=== PATIENT | male | born 1945 | race African-American/Black ===

== ENCOUNTER → 2017-05-07 | Outpatient (CLI) | payer BC ==
--- NOTE | 2017-05-07 15:25 | KCIC ---
EXAM: Lumbar spine MRI without contrast. HISTORY: Lower back pain and right lower extremity radiculopathy. TECHNIQUE: Multiplanar, multisequence magnetic resonance imaging of the lumbar spine was performed without contrast. COMPARISON: None. FINDINGS: There is mild S-shaped lumbar scoliosis. There is minimal retrolisthesis of L1 on L2 and L5 and S1. There is grade 1 anterolisthesis of L4 on L5. There is degenerative endplate remodeling with disc space narrowing, disc desiccation and Schmorl's node formation at the majority of the lower thoracic and lumbar levels. There is mild diffusely decreased T1 marrow signal intensity, not within limits to suggest a marrow infiltrative process. There is edema within the anterior inferior aspect of L1 and within the right lateral endplates at L5-S1, degenerative in etiology. No suspicious osseous lesion is seen. There are large right renal cysts, the largest of which measures 5.6 cm on the [id number]. At T12-L1, there is a posterior central to left paracentral disc protrusion with minimal inferior extrusion superimposed on a disc bulge and endplate remodeling. There is mild bilateral foraminal stenosis. At L1-L2, there is a right foraminal to extraforaminal disc protrusion superimposed on a disc bulge and endplate remodeling. There is mild right greater than left foraminal stenosis. At L2-L3, there is a broad-based posterior central to left foraminal disc protrusion with 4 mm superior extrusion superimposed on a disc bulge and endplate remodeling. There is moderate facet arthropathy. There is hypertrophy of the ligamentum flavum. There is mild to moderate right and moderate left foraminal stenosis. There is moderate central canal stenosis. At L3-L4, is a broad-based posterior central disc protrusion with 3 mm inferior extrusion superimposed on a disc bulge and endplate remodeling. There is moderate to severe facet arthropathy. There is mild bilateral foraminal stenosis. There is mild to moderate central canal stenosis. At L4-L5, there is a broad-based posterior central to left paracentral disc protrusion superimposed on a disc bulge and endplate remodeling. There is severe right and mild to moderate left facet arthropathy. There is grade 1 anterolisthesis. There is moderate right and mild left foraminal stenosis. There is mild central canal stenosis and effacement of the right lateral recess. At L5-S1, there is a left paracentral disc protrusion with 5 mm superior extrusion superimposed on a disc bulge and right lateral predominant endplate osteophytosis. There is moderate right and severe left facet arthropathy. There is severe right and mild left foraminal stenosis. IMPRESSION: 1. Multilevel advanced degenerative changes throughout the lumbar spine, described in detail above. This results in significant stenosis before mentioned levels. 2. Grade 1 anterolisthesis of L4 on L5 and mild scoliosis. Electronically signed by: Melissa Gaspar MD (05/07/2017 3:22 PM) [facility]
== END | disposition home or self-care (01) ==
LOC: KCIC MRI 14:15
PROVIDERS: ATTEND Internal Medicine
DX: M47.896 Other spondylosis, lumbar region (principal); M54.16 Radiculopathy, lumbar region; M41.86 Other forms of scoliosis, lumbar region
CPT/HCPCS: 72148

== ENCOUNTER 2020-10-27 05:59 | Inpatient (IN) | payer BC, MEDICARE ==
[2020-10-27] VITALS (23 sets, daily range): BP systolic 73–223; BP diastolic 44–79
[~2020-10-27] VITALS: Ht 177.8 cm; Wt 77.3 kg
[2020-10-27] MEDS ORDERED: LIDOCAINE 1% Multi-Dose 20 ML VIAL. ONE (06:30)
[2020-10-27] MEDS ORDERED: IV NORMAL SALINE 1000ML BAG 1,000 ML IV ONE ×4 (06:30→11:00)
[2020-10-27] MEDS ORDERED: ACETAMINOPHEN 650 MG SUPP.RECT. PR ONE (06:30)
[2020-10-27 06:32] LABS: CALCIUM 9.1 mg/dL (8.5-10.1); CREATININE 2.8 mg/dL (0.7-1.3); POTASSIUM 3.6 mmol/L (3.5-5.1)
[2020-10-27 06:37] LABS: ALBUMIN 3.3 g/dL (3.4-5.0); ALBUMIN/GLOBULIN RATIO 1.1 (1.0-1.7); TOTAL PROTEIN 6.3 g/dL (6.4-8.2)
[2020-10-27 06:45] LABS: MAGNESIUM 2.3 mg/dL (1.8-2.4)
[2020-10-27 06:51] LABS: BASE EXCESS ABG -6 mmol/L (-3-3); CORRECTED PCO2 ABG 20 mmHg; CORRECTED PH ABG 7.49; CORRECTED PO2 ABG 459 mmHg; HCO3 ABG 15 mmol/L (21-28); SAT O2 ABG 100 % (92-99)
[2020-10-27 06:53] LABS: PCO2 ABG 19 mmHg (35-46); PO2 ABG 450 mmHg (65-108)
[2020-10-27 06:56] LABS: BASO % 1 % (0-3); EOS # 0.1 x10^3/uL (0.0-0.7); EOS % 2 % (0-3); HEMATOCRIT 39.9 % (39.0-53.0); HEMOGLOBIN 13.7 g/dL (13.0-17.5); LYMPH % 33 % (24-48); MEAN CORPUSCULAR HEMOGLOBIN 37 pg (25-35); MEAN CORPUSCULAR HGB CONC 35 g/dL (31-37); MEAN CORPUSCULAR VOLUME 108 fL (79-100); MONO % 1 % (0-9); NEUT # 1.8 x10^3/uL (1.8-7.7); NEUT % 63 % (31-73); PLATELET COUNT 234 x10^3/uL (140-400); RED CELL DISTRIBUTION WIDTH 12.5 % (11.5-14.5); WHITE BLOOD COUNT 2.9 x10^3/uL (4.0-11.0)
[2020-10-27] MEDS ORDERED: PIPERACILLIN/TAZOBACTAM 3.375 GM in IV NORMAL SALINE 50ML 50 ML IV ONE (07:00)
[2020-10-27 07:03] LABS: BILIRUBIN,URINE SMALL (NEG); CLARITY,URINE CLOUDY; COLOR,URINE AMBER; NITRITE,URINE NEGATIVE (NEG); PH,URINE 5.5 (<5.0-8.0); PROTEIN,URINE 100 mg/dL (NEG-TRACE); UROBILINOGEN,URINE 0.2 mg/dL (0.2 mg/dL)
--- NOTE | 2020-10-27 07:03 | RAD ---
EXAM: AP View of the chest DATE: 10/27/2020 6:09 AM INDICATION: Reason: soa / Spl. Instructions: / History: COMPARISON: No Prior FINDINGS: The heart is not enlarged. Mediastinal and hilar contours are normal. No focal parenchymal airspace opacity. Calcified granuloma peripheral left lower lung. No pleural effusion or pneumothorax. IMPRESSION: 1. No radiographic evidence for acute cardiopulmonary process. Electronically signed by: Levi Wilson MD (10/27/2020 7:01 AM) [facility]
--- NOTE | 2020-10-27 07:27 | RAD ---
XR CHEST 1V, XR KNEE 3 VIEWS_RT Clinical History: Central venous line placement and fall with injury to right knee One view chest: Technique: AP view of the chest was obtained at 10/27/2020 6:59 AM. Comparison: None. Findings: The cardiomediastinal silhouette is normal. The pulmonary vasculature is normal. The lungs and pleura l margins are clear. The right jugular line has its tip directed downward in the mid to lower SVC. Impression: Right jugular line well-positioned. No pneumothorax. 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 The tibial component has a long intramedullary stem. The femo ral and tibial components are aligned and well seated. There is no interruption of cortex to suggest a fracture. IMPRESSION: Prior right knee total arthroplasty. No acute findings. Electronically signed by: Adria West III, MD (10/27/2020 7:24 AM) [facility]
[2020-10-27 07:34] LABS: INFLUENZA A PATIENT NEGATIVE (NEGATIVE); INFLUENZA B PATIENT NEGATIVE (NEGATIVE)
[2020-10-27 07:36] LABS: BACTERIA,URINE MANY /HPF (0-FEW); WBC,URINE TNTC /HPF (0-4)
--- NOTE | 2020-10-27 07:42 | PHYS DOC ---
General Adult EDM: Chief Complaint: ALTERED MENTAL STATUS HPI: HPI: Patient is a 75 year old who was brought here by EMS from home due to altered mental status. Per EMS patient called because she could not get him up from the floor. He has been laying on the floor since last night at 7 PM. She told EMS that patient was seen at the [place] 2 days ago for some medical problem. EMS said patient's could not provide much information about him. Not much information about patient was obtained. EMS said his blood pressure was low in the 70s systolic and his heart rate was 140 on scene. He appeared to have a fever. EMS stated patient was responsive to painful stimuli. Upon arrival to ER room, patient was responsive to painful stimuli and verbal stimulus BUT APPEARED LETHARGIC, HYPOTENSIVE, HYPOXIC AND TACHYCARDIA, WARM TO TOUCH, ON A NONE-REBREATHER. Review of Systems: Review of Systems: Not able to provide due to condition Heart Score: Risk Factors: Risk Factors: DM, Current or recent (<one month) smoker, HTN, HLP, family history of CAD, obesity. Risk Scores: Score 0 - 3: 2.5% MACE over next 6 weeks - Discharge Home Score 4 - 6: 20.3% MACE over next 6 weeks - Admit for Clinical Observation Score 7 - 10: 72.7% MACE over next 6 weeks - Early Invasive Strategies Current Medications: Current Medications Medications (Trade) Dose Ordered Sig/Ambrosio Start Time Stop Time Status Last Admin Dose Admin Acetaminophen (Tylenol Supp) 975 mg 1X ONCE 10/27/20 06:30 10/27/20 06:31 DC Lidocaine HCl (Lidocaine 1% 20ml Vial) 20 ml STK-MED ONCE 10/27/20 06:30 10/27/20 06:30 DC Piperacillin Sod/ Tazobactam Sod 3.375 gm/Sodium Chloride 50 ml @ 100 mls/hr 1X ONCE 10/27/20 07:00 10/27/20 07:29 DC Sodium Chloride 1,000 ml @ 1,000 mls/hr 1X ONCE 10/27/20 07:15 10/27/20 08:14 Allergies: Allergies: Allergies Coded Allergies Type Severity Reaction Last Updated Verified Unable to Assess 10/27/20 No Physical Exam: PE: Constitutional: Well developed, CACHECTIC, MODERATE acute distress, toxic a ppearance. [] HENT: Normocephalic, atraumatic, bilateral external ears normal, oropharynx DRIED, no oral exudates, nose normal. [] Eyes: PERRLA, EOMI, conjunctiva normal, no discharge. [] Neck: Normal range of motion, no tenderness, supple, no stridor. [] Cardiovascular: SINUS TACHYCARDIA, regular rhythm, no murmur [] Lungs & Thorax: Bilateral breath sounds clear to auscultation [] Abdomen: Bowel sounds normal, soft, no tenderness, no masses, no pulsatile masses. [] Skin: HOT TO TOUCH, dry, no erythema, no rash. [] Back: No tenderness, no CVA tenderness. [] Extremities: right anterior knee with superficial skin contusion, no cyanosis, no clubbing, ROM intact, no edema. [] Neurologic: Patient was lethargic but able to follow command, very confused, normal motor function, normal sensory function, no focal deficits noted. [] Psychologic:unable to evaluate due to condition. Current Patient Data: Labs: Laboratory Tests Test 10/27/20 06:08 10/27/20 06:15 10/27/20 06:30 10/27/20 06:55 O2 Saturation 100 % (92-99) H Arterial Blood pH 7.51 (7.35-7.45) H Arterial Blood pH (Temp corrected) 7.49 Arterial Blood pCO2 at Patient Temp 19 mmHg (35-46) *L Arterial Blood pCO2 (Temp correct) 20 mmHg Arterial Blood pO2 at Patient Temp 450 mmHg (65-108) H Arterial Blood pO2 (Temp corrected) 459 mmHg Arterial Blood HCO3 15 mmol/L (21-28) L Arterial Blood Base Excess -6 mmol/L (-3-3) L Sodium Level 150 mmol/L (136-145) H Potassium Level 3.6 mmol/L (3.5-5.1) Chloride Level 113 mmol/L (98-107) H Carbon Dioxide Level 19 mmol/L (21-32) L Anion Gap 18 (6-14) H Blood Urea Nitrogen 76 mg/dL (8-26) H Creatinine 2.8 mg/dL (0.7-1.3) H Estimated GFR (Cockcroft-Gault) 27.0 BUN/Creatinine Ratio 27 (6-20) H Glucose Level 92 mg/dL (70-99) Calcium Level 9.1 mg/dL (8.5-10.1) Magnesium Level 2.3 mg/dL (1.8-2.4) Total Bilirubin 2.0 mg/dL (0.2-1.0) H Aspartate Amino Transferase (AST) 201 U/L (15-37) H Alanine Aminotransferase (ALT) 92 U/L (16-63) H Alkaline Phosphatase 101 U/L (46-116) Creatine Kinase 6272 U/L (39-308) H Troponin I Quantitative 0.330 ng/mL (0.000-0.055) Total Protein 6.3 g/dL (6.4-8.2) L Albumin 3.3 g/dL (3.4-5.0) L Albumin/Globulin Ratio 1.1 (1.0-1.7) Lipase 38 U/L (73-393) L White Blood Count 2.9 x10^3/uL (4.0-11.0) L Red Blood Count 3.70 x10^6/uL (4.30-5.70) L Hemoglobin 13.7 g/dL (13.0-17.5) Hematocrit 39.9 % (39.0-53.0) Mean Corpuscular Volume 108 fL (79-100) H Mean Corpuscular Hemoglobin 37 pg (25-35) H Mean Corpuscular Hemoglobin Concent 35 g/dL (31-37) Red Cell Distribution Width 12.5 % (11.5-14.5) Platelet Count 234 x10^3/uL (140-400) Neutrophils (%) (Auto) 63 % (31-73) Lymphocytes (%) (Auto) 33 % (24-48) Monocytes (%) (Auto) 1 % (0-9) Eosinophils (%) (Auto) 2 % (0-3) Basophils (%) (Auto) 1 % (0-3) Neutrophils # (Auto) 1.8 x10^3/uL (1.8-7.7) Lymphocytes # (Auto) 1.0 x10^3/uL (1.0-4.8) Monocytes # (Auto) 0.0 x10^3/uL (0.0-1.1) Eosinophils # (Auto) 0.1 x10^3/uL (0.0-0.7) Basophils # (Auto) 0.0 x10^3/uL (0.0-0.2) Platelet Estimate Pending Lactic Acid Level 5.9 mmol/L (0.4-2.0) *H Ammonia 18 mcmol/L (11-34) Urine Collection Type Unknown Urine Color Kristin Urine Clarity Cloudy Urine pH 5.5 (<5.0-8.0) Urine Specific [place] 1.015 (1.000-1.030) Urine Protein 100 mg/dL (NEG-TRACE) Urine Glucose (UA) Negative mg/dL (NEG) Urine Ketones (Stick) Trace mg/dL (NEG) Urine Blood Large (NEG) Urine Nitrite Negative (NEG) Urine Bilirubin Small (NEG) Urine Urobilinogen Dipstick 0.2 mg/dL (0.2 mg/dL) Urine Leukocyte Esterase Large (NEG) Urine RBC 6-10 /HPF (0-2) Urine WBC Tntc /HPF (0-4) Urine Bacteria Many /HPF (0-FEW) Test 10/27/20 07:05 Influenza Type A Antigen Negative (NEGATIVE) Influenza Type B Antigen Negative (NEGATIVE) Laboratory Tests 10/27/20 06:30 Laboratory Tests 10/27/20 06:15 EKG: EKG: First EKG WAS DONE AT 603, heart rate of 149 beats per minute, sinus tachycardia, diffuse ST depression in V4 ,V5, V6, II, III, 3 and aVF Second EKG was done at 730, heart rate of 73 bpm, sinus rhythm, PVC complex, no ST segment elevation. Radiology/Procedures: Radiology/Procedures: [][facility] [address] [place] [address] IMAGING REPORT Signed PATIENT: AURORA COREA ACCOUNT: [id number] : 1945 LOCATION: ER AGE: 75 SEX: M EXAM STATUS: REG ER ORD. PHYSICIAN: THONG ROUSSEAU DO REASON: soa PROCEDURE: PORTABLE CHEST 1V EXAM: AP View of the chest DATE: 10/27/2020 6:09 AM INDICATION: Reason: soa / Spl. Instructions: / History: COMPARISON: No Prior FINDINGS: The heart is not enlarged. Mediastinal and hilar contours are normal. No focal parenchymal airspace opacity. Calcified granuloma peripheral left lower lung. No pleural effusion or pneumothorax. IMPRESSION: 1. No radiographic evidence for acute cardiopulmonary process. Electronically signed by: Levi Hodges MD (10/27/2020 7:01 AM) [facility] DICTATED and SIGNED BY: LEVI HODGES MD DATE: 10/27/20 [id number] [facility] [address] [place] [address] IMAGING REPORT Signed PATIENT: AURORA COREA ACCOUNT: [id number] : 1945 LOCATION: ER AGE: 75 SEX: M EXAM STATUS: REG ER ORD. PHYSICIAN: THONG ROUSSEAU DO REASON: RIGHT CVL PLACEMENT PROCEDURE: CHEST AP ONLY XR CHEST 1V, XR KNEE 3 VIEWS_RT Clinical History: Central venous line placement and fall with injury to right knee One view chest: Technique: AP view of the chest was obtained at 10/27/2020 6:59 AM. Comparison: None. Findings: The cardiomediastinal silhouette is normal. The pulmonary vasculature is normal. The lungs and pleural margins are clear. The right jugular line has its tip directed downward in the mid to lower SVC. Impression: Right jugular line well-positioned. No pneumothorax. 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 The tibial component has a long intramedullary stem. The femoral and tibial components are aligned and well seated. There is no interruption of cortex to suggest a fracture. IMPRESSION: Prior right knee total arthroplasty. No acute findings. Electronically signed by: Mac Nieto III, MD (10/27/2020 7:24 AM) [facility] DICTATED and SIGNED BY: MAC NIETO III, MD DATE: 10/27/20 [id number] [facility] [address] [place], [place] [id number] IMAGING REPORT Signed PATIENT: AURORA COREA ACCOUNT: [id number] : 1945 LOCATION: [address] [place] [address] AGE: 75 SEX: M EXAM STATUS: ADM IN ORD. PHYSICIAN: THONG ROUSSEAU DO REASON: FOUND ON THE FLOOR, AMS PROCEDURE: CT HEAD AND CERVICAL SPINE WO CT HEAD AND C-SPINE WO Date: 10/27/2020 7:01 AM Clinical Indication: Reason: FOUND ON THE FLOOR, AMS / Spl. Instructions: / History: Comparison: None. Technique: 5 mm axial tomographic images were obtained of the head without contrast. These were viewed on brain and bone windows. Noncontrast CT of the cervical spine was performed. Sagittal and coronal reformats were performed and evaluated. One or more of the following dose reduction techniques were utilized: Automated exposure control (AEC), Adjustment of mA and/or kV according to christopher ent size, Use of iterative reconstruction technique such as ASiR, CT scan done according to ALARA and image gently/image wisely HEAD FINDINGS: Mild generalized cerebral and cerebellar volume loss. Mild nonspecific periventricular hypoattenuation, most commonly seen with chronic small vessel ischemic disease. No intra- or extra-axial mass or fluid collection. No acute hemorrhage. The ventricles are normal in size, shape, and morphology. The mir-white matter junction is normal. The basilar cisterns are patent. The visualized paranasal sinuses are normal. The visualized portions of the or bits and globes are normal. The mastoid air cells are clear. No aggressive osseous lesion or fracture. CERVICAL SPINE FINDINGS: The cervical spine is normally aligned. No acute fracture. No aggressive lytic or blastic osseous lesions. Moderate multilevel degenerative disc space height loss. Multilevel mild and moderate spinal canal stenosis secondary to disc protrusions and marginal osteophytes. Multilevel moderate neuroforaminal narrowing secondary to uncovertebral arthrosis. Multilevel mild and moderate facet arthrosis. The thyroid gland is normal. No cervical lymphadenopathy. Bilateral carotid atherosclerosis. The visualized aerodigestive tract is normal. The visualized portions of the lungs are clear. IMPRESSION: 1. No acute intracranial process. 2. No acute cervical spine fracture. Electronically signed by: Marbin Simon MD (10/27/2020 10:01 AM) [id number] DICTATED and SIGNED BY: MARBIN SIMON MD DATE: 10/27/20 [id number] CENTRAL VENOUS LINE PLACEMENT: Indication: Vascular access Consent: EMERGENT CONSENT Procedure: The patient was positioned appropriately and the skin over the RIGHT SIDE NECK, RIGHT IJ VEIN was prepped and draped in a sterile fashion. Local anesthesia was used. Ultrasound guidance utilized. A large bore needle was used to identify the vein. A guide wire was then inserted into the vein through the needle. A triple lumen catheter was then inserted into the vessel over the guide wire using the Seldinger technique. All ports showed good, free flowing blood return and were flushed with saline solution. The catheter was then securely fastened to the skin with sutures and covered with a sterile dressing. A post procedure X-ray was ordered. The patient tolerated the procedure well. Complications: none. Critical care time was [60] minutes which includes time at bedside, spent in d iscussion of patient's care with specialist and/or family members, with interpretation of laboratory and/or radiological studies and is exclusive of procedures. Course & Med Decision Making: Course & Med Decision Making Pertinent Labs and Imaging studies reviewed. (See chart for details) Patient is a 75-year-old male who was found to be in septic shock, acute renal failure, dehydration, highly suspect COVID-19 infection, rhabdomyolysis. Patient was given 3 L normal saline bolus in ER, his condition improved. A Freeman catheter was placed, large amount of urine collected with highly concentrated. He was found to have a UTI. Patient said he is not allergic to anything, patient was given IV Zosyn. Discussed case with Dr. Castro who agreed to admit the patient. Madelaine Disclaimer: Madelaine Disclaimer: This electronic medical record was generated, in whole or in part, using a voice recognition dictation system. Departure Departure Impression: Primary Impression: Septic shock Additional Impressions: Acute renal failure Dehydration Person under investigation for COVID-19 Rhabdomyolysis UTI (urinary tract infection) Disposition: 09 ADMITTED INPT THIS HOSP Admitting Physician: NACHO (DR. CASTRO) Condition: IMPROVED Referrals: NO PCP (PCP) THONG ROUSSEAU DO Oct 27, 2020 07:42
[2020-10-27] MEDS ORDERED: ONDANSETRON PF 4 MG/2 ML VIAL. IV PRN (08:15)
[2020-10-27] MEDS ORDERED: NOREPINEPHRINE VIAL 8 MG in IV DEXTROSE 5% 250 ML IV ONE (08:15)
[2020-10-27] MEDS ORDERED: CONTRAST GIVEN. MC PRN (08:45)
[2020-10-27] MEDS ORDERED: IOHEXOL 350 MG/ML 100 ML VIAL. IV ONE (08:45)
--- NOTE | 2020-10-27 08:56 | PDOC1 ---
History and Physical Date of Admission Date of Admission DATE: 10/27/20 TIME: 08:56 Identification/Chief Complaint Chief Complaint AMS, SEPSIS History of Present Illness History of Present Illness 75 year old who was brought here by EMS from home due to altered mental status. // called because she could not get him up from the floor. has been laying on the floor since last night at 7 PM. She told EMS that patient was seen at the [facility] 2 days ago EMS said patient's could not provide much information about him. EMS said his blood pressure was low in the 70s systolic and his heart rate was 140 on scene. He appeared to have a fever. EMS stated patient was responsive to painful stimuli. Upon arrival to ER room, patient was responsive to painful stimuli and verbal stimulus BUT APPEARED LETHARGIC, HYPOTENSIVE, HYPOXIC AND TACHYCARDIA, WARM TO TOUCH, ON A NONE-REBREATHER. PRESSORS STARTED , FEBRILE Family History Family History: Hypertension Current Problem List Problem List Problems Medical Problems: (1) Acute renal failure Status: Acute (2) Dehydration Status: Acute (3) Person under investigation for COVID-19 Status: Acute (4) Rhabdomyolysis Status: Acute (5) Septic shock Status: Acute (6) UTI (urinary tract infection) Status: Acute Current Medications Current Medications Current Medications Sodium Chloride 1,000 ml @ 1,000 mls/hr 1X ONCE IV Last administered on 10/27/20at 06:45; Start 10/27/20 at 06:30; Stop 10/27/20 at 07:29; Status DC Acetaminophen (Tylenol Supp) 975 mg 1X ONCE NE Last administered on 10/27/20at 07:30; Start 10/27/20 at 06:30; Stop 10/27/20 at 06:31; Status DC Lidocaine HCl (Lidocaine 1% 20ml Vial) 20 ml STK-MED ONCE .ROUTE ; Start 10/27/20 at 06:30; Stop 10/27/20 at 06:30; Status DC Sodium Chloride 1,000 ml @ 1,000 mls/hr 1X ONCE IV Last administered on 10/27/20at 06:45; Start 10/27/20 at 07:00; Stop 10/27/20 at 07:59; Status DC Piperacillin Sod/ Tazobactam Sod 3.375 gm/Sodium Chloride 50 ml @ 100 mls/hr 1X ONCE IV Last administered on 10/27/20at 07:58; Start 10/27/20 at 07:00; Stop 10/27/20 at 07:29; Status DC Sodium Chloride 1,000 ml @ 1,000 mls/hr 1X ONCE IV Last administered on 10/27/20at 07:57; Start 10/27/20 at 07:15; Stop 10/27/20 at 08:14; Status DC Norepinephrine Bitartrate 8 mg/ Dextrose 258 ml @ 12.848 mls/ hr 1X ONCE IV Last administered on 10/27/20at 08:42; Start 10/27/20 at 08:15; Stop 10/28/20 at 04:19 Ondansetron HCl (Zofran) 4 mg PRN Q8HRS PRN IV NAUSEA/VOMITING; Start 10/27/20 at 08:15; Stop 10/28/20 at 08:14 Sodium Chloride 1,000 ml @ 125 mls/hr Q8H IV ; Start 10/27/20 at 08:15; Stop 10/28/20 at 08:14 Iohexol (Omnipaque 350 Mg/ml) 100 ml 1X ONCE IV ; Start 10/27/20 at 08:45; Stop 10/27/20 at 08:46; Status DC Info (CONTRAST GIVEN -- Rx MONITORING) 1 each PRN DAILY PRN MC SEE COMMENTS; Start 10/27/20 at 08:45; Stop 10/29/20 at 08:44 Allergies Allergies: Coded Allergies: Unable to Assess (Unverified , 10/27/20) ROS Review of System UNABLE TO PARTICIPATE DUE TO AMS Physical Exam Physical Exam Constitutional: Well developed, CACHECTIC, MODERATE acute distress, toxic appearance. [] HENT: Normocephalic, atraumatic, bilateral external ears normal, oropharynx DRIED, no oral exudates, nose normal. [] Eyes: PERRLA, EOMI, conjunctiva normal, no discharge. [] Neck: Normal range of motion, no tenderness, supple, no stridor. [] Cardiovascular: SINUS TACHYCARDIA, regular rhythm, no murmur [] Lungs & Thorax: Bilateral breath sounds clear to auscultation [] Abdomen: Bowel sounds normal, soft, no tenderness, no masses, no pulsatile masses. [] Skin: HOT TO TOUCH, dry, no erythema, no rash. [] Back: No tenderness, no CVA tenderness. [] Extremities: right anterior knee with superficial skin contusion, no cyanosis, no clubbing, ROM intact, no edema. [] Neurologic: Patient was lethargic but able to follow command, very confused, normal motor function, normal sensory function, no focal deficits noted. [] Psychologic:unable to evaluate due to condition. HEENT: Atraumatic Abdomen: Soft Rectal Exam: not examined PELVIC: Examination not indicated Extremities: No cyanosis Vitals Vitals Vital Signs Date Time Temp Pulse Resp B/P (MAP) Pulse Ox O2 Delivery O2 Flow Rate FiO2 10/27/20 08:36 98.6 76 30 100 98.6 10/27/20 06:00 94/44 (61) NonRebreather Mask 15.0 Labs Labs Laboratory Tests Test 10/27/20 06:08 10/27/20 06:15 10/27/20 06:30 10/27/20 06:55 O2 Saturation 100 % (92-99) Arterial Blood pH 7.51 (7.35-7.45) Arterial Blood pH (Temp corrected) 7.49 Arterial Blood pCO2 at Patient Temp 19 mmHg (35-46) Arterial Blood pCO2 (Temp correct) 20 mmHg Arterial Blood pO2 at Patient Temp 450 mmHg (65-108) Arterial Blood pO2 (Temp corrected) 459 mmHg Arterial Blood HCO3 15 mmol/L (21-28) Arterial Blood Base Excess -6 mmol/L (-3-3) Sodium Level 150 mmol/L (136-145) Potassium Level 3.6 mmol/L (3.5-5.1) Chloride Level 113 mmol/L (98-107) Carbon Dioxide Level 19 mmol/L (21-32) Anion Gap 18 (6-14) Blood Urea Nitrogen 76 mg/dL (8-26) Creatinine 2.8 mg/dL (0.7-1.3) Estimated GFR (Cockcroft-Gault) 27.0 BUN/Creatinine Ratio 27 (6-20) Glucose Level 92 mg/dL (70-99) Calcium Level 9.1 mg/dL (8.5-10.1) Magnesium Level 2.3 mg/dL (1.8-2.4) Total Bilirubin 2.0 mg/dL (0.2-1.0) Aspartate Amino Transf (AST/SGOT) 201 U/L (15-37) Alanine Aminotransferase (ALT/SGPT) 92 U/L (16-63) Alkaline Phosphatase 101 U/L (46-116) Creatine Kinase 6272 U/L (39-308) Troponin I Quantitative 0.330 ng/mL (0.000-0.055) Total Protein 6.3 g/dL (6.4-8.2) Albumin 3.3 g/dL (3.4-5.0) Albumin/Globulin Ratio 1.1 (1.0-1.7) Lipase 38 U/L (73-393) White Blood Count 2.9 x10^3/uL (4.0-11.0) Red Blood Count 3.70 x10^6/uL (4.30-5.70) Hemoglobin 13.7 g/dL (13.0-17.5) Hematocrit 39.9 % (39.0-53.0) Mean Corpuscular Volume 108 fL (79-100) Mean Corpuscular Hemoglobin 37 pg (25-35) Mean Corpuscular Hemoglobin Concent 35 g/dL (31-37) Red Cell Distribution Width 12.5 % (11.5-14.5) Platelet Count 234 x10^3/uL (140-400) Neutrophils (%) (Auto) 63 % (31-73) Lymphocytes (%) (Auto) 33 % (24-48) Monocytes (%) (Auto) 1 % (0-9) Eosinophils (%) (Auto) 2 % (0-3) Basophils (%) (Auto) 1 % (0-3) Neutrophils # (Auto) 1.8 x10^3/uL (1.8-7.7) Lymphocytes # (Auto) 1.0 x10^3/uL (1.0-4.8) Monocytes # (Auto) 0.0 x10^3/uL (0.0-1.1) Eosinophils # (Auto) 0.1 x10^3/uL (0.0-0.7) Basophils # (Auto) 0.0 x10^3/uL (0.0-0.2) Lactic Acid Level 5.9 mmol/L (0.4-2.0) Ammonia 18 mcmol/L (11-34) Urine Collection Type Unknown Urine Color Kristin Urine Clarity Cloudy Urine pH 5.5 (<5.0-8.0) Urine Specific [place] 1.015 (1.000-1.030) Urine Protein 100 mg/dL (NEG-TRACE) Urine Glucose (UA) Negative mg/dL (NEG) Urine Ketones (Stick) Trace mg/dL (NEG) Urine Blood Large (NEG) Urine Nitrite Negative (NEG) Urine Bilirubin Small (NEG) Urine Urobilinogen Dipstick 0.2 mg/dL (0.2 mg/dL) Urine Leukocyte Esterase Large (NEG) Urine RBC 6-10 /HPF (0-2) Urine WBC Tntc /HPF (0-4) Urine Bacteria Many /HPF (0-FEW) Test 10/27/20 07:05 Influenza Type A Antigen Negative (NEGATIVE) Influenza Type B Antigen Negative (NEGATIVE) Laboratory Tests Test 10/27/20 06:08 10/27/20 06:15 10/27/20 06:30 10/27/20 06:55 O2 Saturation 100 % (92-99) Arterial Blood pH 7.51 (7.35-7.45) Arterial Blood pH (Temp corrected) 7.49 Arterial Blood pCO2 at Patient Temp 19 mmHg (35-46) Arterial Blood pCO2 (Temp correct) 20 mmHg Arterial Blood pO2 at Patient Temp 450 mmHg (65-108) Arterial Blood pO2 (Temp corrected) 459 mmHg Arterial Blood HCO3 15 mmol/L (21-28) Arterial Blood Base Excess -6 mmol/L (-3-3) Sodium Level 150 mmol/L (136-145) Potassium Level 3.6 mmol/L (3.5-5.1) Chloride Level 113 mmol/L (98-107) Carbon Dioxide Level 19 mmol/L (21-32) Anion Gap 18 (6-14) Blood Urea Nitrogen 76 mg/dL (8-26) Creatinine 2.8 mg/dL (0.7-1.3) Estimated GFR (Cockcroft-Gault) 27.0 BUN/Creatinine Ratio 27 (6-20) Glucose Level 92 mg/dL (70-99) Calcium Level 9.1 mg/dL (8.5-10.1) Magnesium Level 2.3 mg/dL (1.8-2.4) Total Bilirubin 2.0 mg/dL (0.2-1.0) Aspartate Amino Transf (AST/SGOT) 201 U/L (15-37) Alanine Aminotransferase (ALT/SGPT) 92 U/L (16-63) Alkaline Phosphatase 101 U/L (46-116) Creatine Kinase 6272 U/L (39-308) Troponin I Quantitative 0.330 ng/mL (0.000-0.055) Total Protein 6.3 g/dL (6.4-8.2) Albumin 3.3 g/dL (3.4-5.0) Albumin/Globulin Ratio 1.1 (1.0-1.7) Lipase 38 U/L (73-393) White Blood Count 2.9 x10^3/uL (4.0-11.0) Red Blood Count 3.70 x10^6/uL (4.30-5.70) Hemoglobin 13.7 g/dL (13.0-17.5) Hematocrit 39.9 % (39.0-53.0) Mean Corpuscular Volume 108 fL (79-100) Mean Corpuscular Hemoglobin 37 pg (25-35) Mean Corpuscular Hemoglobin Concent 35 g/dL (31-37) Red Cell Distribution Width 12.5 % (11.5-14.5) Platelet Count 234 x10^3/uL (140-400) Neutrophils (%) (Auto) 63 % (31-73) Lymphocytes (%) (Auto) 33 % (24-48) Monocytes (%) (Auto) 1 % (0-9) Eosinophils (%) (Auto) 2 % (0-3) Basophils (%) (Auto) 1 % (0-3) Neutrophils # (Auto) 1.8 x10^3/uL (1.8-7.7) Lymphocytes # (Auto) 1.0 x10^3/uL (1.0-4.8) Monocytes # (Auto) 0.0 x10^3/uL (0.0-1.1) Eosinophils # (Auto) 0.1 x10^3/uL (0.0-0.7) Basophils # (Auto) 0.0 x10^3/uL (0.0-0.2) Lactic Acid Level 5.9 mmol/L (0.4-2.0) Ammonia 18 mcmol/L (11-34) Urine Collection Type Unknown Urine Color Kristin Urine Clarity Cloudy Urine pH 5.5 (<5.0-8.0) Urine Specific [place] 1.015 (1.000-1.030) Urine Protein 100 mg/dL (NEG-TRACE) Urine Glucose (UA) Negative mg/dL (NEG) Urine Ketones (Stick) Trace mg/dL (NEG) Urine Blood Large (NEG) Urine Nitrite Negative (NEG) Urine Bilirubin Small (NEG) Urine Urobilinogen Dipstick 0.2 mg/dL (0.2 mg/dL) Urine Leukocyte Esterase Large (NEG) Urine RBC 6-10 /HPF (0-2) Urine WBC Tntc /HPF (0-4) Urine Bacteria Many /HPF (0-FEW) Test 10/27/20 07:05 Influenza Type A Antigen Negative (NEGATIVE) Influenza Type B Antigen Negative (NEGATIVE) Images Images XR CHEST 1V, XR KNEE 3 VIEWS_RT Clinical History: Central venous line placement and fall with injury to right knee One view chest: Technique: AP view of the chest was obtained at 10/27/2020 6:59 AM. Comparison: None. Findings: The cardiomediastinal silhouette is normal. The pulmonary vasculature is normal. The lungs and pleural margins are clear. The right jugular line has its tip directed downward in the mid to lower SVC. Impression: Right jugular line well-positioned. No pneumothorax. 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 The tibial component has a long intramedullary stem. The femoral and tibial components are aligned and well seated. There is no interruption of cortex to suggest a fracture. IMPRESSION: Prior right knee total arthroplasty. No acute findings. Electronically signed by: Mac Nieto III, MD (10/27/2020 7:24 AM) [facility] DICTATED and SIGNED BY: MAC NIETO III, MD PATIENT: AURORA COREA ACCOUNT: [id number] : 1945 LOCATION: ER AGE: 75 SEX: M EXAM STATUS: REG ER ORD. PHYSICIAN: THONG ROUSSEAU DO REASON: soa PROCEDURE: PORTABLE CHEST 1V EXAM: AP View of the chest DATE: 10/27/2020 6:09 AM INDICATION: Reason: soa / Spl. Instructions: / History: COMPARISON: No Prior FINDINGS: The heart is not enlarged. Mediastinal and hilar contours are normal. No focal parenchymal airspace opacity. Calcified granuloma peripheral left lower lung. No pleural effusion or pneumothorax. IMPRESSION: 1. No radiographic evidence for acute cardiopulmonary process. Electronically signed by: Levi Hodges MD (10/27/2020 7:01 AM) [facility] DI[facility]ATED and SIGNED BY: LEVI HODGES MD DATE: 10/27/[id number] HEAD AND C-SPINE WO Date: 10/27/2020 7:01 AM Clinical Indication: Reason: FOUND ON THE FLOOR, AMS / Spl. Instructions: / History: Comparison: None. Technique: 5 mm axial tomographic images were obtained of the head without contrast. These were viewed on brain and bone windows. Noncontrast CT of the cervical spine was performed. Sagittal and coronal reformats were performed and evaluated. One or more of the following dose reduction techniques were utilized: Automated exposure control (AEC), Adjustment of mA and/or kV according to patient size, Use of iterative reconstruction technique such as ASiR, CT scan done according to ALARA and image gently/image wisely HEAD FINDINGS: Mild generalized cerebral and cerebellar volume loss. Mild nonspecific periventricular hypoattenuation, most commonly seen with chronic small vessel ischemic disease. No intra- or extra-axial mass or fluid collection. No acute hemorrhage. The ventricles are normal in size, shape, and morphology. The mir-white matter junction is normal. The basilar cisterns are patent. The visualized paranasal sinuses are normal. The visualized portions of the orbits and globes are normal. The mastoid air cells are clear. No aggressive osseous lesion or fracture. CERVICAL SPINE FINDINGS: The cervical spine is normally aligned. No acute fracture. No aggressive lytic or blastic osseous lesions. Moderate multilevel degenerative disc space height loss. Multilevel mild and moderate spinal canal stenosis secondary to disc protrusions and marginal osteophytes. Multilevel moderate neuroforaminal narrowing secondary to uncovertebral arthrosis. Multilevel mild and moderate facet arthrosis. The thyroid gland is normal. No cervical lymphadenopathy. Bilateral carotid atherosclerosis. The visualized aerodigestive tract is normal. The visualized portions of the lungs are clear. IMPRESSION: 1. No acute intracranial process. 2. No acute cervical spine fracture. Electronically signed by: Marbin Simon MD (10/27/2020 10:01 AM) [id number] DICTATED and SIGNED BY: MARBIN SIMON MD DATE: 10/27/20 [id number] XR CHEST 1V, XR KNEE 3 VIEWS_RT Clinical History: Central venous line placement and fall with injury to right knee One view chest: Technique: AP view of the chest was obtained at 10/27/2020 6:59 AM. Comparison: None. Findings: The cardiomediastinal silhouette is normal. The pulmonary vasculature is normal. The lungs and pleural margins are clear. The right jugular line has its tip directed downward in the mid to lower SVC. Impression: Right jugular line well-positioned. No pneumothorax. 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 The tibial component has a long intramedullary stem. The femoral and tibial components are aligned and well seated. There is no interruption of cortex to suggest a fracture. IMPRESSION: Prior right knee total arthroplasty. No acute findings. Electronically signed by: Mac Nieto III, MD (10/27/2020 7:24 AM) [facility] DICTATED and SIGNED BY: MAC NIETO III, MD VTE Prophylaxis Ordered VTE Prophylaxis Devices: Yes VTE Pharmacological Prophylaxi: Yes Assessment/Plan Assessment/Plan Impression: Septic shock LACTIC ACIDOSIS Acute renal INJURY Dehydration Person under investigation for COVID-19 Rhabdomyolysis UTI (urinary tract infection) NSTEMI: 0.3 suspect demand mediated acute Metabolic encephalopathy PUI UTI FEVER rhabdomyolysis ADMITTED ICU BED ID CONSULT Nephrology consult emperic iv asntibiotics consult 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
[2020-10-27 09:34] LABS: % BANDS 5 % (0-9); % LYMPHS 42 % (24-48); % MONOS 7 % (0-10); % SEGS 46 % (35-66)
[2020-10-27 09:35] LABS: PLT ESTIMATE ADEQUATE (ADEQUATE)
--- NOTE | 2020-10-27 09:44 | PDOC2 ---
ROSEANN NI CHIEF OPERATOR 10/27/20 0944: CARDIAC CONSULT DATE OF CONSULT Date of Consult DATE: 10/27/20 TIME: 09:33 REASON FOR CONSULT Reason for Consult: Elevated troponin REFERRING PHYSICIAN Referring Physician: Juan Luis SOURCE Source: Chart review HISTORY OF PRESENT ILLNESS HISTORY OF PRESENT ILLNESS This is a 75 yo male admitted for altered mental status. Currently he is very drowsy and weak and unable to speak but arousable. I tried to contact her 2x but no response and staff has not been able to contact her as well. Per chart review. He was found on the floor by his and unable to get him up. EMS was called and noted him to be very hypotensive but responsive to verbal and painful stimuli. He was not hypoxic presently and on O2 2LPM flat without any respiratory distress but has been febrile. It does not appear he is in plain but also unclear if actually fell to the floor and how long he was on the floor. No traumatic injury so far. [facility] records reviewed with nurse and it does not appear per records that pt has any past hx of CAD, CVA, arrhythmias nor VTE. [facility]. No meds noted as far as ASA HTN and HLP meds. No inhalers as well. PAST MEDICAL HISTORY Musculoskeletal: Osteoarthritis ENT: Other (glaucoma) PAST SURGICAL HISTORY Past Surgical History: Other (unknown) FAMILY HISTORY Family History: Family History Unknown SOCIAL HISTORY Social History unknown CURRENT MEDICATIONS CURRENT MEDICATIONS Current Medications Medications (Trade) Dose Ordered Sig/Ambrosio Route PRN Reason Start Time Stop Time Status Last Admin Dose Admin Sodium Chloride 1,000 ml @ 1,000 mls/hr 1X ONCE IV 10/27/20 06:30 10/27/20 07:29 DC 10/27/20 06:45 Acetaminophen (Tylenol Supp) 975 mg 1X ONCE CO 10/27/20 06:30 10/27/20 06:31 DC 10/27/20 07:30 Sodium Chloride 1,000 ml @ 1,000 mls/hr 1X ONCE IV 10/27/20 07:00 10/27/20 07:59 DC 10/27/20 06:45 Piperacillin Sod/ Tazobactam Sod 3.375 gm/Sodium Chloride 50 ml @ 100 mls/hr 1X ONCE IV 10/27/20 07:00 10/27/20 07:29 DC 10/27/20 07:58 Sodium Chloride 1,000 ml @ 1,000 mls/hr 1X ONCE IV 10/27/20 07:15 10/27/20 08:14 DC 10/27/20 07:57 Norepinephrine Bitartrate 8 mg/ Dextrose 258 ml @ 12.848 mls/ hr 1X ONCE IV 10/27/20 08:15 10/28/20 04:19 10/27/20 08:42 ALLERGIES ALLERGIES: Coded Allergies: Unable to Assess (Unverified , 10/27/20) ROS Review of System unreliable, nonverbal PHYSICAL EXAM General: Other (lethargic) HEENT: Atraumatic, Mucous membr. moist/pink Lungs: Other (diminished bases) Heart: Regular rate (SR/ST with LBBB), Normal S1, Normal S2, No murmurs Abdomen: Soft Extremities: No cyanosis, No edema Skin: No significant lesion Neuro: Other (lethargic, opens eyes with verbal stimuli) MUSCULOSKELETAL: Osteoarthritic changes both hands VITALS/I&O VITALS/I&O: Vital Signs Date Time Temp Pulse Resp B/P (MAP) Pulse Ox O2 Delivery O2 Flow Rate FiO2 10/27/20 08:36 98.6 76 30 100 98.6 10/27/20 06:00 94/44 (61) NonRebreather Mask 15.0 LABS Lab: Laboratory Tests Test 10/27/20 06:08 10/27/20 06:15 10/27/20 06:30 10/27/20 06:55 O2 Saturation 100 % (92-99) H Arterial Blood pH 7.51 (7.35-7.45) H Arterial Blood pH (Temp corrected) 7.49 Arterial Blood pCO2 at Patient Temp 19 mmHg (35-46) *L Arterial Blood pCO2 (Temp correct) 20 mmHg Arterial Blood pO2 at Patient Temp 450 mmHg (65-108) H Arterial Blood pO2 (Temp corrected) 459 mmHg Arterial Blood HCO3 15 mmol/L (21-28) L Arterial Blood Base Excess -6 mmol/L (-3-3) L Sodium Level 150 mmol/L (136-145) H Potassium Level 3.6 mmol/L (3.5-5.1) Chloride Level 113 mmol/L (98-107) H Carbon Dioxide Level 19 mmol/L (21-32) L Anion Gap 18 (6-14) H Blood Urea Nitrogen 76 mg/dL (8-26) H Creatinine 2.8 mg/dL (0.7-1.3) H Estimated GFR (Cockcroft-Gault) 27.0 BUN/Creatinine Ratio 27 (6-20) H Glucose Level 92 mg/dL (70-99) Calcium Level 9.1 mg/dL (8.5-10.1) Magnesium Level 2.3 mg/dL (1.8-2.4) Total Bilirubin 2.0 mg/dL (0.2-1.0) H Aspartate Amino Transferase (AST) 201 U/L (15-37) H Alanine Aminotransferase (ALT) 92 U/L (16-63) H Alkaline Phosphatase 101 U/L (46-116) Creatine Kinase 6272 U/L (39-308) H Troponin I Quantitative 0.330 ng/mL (0.000-0.055) Total Protein 6.3 g/dL (6.4-8.2) L Albumin 3.3 g/dL (3.4-5.0) L Albumin/Globulin Ratio 1.1 (1.0-1.7) Lipase 38 U/L (73-393) L White Blood Count 2.9 x10^3/uL (4.0-11.0) L Red Blood Count 3.70 x10^6/uL (4.30-5.70) L Hemoglobin 13.7 g/dL (13.0-17.5) Hematocrit 39.9 % (39.0-53.0) Mean Corpuscular Volume 108 fL (79-100) H Mean Corpuscular Hemoglobin 37 pg (25-35) H Mean Corpuscular Hemoglobin Concent 35 g/dL (31-37) Red Cell Distribution Width 12.5 % (11.5-14.5) Platelet Count 234 x10^3/uL (140-400) Neutrophils (%) (Auto) 63 % (31-73) Lymphocytes (%) (Auto) 33 % (24-48) Monocytes (%) (Auto) 1 % (0-9) Eosinophils (%) (Auto) 2 % (0-3) Basophils (%) (Auto) 1 % (0-3) Neutrophils # (Auto) 1.8 x10^3/uL (1.8-7.7) Lymphocytes # (Auto) 1.0 x10^3/uL (1.0-4.8) Monocytes # (Auto) 0.0 x10^3/uL (0.0-1.1) Eosinophils # (Auto) 0.1 x10^3/uL (0.0-0.7) Basophils # (Auto) 0.0 x10^3/uL (0.0-0.2) Platelet Estimate Pending Lactic Acid Level 5.9 mmol/L (0.4-2.0) *H Ammonia 18 mcmol/L (11-34) Urine Collection Type Unknown Urine Color Kristin Urine Clarity Cloudy Urine pH 5.5 (<5.0-8.0) Urine Specific [place] 1.015 (1.000-1.030) Urine Protein 100 mg/dL (NEG-TRACE) Urine Glucose (UA) Negative mg/dL (NEG) Urine Ketones (Stick) Trace mg/dL (NEG) Urine Blood Large (NEG) Urine Nitrite Negative (NEG) Urine Bilirubin Small (NEG) Urine Urobilinogen Dipstick 0.2 mg/dL (0.2 mg/dL) Urine Leukocyte Esterase Large (NEG) Urine RBC 6-10 /HPF (0-2) Urine WBC Tntc /HPF (0-4) Urine Bacteria Many /HPF (0-FEW) Test 10/27/20 07:05 Influenza Type A Antigen Negative (NEGATIVE) Influenza Type B Antigen Negative (NEGATIVE) Laboratory Tests 10/27/20 06:30 Laboratory Tests 10/27/20 06:15 ASSESSMENT/PLAN ASSESSMENT/PLAN 1. Sepsis/fever/UTI 2. Septic shock 3. Severe PERRY with mild hypernatremia 4. Rhabdomyolysis 5. PSVT with aberrancy 6. LBBB: no prior EKG for comparison 7. Possible fall: No obvious trauma. unknown duration on floor 8. NSTEMI: 0.3 suspect demand mediated. No CP/SOA 9. Metabolic encephalopathy 10. PUI 11. Macrocytosis 12. Mild transaminitis Recommendations 1. No [facility] and no known cardiopulmonary hx so far. I was unable to contact his for further information. At this time will continue levophed and monitor for any arrhythmia 2. Repeat trop and EKG 3. Covd PCR pending, if neg then will obtain full echo 4. IVF, consult nephrology and ID 5. Supportive care. VTE prophylaxis HERNAN FORTUNE MD 10/28/20 0726: CARDIAC CONSULT ASSESSMENT/PLAN ASSESSMENT/PLAN Late entry for 10/27/2020 Pt. seen and examined. Agree with above OVERLOCKER note. Supportive care. ROSEANN NI APRN Oct 27, 2020 09:44 HERNAN FORTUNE MD Oct 28, 2020 07:26
--- NOTE | 2020-10-27 10:04 | RAD ---
CT HEAD AND C-SPINE WO Date: 10/27/2020 7:01 AM Clinical Indication: Reason: FOUND ON THE FLOOR, AMS / Spl. Instructions: / History: Comparison: None. Technique: 5 mm axial tomographic images were obtained of the head without contrast. These were view ed on brain and bone windows. Noncontrast CT of the cervical spine was performed. Sagittal and reyes l reformats were performed and evaluated. One or more of the following dose reduction techniques were utilized: Automated exposure control (AEC), Adjustment of mA and/or kV according to patient size, Us e of iterative reconstruction technique such as ASiR, CT scan done according to ALARA and image gentl y/image wisely HEAD FINDINGS: Mild generalized cerebral and cerebellar volume loss. Mild nonspecific periventricular hypoattenuatio n, most commonly seen with chronic small vessel ischemic disease. No intra- or extra-axial mass or fluid collection. No acute hemorrhage. The ventricles are normal in size, shape, and morphology. The mir-white matter junction is normal. The basilar cisterns are paten t. The visualized paranasal sinuses are normal. The visualized portions of the orbits and globes are no rmal. The mastoid air cells are clear. No aggressive osseous lesion or fracture. CERVICAL SPINE FINDINGS: The cervical spine is normally aligned. No acute fracture. No aggressive lytic or blastic osseous les ions. Moderate multilevel degenerative disc space height loss. Multilevel mild and moderate spinal canal st enosis secondary to disc protrusions and marginal osteophytes. Multilevel moderate neuroforaminal wyatt rowing secondary to uncovertebral arthrosis. Multilevel mild and moderate facet arthrosis. The thyroid gland is normal. No cervical lymphadenopathy. Bilateral carotid atherosclerosis. The visu alized aerodigestive tract is normal. The visualized portions of the lungs are clear. IMPRESSION: 1. No acute intracranial process. 2. No acute cervical spine fracture. Electronically signed by: Donte Simon MD (10/27/2020 10:01 AM) [id number]
[2020-10-27] MEDS ORDERED: BISACODYL 10 MG SUPP.RECT. PR PRN (10:30)
[2020-10-27] MEDS ORDERED: ONDANSETRON PF 4 MG/2 ML VIAL. IVP PRN (10:30)
[2020-10-27] MEDS ORDERED: 0.9 % SODIUM CHLORIDE 10 ML DISP.SYRIN. IV PRN (10:30)
[2020-10-27] MEDS ORDERED: PIP/TAZO PER PHARMACY MC PRN (10:30)
[2020-10-27] MEDS: IV NORMAL SALINE 1000ML BAG 1,000 ML IV SCH ×6 (10:30→23:48)
[2020-10-27] MEDS ORDERED: HYDROmorphone 2 MG/ML VIAL IV PRN (10:30)
[2020-10-27] MEDS ORDERED: SODIUM BICARB ADULT 8.4% 50 MEQ/50 ML DISP.SYRIN. IV ONE (11:00)
[2020-10-27] MEDS ORDERED: IV NORMAL SALINE 500ML BAG 500 ML IV PRN (11:00)
--- NOTE | 2020-10-27 11:14 | CONS ---
DATE OF CONSULTATION: 10/27/2020 PULMONARY CONSULTATION ATTENDING PHYSICIAN: Dr. Ramsay. REASON FOR CONSULTATION: Shock, encephalopathy. HISTORY OF PRESENT ILLNESS: The patient is a 75-year-old male who was brought into the hospital after he could not get up from the floor. He had altered mental status. He has been lying on the floor since last night. Family member told that [facility] for some medical problems, details unknown. The patient's systolic blood pressure in the 70s when EMS arrived and heart rate was 140s. He appeared to have a fever. He was responsive to painful stimuli. At present, he is arousable to painful stimuli. His arterial blood gases reveal a pH of 7.49, pCO2 of 90 and a pO2 of 450 and a bicarbonate of 15. He is currently on a nasal cannula at 4 liters. The patient's imaging studies revealed no intracranial process on CT head. His chest x-ray was clear. He was noted to be in PERRY with a BUN of 76 and a creatinine of 2.8. His CPK was 6272. Lactic of 5.9. I have been asked to see him for further evaluation. He had a fever of 101. PAST MEDICAL HISTORY: Unknown. PAST SURGICAL HISTORY: Unknown. FAMILY HISTORY: Hypertension. ALLERGIES: Not available. REVIEW OF SYSTEMS: Unable to obtain from the patient due to his encephalopathy. MEDICATIONS: Reviewed as listed in the MRAD. PHYSICAL EXAMINATION: GENERAL: He is responsive to painful stimuli and some verbal stimuli. VITAL SIGNS: His T-max of 101. Pulse ox is 99% on 4 liters. Visual exam done due to COVID suspicion. No obvious paradoxical breathing. SKIN: No skin rash. EXTREMITIES: No leg edema. LABORATORY DATA: Reviewed. Sodium 150, potassium 3.6, BUN 76, creatinine 2.8. Lactic acid of 5.9. AST, ALT elevation. Albumin 3.3. ABGs with a pH of 7.49, pCO2 of 90 and a pO2 of 450. IMPRESSION: 1. Acute respiratory failure secondary to combination of suspected toxic encephalopathy and septic shock along with metabolic acidosis. 2. Highly suspected rhabdomyolysis. The patient was found down since 7 p.m. last night. His CPK was markedly elevated. 3. Urinary tract infection suspected contributing to septic shock. 4. Acute kidney injury. 5. Lactic acidosis secondary to septic shock. 6. Acute kidney injury, likely component of volume contraction. He is hypernatremic as well. 7. Influenza screen negative, but pending COVID. 8. Fever, likely source urine. He had too numerous white cell to count on urinalysis. RECOMMENDATIONS: 1. Continue present nasal cannula. 2. Status post multiple amps of bicarbonate and will follow renal function closely. 3. Renal consult and recommendation. 4. IV hydration. 5. Broad-spectrum antibiotics. 6. DVT prophylaxis with subcutaneous heparin. 7. Monitor mental status closely. 8. Follow the fever and all cultures. 9. Rule out COVID. 10. Obtain urine drug screen. 11. Discussed with RN and RT. Chart reviewed, imaging studies reviewed. No source of infection in the lungs. Critical care time 40 minutes. LYNDA STAPLETON MD DR: NARAYAN/jose francisco JOB#: [id number] / [id number] GRECIA
--- NOTE | 2020-10-27 11:25 | NUR ---
0950 Patient received from the ED. Unable to answer questions but is oriented to person, place and time. Is extremely drowsy and soft spoken. States that he was too weak at home and could not get up. Requests RN to call to get information for admission. 1000 call to , message left to return call. 1040 Arterial line inserted by Dr. Villalobos to right radial artery. 1050 Patient verbally approves [facility] to obtain records from [facility]. 1112 Blood cultures, UDS, Lactic, Troponin and additional blood tubes sent to lab. 1125 Levophed at 0.4 mcg/kg/min and blood pressure 115/[address] Louie/Leticia DNP; Tamra WEB UI DESIGNER, and Dr. Winston all have seen patient at this time. Dr. Villela notified of consult.
[2020-10-27 12:13] LABS: D-DIMER 6.07 ug/mlFEU (0.00-0.50)
--- NOTE | 2020-10-27 12:16 | EKG ---
[facility] [address] [place] [address] Test Date: 2020-10-27 Test Time: 12:11:17 Pat Name: AURORA COREA Department: Room: Gender: M Manager User Interface: : 1945 Requested By: THONG ROUSSEAU Order Number: [id number] Reading MD: Measurements Intervals [place] Rate: 102 P: 64 CT: 152 QRS: 43 QRSD: 122 T: 206 QT: 372 QTc: 489 Interpretive Statements SINUS TACHYCARDIA INCOMPLETE LEFT BUNDLE BRANCH BLOCK LVH WITH REPOLARIZATION ABNORMALITY ABNORMAL ECG RI6.02 No previous ECG available for comparison
[2020-10-27 12:29] LABS: CHOLESTEROL/HDL RATIO 2.4
[2020-10-27] MEDS ORDERED: HEPARIN 25,000UTS/250ML PREMIX 250 ML IV PRN (13:15)
[2020-10-27] MEDS ORDERED: ASPIRIN RECTAL 300 MG SUPP. PR ONE (13:15)
[2020-10-27] MEDS: PIPERACILLIN/TAZOBACTAM 2.25 GM in IV NORMAL SALINE 50ML 50 ML IV SCH ×3 (13:53→23:47)
[2020-10-27] MEDS: ASPIRIN ENTERIC COATED 81 MG TABLET.DR. PO SCH (13:53)
[2020-10-27] MEDS: HEPARIN for IV BOLUS 10,000 UNIT/10 ML VIAL. IV PRN ×2 (13:54→20:46)
[2020-10-27] MEDS ORDERED: HEPARIN for SUB-Q USE 5,000 UNIT/ML VIAL. SQ SCH (14:00)
[2020-10-27] MEDS: NOREPINEPHRINE VIAL 8 MG in IV DEXTROSE 5% 250 ML IV PRN (14:49)
--- NOTE | 2020-10-27 16:32 | PDOC2 ---
CONSULT Date of Consult Date of Consult DATE: 10/27/20 TIME: 16:21 Reason for Consult Reason for Consult: PERRY Referring Physician Referring Physician: MATTHEW Identification/Chief Complaint Chief Complaint CONFUSION, WEAKNESS Source Source: Chart review History of Present Illness Reason for Visit: THIS IS A 75 YR OLD WITH CONFUSION. FOUND ON THE FLOOR. HYPOTENSIVE AND TACHYCARDIC ON ADMIT. BARELY AROUSABLE. NOTED TO HAVE ACUTE HYPERCARBIC RESP FAILURE AND PERRY. ALSO HAS INCREASED LFT'S, ACIDOSIS AND AN UTI. APPEARS TO BE IN SHOCK. UNABLE TO GET ANY INFO FROM THIS PT. CPK AND LACTIC ACID LEVEL UP. Past Medical History Musculoskeletal: Osteoarthritis ENT: Other (glaucoma) Past Surgical History Past Surgical History: Other (unknown) Family History Family History: Family History Unknown Social History No ALCOHOL: none Drugs: None Lives: with Family Current Problem List Problem List Problems Medical Problems: (1) Acute renal failure Status: Acute (2) Dehydration Status: Acute (3) Person under investigation for COVID-19 Status: Acute (4) Rhabdomyolysis Status: Acute (5) Septic shock Status: Acute (6) UTI (urinary tract infection) Status: Acute Current Medications Current Medications Current Medications Sodium Chloride 1,000 ml @ 1,000 mls/hr 1X ONCE IV Last administered on 10/27/20at 06:45; Start 10/27/20 at 06:30; Stop 10/27/20 at 07:29; Status DC Acetaminophen (Tylenol Supp) 975 mg 1X ONCE SC Last administered on 10/27/20at 07:30; Start 10/27/20 at 06:30; Stop 10/27/20 at 06:31; Status DC Lidocaine HCl (Lidocaine 1% 20ml Vial) 20 ml STK-MED ONCE .ROUTE ; Start 10/27/20 at 06:30; Stop 10/27/20 at 06:30; Status DC Sodium Chloride 1,000 ml @ 1,000 mls/hr 1X ONCE IV Last administered on 10/27/20at 06:45; Start 10/27/20 at 07:00; Stop 10/27/20 at 07:59; Status DC Piperacillin Sod/ Tazobactam Sod 3.375 gm/Sodium Chloride 50 ml @ 100 mls/hr 1X ONCE IV Last administered on 10/27/20at 07:58; Start 10/27/20 at 07:00; Stop 10/27/20 at 07:29; Status DC Sodium Chloride 1,000 ml @ 1,000 mls/hr 1X ONCE IV Last administered on 10/27/20at 07:57; Start 10/27/20 at 07:15; Stop 10/27/20 at 08:14; Status DC Norepinephrine Bitartrate 8 mg/ Dextrose 258 ml @ 12.848 mls/ hr 1X ONCE IV Last administered on 10/27/20at 08:42; Start 10/27/20 at 08:15; Stop 10/28/20 at 04:19 Ondansetron HCl (Zofran) 4 mg PRN Q8HRS PRN IV NAUSEA/VOMITING; Start 10/27/20 at 08:15; Stop 10/28/20 at 08:14 Sodium Chloride 1,000 ml @ 125 mls/hr Q8H IV Last administered on 10/27/20at 12:24; Start 10/27/20 at 08:15; Stop 10/28/20 at 08:14 Iohexol (Omnipaque 350 Mg/ml) 100 ml 1X ONCE IV ; Start 10/27/20 at 08:45; Stop 10/27/20 at 08:46; Status DC Info (CONTRAST GIVEN -- Rx MONITORING) 1 each PRN DAILY PRN MC SEE COMMENTS; Start 10/27/20 at 08:45; Stop 10/29/20 at 08:44 Piperacillin Sod/ Tazobactam Sod (Zosyn Per Pharmacy) 1 each PRN DAILY PRN MC SEE COMMENTS; Start 10/27/20 at 10:30 Piperacillin Sod/ Tazobactam Sod 2.25 gm/Sodium Chloride 50 ml @ 100 mls/hr Q6HRS IV Last administered on 10/27/20at 13:53; Start 10/27/20 at 12:00 Ondansetron HCl (Zofran) 4 mg PRN Q6HRS PRN IVP NAUSEA/VOMITING; Start 10/27/20 at 10:30 Famotidine (Pepcid Vial) 20 mg QHS IVP ; Start 10/27/20 at 21:00 Info (Icu Electrolyte Protocol) 1 ea DAILY MC ; Start 10/28/20 at 09:00 Heparin Sodium (Porcine) (Heparin Sodium) 5,000 unit Q8HRS SQ ; Start 10/27/20 at 14:00; Stop 10/27/20 at 14:51; Status DC Sodium Chloride (Normal Saline Flush) 3 ml QSHIFT PRN IV AFTER MEDS AND BLOOD DRAWS; Start 10/27/20 at 10:30 Sodium Chloride 1,000 ml @ 100 mls/hr Q10H IV ; Start 10/27/20 at 10:30 Hydromorphone HCl (Dilaudid) 0.2 mg PRN Q1HR PRN IV PAIN; Start 10/27/20 at 10:30 Bisacodyl (Dulcolax Supp) 10 mg PRN DAILY PRN SC CONSTIPATION; Start 10/27/20 at 10:30 Sodium Bicarbonate (Sodium Bicarb Adult 8.4% Syr) 100 meq 1X ONCE IV Last administered on 10/27/20at 10:54; Start 10/27/20 at 11:00; Stop 10/27/20 at 11:01; Status DC Sodium Chloride 1,000 ml @ 500 mls/hr 1X ONCE IV Last administered on 10/27/20at 10:53; Start 10/27/20 at 11:00; Stop 10/27/20 at 12:59; Status DC Sodium Chloride 1,000 ml @ 1,000 mls/hr Q1H IV ; Start 10/27/20 at 11:00; Stop 10/27/20 at 12:57; Status DC Sodium Chloride 500 ml @ 1,000 mls/hr PRN Q30MIN PRN IV SEE COMMENTS; Start 10/27/20 at 11:00 Norepinephrine Bitartrate 8 mg/ Dextrose 258 ml @ 0 mls/hr CONT PRN IV SEE I/O RECORD Last administered on 10/27/20at 14:49; Start 10/27/20 at 11:00 Aspirin (Ecotrin) 81 mg [id number] PO Last administered on 10/27/20at 13:53; Start 10/27/20 at 12:30 Aspirin (Aspirin Rectal Supp) 300 mg 1X ONCE SC ; Start 10/27/20 at 13:15; Stop 10/27/20 at 13:16; Status DC Heparin Sodium/ Dextrose 250 ml @ 7.656 mls/ hr CONT PRN IV PER PROTOCOL Last administered on 10/27/20at 13:54; Start 10/27/20 at 13:15 Heparin Sodium (Porcine) (Heparin Sodium) 1,600 unit PRN Q6HRS PRN IV FOR UFH LEVEL LESS THAN 0.2 Last administered on 10/27/20at 13:54; Start 10/27/20 at 13:15 Allergies Allergies: Coded Allergies: Unable to Assess (Unverified , 10/27/20) ROS Review of System UNABLE TO OBTAIN Physical Exam General: mild distress HEENT: Atraumatic, EOMI, Other (DRY MUCOSA) Lungs: Clear to auscultation Heart: Regular rate Abdomen: Normal bowel sounds, Soft Extremities: No cyanosis Skin: No breakdown Neuro: Other (NOT AROUSABLE) Psych/Mental Status: Other (NOT ABLE TO OBTAIN) MUSCULOSKELETAL: No joint tenderness, No deformity, No swelling, Other (DIFFUSE ATROPHY) Vitals VITALS Vital Signs Date Time Temp Pulse Resp B/P (MAP) Pulse Ox O2 Delivery O2 Flow Rate FiO2 10/27/20 16:06 108 32 99 Nasal Cannula 2.0 155/58 (90) 10/27/20 10:00 98.5 98.5 Labs Labs Laboratory Tests Test 10/27/20 06:08 10/27/20 06:15 10/27/20 06:30 10/27/20 06:55 O2 Saturation 100 % (92-99) Arterial Blood pH 7.51 (7.35-7.45) Arterial Blood pH (Temp corrected) 7.49 Arterial Blood pCO2 at Patient Temp 19 mmHg (35-46) Arterial Blood pCO2 (Temp correct) 20 mmHg Arterial Blood pO2 at Patient Temp 450 mmHg (65-108) Arterial Blood pO2 (Temp corrected) 459 mmHg Arterial Blood HCO3 15 mmol/L (21-28) Arterial Blood Base Excess -6 mmol/L (-3-3) Sodium Level 150 mmol/L (136-145) Potassium Level 3.6 mmol/L (3.5-5.1) Chloride Level 113 mmol/L (98-107) Carbon Dioxide Level 19 mmol/L (21-32) Anion Gap 18 (6-14) Blood Urea Nitrogen 76 mg/dL (8-26) Creatinine 2.8 mg/dL (0.7-1.3) Estimated GFR (Cockcroft-Gault) 27.0 BUN/Creatinine Ratio 27 (6-20) Glucose Level 92 mg/dL (70-99) Calcium Level 9.1 mg/dL (8.5-10.1) Magnesium Level 2.3 mg/dL (1.8-2.4) Total Bilirubin 2.0 mg/dL (0.2-1.0) Aspartate Amino Transf (AST/SGOT) 201 U/L (15-37) Alanine Aminotransferase (ALT/SGPT) 92 U/L (16-63) Alkaline Phosphatase 101 U/L (46-116) Creatine Kinase 6272 U/L (39-308) Troponin I Quantitative 0.330 ng/mL (0.000-0.055) Total Protein 6.3 g/dL (6.4-8.2) Albumin 3.3 g/dL (3.4-5.0) Albumin/Globulin Ratio 1.1 (1.0-1.7) Triglycerides Level 59 mg/dL (0-150) Cholesterol Level 80 mg/dL (0-200) LDL Cholesterol, Calculated 35 mg/dL (0-100) VLDL Cholesterol, Calculated 12 mg/dL (0-40) Non-HDL Cholesterol Calculated 47 mg/dL (0-129) HDL Cholesterol 33 mg/dL (40-60) Cholesterol/HDL Ratio 2.4 Lipase 38 U/L (73-393) White Blood Count 2.9 x10^3/uL (4.0-11.0) Red Blood Count 3.70 x10^6/uL (4.30-5.70) Hemoglobin 13.7 g/dL (13.0-17.5) Hematocrit 39.9 % (39.0-53.0) Mean Corpuscular Volume 108 fL (79-100) Mean Corpuscular Hemoglobin 37 pg (25-35) Mean Corpuscular Hemoglobin Concent 35 g/dL (31-37) Red Cell Distribution Width 12.5 % (11.5-14.5) Platelet Count 234 x10^3/uL (140-400) Neutrophils (%) (Auto) 63 % (31-73) Lymphocytes (%) (Auto) 33 % (24-48) Monocytes (%) (Auto) 1 % (0-9) Eosinophils (%) (Auto) 2 % (0-3) Basophils (%) (Auto) 1 % (0-3) Neutrophils # (Auto) 1.8 x10^3/uL (1.8-7.7) Lymphocytes # (Auto) 1.0 x10^3/uL (1.0-4.8) Monocytes # (Auto) 0.0 x10^3/uL (0.0-1.1) Eosinophils # (Auto) 0.1 x10^3/uL (0.0-0.7) Basophils # (Auto) 0.0 x10^3/uL (0.0-0.2) Segmented Neutrophils % 46 % (35-66) Band Neutrophils % 5 % (0-9) Lymphocytes % 42 % (24-48) Monocytes % 7 % (0-10) Platelet Estimate Adequate (ADEQUATE) Lactic Acid Level 5.9 mmol/L (0.4-2.0) Ammonia 18 mcmol/L (11-34) Thyroid Stimulating Hormone (TSH) 2.650 uIU/mL (0.358-3.74) Urine Collection Type Unknown Urine Color Kristin Urine Clarity Cloudy Urine pH 5.5 (<5.0-8.0) Urine Specific [place] 1.015 (1.000-1.030) Urine Protein 100 mg/dL (NEG-TRACE) Urine Glucose (UA) Negative mg/dL (NEG) Urine Ketones (Stick) Trace mg/dL (NEG) Urine Blood Large (NEG) Urine Nitrite Negative (NEG) Urine Bilirubin Small (NEG) Urine Urobilinogen Dipstick 0.2 mg/dL (0.2 mg/dL) Urine Leukocyte Esterase Large (NEG) Urine RBC 6-10 /HPF (0-2) Urine WBC Tntc /HPF (0-4) Urine Bacteria Many /HPF (0-FEW) Test 10/27/20 07:05 10/27/20 11:12 Influenza Type A Antigen Negative (NEGATIVE) Influenza Type B Antigen Negative (NEGATIVE) Fibrinogen 400 mg/dL (200-440) D-Dimer (Iza) 6.07 ug/mlFEU (0.00-0.50) Lactic Acid Level 2.2 mmol/L (0.4-2.0) Troponin I Quantitative 3.729 ng/mL (0.000-0.055) Procalcitonin > 125.00 ng/mL (0.00-0.10) Laboratory Tests Test 10/27/20 06:08 10/27/20 06:15 10/27/20 06:30 10/27/20 06:55 O2 Saturation 100 % (92-99) Arterial Blood pH 7.51 (7.35-7.45) Arterial Blood pH (Temp corrected) 7.49 Arterial Blood pCO2 at Patient Temp 19 mmHg (35-46) Arterial Blood pCO2 (Temp correct) 20 mmHg Arterial Blood pO2 at Patient Temp 450 mmHg (65-108) Arterial Blood pO2 (Temp corrected) 459 mmHg Arterial Blood HCO3 15 mmol/L (21-28) Arterial Blood Base Excess -6 mmol/L (-3-3) Sodium Level 150 mmol/L (136-145) Potassium Level 3.6 mmol/L (3.5-5.1) Chloride Level 113 mmol/L (98-107) Carbon Dioxide Level 19 mmol/L (21-32) Anion Gap 18 (6-14) Blood Urea Nitrogen 76 mg/dL (8-26) Creatinine 2.8 mg/dL (0.7-1.3) Estimated GFR (Cockcroft-Gault) 27.0 BUN/Creatinine Ratio 27 (6-20) Glucose Level 92 mg/dL (70-99) Calcium Level 9.1 mg/dL (8.5-10.1) Magnesium Level 2.3 mg/dL (1.8-2.4) Total Bilirubin 2.0 mg/dL (0.2-1.0) Aspartate Amino Transf (AST/SGOT) 201 U/L (15-37) Alanine Aminotransferase (ALT/SGPT) 92 U/L (16-63) Alkaline Phosphatase 101 U/L (46-116) Creatine Kinase 6272 U/L (39-308) Troponin I Quantitative 0.330 ng/mL (0.000-0.055) Total Protein 6.3 g/dL (6.4-8.2) Albumin 3.3 g/dL (3.4-5.0) Albumin/Globulin Ratio 1.1 (1.0-1.7) Triglycerides Level 59 mg/dL (0-150) Cholesterol Level 80 mg/dL (0-200) LDL Cholesterol, Calculated 35 mg/dL (0-100) VLDL Cholesterol, Calculated 12 mg/dL (0-40) Non-HDL Cholesterol Calculated 47 mg/dL (0-129) HDL Cholesterol 33 mg/dL (40-60) Cholesterol/HDL Ratio 2.4 Lipase 38 U/L (73-393) White Blood Count 2.9 x10^3/uL (4.0-11.0) Red Blood Count 3.70 x10^6/uL (4.30-5.70) Hemoglobin 13.7 g/dL (13.0-17.5) Hematocrit 39.9 % (39.0-53.0) Mean Corpuscular Volume 108 fL (79-100) Mean Corpuscular Hemoglobin 37 pg (25-35) Mean Corpuscular Hemoglobin Concent 35 g/dL (31-37) Red Cell Distribution Width 12.5 % (11.5-14.5) Platelet Count 234 x10^3/uL (140-400) Neutrophils (%) (Auto) 63 % (31-73) Lymphocytes (%) (Auto) 33 % (24-48) Monocytes (%) (Auto) 1 % (0-9) Eosinophils (%) (Auto) 2 % (0-3) Basophils (%) (Auto) 1 % (0-3) Neutrophils # (Auto) 1.8 x10^3/uL (1.8-7.7) Lymphocytes # (Auto) 1.0 x10^3/uL (1.0-4.8) Monocytes # (Auto) 0.0 x10^3/uL (0.0-1.1) Eosinophils # (Auto) 0.1 x10^3/uL (0.0-0.7) Basophils # (Auto) 0.0 x10^3/uL (0.0-0.2) Segmented Neutrophils % 46 % (35-66) Band Neutrophils % 5 % (0-9) Lymphocytes % 42 % (24-48) Monocytes % 7 % (0-10) Platelet Estimate Adequate (ADEQUATE) Lactic Acid Level 5.9 mmol/L (0.4-2.0) Ammonia 18 mcmol/L (11-34) Thyroid Stimulating Hormone (TSH) 2.650 uIU/mL (0.358-3.74) Urine Collection Type Unknown Urine Color Kristin Urine Clarity Cloudy Urine pH 5.5 (<5.0-8.0) Urine Specific [place] 1.015 (1.000-1.030) Urine Protein 100 mg/dL (NEG-TRACE) Urine Glucose (UA) Negative mg/dL (NEG) Urine Ketones (Stick) Trace mg/dL (NEG) Urine Blood Large (NEG) Urine Nitrite Negative (NEG) Urine Bilirubin Small (NEG) Urine Urobilinogen Dipstick 0.2 mg/dL (0.2 mg/dL) Urine Leukocyte Esterase Large (NEG) Urine RBC 6-10 /HPF (0-2) Urine WBC Tntc /HPF (0-4) Urine Bacteria Many /HPF (0-FEW) Test 10/27/20 07:05 10/27/20 11:12 Influenza Type A Antigen Negative (NEGATIVE) Influenza Type B Antigen Negative (NEGATIVE) Fibrinogen 400 mg/dL (200-440) D-Dimer (Iza) 6.07 ug/mlFEU (0.00-0.50) Lactic Acid Level 2.2 mmol/L (0.4-2.0) Troponin I Quantitative 3.729 ng/mL (0.000-0.055) Procalcitonin > 125.00 ng/mL (0.00-0.10) Images Images Clinical Indication: Reason: FOUND ON THE FLOOR, AMS / Spl. Instructions: / History: Comparison: None. Technique: 5 mm axial tomographic images were obtained of the head without contrast. These were viewed on brain and bone windows. Noncontrast CT of the cervical spine was performed. Sagittal and coronal reformats were performed and evaluated. One or more of the following dose reduction techniques were utilized: Automated exposure control (AEC), Adjustment of mA and/or kV according to patient size, Use of iterative reconstruction technique such as ASiR, CT scan done according to ALARA and image gently/image wisely HEAD FINDINGS: Mild generalized cerebral and cerebellar volume loss. Mild nonspecific periventricular hypoattenuation, most commonly seen with chronic small vessel ischemic disease. No intra- or extra-axial mass or fluid collection. No acute hemorrhage. The v entricles are normal in size, shape, and morphology. The mir-white matter junction is normal. The basilar cisterns are patent. The visualized paranasal sinuses are normal. The visualized portions of the orbits and globes are normal. The mastoid air cells are clear. No aggressive osseous lesion or fracture. CERVICAL SPINE FINDINGS: The cervical spine is normally aligned. No acute fracture. No aggressive lytic or blastic osseous lesions. Moderate multilevel degenerative disc space height loss. Multilevel mild and moderate spinal canal stenosis secondary to disc protrusions and marginal osteophytes. Multilevel moderate neuroforaminal narrowing secondary to uncovertebral arthrosis. Multilevel mild and moderate facet arthrosis. The thyroid gland is normal. No cervical lymphadenopathy. Bilateral carotid atherosclerosis. The visualized aerodigestive tract is normal. The visualized portions of the lungs are clear. IMPRESSION: 1. No acute intracranial process. 2. No acute cervical spine fracture. XR CHEST 1V, XR KNEE 3 VIEWS_RT Clinical History: Central venous line placement and fall with injury to right knee One view chest: Technique: AP view of the chest was obtained at 10/27/2020 6:59 AM. Comparison: None. Findings: The cardiomediastinal silhouette is normal. The pulmonary vasculature is normal. The lungs and pleural margins are clear. The right jugular line has its tip directed downward in the mid to lower SVC. Impression: Right jugular line well-positioned. No pneumothorax. 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 The tibial component has a long intramedullary stem. The femoral and tibial components are aligned and well seated. There is no interruption of cortex to suggest a fracture. IMPRESSION: Prior right knee total arthroplasty. No acute findings. Assessment/Plan Assessment/Plan IMP PERRY WITH CR OF 2.8-UNKNOWN BASELINE DEHYDRATION PROB RHABDOMYOLYSIS HYPERNATREMIA AG MET ACIDOSIS INCREASED LFT'S ACUTE RESP FAILURE PROB SEPSIS URINARY TRACT INFECTION SHOCK PLAN HYDRATION NUTRITION ANTIBIOTICS F/U CPK CRITICALLY ILL POOR PROGNOSIS SUPPLEMENTAL O2 PRESSORS NEEDED WILL FOLLOW DIEUDONNE DOMINGUEZ MD Oct 27, 2020 16:31
[2020-10-27 16:59] LABS: BARBITURATES NEG (NEG); BENZODIAZEPINES NEG (NEG); CANNABINOIDS NEG (NEG); COCAINE NEG (NEG); METHADONE NEG (NEG); OPIATES NEG (NEG); PHENCYCLIDINE NEG (NEG)
[2020-10-27 17:00] LABS: AMPHETAMINE/METHAMPHETAMINE NEG (NEG)
--- NOTE | 2020-10-27 17:34 | NUR ---
Piperacillin dose for 1800 non-administered by this nurse since 1200 dose found to be still full hanging on the IV pump and line locked. Infusing at this time.
[2020-10-27] MEDS: FAMOTIDINE 20 MG/2 ML VIAL IVP SCH (20:46)
[2020-10-27] MEDS ORDERED: DORZ10DR7 EACHEYE (22:08)
[2020-10-27] MEDS ORDERED: LATA7.5D OP (22:08)
[2020-10-27] MEDS ORDERED: BRIM5DRO4 EACHEYE (22:08)
[2020-10-27] MEDS ORDERED: MECL-75 PO (22:08)
[2020-10-28] VITALS (18 sets, daily range): BP systolic 82–154; BP diastolic 40–59
[2020-10-28] MEDS: IV NORMAL SALINE 1000ML BAG 1,000 ML IV SCH ×3 (00:15→16:30)
[2020-10-28] MEDS: PIPERACILLIN/TAZOBACTAM 2.25 GM in IV NORMAL SALINE 50ML 50 ML IV SCH ×3 (06:05→20:54)
[2020-10-28 06:53] LABS: BASO % 0 % (0-3); EOS # 0.2 x10^3/uL (0.0-0.7); EOS % 1 % (0-3); HEMATOCRIT 33.1 % (39.0-53.0); HEMOGLOBIN 11.2 g/dL (13.0-17.5); LYMPH # 1.8 x10^3/uL (1.0-4.8); LYMPH % 7 % (24-48); MEAN CORPUSCULAR HEMOGLOBIN 37 pg (25-35); MEAN CORPUSCULAR HGB CONC 34 g/dL (31-37); MEAN CORPUSCULAR VOLUME 108 fL (79-100); MONO # 1.3 x10^3/uL (0.0-1.1); MONO % 5 % (0-9); NEUT # 23.1 x10^3/uL (1.8-7.7); NEUT % 87 % (31-73); PLATELET COUNT 169 x10^3/uL (140-400); RED BLOOD COUNT 3.06 x10^6/uL (4.30-5.70); RED CELL DISTRIBUTION WIDTH 12.7 % (11.5-14.5); WHITE BLOOD COUNT 26.5 x10^3/uL (4.0-11.0)
[2020-10-28 07:06] LABS: ALBUMIN 2.2 g/dL (3.4-5.0); ALBUMIN/GLOBULIN RATIO 0.7 (1.0-1.7); CREATININE 3.4 mg/dL (0.7-1.3); GFR 21.6; PHOSPHORUS 5.2 mg/dL (2.6-4.7); POTASSIUM 3.5 mmol/L (3.5-5.1); TOTAL BILIRUBIN 3.7 mg/dL (0.2-1.0); TOTAL PROTEIN 5.4 g/dL (6.4-8.2)
[2020-10-28 07:42] LABS: PROTHROMBIN TIME PATIENT 24.1 SEC (11.7-14.0)
[2020-10-28 07:50] LABS: PARTIAL THROMBOPLASTIN TIME > 150 SEC (24-38)
[2020-10-28] MEDS: ASPIRIN ENTERIC COATED 81 MG TABLET.DR. PO SCH (08:00)
--- NOTE | 2020-10-28 08:22 | PDOC ---
PULMONARY PROGRESS NOTES DATE: 10/28/20 TIME: 08:21 Subjective Pt. remains on room air off pressors now increase in trop, now on heparin gtt Vitals Vital Signs Date Time Temp Pulse Resp B/P (MAP) Pulse Ox O2 Delivery O2 Flow Rate FiO2 10/28/20 08:14 80 18 100 Room Air 141/46 (77) 10/28/20 04:00 98.5 98.5 10/28/20 02:00 2.0 ROS: No Chest Pain Lungs: Clear Cardiovascular: S1, S2 Skin: Warm, Dry Labs Laboratory Tests Test 10/27/20 06:08 10/27/20 06:15 10/27/20 06:30 10/27/20 06:55 O2 Saturation 100 % (92-99) Arterial Blood pH 7.51 (7.35-7.45) Arterial Blood pH (Temp corrected) 7.49 Arterial Blood pCO2 at Patient Temp 19 mmHg (35-46) Arterial Blood pCO2 (Temp correct) 20 mmHg Arterial Blood pO2 at Patient Temp 450 mmHg (65-108) Arterial Blood pO2 (Temp corrected) 459 mmHg Arterial Blood HCO3 15 mmol/L (21-28) Arterial Blood Base Excess -6 mmol/L (-3-3) Sodium Level 150 mmol/L (136-145) Potassium Level 3.6 mmol/L (3.5-5.1) Chloride Level 113 mmol/L (98-107) Carbon Dioxide Level 19 mmol/L (21-32) Anion Gap 18 (6-14) Blood Urea Nitrogen 76 mg/dL (8-26) Creatinine 2.8 mg/dL (0.7-1.3) Estimated GFR (Cockcroft-Gault) 27.0 BUN/Creatinine Ratio 27 (6-20) Glucose Level 92 mg/dL (70-99) Calcium Level 9.1 mg/dL (8.5-10.1) Magnesium Level 2.3 mg/dL (1.8-2.4) Total Bilirubin 2.0 mg/dL (0.2-1.0) Aspartate Amino Transf (AST/SGOT) 201 U/L (15-37) Alanine Aminotransferase (ALT/SGPT) 92 U/L (16-63) Alkaline Phosphatase 101 U/L (46-116) Creatine Kinase 6272 U/L (39-308) Troponin I Quantitative 0.330 ng/mL (0.000-0.055) Total Protein 6.3 g/dL (6.4-8.2) Albumin 3.3 g/dL (3.4-5.0) Albumin/Globulin Ratio 1.1 (1.0-1.7) Triglycerides Level 59 mg/dL (0-150) Cholesterol Level 80 mg/dL (0-200) LDL Cholesterol, Calculated 35 mg/dL (0-100) VLDL Cholesterol, Calculated 12 mg/dL (0-40) Non-HDL Cholesterol Calculated 47 mg/dL (0-129) HDL Cholesterol 33 mg/dL (40-60) Cholesterol/HDL Ratio 2.4 Lipase 38 U/L (73-393) White Blood Count 2.9 x10^3/uL (4.0-11.0) Red Blood Count 3.70 x10^6/uL (4.30-5.70) Hemoglobin 13.7 g/dL (13.0-17.5) Hematocrit 39.9 % (39.0-53.0) Mean Corpuscular Volume 108 fL (79-100) Mean Corpuscular Hemoglobin 37 pg (25-35) Mean Corpuscular Hemoglobin Concent 35 g/dL (31-37) Red Cell Distribution Width 12.5 % (11.5-14.5) Platelet Count 234 x10^3/uL (140-400) Neutrophils (%) (Auto) 63 % (31-73) Lymphocytes (%) (Auto) 33 % (24-48) Monocytes (%) (Auto) 1 % (0-9) Eosinophils (%) (Auto) 2 % (0-3) Basophils (%) (Auto) 1 % (0-3) Neutrophils # (Auto) 1.8 x10^3/uL (1.8-7.7) Lymphocytes # (Auto) 1.0 x10^3/uL (1.0-4.8) Monocytes # (Auto) 0.0 x10^3/uL (0.0-1.1) Eosinophils # (Auto) 0.1 x10^3/uL (0.0-0.7) Basophils # (Auto) 0.0 x10^3/uL (0.0-0.2) Segmented Neutrophils % 46 % (35-66) Band Neutrophils % 5 % (0-9) Lymphocytes % 42 % (24-48) Monocytes % 7 % (0-10) Platelet Estimate Adequate (ADEQUATE) Lactic Acid Level 5.9 mmol/L (0.4-2.0) Ammonia 18 mcmol/L (11-34) Thyroid Stimulating Hormone (TSH) 2.650 uIU/mL (0.358-3.74) Urine Collection Type Unknown Urine Color Kristin Urine Clarity Cloudy Urine pH 5.5 (<5.0-8.0) Urine Specific Rocky 1.015 (1.000-1.030) Urine Protein 100 mg/dL (NEG-TRACE) Urine Glucose (UA) Negative mg/dL (NEG) Urine Ketones (Stick) Trace mg/dL (NEG) Urine Blood Large (NEG) Urine Nitrite Negative (NEG) Urine Bilirubin Small (NEG) Urine Urobilinogen Dipstick 0.2 mg/dL (0.2 mg/dL) Urine Leukocyte Esterase Large (NEG) Urine RBC 6-10 /HPF (0-2) Urine WBC Tntc /HPF (0-4) Urine Bacteria Many /HPF (0-FEW) Urine Opiates Screen Neg (NEG) Urine Methadone Screen Neg (NEG) Urine Barbiturates Neg (NEG) Urine Phencyclidine Screen Neg (NEG) Urine Amphetamine/Methamphetamine Neg (NEG) Urine Benzodiazepines Screen Neg (NEG) Urine Cocaine Screen Neg (NEG) Urine Cannabinoids Screen Neg (NEG) Urine Ethyl Alcohol Neg (NEG) Test 10/27/20 07:05 10/27/20 11:12 10/27/20 15:45 10/27/20 20:00 Influenza Type A Antigen Negative (NEGATIVE) Influenza Type B Antigen Negative (NEGATIVE) Fibrinogen 400 mg/dL (200-440) D-Dimer (Iza) 6.07 ug/mlFEU (0.00-0.50) Lactic Acid Level 2.2 mmol/L (0.4-2.0) Troponin I Quantitative 3.729 ng/mL (0.000-0.055) 4.339 ng/mL (0.000-0.055) Procalcitonin > 125.00 ng/mL (0.00-0.10) Heparin Anti-Xa Act, Unfractionated 0.18 IU/mL (0.30-0.70) Test 10/28/20 02:30 10/28/20 06:30 Heparin Anti-Xa Act, Unfractionated 0.59 IU/mL (0.30-0.70) White Blood Count 26.5 x10^3/uL (4.0-11.0) Red Blood Count 3.06 x10^6/uL (4.30-5.70) Hemoglobin 11.2 g/dL (13.0-17.5) Hematocrit 33.1 % (39.0-53.0) Mean Corpuscular Volume 108 fL (79-100) Mean Corpuscular Hemoglobin 37 pg (25-35) Mean Corpuscular Hemoglobin Concent 34 g/dL (31-37) Red Cell Distribution Width 12.7 % (11.5-14.5) Platelet Count 169 x10^3/uL (140-400) Neutrophils (%) (Auto) 87 % (31-73) Lymphocytes (%) (Auto) 7 % (24-48) Monocytes (%) (Auto) 5 % (0-9) Eosinophils (%) (Auto) 1 % (0-3) Basophils (%) (Auto) 0 % (0-3) Neutrophils # (Auto) 23.1 x10^3/uL (1.8-7.7) Lymphocytes # (Auto) 1.8 x10^3/uL (1.0-4.8) Monocytes # (Auto) 1.3 x10^3/uL (0.0-1.1) Eosinophils # (Auto) 0.2 x10^3/uL (0.0-0.7) Basophils # (Auto) 0.0 x10^3/uL (0.0-0.2) Prothrombin Time 24.1 SEC (11.7-14.0) Prothromb Time International Ratio 2.2 (0.8-1.1) Activated Partial Thromboplast Time > 150 SEC (24-38) Sodium Level 156 mmol/L (136-145) Potassium Level 3.5 mmol/L (3.5-5.1) Chloride Level 121 mmol/L (98-107) Carbon Dioxide Level 19 mmol/L (21-32) Anion Gap 16 (6-14) Blood Urea Nitrogen 83 mg/dL (8-26) Creatinine 3.4 mg/dL (0.7-1.3) Estimated GFR (Cockcroft-Gault) 21.6 BUN/Creatinine Ratio 24 (6-20) Glucose Level 83 mg/dL (70-99) Calcium Level 7.0 mg/dL (8.5-10.1) Phosphorus Level 5.2 mg/dL (2.6-4.7) Total Bilirubin 3.7 mg/dL (0.2-1.0) Aspartate Amino Transf (AST/SGOT) 312 U/L (15-37) Alanine Aminotransferase (ALT/SGPT) 115 U/L (16-63) Alkaline Phosphatase 133 U/L (46-116) Total Protein 5.4 g/dL (6.4-8.2) Albumin 2.2 g/dL (3.4-5.0) Albumin/Globulin Ratio 0.7 (1.0-1.7) Laboratory Tests Test 10/27/20 11:12 10/27/20 15:45 10/27/20 20:00 10/28/20 02:30 Fibrinogen 400 mg/dL (200-440) D-Dimer (Iza) 6.07 ug/mlFEU (0.00-0.50) Lactic Acid Level 2.2 mmol/L (0.4-2.0) Troponin I Quantitative 3.729 ng/mL (0.000-0.055) 4.339 ng/mL (0.000-0.055) Procalcitonin > 125.00 ng/mL (0.00-0.10) Heparin Anti-Xa Act, Unfractionated 0.18 IU/mL (0.30-0.70) 0.59 IU/mL (0.30-0.70) Test 10/28/20 06:30 White Blood Count 26.5 x10^3/uL (4.0-11.0) Red Blood Count 3.06 x10^6/uL (4.30-5.70) Hemoglobin 11.2 g/dL (13.0-17.5) Hematocrit 33.1 % (39.0-53.0) Mean Corpuscular Volume 108 fL (79-100) Mean Corpuscular Hemoglobin 37 pg (25-35) Mean Corpuscular Hemoglobin Concent 34 g/dL (31-37) Red Cell Distribution Width 12.7 % (11.5-14.5) Platelet Count 169 x10^3/uL (140-400) Neutrophils (%) (Auto) 87 % (31-73) Lymphocytes (%) (Auto) 7 % (24-48) Monocytes (%) (Auto) 5 % (0-9) Eosinophils (%) (Auto) 1 % (0-3) Basophils (%) (Auto) 0 % (0-3) Neutrophils # (Auto) 23.1 x10^3/uL (1.8-7.7) Lymphocytes # (Auto) 1.8 x10^3/uL (1.0-4.8) Monocytes # (Auto) 1.3 x10^3/uL (0.0-1.1) Eosinophils # (Auto) 0.2 x10^3/uL (0.0-0.7) Basophils # (Auto) 0.0 x10^3/uL (0.0-0.2) Prothrombin Time 24.1 SEC (11.7-14.0) Prothromb Time International Ratio 2.2 (0.8-1.1) Activated Partial Thromboplast Time > 150 SEC (24-38) Sodium Level 156 mmol/L (136-145) Potassium Level 3.5 mmol/L (3.5-5.1) Chloride Level 121 mmol/L (98-107) Carbon Dioxide Level 19 mmol/L (21-32) Anion Gap 16 (6-14) Blood Urea Nitrogen 83 mg/dL (8-26) Creatinine 3.4 mg/dL (0.7-1.3) Estimated GFR (Cockcroft-Gault) 21.6 BUN/Creatinine Ratio 24 (6-20) Glucose Level 83 mg/dL (70-99) Calcium Level 7.0 mg/dL (8.5-10.1) Phosphorus Level 5.2 mg/dL (2.6-4.7) Total Bilirubin 3.7 mg/dL (0.2-1.0) Aspartate Amino Transf (AST/SGOT) 312 U/L (15-37) Alanine Aminotransferase (ALT/SGPT) 115 U/L (16-63) Alkaline Phosphatase 133 U/L (46-116) Total Protein 5.4 g/dL (6.4-8.2) Albumin 2.2 g/dL (3.4-5.0) Albumin/Globulin Ratio 0.7 (1.0-1.7) Medications Active Scripts Medications Dose Route/Sig Max Daily Dose Days Date Category Meclizine Hcl 25 Mg Tablet 1 Tab PO PRN TID 10/27/20 Reported Latanoprost 0.005% Eye Drop (Latanoprost/Pf) 7.5 Ml Drops 7.5 Ml OP HS 10/27/20 Reported Dorzolamide-Timolol Eye Drops (Dorzolamide Hcl/Timolol Maleat) 10 Ml Drops 1 Drop EACHEYE BID 10/27/20 Reported Brimonidine Tartrate 5 Ml Drops 1 Drop EACHEYE BID 10/27/20 Reported Impression . IMPRESSION: 1. Acute respiratory failure secondary to combination of suspected toxic encephalopathy and septic shock along with metabolic acidosis-- resolved now on room air 2. Highly suspected rhabdomyolysis. The patient was found down since 7 p.m. last night. His CPK was markedly elevated. 3. Urinary tract infection suspected contributing to septic shock. 4. Acute kidney injury. 5. Lactic acidosis secondary to septic shock. 6. Acute kidney injury, likely component of volume contraction. He is hypernatremic as well. 7. Influenza screen negative, but pending COVID. 8. Fever, likely source urine. He had too numerous white cell to count on urinalysis. Plan . RECOMMENDATIONS: Pt. is stable from pulmonary stand point, remains on room air Follow ID recs for ABX, on zosyn, blood cultures positive for GNR, plan for CT ABD/PLVS today Follow nephrology recs --- planned for hemodialysis catheter and hemodialysis today Follow cardiology recs, increased trop, now on heparin gtt Rule out COVID-- awaiting results, continue isolation precautions DVT/GI PPX Discussed with RN raciel to transfer out of ICU from our standpoint MICHEL SOLARES MD Oct 28, 2020 08:22
[2020-10-28] MEDS: ELECTROLYTE (ICU) PROTOCOL. MC SCH (09:00)
--- NOTE | 2020-10-28 09:00 | PDOC ---
Infectious Disease Note Vital Signs: Vital Signs Vital Signs Date Time Temp Pulse Resp B/P (MAP) Pulse Ox O2 Delivery O2 Flow Rate FiO2 10/28/20 08:14 80 18 100 Room Air 141/46 (77) 10/28/20 04:00 98.5 98.5 10/28/20 02:00 2.0 Medications: Inpatient Meds: Current Medications Medications (Trade) Dose Ordered Sig/Ambrosio Start Time Stop Time Status Last Admin Dose Admin Acetaminophen (Tylenol Supp) 975 mg 1X ONCE 10/27/20 06:30 10/27/20 06:31 DC 10/27/20 07:30 975 MG Aspirin (Aspirin Rectal Supp) 300 mg 1X ONCE 10/27/20 13:15 10/27/20 13:16 DC Aspirin (Ecotrin) 81 mg [id number] 10/27/20 12:30 10/27/20 13:53 81 MG Bisacodyl (Dulcolax Supp) 10 mg PRN DAILY PRN 10/27/20 10:30 Famotidine (Pepcid Vial) 20 mg QHS 10/27/20 21:00 10/27/20 20:46 20 MG Heparin Sodium (Porcine) (Heparin Sodium) 1,600 unit PRN Q6HRS PRN 10/27/20 13:15 10/27/20 20:46 1,600 UNIT Heparin Sodium/ Dextrose 250 ml @ 7.656 mls/ hr CONT PRN 10/27/20 13:15 10/27/20 13:54 7.656 MLS/HR Hydromorphone HCl (Dilaudid) 0.2 mg PRN Q1HR PRN 10/27/20 10:30 Info (CONTRAST GIVEN -- Rx MONITORING) 1 each PRN DAILY PRN 10/27/20 08:45 10/29/20 08:44 Info ([facility] Electrolyte Protocol) 1 ea DAILY 10/28/20 09:00 Iohexol (Omnipaque 350 Mg/ml) 100 ml 1X ONCE 10/27/20 08:45 10/27/20 08:46 DC Lidocaine HCl (Lidocaine 1% 20ml Vial) 20 ml STK-MED ONCE 10/27/20 06:30 10/27/20 06:30 DC Norepinephrine Bitartrate 8 mg/ Dextrose 258 ml @ 0 mls/hr CONT PRN 10/27/20 11:00 1/13/21 14:49 49.85 MLS/HR Ondansetron HCl (Zofran) 4 mg PRN Q6HRS PRN 10/27/20 10:30 Piperacillin Sod/ Tazobactam Sod (Zosyn Per Pharmacy) 1 each PRN DAILY PRN 10/27/20 10:30 Piperacillin Sod/ Tazobactam Sod 2.25 gm/Sodium Chloride 50 ml @ 100 mls/hr Q6HRS 10/27/20 12:00 10/28/20 06:05 100 MLS/HR Piperacillin Sod/ Tazobactam Sod 3.375 gm/Sodium Chloride 50 ml @ 100 mls/hr 1X ONCE 10/27/20 07:00 10/27/20 07:29 DC 10/27/20 07:58 100 MLS/HR Sodium Bicarbonate (Sodium Bicarb Adult 8.4% Syr) 100 meq 1X ONCE 10/27/20 11:00 10/27/20 11:01 DC 10/27/20 10:54 100 MEQ Sodium Chloride 500 ml @ 1,000 mls/hr PRN Q30MIN PRN 10/27/20 11:00 Sodium Chloride (Normal Saline Flush) 3 ml QSHIFT PRN 10/27/20 10:30 Labs: Lab Laboratory Tests Test 10/27/20 11:12 10/27/20 15:45 10/27/20 20:00 10/28/20 02:30 Fibrinogen 400 mg/dL (200-440) D-Dimer (Iza) 6.07 ug/mlFEU (0.00-0.50) Lactic Acid Level 2.2 mmol/L (0.4-2.0) Troponin I Quantitative 3.729 ng/mL (0.000-0.055) 4.339 ng/mL (0.000-0.055) Procalcitonin > 125.00 ng/mL (0.00-0.10) Heparin Anti-Xa Act, Unfractionated 0.18 IU/mL (0.30-0.70) 0.59 IU/mL (0.30-0.70) Test 10/28/20 06:30 White Blood Count 26.5 x10^3/uL (4.0-11.0) Red Blood Count 3.06 x10^6/uL (4.30-5.70) Hemoglobin 11.2 g/dL (13.0-17.5) Hematocrit 33.1 % (39.0-53.0) Mean Corpuscular Volume 108 fL (79-100) Mean Corpuscular Hemoglobin 37 pg (25-35) Mean Corpuscular Hemoglobin Concent 34 g/dL (31-37) Red Cell Distribution Width 12.7 % (11.5-14.5) Platelet Count 169 x10^3/uL (140-400) Neutrophils (%) (Auto) 87 % (31-73) Lymphocytes (%) (Auto) 7 % (24-48) Monocytes (%) (Auto) 5 % (0-9) Eosinophils (%) (Auto) 1 % (0-3) Basophils (%) (Auto) 0 % (0-3) Neutrophils # (Auto) 23.1 x10^3/uL (1.8-7.7) Lymphocytes # (Auto) 1.8 x10^3/uL (1.0-4.8) Monocytes # (Auto) 1.3 x10^3/uL (0.0-1.1) Eosinophils # (Auto) 0.2 x10^3/uL (0.0-0.7) Basophils # (Auto) 0.0 x10^3/uL (0.0-0.2) Prothrombin Time 24.1 SEC (11.7-14.0) Prothromb Time International Ratio 2.2 (0.8-1.1) Activated Partial Thromboplast Time > 150 SEC (24-38) Sodium Level 156 mmol/L (136-145) Potassium Level 3.5 mmol/L (3.5-5.1) Chloride Level 121 mmol/L (98-107) Carbon Dioxide Level 19 mmol/L (21-32) Anion Gap 16 (6-14) Blood Urea Nitrogen 83 mg/dL (8-26) Creatinine 3.4 mg/dL (0.7-1.3) Estimated GFR (Cockcroft-Gault) 21.6 BUN/Creatinine Ratio 24 (6-20) Glucose Level 83 mg/dL (70-99) Calcium Level 7.0 mg/dL (8.5-10.1) Phosphorus Level 5.2 mg/dL (2.6-4.7) Total Bilirubin 3.7 mg/dL (0.2-1.0) Aspartate Amino Transf (AST/SGOT) 312 U/L (15-37) Alanine Aminotransferase (ALT/SGPT) 115 U/L (16-63) Alkaline Phosphatase 133 U/L (46-116) Total Protein 5.4 g/dL (6.4-8.2) Albumin 2.2 g/dL (3.4-5.0) Albumin/Globulin Ratio 0.7 (1.0-1.7) Objective: Assessment: Patient seen and examined ID consult dictated Impression Gram-negative sepsis UTI PERRY with underlying CKD, metabolic acidosis, hypernatremia Rhabdomyolysis Abnormal LFTs Encephalopathy Acute hypoxic respiratory failure now resolved Plan: Plan of Care Continue Zosyn CT abdomen and pelvis Patient is off pressors Follow blood cultures and monitor labs Continue supportive care [id number] Thank you STEVEN CANALES MD Oct 28, 2020 09:00
[2020-10-28] MEDS ORDERED: ASPIRIN RECTAL 300 MG SUPP. PR ONE (11:00)
[2020-10-28] MEDS: TIMOLOL 0.5% OPHTH SOLUTION 5ML BOTTLE. OU SCH ×2 (11:00→20:53)
[2020-10-28] MEDS: DORZOLAMIDE 2% OPHTH SOLUTION 10ML BOTTLE. OU SCH ×2 (11:00→20:54)
--- NOTE | 2020-10-28 11:01 | PDOC ---
ROSEANN NI MACHINE OILER 10/28/20 1101: CARDIO Progress Notes Date and Time Date of Service 10/28/2020 Time of Evaluation 0920 Subjective Subjective: Other (mumbles, nonverbal otherwise, no noted discomfort) Vitals Vitals Vital Signs Date Time Temp Pulse Resp B/P (MAP) Pulse Ox O2 Delivery O2 Flow Rate FiO2 10/28/20 09:24 87 18 100 Room Air 146/54 (84) 10/28/20 04:00 98.5 98.5 10/28/20 02:00 2.0 Weight Weight [ ] Input and Output Intake and Output Intake and Output 10/28/20 07:00 Intake Total 6957.9 ml Output Total 1830 ml Balance 5127.9 ml Intake Oral 0 ml IV Total 6957.9 ml Output Urine Total 1830 ml Laboratory Labs Laboratory Tests Test 10/27/20 11:12 10/27/20 15:45 10/27/20 20:00 10/28/20 02:30 Fibrinogen 400 mg/dL (200-440) D-Dimer (Iza) 6.07 ug/mlFEU (0.00-0.50) Lactic Acid Level 2.2 mmol/L (0.4-2.0) Troponin I Quantitative 3.729 ng/mL (0.000-0.055) 4.339 ng/mL (0.000-0.055) Procalcitonin > 125.00 ng/mL (0.00-0.10) Heparin Anti-Xa Act, Unfractionated 0.18 IU/mL (0.30-0.70) 0.59 IU/mL (0.30-0.70) Test 10/28/20 06:30 10/28/20 09:15 White Blood Count 26.5 x10^3/uL (4.0-11.0) Red Blood Count 3.06 x10^6/uL (4.30-5.70) Hemoglobin 11.2 g/dL (13.0-17.5) Hematocrit 33.1 % (39.0-53.0) Mean Corpuscular Volume 108 fL (79-100) Mean Corpuscular Hemoglobin 37 pg (25-35) Mean Corpuscular Hemoglobin Concent 34 g/dL (31-37) Red Cell Distribution Width 12.7 % (11.5-14.5) Platelet Count 169 x10^3/uL (140-400) Neutrophils (%) (Auto) 87 % (31-73) Lymphocytes (%) (Auto) 7 % (24-48) Monocytes (%) (Auto) 5 % (0-9) Eosinophils (%) (Auto) 1 % (0-3) Basophils (%) (Auto) 0 % (0-3) Neutrophils # (Auto) 23.1 x10^3/uL (1.8-7.7) Lymphocytes # (Auto) 1.8 x10^3/uL (1.0-4.8) Monocytes # (Auto) 1.3 x10^3/uL (0.0-1.1) Eosinophils # (Auto) 0.2 x10^3/uL (0.0-0.7) Basophils # (Auto) 0.0 x10^3/uL (0.0-0.2) Prothrombin Time 24.1 SEC (11.7-14.0) Prothromb Time International Ratio 2.2 (0.8-1.1) Activated Partial Thromboplast Time > 150 SEC (24-38) Sodium Level 156 mmol/L (136-145) Potassium Level 3.5 mmol/L (3.5-5.1) Chloride Level 121 mmol/L (98-107) Carbon Dioxide Level 19 mmol/L (21-32) Anion Gap 16 (6-14) Blood Urea Nitrogen 83 mg/dL (8-26) Creatinine 3.4 mg/dL (0.7-1.3) Estimated GFR (Cockcroft-Gault) 21.6 BUN/Creatinine Ratio 24 (6-20) Glucose Level 83 mg/dL (70-99) Calcium Level 7.0 mg/dL (8.5-10.1) Phosphorus Level 5.2 mg/dL (2.6-4.7) Total Bilirubin 3.7 mg/dL (0.2-1.0) Aspartate Amino Transf (AST/SGOT) 312 U/L (15-37) Alanine Aminotransferase (ALT/SGPT) 115 U/L (16-63) Alkaline Phosphatase 133 U/L (46-116) Total Protein 5.4 g/dL (6.4-8.2) Albumin 2.2 g/dL (3.4-5.0) Albumin/Globulin Ratio 0.7 (1.0-1.7) Heparin Anti-Xa Act, Unfractionated 0.26 IU/mL (0.30-0.70) Microbiology Micro Microbiology 10/27/20 Blood Culture - Final, Complete Physical Exam HEENT: Neck Supple W Full Motion Chest: Symmetric LUNGS: Clear to Auscultation Heart: RRR (SR no ectopies) Abdomen: Soft N/T Extremities: No Calf Tenderness Neurology: other (drowsy) Assessment Assessment 1. Sepsis/fever/UTI/leukocytosis: ID following 2. Septic shock: BP better. off levo. 3. Severe PERRY with mild hypernatremia: Renal labs worse per nephrology. 4. Rhabdomyolysis 5. PSVT with aberrancy: none further 6. LBBB: no prior EKG for comparison 7. Possible fall: No obvious trauma. unknown duration on floor 8. NSTEMI: Trend to 4.3. multifactorial including ischemia No CP/SOA. 9. Metabolic encephalopathy 10. PUI: pending 11. Macrocytosis 12. Transaminitis: increasing 13. Coagulopathy: INR at 2.2 Recommendations 1. No [facility] and no known cardiopulmonary hx so far. No arrhythmias so far. Will DC heparin with INR being elevated. Rectal ASA. Start on small dose IV lopressor. 2. Covd PCR pending for today, if neg then will obtain full echo 3. Antibiotics ongoing 4. Will consider for ischemic workup once extracardiac issues are much improved. Supportive care for now. 5. Possible HD Justicifation of Admission Dx: Justifications for Admission: Justification of Admission Dx: Yes HERNAN FORTUNE MD 10/28/20 1553: CARDIO Progress Notes Plan Plan Patient seen and examined. Agree with above nurse practitioner note. Troponin elevation likely secondary to other underlying comorbidities. Lower suspicion for primary cardiac pathology Await echocardiogram. Medical therapy for now. ROSEANN NI APRN Oct 28, 2020 11:01 HERNAN FORTUNE MD Oct 28, 2020 15:53
--- NOTE | 2020-10-28 11:04 | PDOC ---
Renal-Progress Notes Subjective Notes Notes MORE AWAKE History of Present Illness Hx of present illness STABLE Vitals Vitals Vital Signs Date Time Temp Pulse Resp B/P (MAP) Pulse Ox O2 Delivery O2 Flow Rate FiO2 10/28/20 09:24 87 18 100 Room Air 146/54 (84) 10/28/20 04:00 98.5 98.5 10/28/20 02:00 2.0 Weight Weight [ ] I.O. Intake and Output Intake and Output 10/28/20 06:59 Intake Total 6957.9 ml Output Total 1830 ml Balance 5127.9 ml Intake Oral 0 ml IV Total 6957.9 ml Output Urine Total 1830 ml Labs Labs Laboratory Tests Test 10/27/20 11:12 10/27/20 15:45 10/27/20 20:00 10/28/20 02:30 Fibrinogen 400 mg/dL (200-440) D-Dimer (Iza) 6.07 ug/mlFEU (0.00-0.50) Lactic Acid Level 2.2 mmol/L (0.4-2.0) Troponin I Quantitative 3.729 ng/mL (0.000-0.055) 4.339 ng/mL (0.000-0.055) Procalcitonin > 125.00 ng/mL (0.00-0.10) Heparin Anti-Xa Act, Unfractionated 0.18 IU/mL (0.30-0.70) 0.59 IU/mL (0.30-0.70) Test 10/28/20 06:30 10/28/20 09:15 White Blood Count 26.5 x10^3/uL (4.0-11.0) Red Blood Count 3.06 x10^6/uL (4.30-5.70) Hemoglobin 11.2 g/dL (13.0-17.5) Hematocrit 33.1 % (39.0-53.0) Mean Corpuscular Volume 108 fL (79-100) Mean Corpuscular Hemoglobin 37 pg (25-35) Mean Corpuscular Hemoglobin Concent 34 g/dL (31-37) Red Cell Distribution Width 12.7 % (11.5-14.5) Platelet Count 169 x10^3/uL (140-400) Neutrophils (%) (Auto) 87 % (31-73) Lymphocytes (%) (Auto) 7 % (24-48) Monocytes (%) (Auto) 5 % (0-9) Eosinophils (%) (Auto) 1 % (0-3) Basophils (%) (Auto) 0 % (0-3) Neutrophils # (Auto) 23.1 x10^3/uL (1.8-7.7) Lymphocytes # (Auto) 1.8 x10^3/uL (1.0-4.8) Monocytes # (Auto) 1.3 x10^3/uL (0.0-1.1) Eosinophils # (Auto) 0.2 x10^3/uL (0.0-0.7) Basophils # (Auto) 0.0 x10^3/uL (0.0-0.2) Prothrombin Time 24.1 SEC (11.7-14.0) Prothromb Time International Ratio 2.2 (0.8-1.1) Activated Partial Thromboplast Time > 150 SEC (24-38) Sodium Level 156 mmol/L (136-145) Potassium Level 3.5 mmol/L (3.5-5.1) Chloride Level 121 mmol/L (98-107) Carbon Dioxide Level 19 mmol/L (21-32) Anion Gap 16 (6-14) Blood Urea Nitrogen 83 mg/dL (8-26) Creatinine 3.4 mg/dL (0.7-1.3) Estimated GFR (Cockcroft-Gault) 21.6 BUN/Creatinine Ratio 24 (6-20) Glucose Level 83 mg/dL (70-99) Calcium Level 7.0 mg/dL (8.5-10.1) Phosphorus Level 5.2 mg/dL (2.6-4.7) Total Bilirubin 3.7 mg/dL (0.2-1.0) Aspartate Amino Transf (AST/SGOT) 312 U/L (15-37) Alanine Aminotransferase (ALT/SGPT) 115 U/L (16-63) Alkaline Phosphatase 133 U/L (46-116) Total Protein 5.4 g/dL (6.4-8.2) Albumin 2.2 g/dL (3.4-5.0) Albumin/Globulin Ratio 0.7 (1.0-1.7) Heparin Anti-Xa Act, Unfractionated 0.26 IU/mL (0.30-0.70) Micro Micro Microbiology 10/27/20 Blood Culture - Final, Complete Review of Systems Constitutional: yes: weakness, alert, oriented Ears/Nose/Throat: Yes: no symptom reported Eyes: Yes: no symptom reported Pulmonary: Yes no symptom reported Cardiovascular: Yes no symptom reported Gastrointestional: Yes: no symptom reported Genitourinary: Yes: no symptom reported Musculoskeletal: Yes: no symptom reported Skin: Yes no symptom reported Endocrine: Yes: no symptom reported Physical Exam General Appearance: no apparent distress Skin: warm Respiratory: decreased breath sounds Heart: S1S2 Abdomen: bowel sounds present Genitourinary: bladder flat Extremities: pulses present Neurology: alert, confused, other (drowsy) Musculoskeletal: Osteoarthritis Assessment Assessment IMP PERRY WITH CR UP TO 3.4-UNKNOWN BASELINE DEHYDRATION PROB RHABDOMYOLYSIS HYPERNATREMIA AG MET ACIDOSIS INCREASED LFT'S ACUTE RESP FAILURE PROB SEPSIS LEUCOCYTOSIS URINARY TRACT INFECTION HX URINARY RETENTION-SELF CATH SHOCK PLAN HYDRATION NUTRITION ANTIBIOTICS F/U CPK CRITICALLY ILL SUPPLEMENTAL O2 PRESSORS NEEDED TEMP HD LINE TODAY HD TODAY MIN UF D/W DR SOLARES WILL FOLLOW DIEUDONNE DOMINGUEZ MD Oct 28, 2020 11:04
--- NOTE | 2020-10-28 11:17 | EKG ---
[facility] [address] [place] [address] Test Date: 2020-10-27 Test Time: 12:11:17 Pat Name: AURORA COREA Department: Room: 108 1 Gender: M Department Of Sociology Chair: : [id number] Requested By: THONG ROUSSEAU Order Number: [id number] Reading MD: Measurements Intervals Robertson Rate: 102 P: 64 PA: 152 QRS: 43 QRSD: 122 T: 206 QT: 372 QTc: 489 Interpretive Statements SINUS TACHYCARDIA INCOMPLETE LEFT BUNDLE BRANCH BLOCK LVH WITH REPOLARIZATION ABNORMALITY ABNORMAL ECG RI6.02 No previous ECG available for comparison
--- NOTE | 2020-10-28 11:21 | CONS ---
DATE OF CONSULTATION: 10/28/2020 REFERRING PHYSICIAN: Dr. Ramsay. REASON FOR CONSULTATION: Sepsis, antibiotic management. HISTORY OF PRESENT ILLNESS: A 75-year-old male who was brought in by the ER from home due to altered mental status. The patient's was unable to get him from the floor. The patient is a poor historian and unable to give any history. History obtained from chart and medical staff. The patient was found to be hypotensive, tachycardic and febrile. White count was 2.9 on presentation, today is 26.5; hemoglobin of 13.7, today is 11.2, normal platelets. Lactate of 5.9. Sodium 150, chloride ____, BUN 76, creatinine 2.8, total bilirubin 2.0, AST 201, ALT 92. Troponin 0.330. UDS was negative. UA showed large blood, large leukocyte esterase. Influenza screen was negative. COVID-19 is pending. Blood culture on admission 3/3 bottles are positive for gram-negative chelsey. UA shows Pyuria. Urine culture pending at this time. The patient underwent chest x-ray, which showed no acute infiltrate. Head and cervical CT showed no acute intracranial process or intracervical process. Right knee x-ray did not show any acute findings. The patient required nonrebreather on presentation, currently is on room air. The patient is arousable, weak. Does not answer most of the questions. PAST MEDICAL HISTORY: Unknown. PAST SURGICAL HISTORY: Unknown. FAMILY HISTORY: Unknown. ALLERGIES: Not available. REVIEW OF SYSTEMS: Unable to obtain. CURRENT MEDICATIONS: Zosyn. Other medications reviewed in medication list. PHYSICAL EXAMINATION: VITAL SIGNS: Temperature 98.5, T-max was 101, pulse 80, respiratory rate 18, blood pressure 141/46, oxygen saturation 100% on room air. GENERAL: Sleepy, but arousable male. Does not answer any questions, comfortable in bed. HEENT: Normocephalic, atraumatic, anicteric. NECK: Supple, no JVD. LUNGS: Clear bilaterally. No wheezing. HEART: S1, S2, no murmurs. ABDOMEN: Soft, nontender, nondistended, no rebound, no guarding. EXTREMITIES: No edema, no cyanosis. DERMATOLOGIC: Warm and dry. No generalized rash. NEUROLOGIC: Sleepy, but arousable. Unable to assess. PSYCHIATRIC: Unable to assess. MUSCULOSKELETAL: No joint deformity. LABORATORY DATA: WBC 26.5, was 2.9; hemoglobin 11.2, hematocrit 33.1, platelets 169. Sodium 150, potassium 3.6, chloride 113, bicarbonate 19, BUN 76, creatinine 2.8, glucose 92. Lactate 5.9. CK 6272. Total bilirubin 2.0, AST 201, ALT 92. Troponin 0.330. Influenza screen negative. UA shows large leukocyte esterase. IMAGING: Chest x-ray as above. Knee x-ray as above. Head and cervical CT as above. MICRO: On 10/27/2020, blood cultures 3/3 bottles gram-negative chelsey, ID and MARCO pending. Urine culture pending. COVID-19 pending. IMPRESSION: 1. Fever, source genitourinary. 2. Sepsis from gram-negative bacteremia. 3. Gram-negative bacteremia. 4. Urinary tract infection. 5. Lactic acidosis. 6. Leukopenia, now leukocytosis. 7. Rhabdomyolysis. 8. Acute kidney injury on chronic kidney disease. 9. Hypernatremia and metabolic acidosis. 10. Abnormal liver function tests. 11. Acute hypoxic respiratory failure, now on room air. 12. COVID-19 pending. Influenza screen negative. RECOMMENDATIONS: 1. Continue Zosyn. 2. Follow up ID and MARCO of gram-negative chelsey in blood culture. 3. Follow up urine culture. 4. Obtain CT abdomen and pelvis without. 5. Nephrology is following. 6. Pulmonary team is following. 7. Continue supportive care. 8. Maintain aspiration precaution. 9. Discussed with RN. Thank you for allowing me to participate in this patient's care. If you have any questions, do not hesitate to contact me. CCT time 40 minutes. STEVEN CANALES MD DR: PAUL/jose francisco JOB#: [id number] / [id number] GRECIA
[2020-10-28] MEDS ORDERED: ALBUMIN HUMAN 25% 200 ML IV PRN (11:30)
[2020-10-28] MEDS ORDERED: DIALYSIS PATIENT. MC PRN ×2 (11:30)
[2020-10-28] MEDS ORDERED: IV NORMAL SALINE 1000ML BAG 1,000 ML IV PRN ×2 (11:30)
[2020-10-28] MEDS ORDERED: LIDOCAINE WITH 8.4% SOD BICARB 3 ML DISP.SYRIN. ONE (11:45)
[2020-10-28] MEDS ORDERED: LIDOCAINE WITH 8.4% SOD BICARB 3 ML DISP.SYRIN. INJ ONE (12:00)
[2020-10-28] MEDS: METOPROLOL IV PUSH 5 MG/5 ML VIAL. IVP SCH ×3 (12:00→23:38)
[2020-10-28] MEDS ORDERED: HEPARIN for IV BOLUS 10,000 UNIT/10 ML VIAL. ONE (12:10)
--- NOTE | 2020-10-28 13:01 | RAD ---
Procedure: Temporary hemodialysis catheter placement at the bedside. Clinical Indication: Adult male requiring hemodialysis Sedation: Local anesthesia only Antibiotics: None Fluoro Time: Not applicable Contrast: None Sterility: All elements of maximal sterile barrier technique including the use of a cap, mask, sterile gown, sterile gloves, large sterile sheet, appropriate hand hygiene, and 2% chlorhexidine for cutaneous antisepsis (or acceptable alternative antiseptic per current guidelines) were followed for this procedure. Consent: The procedure was explained in its entirety to the patient or the patients designated unit support representative by a member of the treatment team, including a discussion of the risks, benefits and commonly accepted alternatives to the procedure, as well as the expected consequences of no therapy whatsoever. Discussion of the risks included, but was not limited to, those that are most frequent and those that are rare but possibly severe or life-threatening, as well as the possibility of unforeseen complications. Technique and Findings: Following informed consent, the patient was prepped and draped in the usual sterile fashion. Ultrasound interrogation of the right neck revealed patency and compressibility of the right internal jugular vein. A 21-gauge micropuncture needle was used to gain access to this vein after 1% Lidocaine was used to achieve local anesthesia. A hardcopy ultrasound image was recorded. The needle was exchanged over a wire for serial dilators followed by a 20 cm Schon temporary hemodialysis catheter which was deployed in the expected location of the mid right atrium. The catheter flow rates were assessed manually and found to be excellent. The catheter was then flushed, packed with Heparin, capped, and sutured to the skin. Chest x-ray was then obtained to assess line position. Complications: No immediate Impression: 1. Ultrasound guided placement of a temporary hemodialysis catheter which exhibits excellent manual flow rates as described.
--- NOTE | 2020-10-28 13:13 | PDOC ---
[facility] PROGRESS NOTE Date of Service DOS: DATE: 10/28/20 TIME: 13:11 Chief Complaint Chief Complaint Septic shock Lactic acidosis PERRY Dehydration Possible COVID-19 Rhabdo UTI Demand ischemia Metabolic cephalopathy UTI Fever History of Present Illness History of Present Illness 10/28/2020 Patient seen and examined in the ICU Appears very weak He is off Levophed and off heparin Going for temporary dialysis catheter today Discussed with RN Chart reviewed Vitals/I&O Vitals/I&O: Vital Signs Date Time Temp Pulse Resp B/P (MAP) Pulse Ox O2 Delivery O2 Flow Rate FiO2 10/28/20 11:58 10/28/20 11:36 98.0 85 18 100 Room Air 98.0 10/28/20 02:00 2.0 I & O 10/27/20 10/27/20 10/28/20 15:00 23:00 07:00 Intake Total 3050 ml 2352.9 ml 1555 ml Output Total 1180 ml 215 ml 435 ml Balance 1870 ml 2137.9 ml 1120 ml Physical Exam General: mild distress, Other (Very weak complains of feeling cold) Heart: Regular rate Lungs: Clear Abdomen: Normal bowel sounds, Soft Extremities: No cyanosis Skin: No breakdown Labs Labs: Laboratory Tests Test 10/27/20 15:45 10/27/20 20:00 10/28/20 02:30 10/28/20 06:30 Troponin I Quantitative 4.339 ng/mL (0.000-0.055) 2.966 ng/mL (0.000-0.055) Heparin Anti-Xa Act, Unfractionated 0.18 IU/mL (0.30-0.70) 0.59 IU/mL (0.30-0.70) White Blood Count 26.5 x10^3/uL (4.0-11.0) Red Blood Count 3.06 x10^6/uL (4.30-5.70) Hemoglobin 11.2 g/dL (13.0-17.5) Hematocrit 33.1 % (39.0-53.0) Mean Corpuscular Volume 108 fL (79-100) Mean Corpuscular Hemoglobin 37 pg (25-35) Mean Corpuscular Hemoglobin Concent 34 g/dL (31-37) Red Cell Distribution Width 12.7 % (11.5-14.5) Platelet Count 169 x10^3/uL (140-400) Neutrophils (%) (Auto) 87 % (31-73) Lymphocytes (%) (Auto) 7 % (24-48) Monocytes (%) (Auto) 5 % (0-9) Eosinophils (%) (Auto) 1 % (0-3) Basophils (%) (Auto) 0 % (0-3) Neutrophils # (Auto) 23.1 x10^3/uL (1.8-7.7) Lymphocytes # (Auto) 1.8 x10^3/uL (1.0-4.8) Monocytes # (Auto) 1.3 x10^3/uL (0.0-1.1) Eosinophils # (Auto) 0.2 x10^3/uL (0.0-0.7) Basophils # (Auto) 0.0 x10^3/uL (0.0-0.2) Prothrombin Time 24.1 SEC (11.7-14.0) Prothromb Time International Ratio 2.2 (0.8-1.1) Activated Partial Thromboplast Time > 150 SEC (24-38) Sodium Level 156 mmol/L (136-145) Potassium Level 3.5 mmol/L (3.5-5.1) Chloride Level 121 mmol/L (98-107) Carbon Dioxide Level 19 mmol/L (21-32) Anion Gap 16 (6-14) Blood Urea Nitrogen 83 mg/dL (8-26) Creatinine 3.4 mg/dL (0.7-1.3) Estimated GFR (Cockcroft-Gault) 21.6 BUN/Creatinine Ratio 24 (6-20) Glucose Level 83 mg/dL (70-99) Calcium Level 7.0 mg/dL (8.5-10.1) Phosphorus Level 5.2 mg/dL (2.6-4.7) Total Bilirubin 3.7 mg/dL (0.2-1.0) Aspartate Amino Transf (AST/SGOT) 312 U/L (15-37) Alanine Aminotransferase (ALT/SGPT) 115 U/L (16-63) Alkaline Phosphatase 133 U/L (46-116) Creatine Kinase 72237 U/L (39-308) Total Protein 5.4 g/dL (6.4-8.2) Albumin 2.2 g/dL (3.4-5.0) Albumin/Globulin Ratio 0.7 (1.0-1.7) Hepatitis B Surface Antigen Nonreactive (Nonreactive) Test 10/28/20 09:15 Heparin Anti-Xa Act, Unfractionated 0.26 IU/mL (0.30-0.70) Assessment and Plan Assessmemt and Plan Problems Medical Problems: (1) Acute renal failure Status: Acute (2) Dehydration Status: Acute (3) Person under investigation for COVID-19 Status: Acute (4) Rhabdomyolysis Status: Acute (5) Septic shock Status: Acute (6) UTI (urinary tract infection) Status: Acute Septic shock Lactic acidosis PERRY Dehydration Possible COVID-19 Rhabdo UTI Demand ischemia Metabolic cephalopathy UTI Fever Plan ICU monitoring Going for dialysis catheter today Trend labs Appreciate subspecialist input ID and nephrology and pulmonary and cardiology are following emperic iv asntibiotics covid pcr BLOOD CULTURES URINE CULTURE ECHO DVT prophylaxis Comment Review of Relevant I have reviewed the following items mendez (where applicable) has been applied. Medications: Current Medications Medications (Trade) Dose Ordered Sig/Ambrosio Route PRN Reason Start Time Stop Time Status Last Admin Dose Admin Famotidine (Pepcid Vial) 20 mg QHS IVP 10/27/20 21:00 10/27/20 20:46 Info (Icu Electrolyte Protocol) 1 ea DAILY MC 10/28/20 09:00 10/28/20 09:00 Heparin Sodium/ Dextrose 250 ml @ 7.656 mls/ hr CONT PRN IV PER PROTOCOL 10/27/20 13:15 10/28/20 10:48 DC 10/27/20 13:54 Heparin Sodium (Porcine) (Heparin Sodium) 1,600 unit PRN Q6HRS PRN IV FOR UFH LEVEL LESS THAN 0.2 10/27/20 13:15 10/28/20 10:48 DC 10/27/20 20:46 Dorzolamide HCl (Trusopt) 1 drop BID OU 10/28/20 11:00 10/28/20 11:00 Timolol Maleate (Timoptic 0.5% Oph) 1 drop BID OU 10/28/20 11:00 10/28/20 11:00 Lidocaine HCl (Buffered Lidocaine 1%) 6 ml 1X ONCE INJ 10/28/20 12:00 10/28/20 12:07 DC 10/28/20 12:16 Heparin Sodium (Porcine) (Heparin Sodium) 2,500 unit 1X ONCE INT CAT 10/28/20 12:30 10/28/20 12:31 DC 10/28/20 12:19 Justifications for Admission General Conditions Poss tachycardia?: Yes Justification for admission: Patient has tachycardia (> 100 beats per minute) which is not readily corrected by appropriate treatment within 12 to 24 hours. SEPTIC SHOCK Other Justification ROGER GRACE III DO Oct 28, 2020 13:13
--- NOTE | 2020-10-28 14:57 | RAD ---
XR CHEST 1V INDICATION: Reason: TEMP HD CATH PLACEMENT / Spl. Instructions: / History: . COMPARISON STUDY: 10/27/2020. FINDINGS: Life Support Devices: New right IJ dual-lumen catheter with tip overlying the upper right atrium. Sta ble right IJ central venous catheter. Lungs: Normal lung volume. No focal airspace disease. Normal pulmonary vasculature. Pleura: No pleural effusion or pneumothorax. Heart and Mediastinum: Stable cardiomediastinal silhouette and great vessels. Bones and Soft Tissues: Stable regional skeleton and soft tissues. IMPRESSION: 1. New right IJ dual-lumen catheter. No pneumothorax. Stable right IJ central venous catheter. 2. No consolidation. Electronically signed by: Donte Simon MD (10/28/2020 2:54 PM) [id number]
--- NOTE | 2020-10-28 16:07 | NUR ---
SS following for discharge planning. SS reviewed pt chart and discussed with pt RN. Pt is from home with spouse and is currently on room air. Pt on IV Zosyn. COVID19 test pending. ST evaluated. Pt on cardiac diet. PT/OT ordered. SS will continue to follow for discharge planning.
[2020-10-28] MEDS: NOREPINEPHRINE VIAL 8 MG in IV DEXTROSE 5% 250 ML IV PRN (19:56)
[2020-10-28] MEDS: FAMOTIDINE 20 MG/2 ML VIAL IVP SCH (20:51)
[2020-10-28] MEDS: BRIMONIDINE 0.2% OPHTH SOLUTION 5ML BOTTLE. OU SCH (20:53)
[2020-10-28] MEDS: LATANOPROST 0.005% OPHTH SOLUTION 2.5ML BOTTLE. OU SCH (20:53)
[2020-10-29] VITALS (15 sets, daily range): BP systolic 92–123; BP diastolic 48–76
[2020-10-29] MEDS: IV NORMAL SALINE 1000ML BAG 1,000 ML IV SCH ×2 (02:30→22:46)
[2020-10-29] MEDS: PIPERACILLIN/TAZOBACTAM 2.25 GM in IV NORMAL SALINE 50ML 50 ML IV SCH ×3 (05:08→22:46)
[2020-10-29 06:45] LABS: CREATININE 2.2 mg/dL (0.7-1.3); GFR 35.7
[2020-10-29 06:54] LABS: HEMATOCRIT 31.3 % (39.0-53.0); HEMOGLOBIN 10.6 g/dL (13.0-17.5); RED BLOOD COUNT 2.95 x10^6/uL (4.30-5.70); RED CELL DISTRIBUTION WIDTH 12.8 % (11.5-14.5); WHITE BLOOD COUNT 24.8 x10^3/uL (4.0-11.0)
[2020-10-29] MEDS ORDERED: DIALYSIS PATIENT. MC PRN (07:30)
[2020-10-29] MEDS ORDERED: IV NORMAL SALINE 1000ML BAG 1,000 ML IV PRN ×2 (07:30)
[2020-10-29] MEDS ORDERED: diphenhydrAMINE 50 MG/ML VIAL IV PRN ×2 (07:30)
[2020-10-29] MEDS: ASPIRIN ENTERIC COATED 81 MG TABLET.DR. PO SCH (07:54)
--- NOTE | 2020-10-29 08:32 | PDOC ---
Infectious Disease Note Subjective: Subjective pt is under going dialysis more alert today denies any complaints Vital Signs: Vital Signs Vital Signs Date Time Temp Pulse Resp B/P (MAP) Pulse Ox O2 Delivery O2 Flow Rate FiO2 10/29/20 08:00 74 104/49 (67) 10/29/20 08:00 Room Air 10/29/20 08:00 98.0 16 100 98.0 Physical Exam: PHYSICAL EXAM GENERAL: axox3 male in nad, comfortable in bed. HEENT: Normocephalic, atraumatic, anicteric. NECK: Supple, no JVD. LUNGS: Clear bilaterally. No wheezing. HEART: S1, S2, no murmurs. ABDOMEN: Soft, nontender, nondistended, no rebound, no guarding. EXTREMITIES: No edema, no cyanosis. DERMATOLOGIC: Warm and dry. No generalized rash. NEUROLOGIC: Sleepy, but arousable. Unable to assess. PSYCHIATRIC: Unable to assess. MUSCULOSKELETAL: No joint deformity. Medications: Inpatient Meds: Current Medications Medications (Trade) Dose Ordered Sig/Ambrosio Start Time Stop Time Status Last Admin Dose Admin Acetaminophen (Tylenol Supp) 975 mg 1X ONCE 10/27/20 06:30 10/27/20 06:31 DC 10/27/20 07:30 975 MG Albumin Human 200 ml @ 200 mls/hr 1X PRN PRN 10/28/20 11:30 10/28/20 17:29 DC Aspirin (Aspirin Rectal Supp) 150 mg 1X ONCE 10/28/20 11:00 10/28/20 11:01 DC Aspirin (Ecotrin) 81 mg [id number] 10/27/20 12:30 10/29/20 07:54 81 MG Bisacodyl (Dulcolax Supp) 10 mg PRN DAILY PRN 10/27/20 10:30 Brimonidine Tartrate (Alphagan) 1 drop BID 10/28/20 21:00 10/28/20 20:53 1 DROP Diphenhydramine HCl (Benadryl) 25 mg 1X PRN PRN 10/29/20 07:30 10/30/20 07:29 Dorzolamide HCl (Trusopt) 1 drop BID 10/28/20 11:00 10/28/20 20:54 1 DROP Famotidine (Pepcid Vial) 20 mg QHS 10/27/20 21:00 1/14/21 20:51 20 MG Heparin Sodium (Porcine) (Heparin Sodium) 2,500 unit 1X ONCE 10/28/20 12:30 10/28/20 12:31 DC 10/28/20 12:19 2,500 UNIT Heparin Sodium/ Dextrose 250 ml @ 7.656 mls/ hr CONT PRN 10/27/20 13:15 10/28/20 10:48 DC 10/27/20 13:54 7.656 MLS/HR Hydromorphone HCl (Dilaudid) 0.2 mg PRN Q1HR PRN 10/27/20 10:30 Info (CONTRAST GIVEN -- Rx MONITORING) 1 each PRN DAILY PRN 10/27/20 08:45 10/29/20 08:44 Info (Icu Electrolyte Protocol) 1 ea DAILY 10/28/20 09:00 10/28/20 09:00 1 EA Info (PHARMACY MONITORING -- do not chart) 1 each PRN DAILY PRN 10/29/20 07:30 UNV Iohexol (Omnipaque 350 Mg/ml) 100 ml 1X ONCE 10/27/20 08:45 10/27/20 08:46 DC Latanoprost (Xalatan) 1 drop QHS 10/28/20 21:00 10/28/20 20:53 1 DROP Lidocaine HCl (Buffered Lidocaine 1%) 6 ml 1X ONCE 10/28/20 12:00 10/28/20 12:07 DC 10/28/20 12:16 4 ML Lidocaine HCl (Lidocaine 1% 20ml Vial) 20 ml STK-MED ONCE 10/27/20 06:30 10/27/20 06:30 DC Metoprolol Tartrate (Lopressor Vial) 2.5 mg Q6HRS 10/28/20 12:00 Norepinephrine Bitartrate 8 mg/ Dextrose 258 ml @ 0 mls/hr CONT PRN 10/27/20 11:00 10/28/20 19:56 3.6 MLS/HR Ondansetron HCl (Zofran) 4 mg PRN Q6HRS PRN 10/27/20 10:30 Piperacillin Sod/ Tazobactam Sod (Zosyn Per Pharmacy) 1 each PRN DAILY PRN 10/27/20 10:30 Piperacillin Sod/ Tazobactam Sod 2.25 gm/Sodium Chloride 50 ml @ 100 mls/hr Q8HRS 10/28/20 21:00 10/29/20 05:08 100 MLS/HR Piperacillin Sod/ Tazobactam Sod 3.375 gm/Sodium Chloride 50 ml @ 100 mls/hr 1X ONCE 10/27/20 07:00 10/27/20 07:29 DC 10/27/20 07:58 100 MLS/HR Sodium Bicarbonate (Sodium Bicarb Adult 8.4% Syr) 100 meq 1X ONCE 10/27/20 11:00 10/27/20 11:01 DC 10/27/20 10:54 100 MEQ Sodium Chloride 1,000 ml @ 400 mls/hr Q2H30M PRN 10/29/20 07:30 10/29/20 19:29 Sodium Chloride (Normal Saline Flush) 3 ml QSHIFT PRN 10/27/20 10:30 Timolol Maleate (Timoptic 0.5% Oph) 1 drop BID 10/28/20 11:00 10/28/20 20:53 1 DROP Labs: Lab Laboratory Tests Test 10/28/20 09:15 10/29/20 05:55 Heparin Anti-Xa Act, Unfractionated 0.26 IU/mL (0.30-0.70) White Blood Count 24.8 x10^3/uL (4.0-11.0) Red Blood Count 2.95 x10^6/uL (4.30-5.70) Hemoglobin 10.6 g/dL (13.0-17.5) Hematocrit 31.3 % (39.0-53.0) Mean Corpuscular Volume 106 fL (79-100) Mean Corpuscular Hemoglobin 36 pg (25-35) Mean Corpuscular Hemoglobin Concent 34 g/dL (31-37) Red Cell Distribution Width 12.8 % (11.5-14.5) Platelet Count 144 x10^3/uL (140-400) Sodium Level 144 mmol/L (136-145) Potassium Level 3.0 mmol/L (3.5-5.1) Chloride Level 106 mmol/L (98-107) Carbon Dioxide Level 30 mmol/L (21-32) Anion Gap 8 (6-14) Blood Urea Nitrogen 45 mg/dL (8-26) Creatinine 2.2 mg/dL (0.7-1.3) Estimated GFR (Cockcroft-Gault) 35.7 Glucose Level 119 mg/dL (70-99) Calcium Level 7.0 mg/dL (8.5-10.1) Creatine Kinase 4578 U/L (39-308) Objective: Assessment: Gram-negative sepsis source UTI Klebsiella PERRY with underlying CKD, metabolic acidosis, hypernatremia Rhabdomyolysis Abnormal LFTs Encephalopathy Acute hypoxic respiratory failure now resolved Plan: Plan of Care Continue Zosyn CT abdomen and pelvis without Patient is off pressors Follow blood cultures and monitor labs Continue supportive care D/W STEVEN BARBA MD Oct 29, 2020 08:32
--- NOTE | 2020-10-29 08:41 | PDOC ---
PULMONARY PROGRESS NOTES DATE: 10/29/20 TIME: 08:41 Subjective Pt. remains on room air Seen while on hemodialysis No overnight concerns from nursing Vitals Vital Signs Date Time Temp Pulse Resp B/P (MAP) Pulse Ox O2 Delivery O2 Flow Rate FiO2 10/29/20 08:00 74 104/49 (67) 10/29/20 08:00 Room Air 10/29/20 08:00 98.0 16 100 98.0 ROS: No Nausea, No Chest Pain, No Abdominal Pain, No Increase Cough General: Alert Lungs: Clear Cardiovascular: S1, S2 Abdomen: Soft Neuro Exam: Alert Skin: Warm, Dry Labs Laboratory Tests Test 10/27/20 11:12 10/27/20 15:45 10/27/20 20:00 10/28/20 02:30 Fibrinogen 400 mg/dL (200-440) D-Dimer (Iza) 6.07 ug/mlFEU (0.00-0.50) Lactic Acid Level 2.2 mmol/L (0.4-2.0) Troponin I Quantitative 3.729 ng/mL (0.000-0.055) 4.339 ng/mL (0.000-0.055) Procalcitonin > 125.00 ng/mL (0.00-0.10) Heparin Anti-Xa Act, Unfractionated 0.18 IU/mL (0.30-0.70) 0.59 IU/mL (0.30-0.70) Test 10/28/20 06:30 10/28/20 09:15 10/29/20 05:55 White Blood Count 26.5 x10^3/uL (4.0-11.0) 24.8 x10^3/uL (4.0-11.0) Red Blood Count 3.06 x10^6/uL (4.30-5.70) 2.95 x10^6/uL (4.30-5.70) Hemoglobin 11.2 g/dL (13.0-17.5) 10.6 g/dL (13.0-17.5) Hematocrit 33.1 % (39.0-53.0) 31.3 % (39.0-53.0) Mean Corpuscular Volume 108 fL (79-100) 106 fL (79-100) Mean Corpuscular Hemoglobin 37 pg (25-35) 36 pg (25-35) Mean Corpuscular Hemoglobin Concent 34 g/dL (31-37) 34 g/dL (31-37) Red Cell Distribution Width 12.7 % (11.5-14.5) 12.8 % (11.5-14.5) Platelet Count 169 x10^3/uL (140-400) 144 x10^3/uL (140-400) Neutrophils (%) (Auto) 87 % (31-73) Lymphocytes (%) (Auto) 7 % (24-48) Monocytes (%) (Auto) 5 % (0-9) Eosinophils (%) (Auto) 1 % (0-3) Basophils (%) (Auto) 0 % (0-3) Neutrophils # (Auto) 23.1 x10^3/uL (1.8-7.7) Lymphocytes # (Auto) 1.8 x10^3/uL (1.0-4.8) Monocytes # (Auto) 1.3 x10^3/uL (0.0-1.1) Eosinophils # (Auto) 0.2 x10^3/uL (0.0-0.7) Basophils # (Auto) 0.0 x10^3/uL (0.0-0.2) Prothrombin Time 24.1 SEC (11.7-14.0) Prothromb Time International Ratio 2.2 (0.8-1.1) Activated Partial Thromboplast Time > 150 SEC (24-38) Sodium Level 156 mmol/L (136-145) 144 mmol/L (136-145) Potassium Level 3.5 mmol/L (3.5-5.1) 3.0 mmol/L (3.5-5.1) Chloride Level 121 mmol/L (98-107) 106 mmol/L (98-107) Carbon Dioxide Level 19 mmol/L (21-32) 30 mmol/L (21-32) Anion Gap 16 (6-14) 8 (6-14) Blood Urea Nitrogen 83 mg/dL (8-26) 45 mg/dL (8-26) Creatinine 3.4 mg/dL (0.7-1.3) 2.2 mg/dL (0.7-1.3) Estimated GFR (Cockcroft-Gault) 21.6 35.7 BUN/Creatinine Ratio 24 (6-20) Glucose Level 83 mg/dL (70-99) 119 mg/dL (70-99) Calcium Level 7.0 mg/dL (8.5-10.1) 7.0 mg/dL (8.5-10.1) Phosphorus Level 5.2 mg/dL (2.6-4.7) Total Bilirubin 3.7 mg/dL (0.2-1.0) Aspartate Amino Transf (AST/SGOT) 312 U/L (15-37) Alanine Aminotransferase (ALT/SGPT) 115 U/L (16-63) Alkaline Phosphatase 133 U/L (46-116) Creatine Kinase 23260 U/L (39-308) 4578 U/L (39-308) Troponin I Quantitative 2.966 ng/mL (0.000-0.055) Total Protein 5.4 g/dL (6.4-8.2) Albumin 2.2 g/dL (3.4-5.0) Albumin/Globulin Ratio 0.7 (1.0-1.7) Hepatitis B Surface Antigen Nonreactive (Nonreactive) Hepatitis B Surface Antibody, Quant <3.1 mIU/mL (Immunity>9.9) Heparin Anti-Xa Act, Unfractionated 0.26 IU/mL (0.30-0.70) Laboratory Tests Test 10/28/20 09:15 10/29/20 05:55 Heparin Anti-Xa Act, Unfractionated 0.26 IU/mL (0.30-0.70) White Blood Count 24.8 x10^3/uL (4.0-11.0) Red Blood Count 2.95 x10^6/uL (4.30-5.70) Hemoglobin 10.6 g/dL (13.0-17.5) Hematocrit 31.3 % (39.0-53.0) Mean Corpuscular Volume 106 fL (79-100) Mean Corpuscular Hemoglobin 36 pg (25-35) Mean Corpuscular Hemoglobin Concent 34 g/dL (31-37) Red Cell Distribution Width 12.8 % (11.5-14.5) Platelet Count 144 x10^3/uL (140-400) Sodium Level 144 mmol/L (136-145) Potassium Level 3.0 mmol/L (3.5-5.1) Chloride Level 106 mmol/L (98-107) Carbon Dioxide Level 30 mmol/L (21-32) Anion Gap 8 (6-14) Blood Urea Nitrogen 45 mg/dL (8-26) Creatinine 2.2 mg/dL (0.7-1.3) Estimated GFR (Cockcroft-Gault) 35.7 Glucose Level 119 mg/dL (70-99) Calcium Level 7.0 mg/dL (8.5-10.1) Creatine Kinase 4578 U/L (39-308) Medications Active Scripts Medications Dose Route/Sig Max Daily Dose Days Date Category Meclizine Hcl 25 Mg Tablet 1 Tab PO PRN TID 10/27/20 Reported Latanoprost 0.005% Eye Drop (Latanoprost/Pf) 7.5 Ml Drops 7.5 Ml OP HS 10/27/20 Reported Dorzolamide-Timolol Eye Drops (Dorzolamide Hcl/Timolol Maleat) 10 Ml Drops 1 Drop EACHEYE BID 10/27/20 Reported Brimonidine Tartrate 5 Ml Drops 1 Drop EACHEYE BID 10/27/20 Reported Impression . IMPRESSION: 1. Acute respiratory failure secondary to combination of suspected toxic encephalopathy and septic shock along with metabolic acidosis-- resolved now on room air 2. Highly suspected rhabdomyolysis. The patient was found down since 7 p.m. last night. His CPK was markedly elevated. 3. Urinary tract infection suspected contributing to septic shock. 4. Acute kidney injury. 5. Lactic acidosis secondary to septic shock. 6. Acute kidney injury, likely component of volume contraction. He is hypernatremic as well. 7. Influenza screen negative, but pending COVID. 8. Fever, likely source urine. He had too numerous white cell to count on urinalysis. Plan . RECOMMENDATIONS: Pt. is stable from pulmonary stand point, remains on room air Follow ID recs for ABX, on zosyn, blood cultures positive for GNR, KLEBSIELLA PNEUMONIAE Follow nephrology recs--on hemodialysis Follow cardiology recs, awaiting echocardiogram results COVID negative DVT/GI PPX Discussed with RN We will see on a as needed basis as the patient is stable from a respiratory standpoint please call with any questions or concerns thank you MICHEL SOLARES MD Oct 29, 2020 08:41
[2020-10-29] MEDS: DORZOLAMIDE 2% OPHTH SOLUTION 10ML BOTTLE. OU SCH ×2 (09:00→21:38)
[2020-10-29] MEDS: BRIMONIDINE 0.2% OPHTH SOLUTION 5ML BOTTLE. OU SCH ×2 (09:00→21:39)
[2020-10-29] MEDS: ELECTROLYTE (ICU) PROTOCOL. MC SCH (09:00)
[2020-10-29] MEDS: TIMOLOL 0.5% OPHTH SOLUTION 5ML BOTTLE. OU SCH ×2 (09:00→21:38)
--- NOTE | 2020-10-29 09:59 | PDOC ---
ROSEANN NI MICA PLATE LAYER HAND 10/29/20 0959: CARDIO Progress Notes Date and Time Date of Service 10/29/2020 Time of Evaluation 0910 Subjective Subjective: No Chest Pain, No shortness of breath, No Palpitations Vitals Vitals Vital Signs Date Time Temp Pulse Resp B/P (MAP) Pulse Ox O2 Delivery O2 Flow Rate FiO2 10/29/20 09:00 75 17 117/76 (90) 100 Room Air 123/57 (79) 10/29/20 08:00 98.0 98.0 Weight Weight [ ] Input and Output Intake and Output Intake and Output 10/29/20 07:00 Intake Total 3557.8 ml Output Total 805 ml Balance 2752.8 ml Intake Oral 490 ml IV Total 3067.8 ml Output Urine Total 805 ml Laboratory Labs Laboratory Tests Test 10/29/20 05:55 White Blood Count 24.8 x10^3/uL (4.0-11.0) Red Blood Count 2.95 x10^6/uL (4.30-5.70) Hemoglobin 10.6 g/dL (13.0-17.5) Hematocrit 31.3 % (39.0-53.0) Mean Corpuscular Volume 106 fL (79-100) Mean Corpuscular Hemoglobin 36 pg (25-35) Mean Corpuscular Hemoglobin Concent 34 g/dL (31-37) Red Cell Distribution Width 12.8 % (11.5-14.5) Platelet Count 144 x10^3/uL (140-400) Sodium Level 144 mmol/L (136-145) Potassium Level 3.0 mmol/L (3.5-5.1) Chloride Level 106 mmol/L (98-107) Carbon Dioxide Level 30 mmol/L (21-32) Anion Gap 8 (6-14) Blood Urea Nitrogen 45 mg/dL (8-26) Creatinine 2.2 mg/dL (0.7-1.3) Estimated GFR (Cockcroft-Gault) 35.7 Glucose Level 119 mg/dL (70-99) Calcium Level 7.0 mg/dL (8.5-10.1) Creatine Kinase 4578 U/L (39-308) Microbiology Micro Microbiology 10/27/20 Blood Culture - Final, Complete 10/27/20 Urine Culture - Final, Complete 10/27/20 Antimicrobic Susceptibility - Final, Complete Review of Systems Constitutional: yes: weakness, alert, oriented Ears/Nose/Throat: Yes: no symptom reported Eyes: Yes: no symptom reported Pulmonary: Yes no symptom reported Cardiovascular: Yes no symptom reported Gastrointestional: Yes: no symptom reported Genitourinary: Yes: no symptom reported Musculoskeletal: Yes: no symptom reported Skin: Yes no symptom reported Endocrine: Yes: no symptom reported Physical Exam HEENT: Neck Supple W Full Motion Chest: Symmetric LUNGS: Clear to Auscultation Heart: RRR (SR no ectopies) Abdomen: Soft N/T Extremities: No Edema, No Calf Tenderness Neurology: alert, oriented, follow commands, other (drowsy) Assessment Assessment 1. Sepsis/fever/UTI/leukocytosis: ID following. Covid neg 2. Septic shock: BP better. off levo. 3. Severe PERRY with mild hypernatremia: Started on HD 4. Rhabdomyolysis: peaked [id number] 5. PSVT with aberrancy: none further, maintaiining SR 6. LBBB: no prior EKG for comparison 7. Possible fall: No obvious trauma. unknown duration on floor 8. NSTEMI: peaked at 4.3. CP/SOA. Possibly demand mediated 9. Metabolic encephalopathy 10. Macrocytosis 11. Transaminitis 12. Coagulopathy: INR at 2.2 Recommendations 1. ASA. metoprolol. Now able to take PO. . Replace K 2. TTE. Ischemic workup possibly as an outpt. Await Echo 3. Antibiotics ongoing 4. Fluid off loading per HD 5. Recheck INR. Supportive care Justicifation of Admission Dx: Justifications for Admission: Justification of Admission Dx: Yes HERNAN FORTUNE MD 10/29/20 2331: CARDIO Progress Notes Plan Plan Pt. seen and examined. Agree with above NETWORK STRATEGIST note. Supportive care. Echo with grossly normal wall motion. ROSEANN NI MICA PLATE LAYER HAND Oct 29, 2020 09:59 HERNAN FORTUNE MD Oct 29, 2020 23:31
[2020-10-29 10:25] LABS: PROTHROMBIN TIME PATIENT 15.5 SEC (11.7-14.0)
--- NOTE | 2020-10-29 11:00 | PDOC ---
[facility] PROGRESS NOTE Date of Service DOS: DATE: 10/29/20 TIME: 10:59 Chief Complaint Chief Complaint Septic shock Lactic acidosis PERRY Dehydration Possible COVID-19 Rhabdo UTI Demand ischemia Metabolic cephalopathy UTI Fever History of Present Illness History of Present Illness 10/29/2020 Patient seen and examined in the ICU Currently on dialysis this is a second 1 He is getting an echo today Coags are pending (his PTT was quite high but we think it was an error) Discussed with RN Chart reviewed Discussed with cardiology nurse practitioner 10/28/2020 Patient seen and examined in the ICU Appears very weak He is off Levophed and off heparin Going for temporary dialysis catheter today Discussed with RN Chart reviewed Vitals/I&O Vitals/I&O: Vital Signs Date Time Temp Pulse Resp B/P (MAP) Pulse Ox O2 Delivery O2 Flow Rate FiO2 10/29/20 10:00 72 17 99/60 (73) 100 Room Air 109/51 (70) 10/29/20 08:00 98.0 98.0 I & O 10/28/20 10/28/20 10/29/20 15:00 23:00 07:00 Intake Total 440 ml 3117.8 ml Output Total 95 ml 195 ml 515 ml Balance -95 ml 245 ml 2602.8 ml Physical Exam Physical Exam: GENERAL: axox3 male in nad, comfortable in bed. HEENT: Normocephalic, atraumatic, anicteric. NECK: Supple, no JVD. LUNGS: Clear bilaterally. No wheezing. HEART: S1, S2, no murmurs. ABDOMEN: Soft, nontender, nondistended, no rebound, no guarding. EXTREMITIES: No edema, no cyanosis. DERMATOLOGIC: Warm and dry. No generalized rash. NEUROLOGIC: Sleepy, but arousable. Unable to assess. PSYCHIATRIC: Unable to assess. MUSCULOSKELETAL: No joint deformity. General: mild distress, Other (Very weak complains of feeling cold) Heart: Regular rate Lungs: Clear Abdomen: Normal bowel sounds, Soft Extremities: No cyanosis Skin: No breakdown Labs Labs: Laboratory Tests Test 10/29/20 05:55 10/29/20 09:50 White Blood Count 24.8 x10^3/uL (4.0-11.0) Red Blood Count 2.95 x10^6/uL (4.30-5.70) Hemoglobin 10.6 g/dL (13.0-17.5) Hematocrit 31.3 % (39.0-53.0) Mean Corpuscular Volume 106 fL (79-100) Mean Corpuscular Hemoglobin 36 pg (25-35) Mean Corpuscular Hemoglobin Concent 34 g/dL (31-37) Red Cell Distribution Width 12.8 % (11.5-14.5) Platelet Count 144 x10^3/uL (140-400) Sodium Level 144 mmol/L (136-145) Potassium Level 3.0 mmol/L (3.5-5.1) Chloride Level 106 mmol/L (98-107) Carbon Dioxide Level 30 mmol/L (21-32) Anion Gap 8 (6-14) Blood Urea Nitrogen 45 mg/dL (8-26) Creatinine 2.2 mg/dL (0.7-1.3) Estimated GFR (Cockcroft-Gault) 35.7 Glucose Level 119 mg/dL (70-99) Calcium Level 7.0 mg/dL (8.5-10.1) Creatine Kinase 4578 U/L (39-308) Prothrombin Time 15.5 SEC (11.7-14.0) Prothromb Time International Ratio 1.3 (0.8-1.1) Activated Partial Thromboplast Time 40 SEC (24-38) Assessment and Plan Assessmemt and Plan Problems Medical Problems: (1) Acute renal failure Status: Acute (2) Dehydration Status: Acute (3) Person under investigation for COVID-19 Status: Acute (4) Rhabdomyolysis Status: Acute (5) Septic shock Status: Acute (6) UTI (urinary tract infection) Status: Acute Septic shock Lactic acidosis PERRY Dehydration Possible COVID-19 Rhabdo UTI Demand ischemia Metabolic cephalopathy UTI Fever Plan ICU monitoring Continue dialysis per nephrology recommendations Trend labs Appreciate subspecialist input ID and nephrology and pulmonary and cardiology are following Emperic iv asntibiotics BLOOD CULTURES URINE CULTURE ECHO DVT prophylaxis Comment Review of Relevant I have reviewed the following items mendez (where applicable) has been applied. Medications: Current Medications Medications (Trade) Dose Ordered Sig/Ambrosio Route PRN Reason Start Time Stop Time Status Last Admin Dose Admin Brimonidine Tartrate (Alphagan) 1 drop BID OU 10/28/20 21:00 10/29/20 09:00 Dorzolamide HCl (Trusopt) 1 drop BID OU 10/28/20 11:00 10/29/20 09:00 Latanoprost (Xalatan) 1 drop QHS OU 10/28/20 21:00 10/28/20 20:53 Timolol Maleate (Timoptic 0.5% Ophth) 1 drop BID OU 10/28/20 11:00 10/29/20 09:00 Lidocaine HCl (Buffered Lidocaine 1%) 6 ml 1X ONCE INJ 10/28/20 12:00 10/28/20 12:07 DC 10/28/20 12:16 Heparin Sodium (Porcine) (Heparin Sodium) 2,500 unit 1X ONCE INT CAT 10/28/20 12:30 10/28/20 12:31 DC 10/28/20 12:19 Piperacillin Sod/ Tazobactam Sod 2.25 gm/Sodium Chloride 50 ml @ 100 mls/hr Q8HRS IV 10/28/20 21:00 10/29/20 05:08 Justifications for Admission General Conditions Poss tachycardia?: Yes Justification for admission: Patient has tachycardia (> 100 beats per minute) which is not readily corrected by appropriate treatment within 12 to 24 hours. SEPTIC SHOCK Other Justification ROGER GRACE III DO Oct 29, 2020 11:00
[2020-10-29] MEDS ORDERED: IV NORMAL SALINE 1000ML BAG 1,000 ML IV SCH (11:45)
--- NOTE | 2020-10-29 12:08 | PDOC ---
Renal-Progress Notes Subjective Notes Notes FEELING BETTER History of Present Illness Hx of present illness IMPROVING Vitals Vitals Vital Signs Date Time Temp Pulse Resp B/P (MAP) Pulse Ox O2 Delivery O2 Flow Rate FiO2 10/29/20 11:00 65 16 94/65 (75) 100 Room Air 110/51 (70) 10/29/20 08:00 98.0 98.0 Weight Weight [ ] I.O. Intake and Output Intake and Output 10/29/20 07:00 Intake Total 3557.8 ml Output Total 805 ml Balance 2752.8 ml Intake Oral 490 ml IV Total 3067.8 ml Output Urine Total 805 ml Labs Labs Laboratory Tests Test 10/29/20 05:55 10/29/20 09:50 White Blood Count 24.8 x10^3/uL (4.0-11.0) Red Blood Count 2.95 x10^6/uL (4.30-5.70) Hemoglobin 10.6 g/dL (13.0-17.5) Hematocrit 31.3 % (39.0-53.0) Mean Corpuscular Volume 106 fL (79-100) Mean Corpuscular Hemoglobin 36 pg (25-35) Mean Corpuscular Hemoglobin Concent 34 g/dL (31-37) Red Cell Distribution Width 12.8 % (11.5-14.5) Platelet Count 144 x10^3/uL (140-400) Sodium Level 144 mmol/L (136-145) Potassium Level 3.0 mmol/L (3.5-5.1) Chloride Level 106 mmol/L (98-107) Carbon Dioxide Level 30 mmol/L (21-32) Anion Gap 8 (6-14) Blood Urea Nitrogen 45 mg/dL (8-26) Creatinine 2.2 mg/dL (0.7-1.3) Estimated GFR (Cockcroft-Gault) 35.7 Glucose Level 119 mg/dL (70-99) Calcium Level 7.0 mg/dL (8.5-10.1) Creatine Kinase 4578 U/L (39-308) Prothrombin Time 15.5 SEC (11.7-14.0) Prothromb Time International Ratio 1.3 (0.8-1.1) Activated Partial Thromboplast Time 40 SEC (24-38) Micro Micro Microbiology 10/27/20 Blood Culture - Preliminary, Resulted 10/27/20 Urine Culture - Final, Complete 10/27/20 Antimicrobic Susceptibility - Final, Complete Review of Systems Constitutional: yes: weakness, alert, oriented Ears/Nose/Throat: Yes: no symptom reported Eyes: Yes: no symptom reported Pulmonary: Yes no symptom reported Cardiovascular: Yes no symptom reported Gastrointestional: Yes: no symptom reported Genitourinary: Yes: no symptom reported Musculoskeletal: Yes: no symptom reported Skin: Yes no symptom reported Endocrine: Yes: no symptom reported Physical Exam General Appearance: no apparent distress Skin: warm Respiratory: decreased breath sounds Heart: S1S2 Abdomen: bowel sounds present Genitourinary: bladder flat Extremities: pulses present Neurology: alert, oriented, follow commands, other (drowsy) Musculoskeletal: Osteoarthritis Assessment Assessment IMP PERRY - IMPROVING UO DEHYDRATION RHABDOMYOLYSIS-CK DECREASING HYPERNATREMIA-BETTER AG MET ACIDOSIS-BETTER INCREASED LFT'S ACUTE RESP FAILURE PROB SEPSIS LEUCOCYTOSIS URINARY TRACT INFECTION HX URINARY RETENTION-SELF CATH SHOCK PLAN HD AGAIN TODAY NO UF MONITOR TO RENAL RECOVERY SALINE HYDRATION TO CONTINUE ANTIBIOTICS F/U CPK SUPPLEMENTAL O2 PRESSORS NEEDED D/W DR SOLARES WILL FOLLOW DIEUDONNE DOMINGUEZ MD Oct 29, 2020 12:08
[2020-10-29] MEDS ORDERED: HEPARIN for SUB-Q USE 5,000 UNIT/ML VIAL. SQ SCH (14:00)
--- NOTE | 2020-10-29 15:59 | NUR ---
SS following up with discharge planning. SS reviewed pt chart and discussed with pt RN. Pt is from home with spouse and is currently on room air. Pt on IV Zosyn. COVID19 negative. PO diet. SS will continue to follow for discharge planning.
--- NOTE | 2020-10-29 19:08 | RAD ---
CT ABDOMEN+PELVIS WO History: Reason: bacteremia uti,renal failure Technique: Noncontrast examination of the abdomen and pelvis. Coronal and sagittal reconstructions we re performed. Exposure: One or more of the following individualized dose reduction techniques were utilized for thi s examination: 1. Automated exposure control 2. Adjustment of the mA and/or kV according to patient size 3. Use of iterative reconstruction technique. Comparison: None Findings: Lower chest: Bilateral lower lobe posterior dependent atelectasis with tiny pleural effusions. Abdomen and pelvis: The liver, spleen, and pancreas have unremarkable noncontrast appearance. The cho lelithiasis or gallbladder sludge. Adenomatous thickening of the adrenal glands. Right renal cysts measure 5.9 x 5.9 cm and 3.2 x 3.1 cm. Right perinephric stranding. No renal calcul i. No hydronephrosis. Urinary bladder wall thickening. Freeman catheter within the urinary bladder. Postop changes prostatectomy. Small fluid within the pelvis. Appendix not well seen. No evidence of b owel obstruction. Numerous mildly enlarged retroperitoneal and inguinal lymph nodes poorly characterize without IV cont rast. 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 Multilevel lumbar spondylosis. Impression: 1. Right perinephric stranding and urinary bladder wall thickening, may relate to urinary tract infe ction. 2. Small pelvic free fluid. 3. Numerous enlarged retroperitoneal and inguinal lymph nodes probably characterized without intrave nous contrast. Recommend further clinical evaluation and follow-up. Comparison with prior imaging charity dies would also be of benefit. 4. Increased density within the gallbladder, may relate to cholelithiasis or sludge. Electronically signed by: Espinoza Diaz DO (10/29/2020 7:05 PM) [facility]
[2020-10-29] MEDS: METOPROLOL TART IMMED RELEASE 25 MG TABLET. PO SCH (21:00)
[2020-10-29] MEDS: LATANOPROST 0.005% OPHTH SOLUTION 2.5ML BOTTLE. OU SCH (21:38)
[2020-10-29] MEDS: FAMOTIDINE 20 MG/2 ML VIAL IVP SCH (21:38)
--- NOTE | 2020-10-29 22:39 | RAD ---
CT HEAD/BRAIN WO History: Reason: Right sided weakness Comparison: None. Technique: Noncontrast CT imaging was performed of the head. Exposure: One or more of the following individualized dose reduction techniques were utilized for thi s examination: 1. Automated exposure control 2. Adjustment of the mA and/or kV according to patient size 3. Use of iterative reconstruction technique. Findings: No intracranial hemorrhage. No mass effect. No hydrocephalus. Moderate foci of decreased attenuation within the hemispheric white matter, most often due to chronic microvascular ischemia, unchanged. Chronic left caudate head lacunar infarct, unchanged. Imaged orbits are unremarkable. Imaged paranasal sinuses and mastoid air cells are clear. No acute ca lvarial fracture. Impression: 1. No acute intracranial abnormality. If persistent clinical concern for acute ischemia, MRI can bet ter evaluate. 2. Moderate sequelae of chronic microvascular ischemia. 3. Chronic left caudate head lacunar infarct, unchanged. Electronically signed by: Espinoza Diaz DO (10/29/2020 10:37 PM) [facility]
[2020-10-30] VITALS: BP 102/53
[2020-10-30 04:00] VITALS: BP 108/61
[2020-10-30] MEDS: PIPERACILLIN/TAZOBACTAM 2.25 GM in IV NORMAL SALINE 50ML 50 ML IV SCH ×2 (06:04→13:10)
[2020-10-30 06:32] LABS: CALCIUM 7.7 mg/dL (8.5-10.1); CREATININE 1.6 mg/dL (0.7-1.3); GFR 51.5; POTASSIUM 3.4 mmol/L (3.5-5.1)
[2020-10-30 08:00] VITALS: BP 143/71
--- NOTE | 2020-10-30 08:12 | PDOC ---
Infectious Disease Note Subjective: Subjective pt is under going dialysis more alert today denies any complaints Vital Signs: Vital Signs Vital Signs Date Time Temp Pulse Resp B/P (MAP) Pulse Ox O2 Delivery O2 Flow Rate FiO2 10/30/20 04:00 98.5 74 13 108/61 (77) 100 Room Air 98.5 Physical Exam: PHYSICAL EXAM GENERAL: axox3 male in nad, comfortable in bed. HEENT: Normocephalic, atraumatic, anicteric. NECK: Supple, no JVD. LUNGS: Clear bilaterally. No wheezing. HEART: S1, S2, no murmurs. ABDOMEN: Soft, nontender, nondistended, no rebound, no guarding. EXTREMITIES: No edema, no cyanosis. DERMATOLOGIC: Warm and dry. No generalized rash. NEUROLOGIC: Sleepy, but arousable. Unable to assess. PSYCHIATRIC: Unable to assess. MUSCULOSKELETAL: No joint deformity. Medications: Inpatient Meds: Current Medications Medications (Trade) Dose Ordered Sig/Ambrosio Start Time Stop Time Status Last Admin Dose Admin Acetaminophen (Tylenol Supp) 975 mg 1X ONCE 10/27/20 06:30 10/27/20 06:31 DC 10/27/20 07:30 975 MG Albumin Human 200 ml @ 200 mls/hr 1X PRN PRN 10/28/20 11:30 10/28/20 17:29 DC Aspirin (Aspirin Rectal Supp) 150 mg 1X ONCE 10/28/20 11:00 10/28/20 11:01 DC Aspirin (Ecotrin) 81 mg [id number] 10/27/20 12:30 10/29/20 07:54 81 MG Bisacodyl (Dulcolax Supp) 10 mg PRN DAILY PRN 10/27/20 10:30 Brimonidine Tartrate (Alphagan) 1 drop BID 10/28/20 21:00 10/29/20 21:39 1 DROP Diphenhydramine HCl (Benadryl) 25 mg 1X PRN PRN 10/29/20 07:30 10/30/20 07:29 DC Dorzolamide HCl (Trusopt) 1 drop BID 10/28/20 11:00 10/29/20 21:38 1 DROP Famotidine (Pepcid Vial) 20 mg QHS 10/27/20 21:00 10/29/20 21:38 20 MG Heparin Sodium (Porcine) (Heparin Sodium) 5,000 unit Q8HRS 10/29/20 14:00 Cancel Heparin Sodium/ Dextrose 250 ml @ 7.656 mls/ hr CONT PRN 10/27/20 13:15 10/28/20 10:48 DC 10/27/20 13:54 7.656 MLS/HR Hydromorphone HCl (Dilaudid) 0.2 mg PRN Q1HR PRN 10/27/20 10:30 Info (CONTRAST GIVEN -- Rx MONITORING) 1 each PRN DAILY PRN 10/27/20 08:45 10/29/20 08:44 DC Info (Icu Electrolyte Protocol) 1 ea DAILY 10/28/20 09:00 10/28/20 09:00 1 EA Info (PHARMACY MONITORING -- do not chart) 1 each PRN DAILY PRN 10/29/20 07:30 UNV Iohexol (Omnipaque 350 Mg/ml) 100 ml 1X ONCE 10/27/20 08:45 10/27/20 08:46 DC Lactobacillus Rhamnosus (Culturelle) 1 cap BID 10/30/20 09:00 Latanoprost (Xalatan) 1 drop QHS 10/28/20 21:00 10/29/20 21:38 1 DROP Lidocaine HCl (Buffered Lidocaine 1%) 6 ml 1X ONCE 10/28/20 12:00 10/28/20 12:07 DC 10/28/20 12:16 4 ML Lidocaine HCl (Lidocaine 1% 20ml Vial) 20 ml STK-MED ONCE 10/27/20 06:30 10/27/20 06:30 DC Metoprolol Tartrate (Lopressor Vial) 2.5 mg Q6HRS 10/28/20 12:00 10/29/20 09:53 DC Metoprolol Tartrate (Lopressor) 12.5 mg BID 10/29/20 21:00 Norepinephrine Bitartrate 8 mg/ Dextrose 258 ml @ 0 mls/hr CONT PRN 10/27/20 11:00 10/28/20 19:56 3.6 MLS/HR Ondansetron HCl (Zofran) 4 mg PRN Q6HRS PRN 10/27/20 10:30 Piperacillin Sod/ Tazobactam Sod (Zosyn Per Pharmacy) 1 each PRN DAILY PRN 10/27/20 10:30 Piperacillin Sod/ Tazobactam Sod 2.25 gm/Sodium Chloride 50 ml @ 100 mls/hr Q8HRS 10/28/20 21:00 10/30/20 06:04 100 MLS/HR Piperacillin Sod/ Tazobactam Sod 3.375 gm/Sodium Chloride 50 ml @ 100 mls/hr 1X ONCE 10/27/20 07:00 10/27/20 07:29 DC 10/27/20 07:58 100 MLS/HR Sodium Bicarbonate (Sodium Bicarb Adult 8.4% Syr) 100 meq 1X ONCE 10/27/20 11:00 10/27/20 11:01 DC 10/27/20 10:54 100 MEQ Sodium Chloride 1,000 ml @ 100 mls/hr Q10H 10/29/20 11:45 10/29/20 11:57 DC 10/29/20 11:52 100 MLS/HR Sodium Chloride (Normal Saline Flush) 3 ml QSHIFT PRN 10/27/20 10:30 Timolol Maleate (Timoptic 0.5% Ophth) 1 drop BID 10/28/20 11:00 10/29/20 21:38 1 DROP Labs: Lab Laboratory Tests Test 10/29/20 09:50 10/30/20 06:10 Prothrombin Time 15.5 SEC (11.7-14.0) Prothromb Time International Ratio 1.3 (0.8-1.1) Activated Partial Thromboplast Time 40 SEC (24-38) Sodium Level 144 mmol/L (136-145) Potassium Level 3.4 mmol/L (3.5-5.1) Chloride Level 109 mmol/L (98-107) Carbon Dioxide Level 30 mmol/L (21-32) Anion Gap 5 (6-14) Blood Urea Nitrogen 41 mg/dL (8-26) Creatinine 1.6 mg/dL (0.7-1.3) Estimated GFR (Cockcroft-Gault) 51.5 Glucose Level 111 mg/dL (70-99) Calcium Level 7.7 mg/dL (8.5-10.1) Micro CT abdomen and pelvis findings: Lower chest: Bilateral lower lobe posterior dependent atelectasis with tiny pleural effusions. Abdomen and pelvis: The liver, spleen, and pancreas have unremarkable noncontrast appearance. The cholelithiasis or gallbladder sludge. Adenomatous thickening of the adrenal glands. Right renal cysts measure 5.9 x 5.9 cm and 3.2 x 3.1 cm. Right perinephric stranding. No renal calculi. No hydronephrosis. Urinary bladder wall thickening. Freeman catheter within the urinary bladder. Postop changes prostatectomy. Small fluid within the pelvis. Appendix not well seen. No evidence of bowel obstruction. Numerous mildly enlarged retroperitoneal and inguinal lymph nodes poorly characterize without IV contrast. 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 Multilevel lumbar spondylosis. Impression: 1. Right perinephric stranding and urinary bladder wall thickening, may relate to urinary tract infection. 2. Small pelvic free fluid. 3. Numerous enlarged retroperitoneal and inguinal lymph nodes probably characterized without intravenous contrast. Recommend further clinical evaluation and follow-up. Comparison with prior imaging studies would also be of benefit. 4. Increased density within the gallbladder, may relate to cholelithiasis or sludge. Objective: Assessment: Gram-negative sepsis source Klebsiella pneumonia bacteremia source Pyelonephritis with urine culture positive Klebsiella PERRY with underlying CKD, metabolic acidosis, hypernatremia Rhabdomyolysis. Improving Abnormal LFTs.. Increased density within the gallbladder, may relate to cholelithiasis or sludge on CT Encephalopathy Acute hypoxic respiratory failure now resolved Abnormal CT pelvis postop changes prostatectomy. Small fluid within the pelvis. Questionable etiology COVID-19 negative Influenza screen negative Plan: Plan of Care Continue Zosyn Monitor labs and cultures Continue supportive care D/W STEVEN BARBA MD Oct 30, 2020 08:12
[2020-10-30] MEDS: IV NORMAL SALINE 1000ML BAG 1,000 ML IV SCH ×3 (08:30→18:30)
[2020-10-30] MEDS ORDERED: ALBUMIN HUMAN 25% 200 ML IV PRN (08:30)
[2020-10-30] MEDS ORDERED: IV NORMAL SALINE 1000ML BAG 1,000 ML IV PRN ×2 (08:30)
[2020-10-30] MEDS ORDERED: diphenhydrAMINE 50 MG/ML VIAL IV PRN ×2 (08:30)
[2020-10-30] MEDS ORDERED: DIALYSIS PATIENT. MC PRN (08:30)
[2020-10-30] MEDS: ELECTROLYTE (ICU) PROTOCOL. MC SCH (09:00)
--- NOTE | 2020-10-30 09:27 | CARD ---
MR#: [id number] Date of Study: 10/29/2020 Ordering Physician: ROSEANN NI, Referring Physician: ROSEANN NI Tech: PHOENIX Felton APPROVED REPORT EXAM: Two-dimensional and M-mode echocardiogram with Doppler and color Doppler. Other Information Quality : AverageHR: 76bpm Rhythm : NSR INDICATION Dyspnea RISK FACTORS Hypertension 2D DIMENSIONS RVDd2.9 (2.9-3.5cm)Left Atrium(2D)3.3 (1.6-4.0cm) IVSd1.8 (0.7-1.1cm)Aortic Root(2D)3.2 (2.0-3.7cm) LVDd3.9 (3.9-5.9cm)LVOT Diameter2.3 (1.8-2.4cm) PWd1.2 (0.7-1.1cm)LVDs3.2 (2.5-4.0cm) FS (%) 18.3 %SV26.1 ml LVEF(%)38.5 (>50%) Aortic Valve AoV Peak Regulo.105.2cm/sAoV VTI19.4cm AO Peak GR.4.4mmHgLVOT Peak Regulo.78.0cm/s AO Mean GR.2mmHgAVA (VMAX)3.11cm2 Mitral Valve MV E Skfpsdlf52.1cm/sMV DECEL [id number] MV A Cqnljttg42.3cm/sE/A Ratio0.4 Pulmonary Valve PV Peak Zsfczthf18.3cm/s Tricuspid Valve TR P. Qpbxanru288kd/sTR Peak Gr.19mmHg LEFT VENTRICLE The left ventricle is normal size. Asymetric septal hypertrophy. The left ventricular systolic functi on is low normal. The ejection fraction is 50%. Septal motion consistent with conduction abnormality. Transmitral Doppler flow pattern is Grade I-abnormal relaxation pattern. RIGHT VENTRICLE The right ventricle is normal size. There is normal right ventricular wall thickness. The right ventr icular systolic function is normal. ATRIA The left atrium size is normal. The right atrium size is normal. Central catheter noted right atrium . Cannot rule out vegetation. Recommend ADITYA if clinicaly suspicion is high. The interatrial septum is intact with no evidence for an atrial septal defect or patent foramen ovale as noted on 2-D or Doppl er imaging. AORTIC VALVE The aortic valve is normal in structure and function. Doppler and Color Flow revealed no significant aortic regurgitation. There is no significant aortic valvular stenosis. MITRAL VALVE The mitral valve is normal in structure and function. There is no evidence of mitral valve prolapse. There is no mitral valve stenosis. Doppler and Color Flow revealed no mitral valve regurgitation note d. TRICUSPID VALVE The tricuspid valve is normal in structure and function. Doppler and Color Flow revealed mild tricusp id regurgitation. Estimated PAP 21-25 mmHg. There is no tricuspid valve stenosis. PULMONIC VALVE The pulmonary valve is normal in structure and function. Doppler and Color Flow revealed no pulmonic valvular regurgitation. GREAT VESSELS The aortic root is normal in size. The ascending aorta is normal in size. The pulmonary artery is nor mal. The IVC is borderline normal in size and collapses <50% with inspiration. PERICARDIAL EFFUSION There is no evidence of significant pericardial effusion. Critical Notification Critical Value: No <Conclusion> The left ventricular systolic function is low normal. The ejection fraction is 50%. Septal motion consistent with conduction abnormality. Transmitral Doppler flow pattern is Grade I-abnormal relaxation pattern. Central catheter noted right atrium. Cannot rule out vegetation. Recommend ADITYA if clinicaly suspici on is high. Mild tricuspid regurgitation. Estimated PAP 21-25 mmHg. There is no evidence of significant pericardial effusion. Signed by : Killian Vergara, Electronically Approved : 10/30/2020 09:27:09
[2020-10-30 13:00] VITALS: BP 141/82
[2020-10-30] MEDS: ASPIRIN ENTERIC COATED 81 MG TABLET.DR. PO SCH (13:09)
[2020-10-30] MEDS: LACTOBACILLUS RHAMNOSUS GG 1 CAPSULE. PO SCH ×2 (13:09→21:23)
[2020-10-30] MEDS: METOPROLOL TART IMMED RELEASE 25 MG TABLET. PO SCH ×2 (13:10→21:00)
[2020-10-30] MEDS: TIMOLOL 0.5% OPHTH SOLUTION 5ML BOTTLE. OU SCH ×2 (13:11→21:22)
[2020-10-30] MEDS: DORZOLAMIDE 2% OPHTH SOLUTION 10ML BOTTLE. OU SCH ×2 (13:11→21:22)
[2020-10-30] MEDS: BRIMONIDINE 0.2% OPHTH SOLUTION 5ML BOTTLE. OU SCH ×2 (13:11→21:23)
--- NOTE | 2020-10-30 13:27 | PDOC ---
GENERAL General: Patient examined chart reviewed today is hospital day 4 for this patient with acute encephalopathy and sepsis secondary to Klebsiella urinary tract infection and bacteremia. He has responded well to treatment and is improving his mental status and hemodynamic parameters. Patient has also been found to have acute on chronic stage III renal failure and required several doses of dialysis seems to be picking up his renal function. Subspecialty support is appreciated. Patient is without new concerns today. We will continue current management otherwise. Problems: (1) UTI due to Klebsiella species (2) Bacteremia due to Klebsiella pneumoniae (3) Acute renal failure VITAL SIGNS Vital Signs/I&O: Vital Signs Date Time Temp Pulse Resp B/P (MAP) Pulse Ox O2 Delivery O2 Flow Rate FiO2 10/30/20 13:10 100 141/82 10/30/20 08:00 Room Air 10/30/20 08:00 98.1 21 97 98.1 I & O 10/29/20 10/29/20 10/30/20 15:00 23:00 07:00 Intake Total 75 ml 2120 ml Output Total 425 ml 635 ml 125 ml Balance -350 ml -635 ml 1995 ml In general the patient is pleasant interactive appears to be closer to his baseline orientation in no acute distress HEENT exam is unremarkable Chest bilateral equal air entry though diminished throughout Heart S1-S2 normal regular rate and rhythm no murmurs or gallops are noted Abdomen soft nontender nondistended no masses organomegaly noted Extremity exam is unremarkable for acute abnormality ALLERGIES Allergies: Allergies Coded Allergies Type Severity Reaction Last Updated Verified No Known Drug Allergies 10/30/20 No MEDS Medications: Current Medications Medications (Trade) Dose Ordered Sig/Ambrosio Route PRN Reason Start Time Stop Time Status Last Admin Dose Admin Metoprolol Tartrate (Lopressor) 12.5 mg BID PO 10/29/20 21:00 10/30/20 13:10 Lactobacillus Rhamnosus (Culturelle) 1 cap BID PO 10/30/20 09:00 10/30/20 13:09 LAB Lab: Laboratory Tests Test 10/30/20 06:10 Sodium Level 144 mmol/L (136-145) Potassium Level 3.4 mmol/L (3.5-5.1) L Chloride Level 109 mmol/L (98-107) H Carbon Dioxide Level 30 mmol/L (21-32) Anion Gap 5 (6-14) L Blood Urea Nitrogen 41 mg/dL (8-26) H Creatinine 1.6 mg/dL (0.7-1.3) H Estimated GFR (Cockcroft-Gault) 51.5 Glucose Level 111 mg/dL (70-99) H Calcium Level 7.7 mg/dL (8.5-10.1) L Laboratory Tests 10/30/20 06:10 ASSESSMENT & PLAN A&P Plan as noted above This note was created using Casmul and may have omissions and/or errors due to the nature of real-time voice wheelabrator operator. Justifications for Admission General Conditions Poss tachycardia?: Yes Justification for admission: Patient has tachycardia (> 100 beats per minute) which is not readily corrected by appropriate treatment within 12 to 24 hours. SEPTIC SHOCK Other Justification Nutrition Consultation Dietary Evaluation: Recommendations by RD: Dietary education by RD, Increase Calorie Intake, Protein supplementation Comments: REC advance diet as able per CHANGE MANAGEMENT COORDINATOR recommendations, goal diet renal w/nepro supplements prn Expected Outcomes/Goals: diet advancement Malnutrition Findings: Body Fat Depletion (Non Severe: Mild Depletion Weight Status: Overweight FIDENCIO HOPE MD Oct 30, 2020 13:27
--- NOTE | 2020-10-30 14:13 | PDOC ---
PROGRESS NOTES Date of Service DATE: 10/30/20 TIME: 14:12 Subjective Subjective SEEN IN FOLLOW UP OF ARF Objective Objective Vital Signs Date Time Temp Pulse Resp B/P (MAP) Pulse Ox O2 Delivery O2 Flow Rate FiO2 10/30/20 13:10 100 141/82 10/30/20 13:00 98.1 18 97 Room Air 98.1 10/28/20 02:00 2.0 Intake and Output 10/30/20 07:00 Intake Total 2195 ml Output Total 1185 ml Balance 1010 ml Intake Oral 75 ml IV Total 2120 ml Output Urine Total 1185 ml Physical Exam General: Alert, Oriented X3, Cooperative, No acute distress Lungs: Clear to auscultation, Normal air movement Psych/Mental Status: Mental status NL, Mood NL Diagnosis RENAL FAILURE: Acute (Acute tubular necrosis) Assessment Assessment Problems Medical Problems: (1) Acute renal failure Status: Acute (2) Dehydration Status: Acute (3) Person under investigation for COVID-19 Status: Acute (4) Rhabdomyolysis Status: Acute (5) Septic shock Status: Acute (6) UTI (urinary tract infection) Status: Acute Plan Plan of Care DIALYSIS TODAY AND TOLERATED WELL. FOR DIALYSIS SUNDAY Comment Review of Relevant I have reviewed the following items mendez (where applicable) has been applied. Labs Laboratory Tests Test 10/29/20 05:55 10/29/20 09:50 10/30/20 06:10 White Blood Count 24.8 x10^3/uL (4.0-11.0) Red Blood Count 2.95 x10^6/uL (4.30-5.70) Hemoglobin 10.6 g/dL (13.0-17.5) Hematocrit 31.3 % (39.0-53.0) Mean Corpuscular Volume 106 fL (79-100) Mean Corpuscular Hemoglobin 36 pg (25-35) Mean Corpuscular Hemoglobin Concent 34 g/dL (31-37) Red Cell Distribution Width 12.8 % (11.5-14.5) Platelet Count 144 x10^3/uL (140-400) Sodium Level 144 mmol/L (136-145) 144 mmol/L (136-145) Potassium Level 3.0 mmol/L (3.5-5.1) 3.4 mmol/L (3.5-5.1) Chloride Level 106 mmol/L (98-107) 109 mmol/L (98-107) Carbon Dioxide Level 30 mmol/L (21-32) 30 mmol/L (21-32) Anion Gap 8 (6-14) 5 (6-14) Blood Urea Nitrogen 45 mg/dL (8-26) 41 mg/dL (8-26) Creatinine 2.2 mg/dL (0.7-1.3) 1.6 mg/dL (0.7-1.3) Estimated GFR (Cockcroft-Gault) 35.7 51.5 Glucose Level 119 mg/dL (70-99) 111 mg/dL (70-99) Calcium Level 7.0 mg/dL (8.5-10.1) 7.7 mg/dL (8.5-10.1) Creatine Kinase 4578 U/L (39-308) Prothrombin Time 15.5 SEC (11.7-14.0) Prothromb Time International Ratio 1.3 (0.8-1.1) Activated Partial Thromboplast Time 40 SEC (24-38) Laboratory Tests Test 10/30/20 06:10 Sodium Level 144 mmol/L (136-145) Potassium Level 3.4 mmol/L (3.5-5.1) Chloride Level 109 mmol/L (98-107) Carbon Dioxide Level 30 mmol/L (21-32) Anion Gap 5 (6-14) Blood Urea Nitrogen 41 mg/dL (8-26) Creatinine 1.6 mg/dL (0.7-1.3) Estimated GFR (Cockcroft-Gault) 51.5 Glucose Level 111 mg/dL (70-99) Calcium Level 7.7 mg/dL (8.5-10.1) Microbiology 10/27/20 Blood Culture - Final, Complete 10/27/20 Antimicrobic Susceptibility - Final, Complete 10/27/20 Urine Culture - Final, Complete 10/27/20 Antimicrobic Susceptibility - Final, Complete Medications Current Medications Sodium Chloride 1,000 ml @ 1,000 mls/hr 1X ONCE IV Last administered on 10/27/20at 06:45; Start 10/27/20 at 06:30; Stop 10/27/20 at 07:29; Status DC Acetaminophen (Tylenol Supp) 975 mg 1X ONCE ND Last administered on 10/27/20at 07:30; Start 10/27/20 at 06:30; Stop 10/27/20 at 06:31; Status DC Lidocaine HCl (Lidocaine 1% 20ml Vial) 20 ml STK-MED ONCE .ROUTE ; Start 10/27/20 at 06:30; Stop 10/27/20 at 06:30; Status DC Sodium Chloride 1,000 ml @ 1,000 mls/hr 1X ONCE IV Last administered on 10/27/20at 06:45; Start 10/27/20 at 07:00; Stop 10/27/20 at 07:59; Status DC Piperacillin Sod/ Tazobactam Sod 3.375 gm/Sodium Chloride 50 ml @ 100 mls/hr 1X ONCE IV Last administered on 10/27/20at 07:58; Start 10/27/20 at 07:00; Stop 10/27/20 at 07:29; Status DC Sodium Chloride 1,000 ml @ 1,000 mls/hr 1X ONCE IV Last administered on 10/27/20at 07:57; Start 10/27/20 at 07:15; Stop 10/27/20 at 08:14; Status DC Norepinephrine Bitartrate 8 mg/ Dextrose 258 ml @ 12.848 mls/ hr 1X ONCE IV Last administered on 10/27/20at 08:42; Start 10/27/20 at 08:15; Stop 10/28/20 at 04:19; Status DC Ondansetron HCl (Zofran) 4 mg PRN Q8HRS PRN IV NAUSEA/VOMITING; Start 10/27/20 at 08:15; Stop 10/28/20 at 08:14; Status DC Sodium Chloride 1,000 ml @ 125 mls/hr Q8H IV Last administered on 10/27/20at 23:48; Start 10/27/20 at 08:15; Stop 10/28/20 at 08:14; Status DC Iohexol (Omnipaque 350 Mg/ml) 100 ml 1X ONCE IV ; Start 10/27/20 at 08:45; Stop 10/27/20 at 08:46; Status DC Info (CONTRAST GIVEN -- Rx MONITORING) 1 each PRN DAILY PRN MC SEE COMMENTS; Start 10/27/20 at 08:45; Stop 10/29/20 at 08:44; Status DC Piperacillin Sod/ Tazobactam Sod (Zosyn Per Pharmacy) 1 each PRN DAILY PRN MC SEE COMMENTS; Start 10/27/20 at 10:30 Piperacillin Sod/ Tazobactam Sod 2.25 gm/Sodium Chloride 50 ml @ 100 mls/hr Q6HRS IV Last administered on 10/28/20at 11:50; Start 10/27/20 at 12:00; Stop 10/28/20 at 14:37; Status DC Ondansetron HCl (Zofran) 4 mg PRN Q6HRS PRN IVP NAUSEA/VOMITING; Start 10/27/20 at 10:30 Famotidine (Pepcid Vial) 20 mg QHS IVP Last administered on 10/29/20at 21:38; Start 10/27/20 at 21:00 Info (Icu Electrolyte Protocol) 1 ea DAILY MC Last administered on 10/28/20at 09:00; Start 10/28/20 at 09:00 Heparin Sodium (Porcine) (Heparin Sodium) 5,000 unit Q8HRS SQ ; Start 10/27/20 at 14:00; Stop 10/27/20 at 14:51; Status DC Sodium Chloride (Normal Saline Flush) 3 ml QSHIFT PRN IV AFTER MEDS AND BLOOD DRAWS; Start 10/27/20 at 10:30 Sodium Chloride 1,000 ml @ 100 mls/hr Q10H IV Last administered on 10/30/20at 13:12; Start 10/27/20 at 10:30 Hydromorphone HCl (Dilaudid) 0.2 mg PRN Q1HR PRN IV PAIN; Start 10/27/20 at 10:30 Bisacodyl (Dulcolax Supp) 10 mg PRN DAILY PRN ND CONSTIPATION; Start 10/27/20 at 10:30 Sodium Bicarbonate (Sodium Bicarb Adult 8.4% Syr) 100 meq 1X ONCE IV Last administered on 10/27/20at 10:54; Start 10/27/20 at 11:00; Stop 10/27/20 at 11:01; Status DC Sodium Chloride 1,000 ml @ 500 mls/hr 1X ONCE IV Last administered on 10/27/20at 10:53; Start 10/27/20 at 11:00; Stop 10/27/20 at 12:59; Status DC Sodium Chloride 1,000 ml @ 1,000 mls/hr Q1H IV ; Start 10/27/20 at 11:00; Stop 10/27/20 at 12:57; Status DC Sodium Chloride 500 ml @ 1,000 mls/hr PRN Q30MIN PRN IV SEE COMMENTS; Start 10/27/20 at 11:00 Norepinephrine Bitartrate 8 mg/ Dextrose 258 ml @ 0 mls/hr CONT PRN IV SEE I/O RECORD Last administered on 10/28/20at 19:56; Start 10/27/20 at 11:00 Aspirin (Ecotrin) 81 mg [id number] PO Last administered on 10/30/20at 13:09; Start 10/27/20 at 12:30 Aspirin (Aspirin Rectal Supp) 300 mg 1X ONCE ND ; Start 10/27/20 at 13:15; Stop 10/27/20 at 13:16; Status DC Heparin Sodium/ Dextrose 250 ml @ 7.656 mls/ hr CONT PRN IV PER PROTOCOL Last administered on 10/27/20at 13:54; Start 10/27/20 at 13:15; Stop 10/28/20 at 10:48; Status DC Heparin Sodium (Porcine) (Heparin Sodium) 1,600 unit PRN Q6HRS PRN IV FOR UFH LEVEL LESS THAN 0.2 Last administered on 10/27/20at 20:46; Start 10/27/20 at 13:15; Stop 10/28/20 at 10:48; Status DC Brimonidine Tartrate (Alphagan) 1 drop BID OU Last administered on 10/30/20at 13:11; Start 10/28/20 at 21:00 Dorzolamide HCl (Trusopt) 1 drop BID OU Last administered on 10/30/20at 13:11; Start 10/28/20 at 11:00 Latanoprost (Xalatan) 1 drop QHS OU Last administered on 10/29/20at 21:38; Start 10/28/20 at 21:00 Aspirin (Aspirin Rectal Supp) 150 mg 1X ONCE ND ; Start 10/28/20 at 11:00; Stop 10/28/20 at 11:01; Status DC Metoprolol Tartrate (Lopressor Vial) 2.5 mg Q6HRS IVP ; Start 10/28/20 at 12:00; Stop 10/29/20 at 09:53; Status DC Timolol Maleate (Timoptic 0.5% Oph) 1 drop BID OU Last administered on 10/30/20at 13:11; Start 10/28/20 at 11:00 Lidocaine HCl (Buffered Lidocaine 1%) 3 ml STK-MED ONCE .ROUTE ; Start 10/28/20 at 11:45; Stop 10/28/20 at 11:45; Status DC Sodium Chloride 1,000 ml @ 1,000 mls/hr Q1H PRN IV hypotension; Start 10/28/20 at 11:30; Stop 10/28/20 at 17:29; Status DC Albumin Human 200 ml @ 200 mls/hr 1X PRN PRN IV Hypotension; Start 10/28/20 at 11:30; Stop 10/28/20 at 17:29; Status DC Sodium Chloride 1,000 ml @ 400 mls/hr Q2H30M PRN IV PATENCY; Start 10/28/20 at 11:30; Stop 10/28/20 at 23:29; Status DC Info (PHARMACY MONITORING -- do not chart) 1 each PRN DAILY PRN MC SEE COMMENTS; Start 10/28/20 at 11:30; Stop 10/29/20 at 11:42; Status DC Info (PHARMACY MONITORING -- do not chart) 1 each PRN DAILY PRN MC SEE COMMENTS; Start 10/28/20 at 11:30; Stop 10/30/20 at 09:59; Status DC Lidocaine HCl (Buffered Lidocaine 1%) 6 ml 1X ONCE INJ Last administered on 10/28/20at 12:16; Start 10/28/20 at 12:00; Stop 10/28/20 at 12:07; Status DC Heparin Sodium (Porcine) (Heparin Sodium) 10,000 unit STK-MED ONCE .ROUTE ; Start 10/28/20 at 12:10; Stop 10/28/20 at 12:10; Status DC Heparin Sodium (Porcine) (Heparin Sodium) 2,500 unit 1X ONCE INT CAT Last administered on 10/28/20at 12:19; Start 10/28/20 at 12:30; Stop 10/28/20 at 12:31; Status DC Piperacillin Sod/ Tazobactam Sod 2.25 gm/Sodium Chloride 50 ml @ 100 mls/hr Q8HRS IV Last administered on 10/30/20at 13:10; Start 10/28/20 at 21:00 Sodium Chloride 1,000 ml @ 1,000 mls/hr Q1H PRN IV hypotension; Start 10/29/20 at 07:30; Stop 10/29/20 at 13:29; Status DC Diphenhydramine HCl (Benadryl) 25 mg 1X PRN PRN IV ITCHING; Start 10/29/20 at 07:30; Stop 10/30/20 at 07:29; Status DC Diphenhydramine HCl (Benadryl) 25 mg 1X PRN PRN IV ITCHING; Start 10/29/20 at 07:30; Stop 10/30/20 at 07:29; Status DC Sodium Chloride 1,000 ml @ 400 mls/hr Q2H30M PRN IV PATENCY; Start 10/29/20 at 07:30; Stop 10/29/20 at 19:29; Status DC Info (PHARMACY MONITORING -- do not chart) 1 each PRN DAILY PRN MC SEE COMMENTS; Start 10/29/20 at 07:30; Status UNV Heparin Sodium (Porcine) (Heparin Sodium) 5,000 unit Q8HRS SQ ; Start 10/29/20 at 14:00; Status Cancel Metoprolol Tartrate (Lopressor) 12.5 mg BID PO Last administered on 10/30/20at 13:10; Start 10/29/20 at 21:00 Sodium Chloride 1,000 ml @ 100 mls/hr Q10H IV Last administered on 10/29/20at 11:52; Start 10/29/20 at 11:45; Stop 10/29/20 at 11:57; Status DC Lactobacillus Rhamnosus (Culturelle) 1 cap BID PO Last administered on 10/30/20at 13:09; Start 10/30/20 at 09:00 Sodium Chloride 1,000 ml @ 1,000 mls/hr Q1H PRN IV hypotension; Start 10/30/20 at 08:30; Stop 10/30/20 at 14:29 Albumin Human 200 ml @ 200 mls/hr 1X PRN PRN IV Hypotension; Start 10/30/20 at 08:30; Stop 10/30/20 at 14:29 Diphenhydramine HCl (Benadryl) 25 mg 1X PRN PRN IV ITCHING; Start 10/30/20 at 08:30; Stop 10/31/20 at 08:29 Diphenhydramine HCl (Benadryl) 25 mg 1X PRN PRN IV ITCHING; Start 10/30/20 at 08:30; Stop 10/31/20 at 08:29 Sodium Chloride 1,000 ml @ 400 mls/hr Q2H30M PRN IV PATENCY; Start 10/30/20 at 08:30; Stop 10/30/20 at 20:29 Info (PHARMACY MONITORING -- do not chart) 1 each PRN DAILY PRN MC SEE COMMENTS; Start 10/30/20 at 08:30 Active Scripts Active Reported Meclizine Hcl 25 Mg Tablet 1 Tab PO PRN TID Latanoprost 0.005% Eye Drop (Latanoprost/Pf) 7.5 Ml Drops 7.5 Ml OP HS Dorzolamide-Timolol Eye Drops (Dorzolamide Hcl/Timolol Maleat) 10 Ml Drops 1 Drop EACHEYE BID Brimonidine Tartrate 5 Ml Drops 1 Drop EACHEYE BID Vitals/I & O Vital Sign - Last 24 Hours 10/29/20 10/29/20 10/29/20 10/30/20 20:00 20:00 21:00 00:00 Temp 98.3 98.1 98.3 98.1 Pulse 74 76 71 Resp 18 12 B/P (MAP) 93/52 (66) 100/59 102/53 (69) Pulse Ox 100 100 O2 Delivery Room Air Room Air Room Air 10/30/20 10/30/20 10/30/20 10/30/20 04:00 08:00 08:00 13:00 Temp 98.5 98.1 98.1 98.5 98.1 98.1 Pulse 74 80 100 Resp 13 21 18 B/P (MAP) 108/61 (77) 143/71 (95) 141/82 (101) Pulse Ox 100 97 97 O2 Delivery Room Air Room Air Room Air Room Air 10/30/20 13:10 Pulse 100 B/P (MAP) 141/82 Intake and Output 10/29/20 10/29/20 10/30/20 15:00 23:00 07:00 Intake Total 75 ml 2120 ml Output Total 425 ml 635 ml 125 ml Balance -350 ml -635 ml 1995 ml Justifications for Admission General Conditions Poss tachycardia?: Yes Justification for admission: Patient has tachycardia (> 100 beats per minute) which is not readily corrected by appropriate treatment within 12 to 24 hours. SEPTIC SHOCK Other Justification Nutrition Consultation Dietary Evaluation: Recommendations by RD: Dietary education by RD, Increase Calorie Intake, Protein supplementation Comments: REC advance diet as able per FINAL CIGAR AND BOX EXAMINER recommendations, goal diet renal w/nepro supplements prn Expected Outcomes/Goals: diet advancement Malnutrition Findings: Body Fat Depletion (Non Severe: Mild Depletion Weight Status: Overweight ROE STEELE MD Oct 30, 2020 14:13
[2020-10-30 16:00] VITALS: BP 114/61
--- NOTE | 2020-10-30 16:14 | PDOC ---
PROGRESS NOTES Date of Service: DATE: 10/30/20 TIME: 16:14 Subjective Subjective Patient seen in hemodialysis unit. He was somnolent but comfortable. Objective Objective Vital Signs Date Time Temp Pulse Resp B/P (MAP) Pulse Ox O2 Delivery O2 Flow Rate FiO2 10/30/20 13:10 100 141/82 10/30/20 13:00 98.1 18 97 Room Air 98.1 Intake and Output 10/30/20 07:00 Intake Total 2195 ml Output Total 1185 ml Balance 1010 ml Intake Oral 75 ml IV Total 2120 ml Output Urine Total 1185 ml Physical Exam Abdomen: Normal bowel sounds, Soft Heart: Regular rate Extremities: No edema General: No acute distress HEENT: Atraumatic, EOMI, Other (DRY MUCOSA) Lungs: Clear to auscultation, Normal air movement MUSCULOSKELETAL: No joint tenderness, Other (DIFFUSE ATROPHY) Neck: Supple Neuro: Other (NOT AROUSABLE) Skin: No breakdown Diagnosis RENAL FAILURE: Acute (Acute tubular necrosis) Assessment Assessment 1. Sepsis/fever/UTI/leukocytosis: ID following. Covid neg. Patient had questionable vegetation on his central line and right atrium on 2D echo. Will consider DAITYA if ID thinks clinical suspicion is high. 2. Septic shock: BP better. off levo. 3. Severe PERRY with mild hypernatremia: Started on HD, 4. Rhabdomyolysis: peaked [id number] 5. PSVT with aberrancy: none further, maintaiining SR 6. LBBB: no prior EKG for comparison 7. Possible fall: No obvious trauma. unknown duration on floor 8. NSTEMI: peaked at 4.3. CP/SOA. Possibly demand mediated. 2D echo showed LVEF 50%.We will consider ischemic evaluation as an outpatient. 9. Metabolic encephalopathy 10. Macrocytosis 11. Transaminitis 12. Coagulopathy Plan Plan of Care Problems Medical Problems: (1) Acute renal failure Status: Acute (2) Dehydration Status: Acute (3) Person under investigation for COVID-19 Status: Acute (4) Rhabdomyolysis Status: Acute (5) Septic shock Status: Acute (6) UTI (urinary tract infection) Status: Acute Comment Review of Relevant I have reviewed the following items mendez (where applicable) has been applied. Labs Laboratory Tests Test 10/30/20 06:10 Sodium Level 144 mmol/L (136-145) Potassium Level 3.4 mmol/L (3.5-5.1) Chloride Level 109 mmol/L (98-107) Carbon Dioxide Level 30 mmol/L (21-32) Anion Gap 5 (6-14) Blood Urea Nitrogen 41 mg/dL (8-26) Creatinine 1.6 mg/dL (0.7-1.3) Estimated GFR (Cockcroft-Gault) 51.5 Glucose Level 111 mg/dL (70-99) Calcium Level 7.7 mg/dL (8.5-10.1) Microbiology 10/27/20 Blood Culture - Final, Complete 10/27/20 Antimicrobic Susceptibility - Final, Complete 10/27/20 Urine Culture - Final, Complete 10/27/20 Antimicrobic Susceptibility - Final, Complete Medications Current Medications Albumin Human 200 ml @ 200 mls/hr 1X PRN PRN IV Hypotension; Start 10/30/20 at 08:30; Stop 10/30/20 at 14:35; Status DC Diphenhydramine HCl (Benadryl) 25 mg 1X PRN PRN IV ITCHING; Start 10/30/20 at 08:30; Stop 10/31/20 at 08:29 Diphenhydramine HCl (Benadryl) 25 mg 1X PRN PRN IV ITCHING; Start 10/30/20 at 08:30; Stop 10/31/20 at 08:29 Info (PHARMACY MONITORING -- do not chart) 1 each PRN DAILY PRN MC SEE COMMENTS; Start 10/30/20 at 08:30 Lactobacillus Rhamnosus (Culturelle) 1 cap BID PO Last administered on at 13:09; Start 10/30/20 at 09:00 Metoprolol Tartrate (Lopressor) 12.5 mg BID PO Last administered on 10/30/20at 13:10; Start 10/29/20 at 21:00 Sodium Chloride 1,000 ml @ 400 mls/hr Q2H30M PRN IV PATENCY; Start 10/30/20 at 08:30; Stop 10/30/20 at 20:29 Sodium Chloride 1,000 ml @ 1,000 mls/hr Q1H PRN IV hypotension; Start 10/30/20 at 08:30; Stop 10/30/20 at 14:34; Status DC Vitals/I & O Vital Sign - Last 24 Hours 10/29/20 10/29/20 10/29/20 10/30/20 20:00 20:00 21:00 00:00 Temp 98.3 98.1 98.3 98.1 Pulse 74 76 71 Resp 18 12 B/P (MAP) 93/52 (66) 100/59 102/53 (69) Pulse Ox 100 100 O2 Delivery Room Air Room Air Room Air 10/30/20 10/30/20 10/30/20 10/30/20 04:00 08:00 08:00 13:00 Temp 98.5 98.1 98.1 98.5 98.1 98.1 Pulse 74 80 100 Resp 13 21 18 B/P (MAP) 108/61 (77) 143/71 (95) 141/82 (101) Pulse Ox 100 97 97 O2 Delivery Room Air Room Air Room Air Room Air 10/30/20 13:10 Pulse 100 B/P (MAP) 141/82 Intake and Output 10/29/20 10/29/20 10/30/20 15:00 23:00 07:00 Intake Total 75 ml 2120 ml Output Total 425 ml 635 ml 125 ml Balance -350 ml -635 ml 1995 ml CARLITA GREGG MD Oct 30, 2020 16:14
[2020-10-30] MEDS: LATANOPROST 0.005% OPHTH SOLUTION 2.5ML BOTTLE. OU SCH (21:22)
[2020-10-30] MEDS: FAMOTIDINE 20 MG/2 ML VIAL IVP SCH (21:23)
--- NOTE | 2020-10-30 22:19 | CONS ---
DATE OF CONSULTATION: 10/30/2020 REFERRING PHYSICIAN: Steve Pablo DO REASON FOR CONSULTATION: Right-sided weakness. HISTORY OF PRESENT ILLNESS: The patient is a pleasant 75-year-old man who presented to [facility] on 10/27/2020. At home, he had altered mental status and had fallen down to the ground and was unable to get up. Prior to this, he had been in good health. He was found to be hypotensive, tachycardic and febrile. His white count was diminished at 2.9. Influenza screening and COVID testing was negative. His urine showed pyuria and he had a sepsis syndrome. He has been receiving antibiotics and has been improving cognitively. He in the last day or so has not been able to move his right side as well as his left. Generally, he is weak from this experience, but he seems to be more focally weak on the right. Neurology was consulted to evaluate for stroke. PAST MEDICAL HISTORY: 1. Glaucoma. 2. Osteoarthritis. 3. Bilateral total knee replacements. ALLERGIES: No known allergies to drugs. MEDICATIONS PRIOR TO ADMISSION: Brimonidine tartrate ophthalmic, dorzolamide ophthalmic, latanoprost ophthalmic and meclizine 25 mg 3 times a day as needed. FAMILY HISTORY: Hypertension. SOCIAL HISTORY: He is and has grown children. 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 REVIEW OF SYSTEMS: He does not complain of any headache. He has not noted any change of vision or hearing. He has had some confusion, but is improving. He has had no trouble with chewing or swallowing. He does have glaucoma and some diminished vision of his left eye. He has not had any chest pain. He did have a cough, which is improving. He does not feel short of breath. He does not have abdominal pain. He does have arthritic pain. The cold weather makes the arthritic pain worse. He has had fever. He has not had a rash. He denies any gastrointestinal symptoms. He currently has a Freeman catheter in place. He does not complain of focal numbness. He feels generally weak. He was not able to stand and support his own weight without assistance. He does not have any psychiatric concerns. He does not complain of excessive bruising or bleeding. PHYSICAL EXAMINATION: VITAL SIGNS: The blood pressure was 141/82, pulse 100, respirations 18, temperature 98.1 degrees Fahrenheit. His weight was 69.6 kilograms, height 70 inches and calculated body mass index of 22. NEUROLOGIC: He was alert, awake and cooperative. Speech was normal flow and content and was well enunciated. His speech was soft, but he did have the ability to make it louder and louder. Attention and concentration was intact. He was oriented. Examination of the cranial nerves revealed visual alvarado were full to confrontation. Extraocular movements were intact. The eyes were conjugate. Pursuit movements were smooth and saccadic eye movements were without dysmetria. Pupils were 3 mm and reacted. Funduscopic exam did not reveal papilledema, exudate or hemorrhage. Facial sensation was intact. The muscles of mastication and facial expression were powerful symmetrically. Hearing was intact to finger rub. The palate arched symmetrically and the tongue was midline with full motion. Sternocleidomastoid and trapezius were powerful. Muscle bulk was symmetric. There appeared to be some right arm and leg drift. Power was generally weak throughout, but more so on the right arm and right leg. He could get his left leg off the reclining chair, but he had a very difficult time getting his left leg off the chair. He was weaker with cover maker and finger abduction in the right hand. He was weaker with arm abduction, elbow flexion, elbow extension, hip flexion and knee flexion on the right. Reflexes were 1/4 in the upper extremities, absent at knees and ankles. Toes were not upgoing. Coordination testing with [id number] had some intention tremor on the right, but not the left. Occasionally, there was a hint of asterixis. He was too weak to do [id number]. Fine motor tapping was not as well performed with the right hand as the left. Sensory exam was intact to pain, light touch, proprioception, graphesthesia, cold thermal and vibration. There was no extinction to double simultaneous stimulation. Gait was not testable. NECK: Auscultation of the carotid arteries did not reveal a bruit. HEART: Rhythm was regular without a murmur. EXTREMITIES: Peripheral pulses were symmetric in the hands and feet. There was no edema or cyanosis. LABORATORY RESULTS: CBC was performed on 10/29/2020. This revealed an elevated white blood cell count at 24.8. Hemoglobin was diminished at 10.6 and hematocrit at 31.3. Platelet count was normal at 144. Chemistries were performed on 10/30/2020. Sodium was normal, but potassium was low at 3.3, chloride elevated at 109 and CO2 was normal. BUN was elevated at 41 and creatinine to 1.6 with a GFR that calculated at 51.5. Glucose was 111. Calcium was low at 7.7. CPK has been rising, the highest CPK had risen to 10,230 on 10/28/2020 and it has come down to 4576. The liver enzymes were elevated on 10/28/2020 with SGOT at 115, SGPT at 312, and alkaline phosphatase at 133. TSH was normal on 10/27/2020 at 2.650. Urine drug screen was negative on 10/27/2020. Coronavirus by PCR was not detected on 10/27/2020. Influenza was negative by antigen testing on that same date. Hepatitis B antigen was nonreactive on 10/28/2020 and hepatitis B antibody quantitative was less than 3.1 on 10/28/2020. Urinalysis was performed on 10/27/2020 revealed 100 mg/dL of protein, trace ketones, large amount of blood, small amount of bilirubin, large amount of leukocyte esterase, 6-10 red blood cells and too numerous to count white blood cells with many bacteria. Blood culture grew Klebsiella pneumoniae. Urine culture also grew the same organism. DIAGNOSTIC RESULTS: CT scan of the head and cervical spine was initially performed on 10/27/2020 at 9:52 a.m. This did not reveal an acute intracranial process and there was no acute cervical spine fracture. CT scan of the head was repeated on 10/29/2020 at 2232. This did not reveal an acute intracranial abnormality. There was moderate small vessel disease. 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 Unfortunately, it does not look as if this was compared to the study of almost 3 days previous. Chest x-ray was performed on 10/28/2020 revealing new right IJ dual lumen catheter. No pneumothorax. Stable right IJ central venous catheter. No consolidation. Abdominal and pelvic CT scan was performed on 10/28/2020. This revealed a right perinephric stranding with urinary bladder wall thickening, may relate to urinary tract infection. Small pelvic free fluid. Numerous enlarged retroperitoneal and inguinal lymph nodes, probably characterized without intravenous contrast. Recommend further clinical evaluation and followup. Comparison would be beneficial. Increased density within the gallbladder, may relate to cholelithiasis or sludge. IMPRESSION: The patient is a pleasant 75-year-old man who developed Klebsiella pneumoniae, urinary tract infection and sepsis syndrome. He came into the hospital, critically ill. He has been gradually improving with respect to the infection. He is generally weak. He does appear to also have focal weakness, more so on the right arm and leg. I am concerned that he may have suffered a stroke of the left hemisphere. CT scan after an interval of 2-1/2 days, but it did not reveal an acute stroke. It does not appear that the radiologist compared this to the previous study, which would certainly have more power. I can contact radiology on 10/31/2020 to make sure they do a comparison and add an addendum to the report. I plan on arranging for an MRI of his head on 11/01/2020. If this in fact reveal stroke, then we can arrange for further investigation. ANY SKAGGS MD DR: SONJA/jose francisco JOB#: [id number] / [id number] mikhail Meng,
[2020-10-30 23:14] VITALS: BP 126/74
[2020-10-31] MEDS: PIPERACILLIN/TAZOBACTAM 2.25 GM in IV NORMAL SALINE 50ML 50 ML IV SCH ×2 (00:23→06:57)
[2020-10-31] MEDS: IV NORMAL SALINE 1000ML BAG 1,000 ML IV SCH ×2 (03:03→17:16)
[2020-10-31 03:10] VITALS: BP 118/76
[2020-10-31 07:19] VITALS: BP 147/77
[2020-10-31 07:40] LABS: BASO % 0 % (0-3); EOS # 1.5 x10^3/uL (0.0-0.7); EOS % 15 % (0-3); HEMATOCRIT 30.3 % (39.0-53.0); HEMOGLOBIN 10.4 g/dL (13.0-17.5); LYMPH # 1.6 x10^3/uL (1.0-4.8); LYMPH % 16 % (24-48); MEAN CORPUSCULAR HEMOGLOBIN 37 pg (25-35); MEAN CORPUSCULAR HGB CONC 34 g/dL (31-37); MEAN CORPUSCULAR VOLUME 107 fL (79-100); MONO # 0.8 x10^3/uL (0.0-1.1); MONO % 8 % (0-9); NEUT % 60 % (31-73); PLATELET COUNT 108 x10^3/uL (140-400); RED BLOOD COUNT 2.83 x10^6/uL (4.30-5.70); RED CELL DISTRIBUTION WIDTH 12.8 % (11.5-14.5); WHITE BLOOD COUNT 9.9 x10^3/uL (4.0-11.0)
[2020-10-31 07:44] LABS: ALBUMIN 1.8 g/dL (3.4-5.0); ALBUMIN/GLOBULIN RATIO 0.6 (1.0-1.7); CALCIUM 7.9 mg/dL (8.5-10.1); CREATININE 1.3 mg/dL (0.7-1.3); GFR 65.5; POTASSIUM 3.5 mmol/L (3.5-5.1)
--- NOTE | 2020-10-31 07:49 | NUR ---
At approximately 2130 on 10/30 patient was transferred to Earl Luther RN in room upon patient's arrival. All patient's belongings including patient's cell phone, glasses, and clothes left with patient. All vital signs stable. NIHSS done at bedside by this RN and MURPHY Belle. Report given to MURPHY Belle
[2020-10-31] MEDS: ASPIRIN ENTERIC COATED 81 MG TABLET.DR. PO SCH (08:37)
[2020-10-31] MEDS: METOPROLOL TART IMMED RELEASE 25 MG TABLET. PO SCH ×2 (08:38→20:55)
[2020-10-31] MEDS: ELECTROLYTE (ICU) PROTOCOL. MC SCH (08:38)
[2020-10-31] MEDS: LACTOBACILLUS RHAMNOSUS GG 1 CAPSULE. PO SCH ×2 (08:38→20:54)
[2020-10-31] MEDS: BRIMONIDINE 0.2% OPHTH SOLUTION 5ML BOTTLE. OU SCH ×2 (08:43→20:54)
[2020-10-31] MEDS: TIMOLOL 0.5% OPHTH SOLUTION 5ML BOTTLE. OU SCH ×2 (08:43→20:53)
[2020-10-31] MEDS: DORZOLAMIDE 2% OPHTH SOLUTION 10ML BOTTLE. OU SCH ×2 (08:43→20:54)
--- NOTE | 2020-10-31 09:49 | PDOC ---
Infectious Disease Note Subjective: Subjective Patient feels better Vital Signs: Vital Signs Vital Signs Date Time Temp Pulse Resp B/P (MAP) Pulse Ox O2 Delivery O2 Flow Rate FiO2 10/31/20 08:38 76 147/77 10/31/20 07:19 98.3 18 96 Room Air 98.3 Physical Exam: PHYSICAL EXAM GENERAL: axox3 male in nad, comfortable in bed. HEENT: Normocephalic, atraumatic, anicteric. NECK: Supple, no JVD. Right IJ and dialysis catheter in place LUNGS: Clear bilaterally. No wheezing. HEART: S1, S2, no murmurs. ABDOMEN: Soft, nontender, nondistended, no rebound, no guarding. EXTREMITIES: No edema, no cyanosis. DERMATOLOGIC: Warm and dry. No generalized rash. NEUROLOGIC: Sleepy, but arousable. Unable to assess. PSYCHIATRIC: Unable to assess. MUSCULOSKELETAL: No joint deformity. Medications: Inpatient Meds: Current Medications Medications (Trade) Dose Ordered Sig/Ambrosio Start Time Stop Time Status Last Admin Dose Admin Acetaminophen (Tylenol Supp) 975 mg 1X ONCE 10/27/20 06:30 10/27/20 06:31 DC 10/27/20 07:30 975 MG Albumin Human 200 ml @ 200 mls/hr 1X PRN PRN 10/30/20 08:30 10/30/20 14:35 DC Aspirin (Aspirin Rectal Supp) 150 mg 1X ONCE 10/28/20 11:00 10/28/20 11:01 DC Aspirin (Ecotrin) 81 mg [id number] 10/27/20 12:30 10/31/20 08:37 81 MG Bisacodyl (Dulcolax Supp) 10 mg PRN DAILY PRN 10/27/20 10:30 Brimonidine Tartrate (Alphagan) 1 drop BID 10/28/20 21:00 10/31/20 08:43 1 DROP Diphenhydramine HCl (Benadryl) 25 mg 1X PRN PRN 10/30/20 08:30 10/31/20 08:29 DC Dorzolamide HCl (Trusopt) 1 drop BID 10/28/20 11:00 10/31/20 08:43 1 DROP Famotidine (Pepcid Vial) 20 mg QHS 10/27/20 21:00 10/30/20 21:23 20 MG Heparin Sodium (Porcine) (Heparin Sodium) 5,000 unit Q8HRS 10/29/20 14:00 Cancel Heparin Sodium/ Dextrose 250 ml @ 7.656 mls/ hr CONT PRN 10/27/20 13:15 10/28/20 10:48 DC 10/27/20 13:54 7.656 MLS/HR Hydromorphone HCl (Dilaudid) 0.2 mg PRN Q1HR PRN 10/27/20 10:30 Info (CONTRAST GIVEN -- Rx MONITORING) 1 each PRN DAILY PRN 10/27/20 08:45 10/29/20 08:44 DC Info (Icu Electrolyte Protocol) 1 ea DAILY 10/28/20 09:00 10/28/20 09:00 1 EA Info (PHARMACY MONITORING -- do not chart) 1 each PRN DAILY PRN 10/30/20 08:30 Iohexol (Omnipaque 350 Mg/ml) 100 ml 1X ONCE 10/27/20 08:45 10/27/20 08:46 DC Lactobacillus Rhamnosus (Culturelle) 1 cap BID 10/30/20 09:00 10/31/20 08:38 1 CAP Latanoprost (Xalatan) 1 drop QHS 10/28/20 21:00 10/30/20 21:22 1 DROP Lidocaine HCl (Buffered Lidocaine 1%) 6 ml 1X ONCE 10/28/20 12:00 10/28/20 12:07 DC 10/28/20 12:16 4 ML Lidocaine HCl (Lidocaine 1% 20ml Vial) 20 ml STK-MED ONCE 10/27/20 06:30 10/27/20 06:30 DC Metoprolol Tartrate (Lopressor Vial) 2.5 mg Q6HRS 10/28/20 12:00 10/29/20 09:53 DC Metoprolol Tartrate (Lopressor) 12.5 mg BID 10/29/20 21:00 10/31/20 08:38 12.5 MG Norepinephrine Bitartrate 8 mg/ Dextrose 258 ml @ 0 mls/hr CONT PRN 10/27/20 11:00 10/28/20 19:56 3.6 MLS/HR Ondansetron HCl (Zofran) 4 mg PRN Q6HRS PRN 10/27/20 10:30 Piperacillin Sod/ Tazobactam Sod (Zosyn Per Pharmacy) 1 each PRN DAILY PRN 10/27/20 10:30 Piperacillin Sod/ Tazobactam Sod 2.25 gm/Sodium Chloride 50 ml @ 100 mls/hr Q8HRS 10/28/20 21:00 10/31/20 06:57 100 MLS/HR Piperacillin Sod/ Tazobactam Sod 3.375 gm/Sodium Chloride 50 ml @ 100 mls/hr 1X ONCE 10/27/20 07:00 10/27/20 07:29 DC 10/27/20 07:58 100 MLS/HR Sodium Bicarbonate (Sodium Bicarb Adult 8.4% Syr) 100 meq 1X ONCE 10/27/20 11:00 10/27/20 11:01 DC 10/27/20 10:54 100 MEQ Sodium Chloride 1,000 ml @ 400 mls/hr Q2H30M PRN 10/30/20 08:30 10/30/20 20:29 DC Sodium Chloride (Normal Saline Flush) 3 ml QSHIFT PRN 10/27/20 10:30 Timolol Maleate (Timoptic 0.5% [facility]) 1 drop BID 10/28/20 11:00 10/31/20 08:43 1 DROP Labs: Lab Laboratory Tests Test 10/31/20 07:00 White Blood Count 9.9 x10^3/uL (4.0-11.0) Red Blood Count 2.83 x10^6/uL (4.30-5.70) Hemoglobin 10.4 g/dL (13.0-17.5) Hematocrit 30.3 % (39.0-53.0) Mean Corpuscular Volume 107 fL (79-100) Mean Corpuscular Hemoglobin 37 pg (25-35) Mean Corpuscular Hemoglobin Concent 34 g/dL (31-37) Red Cell Distribution Width 12.8 % (11.5-14.5) Platelet Count 108 x10^3/uL (140-400) Neutrophils (%) (Auto) 60 % (31-73) Lymphocytes (%) (Auto) 16 % (24-48) Monocytes (%) (Auto) 8 % (0-9) Eosinophils (%) (Auto) 15 % (0-3) Basophils (%) (Auto) 0 % (0-3) Neutrophils # (Auto) 6.0 x10^3/uL (1.8-7.7) Lymphocytes # (Auto) 1.6 x10^3/uL (1.0-4.8) Monocytes # (Auto) 0.8 x10^3/uL (0.0-1.1) Eosinophils # (Auto) 1.5 x10^3/uL (0.0-0.7) Basophils # (Auto) 0.0 x10^3/uL (0.0-0.2) Sodium Level 145 mmol/L (136-145) Potassium Level 3.5 mmol/L (3.5-5.1) Chloride Level 109 mmol/L (98-107) Carbon Dioxide Level 30 mmol/L (21-32) Anion Gap 6 (6-14) Blood Urea Nitrogen 30 mg/dL (8-26) Creatinine 1.3 mg/dL (0.7-1.3) Estimated GFR (Cockcroft-Gault) 65.5 BUN/Creatinine Ratio 23 (6-20) Glucose Level 97 mg/dL (70-99) Calcium Level 7.9 mg/dL (8.5-10.1) Total Bilirubin 1.0 mg/dL (0.2-1.0) Aspartate Amino Transf (AST/SGOT) 114 U/L (15-37) Alanine Aminotransferase (ALT/SGPT) 129 U/L (16-63) Alkaline Phosphatase 86 U/L (46-116) Total Protein 5.0 g/dL (6.4-8.2) Albumin 1.8 g/dL (3.4-5.0) Albumin/Globulin Ratio 0.6 (1.0-1.7) Micro CT abdomen and pelvis findings: Lower chest: Bilateral lower lobe posterior dependent atelectasis with tiny pleural effusions. Abdomen and pelvis: The liver, spleen, and pancreas have unremarkable noncontrast appearance. The cholelithiasis or gallbladder sludge. Adenomatous thickening of the adrenal glands. Right renal cysts measure 5.9 x 5.9 cm and 3.2 x 3.1 cm. Right perinephric stranding. No renal calculi. No hydronephrosis. Urinary bladder wall thickening. Freeman catheter within the urinary bladder. Postop changes prostatectomy. Small fluid within the pelvis. Appendix not well seen. No evidence of bowel obstruction. Numerous mildly enlarged retroperitoneal and inguinal lymph nodes poorly characterize without IV contrast. 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 Multilevel lumbar spondylosis. Impression: 1. Right perinephric stranding and urinary bladder wall thickening, may relate to urinary tract infection. 2. Small pelvic free fluid. 3. Numerous enlarged retroperitoneal and inguinal lymph nodes probably characterized without intravenous contrast. Recommend further clinical evaluation and follow-up. Comparison with prior imaging studies would also be of benefit. 4. Increased density within the gallbladder, may relate to cholelithiasis or sludge. Objective: Assessment: Septic shock resolved Gram-negative sepsis source Klebsiella pneumonia bacteremia source Pyelonephritis with urine culture positive Klebsiella PERRY with underlying CKD, metabolic acidosis, hypernatremia, on dialysis Rhabdomyolysis. Improving Abnormal LFTs. Improving Encephalopathy improved Acute hypoxic respiratory failure now resolved Abnormal CT pelvis postop changes prostatectomy. Small fluid within the pelvis. Questionable etiology History of urinary retention, status post self-catheterization at home prior to admission for a long time COVID-19 negative Influenza screen negative Plan: Plan of Care DC Zosyn Ceftriaxone Monitor labs and cultures Continue supportive care D/W STEVEN BARBA MD Oct 31, 2020 09:49
[2020-10-31 10:31] LABS: % ATYL 2 % (0-0); % BANDS 6 % (0-9); % EOS 9 % (0-5); % LYMPHS 11 % (24-48); % MONOS 6 % (0-10); % SEGS 66 % (35-66)
[2020-10-31 10:32] LABS: PLT ESTIMATE DECREASED (ADEQUATE)
[2020-10-31 10:45] VITALS: BP 126/64
[2020-10-31] MEDS: cefTRIAXone IV Push 2 GM VIAL. IVP SCH (11:47)
[2020-10-31] MEDS ORDERED: ELECTROLYTE (NON-ICU) PROTOCOL. MC PRN (14:15)
[2020-10-31 14:25] VITALS: BP 139/84
--- NOTE | 2020-10-31 14:47 | PDOC ---
PROGRESS NOTES Date of Service: DATE: 10/31/20 TIME: 14:46 Subjective Subjective Slightly confused and denied any new complaints Objective Objective Vital Signs Date Time Temp Pulse Resp B/P (MAP) Pulse Ox O2 Delivery O2 Flow Rate FiO2 10/31/20 14:25 98.4 80 18 139/84 (102) 97 Room Air 98.4 Intake and Output 10/31/20 07:00 Intake Total 1470 ml Output Total 1575 ml Balance -105 ml Intake Oral 820 ml IV Total 650 ml Output Urine Total 1575 ml Physical Exam Abdomen: Normal bowel sounds, Soft Heart: Regular rate Extremities: No edema General: No acute distress HEENT: Atraumatic, EOMI, Other (DRY MUCOSA) Lungs: Clear to auscultation, Normal air movement MUSCULOSKELETAL: No joint tenderness, Other (DIFFUSE ATROPHY) Neck: Supple Neuro: Other (NOT AROUSABLE) Skin: No breakdown Diagnosis RENAL FAILURE: Acute (Acute tubular necrosis) Assessment Assessment 1. Sepsis/fever/UTI/leukocytosis: ID following. Covid neg. Patient had questionable vegetation on his central line and right atrium on 2D echo. Will consider ADITYA if ID thinks clinical suspicion is high. 2. Septic shock: BP better. off levo. 3. Severe PERRY with mild hypernatremia: Started on HD, 4. Rhabdomyolysis: peaked [id number] 5. PSVT with aberrancy: none further, maintaining SR 6. LBBB: no prior EKG for comparison 7. Possible fall: No obvious trauma. unknown duration on floor 8. NSTEMI: peaked at 4.3. CP/SOA. Possibly demand mediated. 2D echo showed LVEF 50%.We will consider ischemic evaluation as an outpatient. 9. Metabolic encephalopathy 10. Macrocytosis 11. Transaminitis 12. Coagulopathy Plan Plan of Care Problems Medical Problems: (1) Acute renal failure Status: Acute (2) Dehydration Status: Acute (3) Person under investigation for COVID-19 Status: Acute (4) Rhabdomyolysis Status: Acute (5) Septic shock Status: Acute (6) UTI (urinary tract infection) Status: Acute Comment Review of Relevant I have reviewed the following items mendez (where applicable) has been applied. Labs Laboratory Tests Test 10/31/20 07:00 White Blood Count 9.9 x10^3/uL (4.0-11.0) Red Blood Count 2.83 x10^6/uL (4.30-5.70) Hemoglobin 10.4 g/dL (13.0-17.5) Hematocrit 30.3 % (39.0-53.0) Mean Corpuscular Volume 107 fL (79-100) Mean Corpuscular Hemoglobin 37 pg (25-35) Mean Corpuscular Hemoglobin Concent 34 g/dL (31-37) Red Cell Distribution Width 12.8 % (11.5-14.5) Platelet Count 108 x10^3/uL (140-400) Neutrophils (%) (Auto) 60 % (31-73) Lymphocytes (%) (Auto) 16 % (24-48) Monocytes (%) (Auto) 8 % (0-9) Eosinophils (%) (Auto) 15 % (0-3) Basophils (%) (Auto) 0 % (0-3) Neutrophils # (Auto) 6.0 x10^3/uL (1.8-7.7) Lymphocytes # (Auto) 1.6 x10^3/uL (1.0-4.8) Monocytes # (Auto) 0.8 x10^3/uL (0.0-1.1) Eosinophils # (Auto) 1.5 x10^3/uL (0.0-0.7) Basophils # (Auto) 0.0 x10^3/uL (0.0-0.2) Segmented Neutrophils % 66 % (35-66) Band Neutrophils % 6 % (0-9) Lymphocytes % 11 % (24-48) Atypical Lymphocytes % (Manual) 2 % (0-0) Monocytes % 6 % (0-10) Eosinophils % 9 % (0-5) Platelet Estimate Decreased (ADEQUATE) Macrocytosis Present Sodium Level 145 mmol/L (136-145) Potassium Level 3.5 mmol/L (3.5-5.1) Chloride Level 109 mmol/L (98-107) Carbon Dioxide Level 30 mmol/L (21-32) Anion Gap 6 (6-14) Blood Urea Nitrogen 30 mg/dL (8-26) Creatinine 1.3 mg/dL (0.7-1.3) Estimated GFR (Cockcroft-Gault) 65.5 BUN/Creatinine Ratio 23 (6-20) Glucose Level 97 mg/dL (70-99) Calcium Level 7.9 mg/dL (8.5-10.1) Total Bilirubin 1.0 mg/dL (0.2-1.0) Aspartate Amino Transf (AST/SGOT) 114 U/L (15-37) Alanine Aminotransferase (ALT/SGPT) 129 U/L (16-63) Alkaline Phosphatase 86 U/L (46-116) Total Protein 5.0 g/dL (6.4-8.2) Albumin 1.8 g/dL (3.4-5.0) Albumin/Globulin Ratio 0.6 (1.0-1.7) Microbiology 10/27/20 Blood Culture - Final, Complete 10/27/20 Antimicrobic Susceptibility - Final, Complete 10/27/20 Urine Culture - Final, Complete 10/27/20 Antimicrobic Susceptibility - Final, Complete Medications Current Medications Ceftriaxone Sodium (Rocephin) 2 gm Q24H IVP Last administered on 10/31/20at 11:47; Start 10/31/20 at 11:00 Famotidine (Pepcid) 20 mg QHS PO ; Start 10/31/20 at 21:00 Info (Non-Icu Electrolyte Protocol) 1 ea CONT PRN PRN MC SEE COMMENTS; Start 10/31/20 at 14:15 Vitals/I & O Vital Sign - Last 24 Hours 10/30/20 10/30/20 10/30/20 10/31/20 16:00 20:00 23:14 03:10 Temp 98.1 97.6 98.8 98.1 97.6 98.8 Pulse 82 71 74 Resp 19 16 18 B/P (MAP) 114/61 (78) 126/74 (91) 118/76 (90) Pulse Ox 97 97 97 O2 Delivery Room Air Room Air Room Air Room Air 10/31/20 10/31/20 10/31/20 10/31/20 07:19 07:40 08:38 10:45 Temp 98.3 98.0 98.3 98.0 Pulse 76 76 74 Resp 18 18 B/P (MAP) 147/77 (100) 147/77 126/64 (84) Pulse Ox 96 94 O2 Delivery Room Air Room Air Room Air 10/31/20 10/31/20 12:00 14:25 Temp 98.4 98.4 Pulse 75 80 Resp 18 B/P (MAP) 139/84 (102) Pulse Ox 97 O2 Delivery Room Air Room Air Intake and Output 10/30/20 10/30/20 10/31/20 15:00 23:00 07:00 Intake Total 480 ml 890 ml 100 ml Output Total 875 ml 700 ml Balance 480 ml 15 ml -600 ml CARLITA GREGG MD Oct 31, 2020 14:47
--- NOTE | 2020-10-31 16:12 | PDOC ---
GENERAL General: Patient examined chart reviewed seen with daughter and son-in-law in from [place] for an indefinite period of time to ensure that he is okay. They are strongly encouraging him to consider post hospitalization rehab care to ensure that he is back on his feet before he discharges home. He does not have a lot of help available for stand at home though there are family and friends who live close. Patient feels that he is turning the corner. MR brain is planned for the morning. We appreciate subspecialty support. It sounds like another dose of dialysis is planned for the morning as well. We will continue current management otherwise. Problems: (1) UTI due to Klebsiella species (2) Bacteremia due to Klebsiella pneumoniae (3) Septic shock (4) Acute renal failure VITAL SIGNS Vital Signs/I&O: Vital Signs Date Time Temp Pulse Resp B/P (MAP) Pulse Ox O2 Delivery O2 Flow Rate FiO2 10/31/20 14:25 98.4 80 18 139/84 (102) 97 Room Air 98.4 I & O 10/30/20 10/30/20 10/31/20 15:00 23:00 07:00 Intake Total 480 ml 890 ml 100 ml Output Total 875 ml 700 ml Balance 480 ml 15 ml -600 ml In general the patient is frail pleasant sitting up in his chair this afternoon in no acute distress HEENT exam is unremarkable for acute abnormality Chest is clear to auscultation Heart S1-S2 normal regular rate and rhythm no murmurs or gallops are noted Abdomen soft nontender nondistended no masses organomegaly noted Extremity exam is unremarkable for acute abnormality. He is having paresthesias in his right fourth and fifth digit but is sitting with his arm on a hard armrest for much of the day I wonder if he is having a compressive ulnar neuropathy. I have asked him to put a pillow under his arm when he is sitting resting ALLERGIES Allergies: Allergies Coded Allergies Type Severity Reaction Last Updated Verified No Known Drug Allergies 10/30/20 No MEDS Medications: Current Medications Medications (Trade) Dose Ordered Sig/Ambrosio Start Time Stop Time Status Last Admin Dose Admin Acetaminophen (Tylenol Supp) 975 mg 1X ONCE 10/27/20 06:30 10/27/20 06:31 DC 10/27/20 07:30 Albumin Human 200 ml @ 200 mls/hr 1X PRN PRN 10/30/20 08:30 10/30/20 14:35 DC Aspirin (Aspirin Rectal Supp) 150 mg 1X ONCE 10/28/20 11:00 10/28/20 11:01 DC Aspirin (Ecotrin) 81 mg DAILYWBKFT 10/27/20 12:30 10/31/20 08:37 Bisacodyl (Dulcolax Supp) 10 mg PRN DAILY PRN 10/27/20 10:30 Brimonidine Tartrate (Alphagan) 1 drop BID 10/28/20 21:00 10/31/20 08:43 Ceftriaxone Sodium (Rocephin) 2 gm Q24H 10/31/20 11:00 10/31/20 11:47 Diphenhydramine HCl (Benadryl) 25 mg 1X PRN PRN 10/30/20 08:30 10/31/20 08:29 DC Dorzolamide HCl (Trusopt) 1 drop BID 10/28/20 11:00 10/31/20 08:43 Famotidine (Pepcid Vial) 20 mg QHS 10/27/20 21:00 10/31/20 14:07 DC 10/30/20 21:23 Famotidine (Pepcid) 20 mg QHS 10/31/20 21:00 Heparin Sodium (Porcine) (Heparin Sodium) 5,000 unit Q8HRS 10/29/20 14:00 Cancel Heparin Sodium/ Dextrose 250 ml @ 7.656 mls/ hr CONT PRN 10/27/20 13:15 10/28/20 10:48 DC 10/27/20 13:54 Hydromorphone HCl (Dilaudid) 0.2 mg PRN Q1HR PRN 10/27/20 10:30 Info (CONTRAST GIVEN -- Rx MONITORING) 1 each PRN DAILY PRN 10/27/20 08:45 10/29/20 08:44 DC Info (Icu Electrolyte Protocol) 1 ea DAILY 10/28/20 09:00 10/31/20 14:06 DC 10/28/20 09:00 Info (Non-Icu Electrolyte Protocol) 1 ea CONT PRN PRN 10/31/20 14:15 Info (PHARMACY MONITORING -- do not chart) 1 each PRN DAILY PRN 10/30/20 08:30 Iohexol (Omnipaque 350 Mg/ml) 100 ml 1X ONCE 10/27/20 08:45 10/27/20 08:46 DC Lactobacillus Rhamnosus (Culturelle) 1 cap BID 10/30/20 09:00 10/31/20 08:38 Latanoprost (Xalatan) 1 drop QHS 10/28/20 21:00 10/30/20 21:22 Lidocaine HCl (Buffered Lidocaine 1%) 6 ml 1X ONCE 10/28/20 12:00 10/28/20 12:07 DC 10/28/20 12:16 Lidocaine HCl (Lidocaine 1% 20ml Vial) 20 ml STK-MED ONCE 10/27/20 06:30 10/27/20 06:30 DC Metoprolol Tartrate (Lopressor Vial) 2.5 mg Q6HRS 10/28/20 12:00 10/29/20 09:53 DC Metoprolol Tartrate (Lopressor) 12.5 mg BID 10/29/20 21:00 10/31/20 08:38 Norepinephrine Bitartrate 8 mg/ Dextrose 258 ml @ 0 mls/hr CONT PRN 10/27/20 11:00 10/31/20 14:05 DC 10/28/20 19:56 Ondansetron HCl (Zofran) 4 mg PRN Q6HRS PRN 10/27/20 10:30 Piperacillin Sod/ Tazobactam Sod (Zosyn Per Pharmacy) 1 each PRN DAILY PRN 10/27/20 10:30 10/31/20 10:22 DC Piperacillin Sod/ Tazobactam Sod 2.25 gm/Sodium Chloride 50 ml @ 100 mls/hr Q8HRS 10/28/20 21:00 10/31/20 10:22 DC 10/31/20 06:57 Piperacillin Sod/ Tazobactam Sod 3.375 gm/Sodium Chloride 50 ml @ 100 mls/hr 1X ONCE 10/27/20 07:00 10/27/20 07:29 DC 10/27/20 07:58 Sodium Bicarbonate (Sodium Bicarb Adult 8.4% Syr) 100 meq 1X ONCE 10/27/20 11:00 10/27/20 11:01 DC 10/27/20 10:54 Sodium Chloride 1,000 ml @ 400 mls/hr Q2H30M PRN 10/30/20 08:30 10/30/20 20:29 DC Sodium Chloride (Normal Saline Flush) 3 ml QSHIFT PRN 10/27/20 10:30 Timolol Maleate (Timoptic 0.5% Oph) 1 drop BID 10/28/20 11:00 10/31/20 08:43 Current Medications Medications (Trade) Dose Ordered Sig/Ambrosio Route PRN Reason Start Time Stop Time Status Last Admin Dose Admin Ceftriaxone Sodium (Rocephin) 2 gm Q24H IVP 10/31/20 11:00 10/31/20 11:47 LAB Lab: Laboratory Tests Test 10/31/20 07:00 White Blood Count 9.9 x10^3/uL (4.0-11.0) Red Blood Count 2.83 x10^6/uL (4.30-5.70) L Hemoglobin 10.4 g/dL (13.0-17.5) L Hematocrit 30.3 % (39.0-53.0) L Mean Corpuscular Volume 107 fL (79-100) H Mean Corpuscular Hemoglobin 37 pg (25-35) H Mean Corpuscular Hemoglobin Concent 34 g/dL (31-37) Red Cell Distribution Width 12.8 % (11.5-14.5) Platelet Count 108 x10^3/uL (140-400) L Neutrophils (%) (Auto) 60 % (31-73) Lymphocytes (%) (Auto) 16 % (24-48) L Monocytes (%) (Auto) 8 % (0-9) Eosinophils (%) (Auto) 15 % (0-3) H Basophils (%) (Auto) 0 % (0-3) Neutrophils # (Auto) 6.0 x10^3/uL (1.8-7.7) Lymphocytes # (Auto) 1.6 x10^3/uL (1.0-4.8) Monocytes # (Auto) 0.8 x10^3/uL (0.0-1.1) Eosinophils # (Auto) 1.5 x10^3/uL (0.0-0.7) H Basophils # (Auto) 0.0 x10^3/uL (0.0-0.2) Segmented Neutrophils % 66 % (35-66) Band Neutrophils % 6 % (0-9) Lymphocytes % 11 % (24-48) L Atypical Lymphocytes % (Manual) 2 % (0-0) H Monocytes % 6 % (0-10) Eosinophils % 9 % (0-5) H Platelet Estimate Decreased (ADEQUATE) Macrocytosis Present Sodium Level 145 mmol/L (136-145) Potassium Level 3.5 mmol/L (3.5-5.1) Chloride Level 109 mmol/L (98-107) H Carbon Dioxide Level 30 mmol/L (21-32) Anion Gap 6 (6-14) Blood Urea Nitrogen 30 mg/dL (8-26) H Creatinine 1.3 mg/dL (0.7-1.3) Estimated GFR (Cockcroft-Gault) 65.5 BUN/Creatinine Ratio 23 (6-20) H Glucose Level 97 mg/dL (70-99) Calcium Level 7.9 mg/dL (8.5-10.1) L Total Bilirubin 1.0 mg/dL (0.2-1.0) Aspartate Amino Transferase (AST) 114 U/L (15-37) H Alanine Aminotransferase (ALT) 129 U/L (16-63) H Alkaline Phosphatase 86 U/L (46-116) Total Protein 5.0 g/dL (6.4-8.2) L Albumin 1.8 g/dL (3.4-5.0) L Albumin/Globulin Ratio 0.6 (1.0-1.7) L Laboratory Tests 10/31/20 07:00 Laboratory Tests 10/31/20 07:00 ASSESSMENT & PLAN A&P Plan as noted above This note was created using [employer] and may have omissions and/or errors due to the nature of real-time voice stem assembler. Justifications for Admission General Conditions Poss tachycardia?: Yes Justification for admission: Patient has tachycardia (> 100 beats per minute) which is not readily corrected by appropriate treatment within 12 to 24 hours. 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
[2020-10-31 19:00] VITALS: BP 117/64
[2020-10-31] MEDS: LATANOPROST 0.005% OPHTH SOLUTION 2.5ML BOTTLE. OU SCH (20:54)
[2020-10-31] MEDS: FAMOTIDINE 20 MG TABLET. PO SCH (20:55)
[2020-10-31 22:51] VITALS: BP 141/70
[2020-11-01] MEDS: IV NORMAL SALINE 1000ML BAG 1,000 ML IV SCH ×2 (00:30→15:28)
[2020-11-01 02:57] VITALS: BP 157/82
[2020-11-01 06:08] LABS: BASO % 0 % (0-3); EOS % 12 % (0-3); HEMATOCRIT 30.1 % (39.0-53.0); HEMOGLOBIN 10.2 g/dL (13.0-17.5); LYMPH # 1.8 x10^3/uL (1.0-4.8); LYMPH % 20 % (24-48); MEAN CORPUSCULAR HEMOGLOBIN 37 pg (25-35); MEAN CORPUSCULAR HGB CONC 34 g/dL (31-37); MEAN CORPUSCULAR VOLUME 108 fL (79-100); MONO % 12 % (0-9); NEUT # 4.9 x10^3/uL (1.8-7.7); NEUT % 56 % (31-73); PLATELET COUNT 132 x10^3/uL (140-400); RED BLOOD COUNT 2.79 x10^6/uL (4.30-5.70); RED CELL DISTRIBUTION WIDTH 12.7 % (11.5-14.5); WHITE BLOOD COUNT 8.8 x10^3/uL (4.0-11.0)
[2020-11-01 06:22] LABS: ALBUMIN 1.8 g/dL (3.4-5.0); ALBUMIN/GLOBULIN RATIO 0.6 (1.0-1.7); CALCIUM 7.8 mg/dL (8.5-10.1); CREATININE 1.3 mg/dL (0.7-1.3); GFR 65.5; POTASSIUM 3.5 mmol/L (3.5-5.1); TOTAL BILIRUBIN 0.6 mg/dL (0.2-1.0); TOTAL PROTEIN 4.9 g/dL (6.4-8.2)
[2020-11-01 07:00] VITALS: BP 156/86
--- NOTE | 2020-11-01 08:06 | PDOC ---
Infectious Disease Note Subjective: Subjective Patient says does not feel better today Has constipation Denies fever, nausea, vomiting, diarrhea, abdominal pain Vital Signs: Vital Signs Vital Signs Date Time Temp Pulse Resp B/P (MAP) Pulse Ox O2 Delivery O2 Flow Rate FiO2 11/01/20 04:00 72 11/01/20 02:57 97.8 16 157/82 (107) 97 Room Air 97.8 Physical Exam: PHYSICAL EXAM GENERAL: axox3 male in nad, comfortable in bed. HEENT: Normocephalic, atraumatic, anicteric. NECK: Supple, no JVD. Right IJ and dialysis catheter in place LUNGS: Clear bilaterally. No wheezing. HEART: S1, S2, no murmurs. ABDOMEN: Soft, nontender, nondistended, no rebound, no guarding. EXTREMITIES: No edema, no cyanosis. DERMATOLOGIC: Warm and dry. No generalized rash. NEUROLOGIC: Sleepy, but arousable. Unable to assess. PSYCHIATRIC: Unable to assess. MUSCULOSKELETAL: No joint deformity. Medications: Inpatient Meds: Current Medications Medications (Trade) Dose Ordered Sig/Ambrosio Start Time Stop Time Status Last Admin Dose Admin Acetaminophen (Tylenol Supp) 975 mg 1X ONCE 10/27/20 06:30 10/27/20 06:31 DC 10/27/20 07:30 975 MG Albumin Human 200 ml @ 200 mls/hr 1X PRN PRN 10/30/20 08:30 10/30/20 14:35 DC Aspirin (Aspirin Rectal Supp) 150 mg 1X ONCE 10/28/20 11:00 10/28/20 11:01 DC Aspirin (Ecotrin) 81 mg DAILYWBKFT 10/27/20 12:30 10/31/20 08:37 81 MG Bisacodyl (Dulcolax Supp) 10 mg PRN DAILY PRN 10/27/20 10:30 Brimonidine Tartrate (Alphagan) 1 drop BID 10/28/20 21:00 10/31/20 20:54 1 DROP Ceftriaxone Sodium (Rocephin) 2 gm Q24H 10/31/20 11:00 10/31/20 11:47 2 GM Diphenhydramine HCl (Benadryl) 25 mg 1X PRN PRN 10/30/20 08:30 10/31/20 08:29 DC Dorzolamide HCl (Trusopt) 1 drop BID 10/28/20 11:00 10/31/20 20:54 1 DROP Famotidine (Pepcid Vial) 20 mg QHS 10/27/20 21:00 10/31/20 14:07 DC 10/30/20 21:23 20 MG Famotidine (Pepcid) 20 mg QHS 10/31/20 21:00 10/31/20 20:55 20 MG Heparin Sodium (Porcine) (Heparin Sodium) 5,000 unit Q8HRS 10/29/20 14:00 Cancel Heparin Sodium/ Dextrose 250 ml @ 7.656 mls/ hr CONT PRN 10/27/20 13:15 10/28/20 10:48 DC 10/27/20 13:54 7.656 MLS/HR Hydromorphone HCl (Dilaudid) 0.2 mg PRN Q1HR PRN 10/27/20 10:30 Info (CONTRAST GIVEN -- Rx MONITORING) 1 each PRN DAILY PRN 10/27/20 08:45 10/29/20 08:44 DC Info (Icu Electrolyte Protocol) 1 ea DAILY 10/28/20 09:00 10/31/20 14:06 DC 10/28/20 09:00 1 EA Info (Non-Icu Electrolyte Protocol) 1 ea CONT PRN PRN 10/31/20 14:15 Info (PHARMACY MONITORING -- do not chart) 1 each PRN DAILY PRN 10/30/20 08:30 Iohexol (Omnipaque 350 Mg/ml) 100 ml 1X ONCE 10/27/20 08:45 10/27/20 08:46 DC Lactobacillus Rhamnosus (Culturelle) 1 cap BID 10/30/20 09:00 10/31/20 20:54 1 CAP Latanoprost (Xalatan) 1 drop QHS 10/28/20 21:00 10/31/20 20:54 1 DROP Lidocaine HCl (Buffered Lidocaine 1%) 6 ml 1X ONCE 10/28/20 12:00 10/28/20 12:07 DC 10/28/20 12:16 4 ML Lidocaine HCl (Lidocaine 1% 20ml Vial) 20 ml STK-MED ONCE 10/27/20 06:30 10/27/20 06:30 DC Metoprolol Tartrate (Lopressor Vial) 2.5 mg Q6HRS 10/28/20 12:00 10/29/20 09:53 DC Metoprolol Tartrate (Lopressor) 12.5 mg BID 10/29/20 21:00 10/31/20 20:55 12.5 MG Norepinephrine Bitartrate 8 mg/ Dextrose 258 ml @ 0 mls/hr CONT PRN 10/27/20 11:00 10/31/20 14:05 DC 10/28/20 19:56 3.6 MLS/HR Ondansetron HCl (Zofran) 4 mg PRN Q6HRS PRN 10/27/20 10:30 Piperacillin Sod/ Tazobactam Sod (Zosyn Per Pharmacy) 1 each PRN DAILY PRN 10/27/20 10:30 10/31/20 10:22 DC Piperacillin Sod/ Tazobactam Sod 2.25 gm/Sodium Chloride 50 ml @ 100 mls/hr Q8HRS 10/28/20 21:00 10/31/20 10:22 DC 10/31/20 06:57 100 MLS/HR Piperacillin Sod/ Tazobactam Sod 3.375 gm/Sodium Chloride 50 ml @ 100 mls/hr 1X ONCE 10/27/20 07:00 10/27/20 07:29 DC 10/27/20 07:58 100 MLS/HR Sodium Bicarbonate (Sodium Bicarb Adult 8.4% Syr) 100 meq 1X ONCE 10/27/20 11:00 10/27/20 11:01 DC 10/27/20 10:54 100 MEQ Sodium Chloride 1,000 ml @ 400 mls/hr Q2H30M PRN 10/30/20 08:30 10/30/20 20:29 DC Sodium Chloride (Normal Saline Flush) 3 ml QSHIFT PRN 10/27/20 10:30 Timolol Maleate (Timoptic 0.5% Oph) 1 drop BID 10/28/20 11:00 10/31/20 20:53 1 DROP Labs: Lab Laboratory Tests Test 11/01/20 05:50 White Blood Count 8.8 x10^3/uL (4.0-11.0) Red Blood Count 2.79 x10^6/uL (4.30-5.70) Hemoglobin 10.2 g/dL (13.0-17.5) Hematocrit 30.1 % (39.0-53.0) Mean Corpuscular Volume 108 fL (79-100) Mean Corpuscular Hemoglobin 37 pg (25-35) Mean Corpuscular Hemoglobin Concent 34 g/dL (31-37) Red Cell Distribution Width 12.7 % (11.5-14.5) Platelet Count 132 x10^3/uL (140-400) Neutrophils (%) (Auto) 56 % (31-73) Lymphocytes (%) (Auto) 20 % (24-48) Monocytes (%) (Auto) 12 % (0-9) Eosinophils (%) (Auto) 12 % (0-3) Basophils (%) (Auto) 0 % (0-3) Neutrophils # (Auto) 4.9 x10^3/uL (1.8-7.7) Lymphocytes # (Auto) 1.8 x10^3/uL (1.0-4.8) Monocytes # (Auto) 1.0 x10^3/uL (0.0-1.1) Eosinophils # (Auto) 1.0 x10^3/uL (0.0-0.7) Basophils # (Auto) 0.0 x10^3/uL (0.0-0.2) Sodium Level 145 mmol/L (136-145) Potassium Level 3.5 mmol/L (3.5-5.1) Chloride Level 110 mmol/L (98-107) Carbon Dioxide Level 29 mmol/L (21-32) Anion Gap 6 (6-14) Blood Urea Nitrogen 32 mg/dL (8-26) Creatinine 1.3 mg/dL (0.7-1.3) Estimated GFR (Cockcroft-Gault) 65.5 BUN/Creatinine Ratio 25 (6-20) Glucose Level 106 mg/dL (70-99) Calcium Level 7.8 mg/dL (8.5-10.1) Total Bilirubin 0.6 mg/dL (0.2-1.0) Aspartate Amino Transf (AST/SGOT) 88 U/L (15-37) Alanine Aminotransferase (ALT/SGPT) 127 U/L (16-63) Alkaline Phosphatase 79 U/L (46-116) Total Protein 4.9 g/dL (6.4-8.2) Albumin 1.8 g/dL (3.4-5.0) Albumin/Globulin Ratio 0.6 (1.0-1.7) Micro CT abdomen and pelvis findings: Lower chest: Bilateral lower lobe posterior dependent atelectasis with tiny pleural effusions. Abdomen and pelvis: The liver, spleen, and pancreas have unremarkable noncontrast appearance. The cholelithiasis or gallbladder sludge. Adenomatous thickening of the adrenal glands. Right renal cysts measure 5.9 x 5.9 cm and 3.2 x 3.1 cm. Right perinephric stranding. No renal calculi. No hydronephrosis. Urinary bladder wall thickening. Freeman catheter within the urinary bladder. Postop changes prostatectomy. Small fluid within the pelvis. Appendix not well seen. No evidence of bowel obstruction. Numerous mildly enlarged retroperitoneal and inguinal lymph nodes poorly characterize without IV contrast. 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 Multilevel lumbar spondylosis. Impression: 1. Right perinephric stranding and urinary bladder wall thickening, may relate to urinary tract infection. 2. Small pelvic free fluid. 3. Numerous enlarged retroperitoneal and inguinal lymph nodes probably characterized without intravenous contrast. Recommend further clinical evaluation and follow-up. Comparison with prior imaging studies would also be of benefit. 4. Increased density within the gallbladder, may relate to cholelithiasis or sludge. Objective: Assessment: Septic shock resolved Gram-negative sepsis source Klebsiella pneumonia bacteremia source Pyelonephritis with urine culture positive Klebsiella PERRY with underlying CKD, metabolic acidosis, hypernatremia, on dialysis Rhabdomyolysis. Improving Abnormal LFTs. Improving Encephalopathy improved Acute hypoxic respiratory failure now resolved Abnormal CT pelvis postop changes prostatectomy. Small fluid within the pelvis. Questionable etiology History of urinary retention, status post self-catheterization at home prior to admission for a long time COVID-19 negative Influenza screen negative Plan: Plan of Care Cont Ceftriaxone for now Ready for discharge transition to p.o. cefdinir for 10 more days Probiotics/yogurt Monitor labs and cultures Continue supportive care D/W STEVEN BARBA MD Nov 01, 2020 08:06
[2020-11-01] MEDS ORDERED: DOCUSATE SODIUM 100 MG CAPSULE. PO PRN (08:15)
[2020-11-01] MEDS: METOPROLOL TART IMMED RELEASE 25 MG TABLET. PO SCH ×2 (08:50→20:37)
[2020-11-01] MEDS: ASPIRIN ENTERIC COATED 81 MG TABLET.DR. PO SCH (08:50)
[2020-11-01] MEDS: LACTOBACILLUS RHAMNOSUS GG 1 CAPSULE. PO SCH ×2 (08:50→20:32)
[2020-11-01] MEDS: TIMOLOL 0.5% OPHTH SOLUTION 5ML BOTTLE. OU SCH ×2 (08:51→20:48)
[2020-11-01] MEDS: DORZOLAMIDE 2% OPHTH SOLUTION 10ML BOTTLE. OU SCH ×2 (08:52→20:48)
[2020-11-01] MEDS: BRIMONIDINE 0.2% OPHTH SOLUTION 5ML BOTTLE. OU SCH ×2 (08:52→20:32)
--- NOTE | 2020-11-01 10:13 | PDOC ---
DATE OF SERVICE DATE: 11/01/20 TIME: 09:58 SUBJECTIVE ROS Stable, no new complaints, scheduled for MRI later todday OBJECTIVE Vital Signs Vital Signs Date Time Temp Pulse Resp B/P (MAP) Pulse Ox O2 Delivery O2 Flow Rate FiO2 11/01/20 08:50 77 156/86 11/01/20 08:00 Room Air 11/01/20 07:00 97.5 18 96 97.5 I & 0 Intake and Output 11/01/20 07:00 Intake Total 1340 ml Output Total 1650 ml Balance -310 ml Intake Oral 1340 ml Output Urine Total 1650 ml PHYSICAL EXAM Physical Exam GENERAL: NAD , propped up in bed, family at bedside HEENT: anicteric, OM moist NECK: Supple LUNGS: Clear bilaterally. non labored HEART: S1, S2, no murmurs. ABDOMEN: Soft, nontender EXTREMITIES: No edema, no cyanosis. DERMATOLOGIC: No rash. Freeman + DIAGNOSIS/ASSESSMENT Assessment & Plan PERRY - 2/2 Pyelonephritis with urine culture positive Klebsiella, needing dialysis , last on 10/30 , renal function stable this am, good UOP,E-Lytes stable , no emergent indication for dialysis currently CT scan - POA - Right perinephric stranding. No renal calculi. No hydronephrosis. Supportive care, I/O, avoid nephrotoxins , monitor for renal recovery Rhabdomyolysis- improving (CK on 10/29) History of urinary retention, status post self-catheterization at home prior to admission for a long time Right renal cysts- on CT scan- 5.9 x 5.9 cm and 3.2 x 3.1 cm Numerous enlarged retroperitoneal and inguinal lymph nodes probably characterized without intravenous contrast Septic shock resolved Gram-negative sepsis/ Klebsiella pneumonia bacteremia source Abnormal LFTs. Improving Encephalopathy improved Acute hypoxic respiratory failure now resolved Discussed with pt and family at bedside COMMENT/RELEVANT DATA Meds Current Medications Medications (Trade) Dose Ordered Sig/Ambrosio Start Time Stop Time Status Last Admin Dose Admin Acetaminophen (Tylenol Supp) 975 mg 1X ONCE 10/27/20 06:30 10/27/20 06:31 DC 10/27/20 07:30 975 MG Albumin Human 200 ml @ 200 mls/hr 1X PRN PRN 10/30/20 08:30 10/30/20 14:35 DC Aspirin (Aspirin Rectal Supp) 150 mg 1X ONCE 10/28/20 11:00 1/14/21 11:01 DC Aspirin (Ecotrin) 81 mg DAILYWBKFT 10/27/20 12:30 11/01/20 08:50 81 MG Bisacodyl (Dulcolax Supp) 10 mg PRN DAILY PRN 10/27/20 10:30 Brimonidine Tartrate (Alphagan) 1 drop BID 10/28/20 21:00 11/01/20 08:52 1 DROP Ceftriaxone Sodium (Rocephin) 2 gm Q24H 10/31/20 11:00 10/31/20 11:47 2 GM Diphenhydramine HCl (Benadryl) 25 mg 1X PRN PRN 10/30/20 08:30 10/31/20 08:29 DC Docusate Sodium (Colace) 100 mg PRN DAILY PRN 11/01/20 08:15 11/01/20 08:50 100 MG Dorzolamide HCl (Trusopt) 1 drop BID 10/28/20 11:00 11/01/20 08:52 1 DROP Famotidine (Pepcid Vial) 20 mg QHS 10/27/20 21:00 10/31/20 14:07 DC 10/30/20 21:23 20 MG Famotidine (Pepcid) 20 mg QHS 10/31/20 21:00 10/31/20 20:55 20 MG Heparin Sodium (Porcine) (Heparin Sodium) 5,000 unit Q8HRS 10/29/20 14:00 Cancel Heparin Sodium/ Dextrose 250 ml @ 7.656 mls/ hr CONT PRN 10/27/20 13:15 10/28/20 10:48 DC 10/27/20 13:54 7.656 MLS/HR Hydromorphone HCl (Dilaudid) 0.2 mg PRN Q1HR PRN 10/27/20 10:30 Info (CONTRAST GIVEN -- Rx MONITORING) 1 each PRN DAILY PRN 10/27/20 08:45 10/29/20 08:44 DC Info (Icu Electrolyte Protocol) 1 ea DAILY 10/28/20 09:00 10/31/20 14:06 DC 10/28/20 09:00 1 EA Info (Non-Icu Electrolyte Protocol) 1 ea CONT PRN PRN 10/31/20 14:15 Info (PHARMACY MONITORING -- do not chart) 1 each PRN DAILY PRN 10/30/20 08:30 Iohexol (Omnipaque 350 Mg/ml) 100 ml 1X ONCE 10/27/20 08:45 10/27/20 08:46 DC Lactobacillus Rhamnosus (Culturelle) 1 cap BID 10/30/20 09:00 11/01/20 08:50 1 CAP Latanoprost (Xalatan) 1 drop QHS 10/28/20 21:00 10/31/20 20:54 1 DROP Lidocaine HCl (Buffered Lidocaine 1%) 6 ml 1X ONCE 10/28/20 12:00 10/28/20 12:07 DC 10/28/20 12:16 4 ML Lidocaine HCl (Lidocaine 1% 20ml Vial) 20 ml STK-MED ONCE 10/27/20 06:30 10/27/20 06:30 DC Metoprolol Tartrate (Lopressor Vial) 2.5 mg Q6HRS 10/28/20 12:00 10/29/20 09:53 DC Metoprolol Tartrate (Lopressor) 12.5 mg BID 10/29/20 21:00 11/01/20 08:50 12.5 MG Norepinephrine Bitartrate 8 mg/ Dextrose 258 ml @ 0 mls/hr CONT PRN 10/27/20 11:00 10/31/20 14:05 DC 10/28/20 19:56 3.6 MLS/HR Ondansetron HCl (Zofran) 4 mg PRN Q6HRS PRN 10/27/20 10:30 Piperacillin Sod/ Tazobactam Sod (Zosyn Per Pharmacy) 1 each PRN DAILY PRN 10/27/20 10:30 10/31/20 10:22 DC Piperacillin Sod/ Tazobactam Sod 2.25 gm/Sodium Chloride 50 ml @ 100 mls/hr Q8HRS 10/28/20 21:00 10/31/20 10:22 DC 10/31/20 06:57 100 MLS/HR Piperacillin Sod/ Tazobactam Sod 3.375 gm/Sodium Chloride 50 ml @ 100 mls/hr 1X ONCE 10/27/20 07:00 10/27/20 07:29 DC 10/27/20 07:58 100 MLS/HR Sodium Bicarbonate (Sodium Bicarb Adult 8.4% Syr) 100 meq 1X ONCE 10/27/20 11:00 10/27/20 11:01 DC 10/27/20 10:54 100 MEQ Sodium Chloride 1,000 ml @ 400 mls/hr Q2H30M PRN 10/30/20 08:30 10/30/20 20:29 DC Sodium Chloride (Normal Saline Flush) 3 ml QSHIFT PRN 10/27/20 10:30 Timolol Maleate (Timoptic 0.5% [facility]) 1 drop BID 10/28/20 11:00 11/01/20 08:51 1 DROP Lab Laboratory Tests Test 11/01/20 05:50 White Blood Count 8.8 x10^3/uL (4.0-11.0) Red Blood Count 2.79 x10^6/uL (4.30-5.70) Hemoglobin 10.2 g/dL (13.0-17.5) Hematocrit 30.1 % (39.0-53.0) Mean Corpuscular Volume 108 fL (79-100) Mean Corpuscular Hemoglobin 37 pg (25-35) Mean Corpuscular Hemoglobin Concent 34 g/dL (31-37) Red Cell Distribution Width 12.7 % (11.5-14.5) Platelet Count 132 x10^3/uL (140-400) Neutrophils (%) (Auto) 56 % (31-73) Lymphocytes (%) (Auto) 20 % (24-48) Monocytes (%) (Auto) 12 % (0-9) Eosinophils (%) (Auto) 12 % (0-3) Basophils (%) (Auto) 0 % (0-3) Neutrophils # (Auto) 4.9 x10^3/uL (1.8-7.7) Lymphocytes # (Auto) 1.8 x10^3/uL (1.0-4.8) Monocytes # (Auto) 1.0 x10^3/uL (0.0-1.1) Eosinophils # (Auto) 1.0 x10^3/uL (0.0-0.7) Basophils # (Auto) 0.0 x10^3/uL (0.0-0.2) Sodium Level 145 mmol/L (136-145) Potassium Level 3.5 mmol/L (3.5-5.1) Chloride Level 110 mmol/L (98-107) Carbon Dioxide Level 29 mmol/L (21-32) Anion Gap 6 (6-14) Blood Urea Nitrogen 32 mg/dL (8-26) Creatinine 1.3 mg/dL (0.7-1.3) Estimated GFR (Cockcroft-Gault) 65.5 BUN/Creatinine Ratio 25 (6-20) Glucose Level 106 mg/dL (70-99) Calcium Level 7.8 mg/dL (8.5-10.1) Total Bilirubin 0.6 mg/dL (0.2-1.0) Aspartate Amino Transf (AST/SGOT) 88 U/L (15-37) Alanine Aminotransferase (ALT/SGPT) 127 U/L (16-63) Alkaline Phosphatase 79 U/L (46-116) Total Protein 4.9 g/dL (6.4-8.2) Albumin 1.8 g/dL (3.4-5.0) Albumin/Globulin Ratio 0.6 (1.0-1.7) Results All relevant outside records, renal labs, imaging studies, telemetry/EKG's were reviewed. Justicifation of Admission Dx: Justifications for Admission: Justification of Admission Dx: Yes BRIAN HERNANDEZ MD Nov 01, 2020 10:13
--- NOTE | 2020-11-01 10:36 | PDOC ---
PROGRESS NOTES Date of Service DATE: 11/01/20 TIME: 10:28 Assessment Problems Medical Problems: (1) Acute renal failure Status: Acute (2) Dehydration Status: Acute (3) Person under investigation for COVID-19 Status: Acute (4) Rhabdomyolysis Status: Acute (5) Septic shock Status: Acute (6) UTI (urinary tract infection) Status: Acute Metabolic encephalopathy Rule out left hemispheric stroke, right-sided weakness noted on 10/29, unknown on set Klebsiella pneumoniae, pyelonephritis, septic shock (resolved), acute on chronic kidney disease on dialysis, metabolic acidosis, hyponatremia, rhabdomyolysis, elevated liver function tests, respiratory failure, status-post prostatectomy, urinary retention requiring self-catheterization, COVID-19 negative Plan Await brain MRI Further recommendations thereafter Subjective Complains of constipation Objective Vital Signs Date Time Temp Pulse Resp B/P (MAP) Pulse Ox O2 Delivery O2 Flow Rate FiO2 11/01/20 08:50 77 156/86 11/01/20 08:00 Room Air 11/01/20 07:00 97.5 18 96 97.5 Intake and Output 11/01/20 07:00 Intake Total 1340 ml Output Total 1650 ml Balance -310 ml Intake Oral 1340 ml Output Urine Total 1650 ml PHYSICAL EXAM Alert. Oriented to place and person, does not know date. PERRL. EOMI. CN: no focal findings. Muscle tone: normal. Muscle strength: 4/5, weaker on right DTR: 1+ arms, 0+ legs Plantar reflex: flexor Gait: not examined in bed. Sensory exam: no abnormal findings. Cerebellar: intention tremor on the right, but not the left. No asterixis. Review of Relevant I have reviewed the following items mendez (where applicable) has been applied. Labs Laboratory Tests Test 10/31/20 07:00 11/01/20 05:50 White Blood Count 9.9 x10^3/uL (4.0-11.0) 8.8 x10^3/uL (4.0-11.0) Red Blood Count 2.83 x10^6/uL (4.30-5.70) 2.79 x10^6/uL (4.30-5.70) Hemoglobin 10.4 g/dL (13.0-17.5) 10.2 g/dL (13.0-17.5) Hematocrit 30.3 % (39.0-53.0) 30.1 % (39.0-53.0) Mean Corpuscular Volume 107 fL (79-100) 108 fL (79-100) Mean Corpuscular Hemoglobin 37 pg (25-35) 37 pg (25-35) Mean Corpuscular Hemoglobin Concent 34 g/dL (31-37) 34 g/dL (31-37) Red Cell Distribution Width 12.8 % (11.5-14.5) 12.7 % (11.5-14.5) Platelet Count 108 x10^3/uL (140-400) 132 x10^3/uL (140-400) Neutrophils (%) (Auto) 60 % (31-73) 56 % (31-73) Lymphocytes (%) (Auto) 16 % (24-48) 20 % (24-48) Monocytes (%) (Auto) 8 % (0-9) 12 % (0-9) Eosinophils (%) (Auto) 15 % (0-3) 12 % (0-3) Basophils (%) (Auto) 0 % (0-3) 0 % (0-3) Neutrophils # (Auto) 6.0 x10^3/uL (1.8-7.7) 4.9 x10^3/uL (1.8-7.7) Lymphocytes # (Auto) 1.6 x10^3/uL (1.0-4.8) 1.8 x10^3/uL (1.0-4.8) Monocytes # (Auto) 0.8 x10^3/uL (0.0-1.1) 1.0 x10^3/uL (0.0-1.1) Eosinophils # (Auto) 1.5 x10^3/uL (0.0-0.7) 1.0 x10^3/uL (0.0-0.7) Basophils # (Auto) 0.0 x10^3/uL (0.0-0.2) 0.0 x10^3/uL (0.0-0.2) Segmented Neutrophils % 66 % (35-66) Band Neutrophils % 6 % (0-9) Lymphocytes % 11 % (24-48) Atypical Lymphocytes % (Manual) 2 % (0-0) Monocytes % 6 % (0-10) Eosinophils % 9 % (0-5) Platelet Estimate Decreased (ADEQUATE) Macrocytosis Present Sodium Level 145 mmol/L (136-145) 145 mmol/L (136-145) Potassium Level 3.5 mmol/L (3.5-5.1) 3.5 mmol/L (3.5-5.1) Chloride Level 109 mmol/L (98-107) 110 mmol/L (98-107) Carbon Dioxide Level 30 mmol/L (21-32) 29 mmol/L (21-32) Anion Gap 6 (6-14) 6 (6-14) Blood Urea Nitrogen 30 mg/dL (8-26) 32 mg/dL (8-26) Creatinine 1.3 mg/dL (0.7-1.3) 1.3 mg/dL (0.7-1.3) Estimated GFR (Cockcroft-Gault) 65.5 65.5 BUN/Creatinine Ratio 23 (6-20) 25 (6-20) Glucose Level 97 mg/dL (70-99) 106 mg/dL (70-99) Calcium Level 7.9 mg/dL (8.5-10.1) 7.8 mg/dL (8.5-10.1) Total Bilirubin 1.0 mg/dL (0.2-1.0) 0.6 mg/dL (0.2-1.0) Aspartate Amino Transf (AST/SGOT) 114 U/L (15-37) 88 U/L (15-37) Alanine Aminotransferase (ALT/SGPT) 129 U/L (16-63) 127 U/L (16-63) Alkaline Phosphatase 86 U/L (46-116) 79 U/L (46-116) Total Protein 5.0 g/dL (6.4-8.2) 4.9 g/dL (6.4-8.2) Albumin 1.8 g/dL (3.4-5.0) 1.8 g/dL (3.4-5.0) Albumin/Globulin Ratio 0.6 (1.0-1.7) 0.6 (1.0-1.7) Laboratory Tests Test 11/01/20 05:50 White Blood Count 8.8 x10^3/uL (4.0-11.0) Red Blood Count 2.79 x10^6/uL (4.30-5.70) Hemoglobin 10.2 g/dL (13.0-17.5) Hematocrit 30.1 % (39.0-53.0) Mean Corpuscular Volume 108 fL (79-100) Mean Corpuscular Hemoglobin 37 pg (25-35) Mean Corpuscular Hemoglobin Concent 34 g/dL (31-37) Red Cell Distribution Width 12.7 % (11.5-14.5) Platelet Count 132 x10^3/uL (140-400) Neutrophils (%) (Auto) 56 % (31-73) Lymphocytes (%) (Auto) 20 % (24-48) Monocytes (%) (Auto) 12 % (0-9) Eosinophils (%) (Auto) 12 % (0-3) Basophils (%) (Auto) 0 % (0-3) Neutrophils # (Auto) 4.9 x10^3/uL (1.8-7.7) Lymphocytes # (Auto) 1.8 x10^3/uL (1.0-4.8) Monocytes # (Auto) 1.0 x10^3/uL (0.0-1.1) Eosinophils # (Auto) 1.0 x10^3/uL (0.0-0.7) Basophils # (Auto) 0.0 x10^3/uL (0.0-0.2) Sodium Level 145 mmol/L (136-145) Potassium Level 3.5 mmol/L (3.5-5.1) Chloride Level 110 mmol/L (98-107) Carbon Dioxide Level 29 mmol/L (21-32) Anion Gap 6 (6-14) Blood Urea Nitrogen 32 mg/dL (8-26) Creatinine 1.3 mg/dL (0.7-1.3) Estimated GFR (Cockcroft-Gault) 65.5 BUN/Creatinine Ratio 25 (6-20) Glucose Level 106 mg/dL (70-99) Calcium Level 7.8 mg/dL (8.5-10.1) Total Bilirubin 0.6 mg/dL (0.2-1.0) Aspartate Amino Transf (AST/SGOT) 88 U/L (15-37) Alanine Aminotransferase (ALT/SGPT) 127 U/L (16-63) Alkaline Phosphatase 79 U/L (46-116) Total Protein 4.9 g/dL (6.4-8.2) Albumin 1.8 g/dL (3.4-5.0) Albumin/Globulin Ratio 0.6 (1.0-1.7) Microbiology 10/27/20 Blood Culture - Final, Complete 10/27/20 Antimicrobic Susceptibility - Final, Complete 10/27/20 Urine Culture - Final, Complete 10/27/20 Antimicrobic Susceptibility - Final, Complete Medications Current Medications Sodium Chloride 1,000 ml @ 1,000 mls/hr 1X ONCE IV Last administered on 10/27/20at 06:45; Start 10/27/20 at 06:30; Stop 10/27/20 at 07:29; Status DC Acetaminophen (Tylenol Supp) 975 mg 1X ONCE OH Last administered on 10/27/20at 07:30; Start 10/27/20 at 06:30; Stop 10/27/20 at 06:31; Status DC Lidocaine HCl (Lidocaine 1% 20ml Vial) 20 ml STK-MED ONCE .ROUTE ; Start 10/27/20 at 06:30; Stop 10/27/20 at 06:30; Status DC Sodium Chloride 1,000 ml @ 1,000 mls/hr 1X ONCE IV Last administered on 10/27/20at 06:45; Start 10/27/20 at 07:00; Stop 10/27/20 at 07:59; Status DC Piperacillin Sod/ Tazobactam Sod 3.375 gm/Sodium Chloride 50 ml @ 100 mls/hr 1X ONCE IV Last administered on 10/27/20at 07:58; Start 10/27/20 at 07:00; Stop 10/27/20 at 07:29; Status DC Sodium Chloride 1,000 ml @ 1,000 mls/hr 1X ONCE IV Last administered on 10/27/20at 07:57; Start 10/27/20 at 07:15; Stop 10/27/20 at 08:14; Status DC Norepinephrine Bitartrate 8 mg/ Dextrose 258 ml @ 12.848 mls/ hr 1X ONCE IV Last administered on 10/27/20at 08:42; Start 10/27/20 at 08:15; Stop 10/28/20 at 04:19; Status DC Ondansetron HCl (Zofran) 4 mg PRN Q8HRS PRN IV NAUSEA/VOMITING; Start 10/27/20 at 08:15; Stop 10/28/20 at 08:14; Status DC Sodium Chloride 1,000 ml @ 125 mls/hr Q8H IV Last administered on 10/27/20at 23:48; Start 10/27/20 at 08:15; Stop 10/28/20 at 08:14; Status DC Iohexol (Omnipaque 350 Mg/ml) 100 ml 1X ONCE IV ; Start 10/27/20 at 08:45; Stop 10/27/20 at 08:46; Status DC Info (CONTRAST GIVEN -- Rx MONITORING) 1 each PRN DAILY PRN MC SEE COMMENTS; Start 10/27/20 at 08:45; Stop 10/29/20 at 08:44; Status DC Piperacillin Sod/ Tazobactam Sod (Zosyn Per Pharmacy) 1 each PRN DAILY PRN MC SEE COMMENTS; Start 10/27/20 at 10:30; Stop 10/31/20 at 10:22; Status DC Piperacillin Sod/ Tazobactam Sod 2.25 gm/Sodium Chloride 50 ml @ 100 mls/hr Q6HRS IV Last administered on 10/28/20at 11:50; Start 10/27/20 at 12:00; Stop 10/28/20 at 14:37; Status DC Ondansetron HCl (Zofran) 4 mg PRN Q6HRS PRN IVP NAUSEA/VOMITING; Start 10/27/20 at 10:30 Famotidine (Pepcid Vial) 20 mg QHS IVP Last administered on 10/30/20at 21:23; Start 10/27/20 at 21:00; Stop 10/31/20 at 14:07; Status DC Info (Icu Electrolyte Protocol) 1 ea DAILY MC Last administered on 10/28/20at 09:00; Start 10/28/20 at 09:00; Stop 10/31/20 at 14:06; Status DC Heparin Sodium (Porcine) (Heparin Sodium) 5,000 unit Q8HRS SQ ; Start 10/27/20 at 14:00; Stop 10/27/20 at 14:51; Status DC Sodium Chloride (Normal Saline Flush) 3 ml QSHIFT PRN IV AFTER MEDS AND BLOOD DRAWS; Start 10/27/20 at 10:30 Sodium Chloride 1,000 ml @ 100 mls/hr Q10H IV Last administered on 11/01/20at 00:30; Start 10/27/20 at 10:30 Hydromorphone HCl (Dilaudid) 0.2 mg PRN Q1HR PRN IV PAIN; Start 10/27/20 at 10:30 Bisacodyl (Dulcolax Supp) 10 mg PRN DAILY PRN OH CONSTIPATION; Start 10/27/20 at 10:30 Sodium Bicarbonate (Sodium Bicarb Adult 8.4% Syr) 100 meq 1X ONCE IV Last administered on 10/27/20at 10:54; Start 10/27/20 at 11:00; Stop 10/27/20 at 11:01; Status DC Sodium Chloride 1,000 ml @ 500 mls/hr 1X ONCE IV Last administered on at 10:53; Start 10/27/20 at 11:00; Stop 10/27/20 at 12:59; Status DC Sodium Chloride 1,000 ml @ 1,000 mls/hr Q1H IV ; Start 10/27/20 at 11:00; Stop 10/27/20 at 12:57; Status DC Sodium Chloride 500 ml @ 1,000 mls/hr PRN Q30MIN PRN IV SEE COMMENTS; Start 10/27/20 at 11:00 Norepinephrine Bitartrate 8 mg/ Dextrose 258 ml @ 0 mls/hr CONT PRN IV SEE I/O RECORD Last administered on 10/28/20at 19:56; Start 10/27/20 at 11:00; Stop 10/31/20 at 14:05; Status DC Aspirin (Ecotrin) 81 mg DAILYWBKFT PO Last administered on 11/01/20at 08:50; Start 10/27/20 at 12:30 Aspirin (Aspirin Rectal Supp) 300 mg 1X ONCE OH ; Start 10/27/20 at 13:15; Stop 10/27/20 at 13:16; Status DC Heparin Sodium/ Dextrose 250 ml @ 7.656 mls/ hr CONT PRN IV PER PROTOCOL Last administered on 10/27/20at 13:54; Start 10/27/20 at 13:15; Stop 10/28/20 at 10:48; Status DC Heparin Sodium (Porcine) (Heparin Sodium) 1,600 unit PRN Q6HRS PRN IV FOR UFH LEVEL LESS THAN 0.2 Last administered on 10/27/20at 20:46; Start 10/27/20 at 13:15; Stop 10/28/20 at 10:48; Status DC Brimonidine Tartrate (Alphagan) 1 drop BID OU Last administered on 11/01/20at 08:52; Start 10/28/20 at 21:00 Dorzolamide HCl (Trusopt) 1 drop BID OU Last administered on 11/01/20at 08:52; Start 10/28/20 at 11:00 Latanoprost (Xalatan) 1 drop QHS OU Last administered on 10/31/20at 20:54; Start 10/28/20 at 21:00 Aspirin (Aspirin Rectal Supp) 150 mg 1X ONCE OH ; Start 10/28/20 at 11:00; Stop 10/28/20 at 11:01; Status DC Metoprolol Tartrate (Lopressor Vial) 2.5 mg Q6HRS IVP ; Start 10/28/20 at 12:00; Stop 10/29/20 at 09:53; Status DC Timolol Maleate (Timoptic 0.5% Ophth) 1 drop BID OU Last administered on 11/01/20at 08:51; Start 10/28/20 at 11:00 Lidocaine HCl (Buffered Lidocaine 1%) 3 ml STK-MED ONCE .ROUTE ; Start 10/28/20 at 11:45; Stop 10/28/20 at 11:45; Status DC Sodium Chloride 1,000 ml @ 1,000 mls/hr Q1H PRN IV hypotension; Start 10/28/20 at 11:30; Stop 10/28/20 at 17:29; Status DC Albumin Human 200 ml @ 200 mls/hr 1X PRN PRN IV Hypotension; Start 10/28/20 at 11:30; Stop 10/28/20 at 17:29; Status DC Sodium Chloride 1,000 ml @ 400 mls/hr Q2H30M PRN IV PATENCY; Start 10/28/20 at 11:30; Stop 10/28/20 at 23:29; Status DC Info (PHARMACY MONITORING -- do not chart) 1 each PRN DAILY PRN MC SEE COMMENTS; Start 10/28/20 at 11:30; Stop 10/29/20 at 11:42; Status DC Info (PHARMACY MONITORING -- do not chart) 1 each PRN DAILY PRN MC SEE COMMENTS; Start 10/28/20 at 11:30; Stop 10/30/20 at 09:59; Status DC Lidocaine HCl (Buffered Lidocaine 1%) 6 ml 1X ONCE INJ Last administered on 10/28/20at 12:16; Start 10/28/20 at 12:00; Stop 10/28/20 at 12:07; Status DC Heparin Sodium (Porcine) (Heparin Sodium) 10,000 unit STK-MED ONCE .ROUTE ; Start 10/28/20 at 12:10; Stop 10/28/20 at 12:10; Status DC Heparin Sodium (Porcine) (Heparin Sodium) 2,500 unit 1X ONCE INT CAT Last administered on 10/28/20at 12:19; Start 10/28/20 at 12:30; Stop 10/28/20 at 12:31; Status DC Piperacillin Sod/ Tazobactam Sod 2.25 gm/Sodium Chloride 50 ml @ 100 mls/hr Q8HRS IV Last administered on 10/31/20at 06:57; Start 10/28/20 at 21:00; Stop 10/31/20 at 10:22; Status DC Sodium Chloride 1,000 ml @ 1,000 mls/hr Q1H PRN IV hypotension; Start 10/29/20 at 07:30; Stop 10/29/20 at 13:29; Status DC Diphenhydramine HCl (Benadryl) 25 mg 1X PRN PRN IV ITCHING; Start 10/29/20 at 07:30; Stop 10/30/20 at 07:29; Status DC Diphenhydramine HCl (Benadryl) 25 mg 1X PRN PRN IV ITCHING; Start 10/29/20 at 07:30; Stop 10/30/20 at 07:29; Status DC Sodium Chloride 1,000 ml @ 400 mls/hr Q2H30M PRN IV PATENCY; Start 10/29/20 at 07:30; Stop 10/29/20 at 19:29; Status DC Info (PHARMACY MONITORING -- do not chart) 1 each PRN DAILY PRN MC SEE COMMENTS; Start 10/29/20 at 07:30; Status UNV Heparin Sodium (Porcine) (Heparin Sodium) 5,000 unit Q8HRS SQ ; Start 10/29/20 at 14:00; Status Cancel Metoprolol Tartrate (Lopressor) 12.5 mg BID PO Last administered on 11/01/20at 08:50; Start 10/29/20 at 21:00 Sodium Chloride 1,000 ml @ 100 mls/hr Q10H IV Last administered on 10/29/20at 11:52; Start 10/29/20 at 11:45; Stop 10/29/20 at 11:57; Status DC Lactobacillus Rhamnosus (Culturelle) 1 cap BID PO Last administered on 11/01/20at 08:50; Start 10/30/20 at 09:00 Sodium Chloride 1,000 ml @ 1,000 mls/hr Q1H PRN IV hypotension; Start 10/30/20 at 08:30; Stop 10/30/20 at 14:34; Status DC Albumin Human 200 ml @ 200 mls/hr 1X PRN PRN IV Hypotension; Start 10/30/20 at 08:30; Stop 10/30/20 at 14:35; Status DC Diphenhydramine HCl (Benadryl) 25 mg 1X PRN PRN IV ITCHING; Start 10/30/20 at 08:30; Stop 10/31/20 at 08:29; Status DC Diphenhydramine HCl (Benadryl) 25 mg 1X PRN PRN IV ITCHING; Start 10/30/20 at 08:30; Stop 10/31/20 at 08:29; Status DC Sodium Chloride 1,000 ml @ 400 mls/hr Q2H30M PRN IV PATENCY; Start 10/30/20 at 08:30; Stop 10/30/20 at 20:29; Status DC Info (PHARMACY MONITORING -- do not chart) 1 each PRN DAILY PRN MC SEE COMMENTS; Start 10/30/20 at 08:30 Ceftriaxone Sodium (Rocephin) 2 gm Q24H IVP Last administered on 10/31/20at 11:47; Start 10/31/20 at 11:00 Info (Non-Icu Electrolyte Protocol) 1 ea CONT PRN PRN MC SEE COMMENTS; Start 10/31/20 at 14:15 Famotidine (Pepcid) 20 mg QHS PO Last administered on 10/31/20at 20:55; Start 10/31/20 at 21:00 Docusate Sodium (Colace) 100 mg PRN DAILY PRN PO HARD STOOLS Last administered on 11/01/20at 08:50; Start 11/01/20 at 08:15 Active Scripts Active Reported Meclizine Hcl 25 Mg Tablet 1 Tab PO PRN TID Latanoprost 0.005% Eye Drop (Latanoprost/Pf) 7.5 Ml Drops 7.5 Ml OP HS Dorzolamide-Timolol Eye Drops (Dorzolamide Hcl/Timolol Maleat) 10 Ml Drops 1 Drop EACHEYE BID Brimonidine Tartrate 5 Ml Drops 1 Drop EACHEYE BID Vitals/I & O Vital Sign - Last 24 Hours 10/31/20 10/31/20 10/31/20 10/31/20 10:45 12:00 14:25 16:00 Temp 98.0 98.4 98.0 98.4 Pulse 74 75 80 Resp 18 18 B/P (MAP) 126/64 (84) 139/84 (102) Pulse Ox 94 97 O2 Delivery Room Air Room Air Room Air Room Air 10/31/20 10/31/20 10/31/20 10/31/20 19:00 19:07 20:55 22:51 Temp 97.9 98.8 97.9 98.8 Pulse 80 80 77 Resp 18 18 B/P (MAP) 117/64 (81) 117/64 141/70 (93) Pulse Ox 98 96 O2 Delivery Room Air Room Air Room Air 11/01/20 11/01/20 11/01/20 11/01/20 00:00 02:57 04:00 07:00 Temp 97.8 97.5 97.8 97.5 Pulse 75 79 72 77 Resp 16 18 B/P (MAP) 157/82 (107) 156/86 (109) Pulse Ox 97 96 O2 Delivery Room Air Room Air 11/01/20 11/01/20 08:00 08:50 Pulse 77 B/P (MAP) 156/86 O2 Delivery Room Air Intake and Output 10/31/20 10/31/20 11/01/20 15:00 23:00 07:00 Intake Total 480 ml 800 ml 60 ml Output Total 800 ml 850 ml Balance 480 ml 0 ml -790 ml Justicifation of Admission Dx: Justifications for Admission: Justification of Admission Dx: Yes KEILA LEVINE MD Nov 01, 2020 10:36
--- NOTE | 2020-11-01 10:40 | PDOC ---
SUJEY RICHEY DELIVERY ARCHITECT 11/01/20 1040: CARDIO Progress Notes Date and Time Date of Service 11/01/20 Time of Evaluation 1030 Subjective Subjective: No Chest Pain, No shortness of breath, No Palpitations Vitals Vitals Vital Signs Date Time Temp Pulse Resp B/P (MAP) Pulse Ox O2 Delivery O2 Flow Rate FiO2 11/01/20 08:50 77 156/86 11/01/20 08:00 Room Air 11/01/20 07:00 97.5 18 96 97.5 Weight Weight [ ] Input and Output Intake and Output Intake and Output 11/01/20 07:00 Intake Total 1340 ml Output Total 1650 ml Balance -310 ml Intake Oral 1340 ml Output Urine Total 1650 ml Laboratory Labs Laboratory Tests Test 11/01/20 05:50 White Blood Count 8.8 x10^3/uL (4.0-11.0) Red Blood Count 2.79 x10^6/uL (4.30-5.70) Hemoglobin 10.2 g/dL (13.0-17.5) Hematocrit 30.1 % (39.0-53.0) Mean Corpuscular Volume 108 fL (79-100) Mean Corpuscular Hemoglobin 37 pg (25-35) Mean Corpuscular Hemoglobin Concent 34 g/dL (31-37) Red Cell Distribution Width 12.7 % (11.5-14.5) Platelet Count 132 x10^3/uL (140-400) Neutrophils (%) (Auto) 56 % (31-73) Lymphocytes (%) (Auto) 20 % (24-48) Monocytes (%) (Auto) 12 % (0-9) Eosinophils (%) (Auto) 12 % (0-3) Basophils (%) (Auto) 0 % (0-3) Neutrophils # (Auto) 4.9 x10^3/uL (1.8-7.7) Lymphocytes # (Auto) 1.8 x10^3/uL (1.0-4.8) Monocytes # (Auto) 1.0 x10^3/uL (0.0-1.1) Eosinophils # (Auto) 1.0 x10^3/uL (0.0-0.7) Basophils # (Auto) 0.0 x10^3/uL (0.0-0.2) Sodium Level 145 mmol/L (136-145) Potassium Level 3.5 mmol/L (3.5-5.1) Chloride Level 110 mmol/L (98-107) Carbon Dioxide Level 29 mmol/L (21-32) Anion Gap 6 (6-14) Blood Urea Nitrogen 32 mg/dL (8-26) Creatinine 1.3 mg/dL (0.7-1.3) Estimated GFR (Cockcroft-Gault) 65.5 BUN/Creatinine Ratio 25 (6-20) Glucose Level 106 mg/dL (70-99) Calcium Level 7.8 mg/dL (8.5-10.1) Total Bilirubin 0.6 mg/dL (0.2-1.0) Aspartate Amino Transf (AST/SGOT) 88 U/L (15-37) Alanine Aminotransferase (ALT/SGPT) 127 U/L (16-63) Alkaline Phosphatase 79 U/L (46-116) Total Protein 4.9 g/dL (6.4-8.2) Albumin 1.8 g/dL (3.4-5.0) Albumin/Globulin Ratio 0.6 (1.0-1.7) Microbiology Micro Microbiology 10/27/20 Blood Culture - Final, Complete 10/27/20 Antimicrobic Susceptibility - Final, Complete 10/27/20 Urine Culture - Final, Complete 10/27/20 Antimicrobic Susceptibility - Final, Complete Review of Systems Constitutional: yes: weakness, alert, oriented Ears/Nose/Throat: Yes: no symptom reported Eyes: Yes: no symptom reported Pulmonary: Yes no symptom reported Cardiovascular: Yes no symptom reported Gastrointestional: Yes: no symptom reported Genitourinary: Yes: no symptom reported Musculoskeletal: Yes: no symptom reported Skin: Yes no symptom reported Endocrine: Yes: no symptom reported Physical Exam HEENT: Neck Supple W Full Motion Chest: Symmetric LUNGS: Clear to Auscultation Heart: RRR (SR no ectopies) Abdomen: Soft N/T Extremities: No Edema, No Calf Tenderness Neurology: alert, follow commands Assessment Assessment 1. Sepsis/fever/UTI/leukocytosis: ID following. Covid neg. Echo with questionable vegetation on his central line and right atrium on 2D echo. 2. Septic shock: BP better. off pressor support 3. Severe PERRY with mild hypernatremia: Started on HD 4. Rhabdomyolysis: peaked [id number]. improved 5. PSVT with aberrancy: none further, maintaining SR 6. LBBB: no prior EKG for comparison 7. NSTEMI: peaked at 4.3. CP/SOA. Possibly demand mediated. 2D echo showed LVEF 50%. 8. Metabolic encephalopathy 9. Transaminitis 10. Coagulopathy Recommendations ASA therapy Metoprolol for rate control Add statin upon discharge Consider outpatient ischemic evaluation Antibiotics ongoing Consider ADITYA if clinical suspicion for endocarditis is high. Justicifation of Admission Dx: Justifications for Admission: Justification of Admission Dx: Yes HERNAN FORTUNE MD 11/01/20 2210: CARDIO Progress Notes Plan Plan Pt. seen and examined. Agree with above COMMUNICATIONS PROFESSOR note. Discussed with daughter at bedside. Plan for outpatient ischemic eval in 2 months, then f/u in office in 3 months. Thanks. SUJEY RICHEY APRN Nov 01, 2020 10:40 HERNAN FORTUNE MD Nov 01, 2020 22:10
[2020-11-01 10:50] VITALS: BP 152/81
--- NOTE | 2020-11-01 11:34 | RAD ---
EXAM: Brain MRI without contrast. HISTORY: Stroke. TECHNIQUE: Multiplanar, multisequence magnetic resonance imaging of the brain was performed without c ontrast. COMPARISON: CT obtained 10/29/2020. FINDINGS: There is a small focus of restricted diffusion within the posterior left occipital lobe, co nsistent with an acute infarct. There is no evidence of hemorrhage. There is no mass effect or midlin e shift. There is no hydrocephalus. There are extensive scattered areas of signal change throughout the cerebral white matter and brittany, m ost commonly due to chronic small vessel disease in patients of this age. There is a chronic lacunar infarct within the left caudate nucleus. There is evidence of right lens surgery. The paranasal sinuses mastoid air cells are clear. There are normal flow voids within the cerebral vessels. There is no calvarial lesion. IMPRESSION: 1. Small acute infarct within the posterior left occipital lobe. 2. Extensive scattered areas of signal change throughout the cerebral white matter and brittany, most Col lege due to chronic small vessel disease in patients of this age. 3. Small chronic lacunar infarct within the left caudate nucleus Findings were discussed with Lauren, the nurse caring for the patient, at 1130 hours on 11/01/2020. FOR INTERNAL CODING PURPOSES RESULT CODE: (C) Electronically signed by: Melissa Gaspar MD (11/01/2020 11:32 AM) [id number]
--- NOTE | 2020-11-01 12:03 | NUR ---
SS following up with discharge planning. SS reviewed pt chart and discussed with pt RN. Pt is currently on room air. COVID19 negative. Pt on IV Rocephin. PT/OT recommended acute rehabilitation. SS met with pt and family in room to discuss discharge planning and acute rehabilitation. Pt and pt's family agreeable to acute rehabilitation and reported that there preference would be [place], [place] for location. Pt's family currently deciding between [facility], ; fax [phone], and [facility], ; fax [phone]. Pt and pt's family agreeable to referral to [facility] Rehabilitation referral at this time to check benefits and out of pocket costs. SS phoned and faxed referral to [facility]. Pt's family also discussing DPOA paperwork with pt. Pt had MRI today. SS will continue to follow for discharge planning.
--- NOTE | 2020-11-01 12:08 | PDOC ---
PULMONARY PROGRESS NOTES DATE: 11/01/20 TIME: 12:06 Subjective Pt. remains on room air Vitals Vital Signs Date Time Temp Pulse Resp B/P (MAP) Pulse Ox O2 Delivery O2 Flow Rate FiO2 11/01/20 10:50 98.0 82 18 152/81 (104) 97 Room Air 98.0 ROS: No Nausea, No Chest Pain, No Abdominal Pain, No Increase Cough General: Alert Lungs: Clear Cardiovascular: S1, S2 Abdomen: Soft Neuro Exam: Alert Skin: Warm, Dry Labs Laboratory Tests Test 10/31/20 07:00 11/01/20 05:50 White Blood Count 9.9 x10^3/uL (4.0-11.0) 8.8 x10^3/uL (4.0-11.0) Red Blood Count 2.83 x10^6/uL (4.30-5.70) 2.79 x10^6/uL (4.30-5.70) Hemoglobin 10.4 g/dL (13.0-17.5) 10.2 g/dL (13.0-17.5) Hematocrit 30.3 % (39.0-53.0) 30.1 % (39.0-53.0) Mean Corpuscular Volume 107 fL (79-100) 108 fL (79-100) Mean Corpuscular Hemoglobin 37 pg (25-35) 37 pg (25-35) Mean Corpuscular Hemoglobin Concent 34 g/dL (31-37) 34 g/dL (31-37) Red Cell Distribution Width 12.8 % (11.5-14.5) 12.7 % (11.5-14.5) Platelet Count 108 x10^3/uL (140-400) 132 x10^3/uL (140-400) Neutrophils (%) (Auto) 60 % (31-73) 56 % (31-73) Lymphocytes (%) (Auto) 16 % (24-48) 20 % (24-48) Monocytes (%) (Auto) 8 % (0-9) 12 % (0-9) Eosinophils (%) (Auto) 15 % (0-3) 12 % (0-3) Basophils (%) (Auto) 0 % (0-3) 0 % (0-3) Neutrophils # (Auto) 6.0 x10^3/uL (1.8-7.7) 4.9 x10^3/uL (1.8-7.7) Lymphocytes # (Auto) 1.6 x10^3/uL (1.0-4.8) 1.8 x10^3/uL (1.0-4.8) Monocytes # (Auto) 0.8 x10^3/uL (0.0-1.1) 1.0 x10^3/uL (0.0-1.1) Eosinophils # (Auto) 1.5 x10^3/uL (0.0-0.7) 1.0 x10^3/uL (0.0-0.7) Basophils # (Auto) 0.0 x10^3/uL (0.0-0.2) 0.0 x10^3/uL (0.0-0.2) Segmented Neutrophils % 66 % (35-66) Band Neutrophils % 6 % (0-9) Lymphocytes % 11 % (24-48) Atypical Lymphocytes % (Manual) 2 % (0-0) Monocytes % 6 % (0-10) Eosinophils % 9 % (0-5) Platelet Estimate Decreased (ADEQUATE) Macrocytosis Present Sodium Level 145 mmol/L (136-145) 145 mmol/L (136-145) Potassium Level 3.5 mmol/L (3.5-5.1) 3.5 mmol/L (3.5-5.1) Chloride Level 109 mmol/L (98-107) 110 mmol/L (98-107) Carbon Dioxide Level 30 mmol/L (21-32) 29 mmol/L (21-32) Anion Gap 6 (6-14) 6 (6-14) Blood Urea Nitrogen 30 mg/dL (8-26) 32 mg/dL (8-26) Creatinine 1.3 mg/dL (0.7-1.3) 1.3 mg/dL (0.7-1.3) Estimated GFR (Cockcroft-Gault) 65.5 65.5 BUN/Creatinine Ratio 23 (6-20) 25 (6-20) Glucose Level 97 mg/dL (70-99) 106 mg/dL (70-99) Calcium Level 7.9 mg/dL (8.5-10.1) 7.8 mg/dL (8.5-10.1) Total Bilirubin 1.0 mg/dL (0.2-1.0) 0.6 mg/dL (0.2-1.0) Aspartate Amino Transf (AST/SGOT) 114 U/L (15-37) 88 U/L (15-37) Alanine Aminotransferase (ALT/SGPT) 129 U/L (16-63) 127 U/L (16-63) Alkaline Phosphatase 86 U/L (46-116) 79 U/L (46-116) Total Protein 5.0 g/dL (6.4-8.2) 4.9 g/dL (6.4-8.2) Albumin 1.8 g/dL (3.4-5.0) 1.8 g/dL (3.4-5.0) Albumin/Globulin Ratio 0.6 (1.0-1.7) 0.6 (1.0-1.7) Laboratory Tests Test 11/01/20 05:50 White Blood Count 8.8 x10^3/uL (4.0-11.0) Red Blood Count 2.79 x10^6/uL (4.30-5.70) Hemoglobin 10.2 g/dL (13.0-17.5) Hematocrit 30.1 % (39.0-53.0) Mean Corpuscular Volume 108 fL (79-100) Mean Corpuscular Hemoglobin 37 pg (25-35) Mean Corpuscular Hemoglobin Concent 34 g/dL (31-37) Red Cell Distribution Width 12.7 % (11.5-14.5) Platelet Count 132 x10^3/uL (140-400) Neutrophils (%) (Auto) 56 % (31-73) Lymphocytes (%) (Auto) 20 % (24-48) Monocytes (%) (Auto) 12 % (0-9) Eosinophils (%) (Auto) 12 % (0-3) Basophils (%) (Auto) 0 % (0-3) Neutrophils # (Auto) 4.9 x10^3/uL (1.8-7.7) Lymphocytes # (Auto) 1.8 x10^3/uL (1.0-4.8) Monocytes # (Auto) 1.0 x10^3/uL (0.0-1.1) Eosinophils # (Auto) 1.0 x10^3/uL (0.0-0.7) Basophils # (Auto) 0.0 x10^3/uL (0.0-0.2) Sodium Level 145 mmol/L (136-145) Potassium Level 3.5 mmol/L (3.5-5.1) Chloride Level 110 mmol/L (98-107) Carbon Dioxide Level 29 mmol/L (21-32) Anion Gap 6 (6-14) Blood Urea Nitrogen 32 mg/dL (8-26) Creatinine 1.3 mg/dL (0.7-1.3) Estimated GFR (Cockcroft-Gault) 65.5 BUN/Creatinine Ratio 25 (6-20) Glucose Level 106 mg/dL (70-99) Calcium Level 7.8 mg/dL (8.5-10.1) Total Bilirubin 0.6 mg/dL (0.2-1.0) Aspartate Amino Transf (AST/SGOT) 88 U/L (15-37) Alanine Aminotransferase (ALT/SGPT) 127 U/L (16-63) Alkaline Phosphatase 79 U/L (46-116) Total Protein 4.9 g/dL (6.4-8.2) Albumin 1.8 g/dL (3.4-5.0) Albumin/Globulin Ratio 0.6 (1.0-1.7) Medications Active Scripts Medications Dose Route/Sig Max Daily Dose Days Date Category Meclizine Hcl 25 Mg Tablet 1 Tab PO PRN TID 10/27/20 Reported Latanoprost 0.005% Eye Drop (Latanoprost/Pf) 7.5 Ml Drops 7.5 Ml OP HS 10/27/20 Reported Dorzolamide-Timolol Eye Drops (Dorzolamide Hcl/Timolol Maleat) 10 Ml Drops 1 Drop EACHEYE BID 10/27/20 Reported Brimonidine Tartrate 5 Ml Drops 1 Drop EACHEYE BID 10/27/20 Reported Comments Brain MRI IMPRESSION: 1. Small acute infarct within the posterior left occipital lobe. 2. Extensive scattered areas of signal change throughout the cerebral white matter and brittany, most College due to chronic small vessel disease in patients of this age. 3. Small chronic lacunar infarct within the left caudate nucleus Impression . IMPRESSION: 1. Acute respiratory failure secondary to combination of suspected toxic encephalopathy and septic shock along with metabolic acidosis-- resolved now on room air 2. Highly suspected rhabdomyolysis. The patient was found down since 7 p.m. last night. His CPK was markedly elevated. 3. Urinary tract infection suspected contributing to septic shock. 4. Acute kidney injury. 5. Lactic acidosis secondary to septic shock. 6. Acute kidney injury, likely component of volume contraction. He is hypernatremic as well. 7. Influenza screen negative, but pending COVID. 8. Fever, likely source urine. He had too numerous white cell to count on urinalysis. Plan . RECOMMENDATIONS: Pt. is stable from pulmonary stand point, remains on room air Follow ID recs for ABX, blood cultures positive for GNR, KLEBSIELLA PNEUMONIAE Follow nephrology recs--on hemodialysis Follow neurology recommendations, brain MRI reviewed positive for CVA Follow cardiology recs, awaiting echocardiogram results COVID negative DVT/GI PPX Discussed with RN She remained stable from a pulmonary/respiratory standpoint we will sign off at this time please call with any questions or concerns thank you MICHEL SOLARES MD Nov 01, 2020 12:08
[2020-11-01] MEDS: cefTRIAXone IV Push 2 GM VIAL. IVP SCH (12:09)
[2020-11-01 14:59] VITALS: BP 150/78
--- NOTE | 2020-11-01 15:03 | PDOC ---
PROGRESS NOTES Date of Service: DATE: 11/01/20 TIME: 15:03 Chief Complaint Chief Complaint Septic shock, POA Lactic acidosis PERRY Dehydration Possible COVID-19 Rhabdo UTI Demand ischemia Metabolic cephalopathy UTI Fever sever protein malnutrition History of Present Illness History of Present Illness 11/01/2020 Patient seen and examined in the cardiac care unit MRI today appreciate consult imput Discussed with RN Chart reviewed Discussed with cardiology nurse practitioner Vitals Vitals Vital Signs Date Time Temp Pulse Resp B/P (MAP) Pulse Ox O2 Delivery O2 Flow Rate FiO2 11/01/20 14:59 97.4 80 16 150/78 (102) 95 Room Air 97.4 Physical Exam Physical Exam GENERAL: axox3 male in nad, comfortable in bed. HEENT: Normocephalic, atraumatic, anicteric. NECK: Supple, no JVD. Right IJ and dialysis catheter in place LUNGS: Clear bilaterally. No wheezing. HEART: S1, S2, no murmurs. ABDOMEN: Soft, nontender, nondistended, no rebound, no guarding. EXTREMITIES: No edema, no cyanosis. DERMATOLOGIC: Warm and dry. No generalized rash. NEUROLOGIC: Sleepy, but arousable. Unable to assess. PSYCHIATRIC: Unable to assess. MUSCULOSKELETAL: No joint deformity. General: No acute distress Heart: Regular rate Lungs: Clear Abdomen: Normal bowel sounds, Soft Extremities: No edema Skin: No breakdown Labs LABS Laboratory Tests Test 11/01/20 05:50 White Blood Count 8.8 x10^3/uL (4.0-11.0) Red Blood Count 2.79 x10^6/uL (4.30-5.70) Hemoglobin 10.2 g/dL (13.0-17.5) Hematocrit 30.1 % (39.0-53.0) Mean Corpuscular Volume 108 fL (79-100) Mean Corpuscular Hemoglobin 37 pg (25-35) Mean Corpuscular Hemoglobin Concent 34 g/dL (31-37) Red Cell Distribution Width 12.7 % (11.5-14.5) Platelet Count 132 x10^3/uL (140-400) Neutrophils (%) (Auto) 56 % (31-73) Lymphocytes (%) (Auto) 20 % (24-48) Monocytes (%) (Auto) 12 % (0-9) Eosinophils (%) (Auto) 12 % (0-3) Basophils (%) (Auto) 0 % (0-3) Neutrophils # (Auto) 4.9 x10^3/uL (1.8-7.7) Lymphocytes # (Auto) 1.8 x10^3/uL (1.0-4.8) Monocytes # (Auto) 1.0 x10^3/uL (0.0-1.1) Eosinophils # (Auto) 1.0 x10^3/uL (0.0-0.7) Basophils # (Auto) 0.0 x10^3/uL (0.0-0.2) Sodium Level 145 mmol/L (136-145) Potassium Level 3.5 mmol/L (3.5-5.1) Chloride Level 110 mmol/L (98-107) Carbon Dioxide Level 29 mmol/L (21-32) Anion Gap 6 (6-14) Blood Urea Nitrogen 32 mg/dL (8-26) Creatinine 1.3 mg/dL (0.7-1.3) Estimated GFR (Cockcroft-Gault) 65.5 BUN/Creatinine Ratio 25 (6-20) Glucose Level 106 mg/dL (70-99) Calcium Level 7.8 mg/dL (8.5-10.1) Total Bilirubin 0.6 mg/dL (0.2-1.0) Aspartate Amino Transf (AST/SGOT) 88 U/L (15-37) Alanine Aminotransferase (ALT/SGPT) 127 U/L (16-63) Alkaline Phosphatase 79 U/L (46-116) Total Protein 4.9 g/dL (6.4-8.2) Albumin 1.8 g/dL (3.4-5.0) Albumin/Globulin Ratio 0.6 (1.0-1.7) Assessment and Plan Assessmemt and Plan Problems Medical Problems: (1) Acute renal failure Status: Acute (2) Dehydration Status: Acute (3) Person under investigation for COVID-19 Status: Acute (4) Rhabdomyolysis Status: Acute (5) Septic shock Status: Acute (6) UTI (urinary tract infection) Status: Acute Comment Review of Relevant I have reviewed the following items mendez (where applicable) has been applied. Labs Laboratory Tests Test 10/31/20 07:00 11/01/20 05:50 White Blood Count 9.9 x10^3/uL (4.0-11.0) 8.8 x10^3/uL (4.0-11.0) Red Blood Count 2.83 x10^6/uL (4.30-5.70) 2.79 x10^6/uL (4.30-5.70) Hemoglobin 10.4 g/dL (13.0-17.5) 10.2 g/dL (13.0-17.5) Hematocrit 30.3 % (39.0-53.0) 30.1 % (39.0-53.0) Mean Corpuscular Volume 107 fL (79-100) 108 fL (79-100) Mean Corpuscular Hemoglobin 37 pg (25-35) 37 pg (25-35) Mean Corpuscular Hemoglobin Concent 34 g/dL (31-37) 34 g/dL (31-37) Red Cell Distribution Width 12.8 % (11.5-14.5) 12.7 % (11.5-14.5) Platelet Count 108 x10^3/uL (140-400) 132 x10^3/uL (140-400) Neutrophils (%) (Auto) 60 % (31-73) 56 % (31-73) Lymphocytes (%) (Auto) 16 % (24-48) 20 % (24-48) Monocytes (%) (Auto) 8 % (0-9) 12 % (0-9) Eosinophils (%) (Auto) 15 % (0-3) 12 % (0-3) Basophils (%) (Auto) 0 % (0-3) 0 % (0-3) Neutrophils # (Auto) 6.0 x10^3/uL (1.8-7.7) 4.9 x10^3/uL (1.8-7.7) Lymphocytes # (Auto) 1.6 x10^3/uL (1.0-4.8) 1.8 x10^3/uL (1.0-4.8) Monocytes # (Auto) 0.8 x10^3/uL (0.0-1.1) 1.0 x10^3/uL (0.0-1.1) Eosinophils # (Auto) 1.5 x10^3/uL (0.0-0.7) 1.0 x10^3/uL (0.0-0.7) Basophils # (Auto) 0.0 x10^3/uL (0.0-0.2) 0.0 x10^3/uL (0.0-0.2) Segmented Neutrophils % 66 % (35-66) Band Neutrophils % 6 % (0-9) Lymphocytes % 11 % (24-48) Atypical Lymphocytes % (Manual) 2 % (0-0) Monocytes % 6 % (0-10) Eosinophils % 9 % (0-5) Platelet Estimate Decreased (ADEQUATE) Macrocytosis Present Sodium Level 145 mmol/L (136-145) 145 mmol/L (136-145) Potassium Level 3.5 mmol/L (3.5-5.1) 3.5 mmol/L (3.5-5.1) Chloride Level 109 mmol/L (98-107) 110 mmol/L (98-107) Carbon Dioxide Level 30 mmol/L (21-32) 29 mmol/L (21-32) Anion Gap 6 (6-14) 6 (6-14) Blood Urea Nitrogen 30 mg/dL (8-26) 32 mg/dL (8-26) Creatinine 1.3 mg/dL (0.7-1.3) 1.3 mg/dL (0.7-1.3) Estimated GFR (Cockcroft-Gault) 65.5 65.5 BUN/Creatinine Ratio 23 (6-20) 25 (6-20) Glucose Level 97 mg/dL (70-99) 106 mg/dL (70-99) Calcium Level 7.9 mg/dL (8.5-10.1) 7.8 mg/dL (8.5-10.1) Total Bilirubin 1.0 mg/dL (0.2-1.0) 0.6 mg/dL (0.2-1.0) Aspartate Amino Transf (AST/SGOT) 114 U/L (15-37) 88 U/L (15-37) Alanine Aminotransferase (ALT/SGPT) 129 U/L (16-63) 127 U/L (16-63) Alkaline Phosphatase 86 U/L (46-116) 79 U/L (46-116) Total Protein 5.0 g/dL (6.4-8.2) 4.9 g/dL (6.4-8.2) Albumin 1.8 g/dL (3.4-5.0) 1.8 g/dL (3.4-5.0) Albumin/Globulin Ratio 0.6 (1.0-1.7) 0.6 (1.0-1.7) Laboratory Tests Test 11/01/20 05:50 White Blood Count 8.8 x10^3/uL (4.0-11.0) Red Blood Count 2.79 x10^6/uL (4.30-5.70) Hemoglobin 10.2 g/dL (13.0-17.5) Hematocrit 30.1 % (39.0-53.0) Mean Corpuscular Volume 108 fL (79-100) Mean Corpuscular Hemoglobin 37 pg (25-35) Mean Corpuscular Hemoglobin Concent 34 g/dL (31-37) Red Cell Distribution Width 12.7 % (11.5-14.5) Platelet Count 132 x10^3/uL (140-400) Neutrophils (%) (Auto) 56 % (31-73) Lymphocytes (%) (Auto) 20 % (24-48) Monocytes (%) (Auto) 12 % (0-9) Eosinophils (%) (Auto) 12 % (0-3) Basophils (%) (Auto) 0 % (0-3) Neutrophils # (Auto) 4.9 x10^3/uL (1.8-7.7) Lymphocytes # (Auto) 1.8 x10^3/uL (1.0-4.8) Monocytes # (Auto) 1.0 x10^3/uL (0.0-1.1) Eosinophils # (Auto) 1.0 x10^3/uL (0.0-0.7) Basophils # (Auto) 0.0 x10^3/uL (0.0-0.2) Sodium Level 145 mmol/L (136-145) Potassium Level 3.5 mmol/L (3.5-5.1) Chloride Level 110 mmol/L (98-107) Carbon Dioxide Level 29 mmol/L (21-32) Anion Gap 6 (6-14) Blood Urea Nitrogen 32 mg/dL (8-26) Creatinine 1.3 mg/dL (0.7-1.3) Estimated GFR (Cockcroft-Gault) 65.5 BUN/Creatinine Ratio 25 (6-20) Glucose Level 106 mg/dL (70-99) Calcium Level 7.8 mg/dL (8.5-10.1) Total Bilirubin 0.6 mg/dL (0.2-1.0) Aspartate Amino Transf (AST/SGOT) 88 U/L (15-37) Alanine Aminotransferase (ALT/SGPT) 127 U/L (16-63) Alkaline Phosphatase 79 U/L (46-116) Total Protein 4.9 g/dL (6.4-8.2) Albumin 1.8 g/dL (3.4-5.0) Albumin/Globulin Ratio 0.6 (1.0-1.7) Microbiology 10/27/20 Blood Culture - Final, Complete 10/27/20 Antimicrobic Susceptibility - Final, Complete 10/27/20 Urine Culture - Final, Complete 10/27/20 Antimicrobic Susceptibility - Final, Complete Medications Current Medications Sodium Chloride 1,000 ml @ 1,000 mls/hr 1X ONCE IV Last administered on 10/27/20at 06:45; Start 10/27/20 at 06:30; Stop 10/27/20 at 07:29; Status DC Acetaminophen (Tylenol Supp) 975 mg 1X ONCE [place] Last administered on 10/27/20at 07:30; Start 10/27/20 at 06:30; Stop 10/27/20 at 06:31; Status DC Lidocaine HCl (Lidocaine 1% 20ml Vial) 20 ml STK-MED ONCE .ROUTE ; Start 10/27/20 at 06:30; Stop 10/27/20 at 06:30; Status DC Sodium Chloride 1,000 ml @ 1,000 mls/hr 1X ONCE IV Last administered on 10/27/20at 06:45; Start 10/27/20 at 07:00; Stop 10/27/20 at 07:59; Status DC Piperacillin Sod/ Tazobactam Sod 3.375 gm/Sodium Chloride 50 ml @ 100 mls/hr 1X ONCE IV Last administered on 10/27/20at 07:58; Start 10/27/20 at 07:00; Stop 10/27/20 at 07:29; Status DC Sodium Chloride 1,000 ml @ 1,000 mls/hr 1X ONCE IV Last administered on 10/27/20at 07:57; Start 10/27/20 at 07:15; Stop 10/27/20 at 08:14; Status DC Norepinephrine Bitartrate 8 mg/ Dextrose 258 ml @ 12.848 mls/ hr 1X ONCE IV Last administered on 10/27/20at 08:42; Start 10/27/20 at 08:15; Stop 10/28/20 at 04:19; Status DC Ondansetron HCl (Zofran) 4 mg PRN Q8HRS PRN IV NAUSEA/VOMITING; Start 10/27/20 at 08:15; Stop 10/28/20 at 08:14; Status DC Sodium Chloride 1,000 ml @ 125 mls/hr Q8H IV Last administered on 10/27/20at 23:48; Start 10/27/20 at 08:15; Stop 10/28/20 at 08:14; Status DC Iohexol (Omnipaque 350 Mg/ml) 100 ml 1X ONCE IV ; Start 10/27/20 at 08:45; Stop 10/27/20 at 08:46; Status DC Info (CONTRAST GIVEN -- Rx MONITORING) 1 each PRN DAILY PRN MC SEE COMMENTS; Start 10/27/20 at 08:45; Stop 10/29/20 at 08:44; Status DC Piperacillin Sod/ Tazobactam Sod (Zosyn Per Pharmacy) 1 each PRN DAILY PRN MC SEE COMMENTS; Start 10/27/20 at 10:30; Stop 10/31/20 at 10:22; Status DC Piperacillin Sod/ Tazobactam Sod 2.25 gm/Sodium Chloride 50 ml @ 100 mls/hr Q6HRS IV Last administered on 10/28/20at 11:50; Start 10/27/20 at 12:00; Stop 10/28/20 at 14:37; Status DC Ondansetron HCl (Zofran) 4 mg PRN Q6HRS PRN IVP NAUSEA/VOMITING; Start 10/27/20 at 10:30 Famotidine (Pepcid Vial) 20 mg QHS IVP Last administered on 10/30/20at 21:23; Start 10/27/20 at 21:00; Stop 10/31/20 at 14:07; Status DC Info (Icu Electrolyte Protocol) 1 ea DAILY MC Last administered on 10/28/20at 0 9:00; Start 10/28/20 at 09:00; Stop 10/31/20 at 14:06; Status DC Heparin Sodium (Porcine) (Heparin Sodium) 5,000 unit Q8HRS SQ ; Start 10/27/20 at 14:00; Stop 10/27/20 at 14:51; Status DC Sodium Chloride (Normal Saline Flush) 3 ml QSHIFT PRN IV AFTER MEDS AND BLOOD DRAWS; Start 10/27/20 at 10:30 Sodium Chloride 1,000 ml @ 100 mls/hr Q10H IV Last administered on 11/01/20at 00:30; Start 10/27/20 at 10:30 Hydromorphone HCl (Dilaudid) 0.2 mg PRN Q1HR PRN IV PAIN; Start 10/27/20 at 10:30 Bisacodyl (Dulcolax Supp) 10 mg PRN DAILY PRN [place] CONSTIPATION; Start 10/27/20 at 10:30 Sodium Bicarbonate (Sodium Bicarb Adult 8.4% Syr) 100 meq 1X ONCE IV Last administered on 10/27/20at 10:54; Start 10/27/20 at 11:00; Stop 10/27/20 at 11:01; Status DC Sodium Chloride 1,000 ml @ 500 mls/hr 1X ONCE IV Last administered on 10/27/20at 10:53; Start 10/27/20 at 11:00; Stop 10/27/20 at 12:59; Status DC Sodium Chloride 1,000 ml @ 1,000 mls/hr Q1H IV ; Start 10/27/20 at 11:00; Stop 10/27/20 at 12:57; Status DC Sodium Chloride 500 ml @ 1,000 mls/hr PRN Q30MIN PRN IV SEE COMMENTS; Start 10/27/20 at 11:00 Norepinephrine Bitartrate 8 mg/ Dextrose 258 ml @ 0 mls/hr CONT PRN IV SEE I/O RECORD Last administered on 10/28/20at 19:56; Start 10/27/20 at 11:00; Stop 10/31/20 at 14:05; Status DC Aspirin (Ecotrin) 81 mg [id number] PO Last administered on 11/01/20at 08:50; Start 10/27/20 at 12:30 Aspirin (Aspirin Rectal Supp) 300 mg 1X ONCE [place] ; Start 10/27/20 at 13:15; Stop 10/27/20 at 13:16; Status DC Heparin Sodium/ Dextrose 250 ml @ 7.656 mls/ hr CONT PRN IV PER PROTOCOL Last administered on 10/27/20at 13:54; Start 10/27/20 at 13:15; Stop 10/28/20 at 10:48; Status DC Heparin Sodium (Porcine) (Heparin Sodium) 1,600 unit PRN Q6HRS PRN IV FOR UFH LEVEL LESS THAN 0.2 Last administered on 10/27/20at 20:46; Start 10/27/20 at 13:15; Stop 10/28/20 at 10:48; Status DC Brimonidine Tartrate (Alphagan) 1 drop BID OU Last administered on 11/01/20at 08:52; Start 10/28/20 at 21:00 Dorzolamide HCl (Trusopt) 1 drop BID OU Last administered on 11/01/20at 08:52; Start 10/28/20 at 11:00 Latanoprost (Xalatan) 1 drop QHS OU Last administered on 10/31/20at 20:54; Start 10/28/20 at 21:00 Aspirin (Aspirin Rectal Supp) 150 mg 1X ONCE [place] ; Start 10/28/20 at 11:00; Stop 10/28/20 at 11:01; Status DC Metoprolol Tartrate (Lopressor Vial) 2.5 mg Q6HRS IVP ; Start 10/28/20 at 12:00; Stop 10/29/20 at 09:53; Status DC Timolol Maleate (Timoptic 0.5% [facility]) 1 drop BID OU Last administered on 11/01/20at 08:51; Start 10/28/20 at 11:00 Lidocaine HCl (Buffered Lidocaine 1%) 3 ml STK-MED ONCE .ROUTE ; Start 10/28/20 at 11:45; Stop 10/28/20 at 11:45; Status DC Sodium Chloride 1,000 ml @ 1,000 mls/hr Q1H PRN IV hypotension; Start 10/28/20 at 11:30; Stop 10/28/20 at 17:29; Status DC Albumin Human 200 ml @ 200 mls/hr 1X PRN PRN IV Hypotension; Start 10/28/20 at 11:30; Stop 10/28/20 at 17:29; Status DC Sodium Chloride 1,000 ml @ 400 mls/hr Q2H30M PRN IV PATENCY; Start 10/28/20 at 11:30; Stop 10/28/20 at 23:29; Status DC Info (PHARMACY MONITORING -- do not chart) 1 each PRN DAILY PRN MC SEE COMMENTS; Start 10/28/20 at 11:30; Stop 10/29/20 at 11:42; Status DC Info (PHARMACY MONITORING -- do not chart) 1 each PRN DAILY PRN MC SEE COMMENTS; Start 10/28/20 at 11:30; Stop 10/30/20 at 09:59; Status DC Lidocaine HCl (Buffered Lidocaine 1%) 6 ml 1X ONCE INJ Last administered on 10/28/20at 12:16; Start 10/28/20 at 12:00; Stop 10/28/20 at 12:07; Status DC Heparin Sodium (Porcine) (Heparin Sodium) 10,000 unit STK-MED ONCE .ROUTE ; Start 10/28/20 at 12:10; Stop 10/28/20 at 12:10; Status DC Heparin Sodium (Porcine) (Heparin Sodium) 2,500 unit 1X ONCE INT CAT Last administered on 10/28/20at 12:19; Start 10/28/20 at 12:30; Stop 10/28/20 at 12:31; Status DC Piperacillin Sod/ Tazobactam Sod 2.25 gm/Sodium Chloride 50 ml @ 100 mls/hr Q8HRS IV Last administered on 10/31/20at 06:57; Start 10/28/20 at 21:00; Stop 10/31/20 at 10:22; Status DC Sodium Chloride 1,000 ml @ 1,000 mls/hr Q1H PRN IV hypotension; Start 10/29/20 at 07:30; Stop 10/29/20 at 13:29; Status DC Diphenhydramine HCl (Benadryl) 25 mg 1X PRN PRN IV ITCHING; Start 10/29/20 at 07:30; Stop 10/30/20 at 07:29; Status DC Diphenhydramine HCl (Benadryl) 25 mg 1X PRN PRN IV ITCHING; Start 10/29/20 at 07:30; Stop 10/30/20 at 07:29; Status DC Sodium Chloride 1,000 ml @ 400 mls/hr Q2H30M PRN IV PATENCY; Start 10/29/20 at 07:30; Stop 10/29/20 at 19:29; Status DC Info (PHARMACY MONITORING -- do not chart) 1 each PRN DAILY PRN MC SEE COMMENTS; Start 10/29/20 at 07:30; Status UNV Heparin Sodium (Porcine) (Heparin Sodium) 5,000 unit Q8HRS SQ ; Start 10/29/20 at 14:00; Status Cancel Metoprolol Tartrate (Lopressor) 12.5 mg BID PO Last administered on 11/01/20at 08:50; Start 10/29/20 at 21:00 Sodium Chloride 1,000 ml @ 100 mls/hr Q10H IV Last administered on 10/29/20at 11:52; Start 10/29/20 at 11:45; Stop 10/29/20 at 11:57; Status DC Lactobacillus Rhamnosus (Culturelle) 1 cap BID PO Last administered on at 08:50; Start 10/30/20 at 09:00 Sodium Chloride 1,000 ml @ 1,000 mls/hr Q1H PRN IV hypotension; Start 10/30/20 at 08:30; Stop 10/30/20 at 14:34; Status DC Albumin Human 200 ml @ 200 mls/hr 1X PRN PRN IV Hypotension; Start 10/30/20 at 08:30; Stop 10/30/20 at 14:35; Status DC Diphenhydramine HCl (Benadryl) 25 mg 1X PRN PRN IV ITCHING; Start 10/30/20 at 08:30; Stop 10/31/20 at 08:29; Status DC Diphenhydramine HCl (Benadryl) 25 mg 1X PRN PRN IV ITCHING; Start 10/30/20 at 08:30; Stop 10/31/20 at 08:29; Status DC Sodium Chloride 1,000 ml @ 400 mls/hr Q2H30M PRN IV PATENCY; Start 10/30/20 at 08:30; Stop 10/30/20 at 20:29; Status DC Info (PHARMACY MONITORING -- do not chart) 1 each PRN DAILY PRN MC SEE COMMENTS; Start 10/30/20 at 08:30 Ceftriaxone Sodium (Rocephin) 2 gm Q24H IVP Last administered on 11/01/20at 12:09; Start 10/31/20 at 11:00 Info (Non-Icu Electrolyte Protocol) 1 ea CONT PRN PRN MC SEE COMMENTS; Start 10/31/20 at 14:15 Famotidine (Pepcid) 20 mg QHS PO Last administered on 10/31/20at 20:55; Start 10/31/20 at 21:00 Docusate Sodium (Colace) 100 mg PRN DAILY PRN PO HARD STOOLS Last administered on 11/01/20at 08:50; Start 11/01/20 at 08:15 Acetaminophen (Tylenol) 650 mg PRN Q6HRS PRN PO MILD PAIN / TEMP > 100.3'F; Start 11/01/20 at 11:45 Active Scripts Active Reported Meclizine Hcl 25 Mg Tablet 1 Tab PO PRN TID Latanoprost 0.005% Eye Drop (Latanoprost/Pf) 7.5 Ml Drops 7.5 Ml OP HS Dorzolamide-Timolol Eye Drops (Dorzolamide Hcl/Timolol Maleat) 10 Ml Drops 1 Drop EACHEYE BID Brimonidine Tartrate 5 Ml Drops 1 Drop EACHEYE BID Vitals/I & O Vital Sign - Last 24 Hours 10/31/20 10/31/20 10/31/20 10/31/20 16:00 19:00 19:07 20:55 Temp 97.9 97.9 Pulse 80 80 Resp 18 B/P (MAP) 117/64 (81) 117/64 Pulse Ox 98 O2 Delivery Room Air Room Air Room Air 10/31/20 11/01/20 11/01/20 11/01/20 22:51 00:00 02:57 04:00 Temp 98.8 97.8 98.8 97.8 Pulse 77 75 79 72 Resp 18 16 B/P (MAP) 141/70 (93) 157/82 (107) Pulse Ox 96 97 O2 Delivery Room Air Room Air 11/01/20 11/01/20 11/01/20 11/01/20 07:00 08:00 08:50 10:50 Temp 97.5 98.0 97.5 98.0 Pulse 77 77 82 Resp 18 18 B/P (MAP) 156/86 (109) 156/86 152/81 (104) Pulse Ox 96 97 O2 Delivery Room Air Room Air Room Air 11/01/20 14:59 Temp 97.4 97.4 Pulse 80 Resp 16 B/P (MAP) 150/78 (102) Pulse Ox 95 O2 Delivery Room Air Intake and Output 10/31/20 10/31/20 11/01/20 15:00 23:00 07:00 Intake Total 480 ml 800 ml 60 ml Output Total 800 ml 850 ml Balance 480 ml 0 ml -790 ml Nutrition Consultation Dietary Evaluation: Recommendations by RD: Dietary education by RD, Increase Calorie Intake, Protein supplementation Comments: REC advance diet as able per [employer] recommendations, goal diet renal w/nepro supplements prn Expected Outcomes/Goals: diet advancement Malnutrition Findings: Body Fat Depletion (Non Severe: Mild Depletion Weight Status: Overweight Justicifation of Admission Dx: Justifications for Admission: Justification of Admission Dx: Yes GAYLE CAMARENA MD Nov 01, 2020 15:03
--- NOTE | 2020-11-01 16:14 | RAD ---
EXAM: Carotid Doppler sonogram. HISTORY: Cerebral infarction. Atherosclerosis. TECHNIQUE: Antoine scale and color Doppler sonographic evaluation of the neck with spectral waveform jalyn lysis was performed and static images are submitted for review. FINDINGS: The right carotid arteries could not be assessed due to overlying bandage material. There is mild atherosclerotic plaque involving the left common, internal and external carotid arterie s. The peak systolic velocity within the left common carotid artery is 115 cm/sec. The peak systolic velocity within the left internal carotid artery is 98 cm/sec and the end diastolic velocity within t he left internal carotid artery is 28 cm/sec. The left ICA/CCA ratio is 1.0. There is normal antegrade flow within both vertebral arteries. IMPRESSION: 1. No Doppler evidence of greater than 50 percent stenosis involving the left ICA. 2. Nonassessment of the right carotid arteries due to overlying bandage material. PQRS Compliance Statement - Stenosis calculations for CT, MR and conventional angiography are based u morgan measurement of the distal ICA diameter in accordance with the NASCET methodology. Stenosis calcu lations for carotid ultrasound studies are derived from validated velocity criteria which are known t o correlate with the NASCET methodology. Electronically signed by: Melissa Gaspar MD (11/01/2020 4:12 PM) [id number]
[2020-11-01 19:21] VITALS: BP 134/83
[2020-11-01] MEDS: FAMOTIDINE 20 MG TABLET. PO SCH (20:33)
[2020-11-01] MEDS: LATANOPROST 0.005% OPHTH SOLUTION 2.5ML BOTTLE. OU SCH (20:40)
[2020-11-01 22:28] VITALS: BP 147/84
[2020-11-02] VITALS (7 sets, daily range): BP systolic 127–195; BP diastolic 73–98
[2020-11-02 05:49] LABS: CALCIUM 8.1 mg/dL (8.5-10.1); CREATININE 1.2 mg/dL (0.7-1.3); GFR 71.8; POTASSIUM 3.4 mmol/L (3.5-5.1)
[2020-11-02] MEDS: LACTOBACILLUS RHAMNOSUS GG 1 CAPSULE. PO SCH ×2 (08:16→21:16)
[2020-11-02] MEDS: METOPROLOL TART IMMED RELEASE 25 MG TABLET. PO SCH ×2 (08:16→21:17)
[2020-11-02] MEDS: TIMOLOL 0.5% OPHTH SOLUTION 5ML BOTTLE. OU SCH ×2 (08:17→21:18)
[2020-11-02] MEDS: ASPIRIN ENTERIC COATED 81 MG TABLET.DR. PO SCH (08:17)
[2020-11-02] MEDS: cefTRIAXone IV Push 2 GM VIAL. IVP SCH (08:18)
[2020-11-02] MEDS: BRIMONIDINE 0.2% OPHTH SOLUTION 5ML BOTTLE. OU SCH ×2 (08:18→21:19)
[2020-11-02] MEDS: DORZOLAMIDE 2% OPHTH SOLUTION 10ML BOTTLE. OU SCH ×2 (08:18→21:19)
--- NOTE | 2020-11-02 08:42 | PDOC ---
Infectious Disease Note Subjective: Subjective Pt feels much better Numbness and weakness RUE improving no f/n/v/d had a bm Vital Signs: Vital Signs Vital Signs Date Time Temp Pulse Resp B/P (MAP) Pulse Ox O2 Delivery O2 Flow Rate FiO2 11/02/20 08:16 100 127/90 11/02/20 07:40 Room Air 11/02/20 06:50 97.9 22 99 97.9 Physical Exam: PHYSICAL EXAM GENERAL: axox3 male HEENT: Normocephalic, atraumatic, anicteric. NECK: Supple, no JVD. Right IJ and dialysis catheter in place LUNGS: Clear bilaterally. No wheezing. HEART: S1, S2, no murmurs. ABDOMEN: Soft, nontender, nondistended, no rebound, no guarding. EXTREMITIES: No edema, no cyanosis. DERMATOLOGIC: Warm and dry. No generalized rash. NEUROLOGIC: alert awake PSYCHIATRIC: calm cooperative Medications: Inpatient Meds: Current Medications Medications (Trade) Dose Ordered Sig/Ambrosio Start Time Stop Time Status Last Admin Dose Admin Acetaminophen (Tylenol Supp) 975 mg 1X ONCE 10/27/20 06:30 10/27/20 06:31 DC 10/27/20 07:30 975 MG Acetaminophen (Tylenol) 650 mg PRN Q6HRS PRN 11/01/20 11:45 Albumin Human 200 ml @ 200 mls/hr 1X PRN PRN 10/30/20 08:30 10/30/20 14:35 DC Aspirin (Aspirin Rectal Supp) 150 mg 1X ONCE 10/28/20 11:00 10/28/20 11:01 DC Aspirin (Ecotrin) 81 mg DAILYWBKFT 10/27/20 12:30 11/02/20 08:17 81 MG Bisacodyl (Dulcolax Supp) 10 mg PRN DAILY PRN 10/27/20 10:30 Brimonidine Tartrate (Alphagan) 1 drop BID 10/28/20 21:00 11/02/20 08:18 1 DROP Ceftriaxone Sodium (Rocephin) 2 gm Q24H 10/31/20 11:00 11/02/20 08:18 2 GM Diphenhydramine HCl (Benadryl) 25 mg 1X PRN PRN 10/30/20 08:30 10/31/20 08:29 DC Docusate Sodium (Colace) 100 mg PRN DAILY PRN 11/01/20 08:15 11/01/20 08:50 100 MG Dorzolamide HCl (Trusopt) 1 drop BID 10/28/20 11:00 11/02/20 08:18 1 DROP Famotidine (Pepcid Vial) 20 mg QHS 10/27/20 21:00 10/31/20 14:07 DC 10/30/20 21:23 20 MG Famotidine (Pepcid) 20 mg QHS 10/31/20 21:00 11/01/20 20:33 20 MG Heparin Sodium (Porcine) (Heparin Sodium) 5,000 unit Q8HRS 10/29/20 14:00 Cancel Heparin Sodium/ Dextrose 250 ml @ 7.656 mls/ hr CONT PRN 10/27/20 13:15 10/28/20 10:48 DC 10/27/20 13:54 7.656 MLS/HR Hydromorphone HCl (Dilaudid) 0.2 mg PRN Q1HR PRN 10/27/20 10:30 Info (CONTRAST GIVEN -- Rx MONITORING) 1 each PRN DAILY PRN 10/27/20 08:45 10/29/20 08:44 DC Info (Icu Electrolyte Protocol) 1 ea DAILY 10/28/20 09:00 10/31/20 14:06 DC 10/28/20 09:00 1 EA Info (Non-Icu Electrolyte Protocol) 1 ea CONT PRN PRN 10/31/20 14:15 Info (PHARMACY MONITORING -- do not chart) 1 each PRN DAILY PRN 10/30/20 08:30 Iohexol (Omnipaque 350 Mg/ml) 100 ml 1X ONCE 10/27/20 08:45 10/27/20 08:46 DC Lactobacillus Rhamnosus (Culturelle) 1 cap BID 10/30/20 09:00 11/02/20 08:16 1 CAP Latanoprost (Xalatan) 1 drop QHS 10/28/20 21:00 11/01/20 20:40 1 DROP Lidocaine HCl (Buffered Lidocaine 1%) 6 ml 1X ONCE 10/28/20 12:00 10/28/20 12:07 DC 10/28/20 12:16 4 ML Lidocaine HCl (Lidocaine 1% 20ml Vial) 20 ml STK-MED ONCE 10/27/20 06:30 10/27/20 06:30 DC Metoprolol Tartrate (Lopressor Vial) 2.5 mg Q6HRS 10/28/20 12:00 10/29/20 09:53 DC Metoprolol Tartrate (Lopressor) 12.5 mg BID 10/29/20 21:00 11/02/20 08:16 12.5 MG Norepinephrine Bitartrate 8 mg/ Dextrose 258 ml @ 0 mls/hr CONT PRN 10/27/20 11:00 10/31/20 14:05 DC 10/28/20 19:56 3.6 MLS/HR Ondansetron HCl (Zofran) 4 mg PRN Q6HRS PRN 10/27/20 10:30 Piperacillin Sod/ Tazobactam Sod (Zosyn Per Pharmacy) 1 each PRN DAILY PRN 10/27/20 10:30 10/31/20 10:22 DC Piperacillin Sod/ Tazobactam Sod 2.25 gm/Sodium Chloride 50 ml @ 100 mls/hr Q8HRS 10/28/20 21:00 10/31/20 10:22 DC 10/31/20 06:57 100 MLS/HR Piperacillin Sod/ Tazobactam Sod 3.375 gm/Sodium Chloride 50 ml @ 100 mls/hr 1X ONCE 10/27/20 07:00 10/27/20 07:29 DC 10/27/20 07:58 100 MLS/HR Sodium Bicarbonate (Sodium Bicarb Adult 8.4% Syr) 100 meq 1X ONCE 10/27/20 11:00 10/27/20 11:01 DC 10/27/20 10:54 100 MEQ Sodium Chloride 1,000 ml @ 400 mls/hr Q2H30M PRN 10/30/20 08:30 10/30/20 20:29 DC Sodium Chloride (Normal Saline Flush) 3 ml QSHIFT PRN 10/27/20 10:30 Timolol Maleate (Timoptic 0.5% Ophth) 1 drop BID 10/28/20 11:00 11/02/20 08:17 1 DROP Labs: Lab Laboratory Tests Test 11/02/20 05:00 Sodium Level 145 mmol/L (136-145) Potassium Level 3.4 mmol/L (3.5-5.1) Chloride Level 109 mmol/L (98-107) Carbon Dioxide Level 27 mmol/L (21-32) Anion Gap 9 (6-14) Blood Urea Nitrogen 29 mg/dL (8-26) Creatinine 1.2 mg/dL (0.7-1.3) Estimated GFR (Cockcroft-Gault) 71.8 Glucose Level 113 mg/dL (70-99) Calcium Level 8.1 mg/dL (8.5-10.1) Creatine Kinase 362 U/L (39-308) Micro CT abdomen and pelvis findings: Lower chest: Bilateral lower lobe posterior dependent atelectasis with tiny pleural effusions. Abdomen and pelvis: The liver, spleen, and pancreas have unremarkable noncontrast appearance. The cholelithiasis or gallbladder sludge. Adenomatous thickening of the adrenal glands. Right renal cysts measure 5.9 x 5.9 cm and 3.2 x 3.1 cm. Right perinephric stranding. No renal calculi. No hydronephrosis. Urinary bladder wall thickening. Freeman catheter within the urinary bladder. Postop changes prostatectomy. Small fluid within the pelvis. Appendix not well seen. No evidence of bowel obstruction. Numerous mildly enlarged retroperitoneal and inguinal lymph nodes poorly rich cterize without IV contrast. 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 Multilevel lumbar spondylosis. Impression: 1. Right perinephric stranding and urinary bladder wall thickening, may relate to urinary tract infection. 2. Small pelvic free fluid. 3. Numerous enlarged retroperitoneal and inguinal lymph nodes probably characterized without intravenous contrast. Recommend further clinical evaluation and follow-up. Comparison with prior imaging studies would also be of benefit. 4. Increased density within the gallbladder, may relate to cholelithiasis or sludge. Objective: Assessment: Septic shock resolved Gram-negative sepsis source Klebsiella pneumonia bacteremia source Pyelonephritis with urine culture positive Klebsiella PERRY with underlying CKD, metabolic acidosis, hypernatremia, on dialysis Rhabdomyolysis. Improving Abnormal LFTs. Improving Encephalopathy improved Acute hypoxic respiratory failure now resolved Abnormal CT pelvis postop changes prostatectomy. Small fluid within the pelvis. Questionable etiology History of urinary retention, status post self-catheterization at home prior to admission for a long time COVID-19 negative Influenza screen negative Rt sided weakness with ischemic changes on MRI brain HDC clot on echo Plan: Plan of Care Cont Ceftriaxone when ready for dc home transition to po cefdinir 300 mg po bid to complete 10 more days DC HDC if able Maintain aspiration precautions Probiotics/yogurt Monitor labs and cultures Continue supportive care D/W daughter and son in law at bedside D/W STEVEN BARBA MD Nov 02, 2020 08:42
--- NOTE | 2020-11-02 09:07 | PDOC ---
DATE OF SERVICE DATE: 11/02/20 TIME: 09:07 SUBJECTIVE ROS Stable, no new complaints,working with PT OBJECTIVE Vital Signs Vital Signs Date Time Temp Pulse Resp B/P (MAP) Pulse Ox O2 Delivery O2 Flow Rate FiO2 11/02/20 08:16 100 127/90 11/02/20 07:40 Room Air 11/02/20 06:50 97.9 22 99 97.9 I & 0 Intake and Output 11/02/20 07:00 Intake Total 660 ml Output Total 2575 ml Balance -1915 ml Intake Oral 660 ml Output Urine Total 2575 ml # Bowel Movements 2 PHYSICAL EXAM Physical Exam GENERAL: NAD , propped up in bed, family at bedside HEENT: anicteric, OM moist NECK: Supple LUNGS: Clear bilaterally. non labored HEART: S1, S2, no murmurs. ABDOMEN: Soft, nontender EXTREMITIES: No edema, no cyanosis. DERMATOLOGIC: No rash. Colvin + DIAGNOSIS/ASSESSMENT Assessment & Plan PERRY - 2/2 Pyelonephritis with urine culture positive Klebsiella, needing dialy sis , last on 10/30 , renal function improving , good UOP,E-Lytes stable . No indication for Dialysis . Remove Temp HD catheter CT scan - POA - Right perinephric stranding. No renal calculi. No hydronephrosis. Supportive care, I/O, Voiding trial after colvin dced -prior to discharge , avoid nephrotoxins Rhabdomyolysis- improving History of urinary retention, status post self-catheterization at home prior to admission for a long time Right renal cysts- on CT scan- 5.9 x 5.9 cm and 3.2 x 3.1 cm Numerous enlarged retroperitoneal and inguinal lymph nodes probably characterized without intravenous contrast Septic shock resolved Gram-negative sepsis/ Klebsiella pneumonia bacteremia source Abnormal LFTs. Improving Encephalopathy improved Acute hypoxic respiratory failure now resolved DC per primary, follow up with PCP post dc, Follow up with as OP in 1-2 months .Discussed with pt and RN COMMENT/RELEVANT DATA Meds Current Medications Medications (Trade) Dose Ordered Sig/Ambrosio Start Time Stop Time Status Last Admin Dose Admin Acetaminophen (Tylenol Supp) 975 mg 1X ONCE 10/27/20 06:30 10/27/20 06:31 DC 10/27/20 07:30 975 MG Acetaminophen (Tylenol) 650 mg PRN Q6HRS PRN 11/01/20 11:45 Albumin Human 200 ml @ 200 mls/hr 1X PRN PRN 10/30/20 08:30 10/30/20 14:35 DC Aspirin (Aspirin Rectal Supp) 150 mg 1X ONCE 10/28/20 11:00 10/28/20 11:01 DC Aspirin (Ecotrin) 81 mg DAILYWBKFT 10/27/20 12:30 11/02/20 08:17 81 MG Bisacodyl (Dulcolax Supp) 10 mg PRN DAILY PRN 10/27/20 10:30 Brimonidine Tartrate (Alphagan) 1 drop BID 10/28/20 21:00 11/02/20 08:18 1 DROP Ceftriaxone Sodium (Rocephin) 2 gm Q24H 10/31/20 11:00 11/02/20 08:18 2 GM Diphenhydramine HCl (Benadryl) 25 mg 1X PRN PRN 10/30/20 08:30 10/31/20 08:29 DC Docusate Sodium (Colace) 100 mg PRN DAILY PRN 11/01/20 08:15 11/01/20 08:50 100 MG Dorzolamide HCl (Trusopt) 1 drop BID 10/28/20 11:00 11/02/20 08:18 1 DROP Famotidine (Pepcid Vial) 20 mg QHS 10/27/20 21:00 10/31/20 14:07 DC 10/30/20 21:23 20 MG Famotidine (Pepcid) 20 mg QHS 10/31/20 21:00 11/01/20 20:33 20 MG Heparin Sodium (Porcine) (Heparin Sodium) 5,000 unit Q8HRS 10/29/20 14:00 Cancel Heparin Sodium/ Dextrose 250 ml @ 7.656 mls/ hr CONT PRN 10/27/20 13:15 10/28/20 10:48 DC 10/27/20 13:54 7.656 MLS/HR Hydromorphone HCl (Dilaudid) 0.2 mg PRN Q1HR PRN 10/27/20 10:30 Info (CONTRAST GIVEN -- Rx MONITORING) 1 each PRN DAILY PRN 10/27/20 08:45 10/29/20 08:44 DC Info (Icu Electrolyte Protocol) 1 ea DAILY 10/28/20 09:00 1/17/21 14:06 DC 10/28/20 09:00 1 EA Info (Non-Icu Electrolyte Protocol) 1 ea CONT PRN PRN 10/31/20 14:15 Info (PHARMACY MONITORING -- do not chart) 1 each PRN DAILY PRN 10/30/20 08:30 Iohexol (Omnipaque 350 Mg/ml) 100 ml 1X ONCE 10/27/20 08:45 10/27/20 08:46 DC Lactobacillus Rhamnosus (Culturelle) 1 cap BID 10/30/20 09:00 11/02/20 08:16 1 CAP Latanoprost (Xalatan) 1 drop QHS 10/28/20 21:00 11/01/20 20:40 1 DROP Lidocaine HCl (Buffered Lidocaine 1%) 6 ml 1X ONCE 10/28/20 12:00 10/28/20 12:07 DC 10/28/20 12:16 4 ML Lidocaine HCl (Lidocaine 1% 20ml Vial) 20 ml STK-MED ONCE 10/27/20 06:30 10/27/20 06:30 DC Metoprolol Tartrate (Lopressor Vial) 2.5 mg Q6HRS 10/28/20 12:00 10/29/20 09:53 DC Metoprolol Tartrate (Lopressor) 12.5 mg BID 10/29/20 21:00 11/02/20 08:16 12.5 MG Norepinephrine Bitartrate 8 mg/ Dextrose 258 ml @ 0 mls/hr CONT PRN 10/27/20 11:00 10/31/20 14:05 DC 10/28/20 19:56 3.6 MLS/HR Ondansetron HCl (Zofran) 4 mg PRN Q6HRS PRN 10/27/20 10:30 Piperacillin Sod/ Tazobactam Sod (Zosyn Per Pharmacy) 1 each PRN DAILY PRN 10/27/20 10:30 10/31/20 10:22 DC Piperacillin Sod/ Tazobactam Sod 2.25 gm/Sodium Chloride 50 ml @ 100 mls/hr Q8HRS 10/28/20 21:00 10/31/20 10:22 DC 10/31/20 06:57 100 MLS/HR Piperacillin Sod/ Tazobactam Sod 3.375 gm/Sodium Chloride 50 ml @ 100 mls/hr 1X ONCE 10/27/20 07:00 10/27/20 07:29 DC 10/27/20 07:58 100 MLS/HR Sodium Bicarbonate (Sodium Bicarb Adult 8.4% Syr) 100 meq 1X ONCE 10/27/20 11:00 10/27/20 11:01 DC 10/27/20 10:54 100 MEQ Sodium Chloride 1,000 ml @ 400 mls/hr Q2H30M PRN 10/30/20 08:30 10/30/20 20:29 DC Sodium Chloride (Normal Saline Flush) 3 ml QSHIFT PRN 10/27/20 10:30 Timolol Maleate (Timoptic 0.5% Ophth) 1 drop BID 10/28/20 11:00 11/02/20 08:17 1 DROP Lab Laboratory Tests Test 11/02/20 05:00 Sodium Level 145 mmol/L (136-145) Potassium Level 3.4 mmol/L (3.5-5.1) Chloride Level 109 mmol/L (98-107) Carbon Dioxide Level 27 mmol/L (21-32) Anion Gap 9 (6-14) Blood Urea Nitrogen 29 mg/dL (8-26) Creatinine 1.2 mg/dL (0.7-1.3) Estimated GFR (Cockcroft-Gault) 71.8 Glucose Level 113 mg/dL (70-99) Calcium Level 8.1 mg/dL (8.5-10.1) Creatine Kinase 362 U/L (39-308) Results All relevant outside records, renal labs, imaging studies, telemetry/EKG's were reviewed. Other MRI brain . Small acute infarct within the posterior left occipital lobe. 2. Extensive scattered areas of signal change throughout the cerebral white matter and brittany, most due to chronic small vessel disease in patients of this age. 3. Small chronic lacunar infarct within the left caudate nucleus Carotid Doppler 1. No Doppler evidence of greater than 50 percent stenosis involving the left ICA. 2. Nonassessment of the right carotid arteries due to overlying bandage material. Justicifation of Admission Dx: Justifications for Admission: Justification of Admission Dx: Yes BRIAN HERNANDEZ MD Nov 02, 2020 09:07
--- NOTE | 2020-11-02 09:52 | NUR ---
SS following up with discharge planning. SS reviewed pt chart and discussed with pt RN. Pt is currently on room air. COVID19 negative. Pt on IV Rocephin. PT/OT recommended acute rehabilitation. SS was notified that pt will have a deductible payment of $285/day for days 1-6 and then will be covered at 100% for rehabilitation. SS was notified that payment plan could be arranged at [facility], ; fax [phone]. SS met with pt and family and discussed. Pt and pt's family reported that they had decided that they want referral to [facility] and are agreeable to cost. [facility] notified and pt accepted pending insurance authorization. SS will continue to follow for discharge planning.
[2020-11-02] MEDS ORDERED: METO25TA4 PO (10:01)
[2020-11-02] MEDS ORDERED: FAMO20TA5 PO (10:01)
--- NOTE | 2020-11-02 10:03 | SNU/HH DC ---
DISCHARGE ORDERS DISCHARGE INFORMATION: DISCHARGE DATE: Nov 04, 2020 FINAL DIAGNOSIS Septic shock, POA with Lactic acidosis Acute renal failure, vasomotor, and due to Dehydration Rhabdo UTI, klebsiella, gamez sensitive, Demand ischemia, improved before DC< Metabolic cephalopathy UTI Fever sever protein malnutrition Problems Medical Problems: (1) Acute renal failure Status: Acute (2) Dehydration Status: Acute (3) Person under investigation for COVID-19 Status: Acute (4) Rhabdomyolysis Status: Acute (5) Septic shock Status: Acute (6) UTI (urinary tract infection) Status: Acute CONDITION ON DISCHARGE: Stable ALF: SNF STAY <30 DAYS: Yes (acute rehab) POST DISCHARGE ORDERS: ACTIVITY ORDERS: Activity as tolerated WEIGHT BEARING STATUS: Full weight bearing, As tolerated DIET AFTER DISCHARGE: Regular FOLLOW-UP: PHYSICIAN FOLLOW-UP: in mid-lucrecia, Additional Instructions: DC with colvin for chronic incontinence, february DC colvin and ISC, he self caths at home BID or TID, he is s/p prostate resection TREATMENT/EQUIPMENT ORDERS: ADAPTIVE EQUIPMENT NEEDED: Front wheeled walker Physical Therapy For: Evalulation/Treatment Occupational Therapy For: Evaluation/Treatment DISCHARGE MEDICATIONS: Home Meds Active Scripts Aspirin (ASPIRIN EC) 81 Mg Tablet.dr, 81 MG PO DAILYWBKFT for cardiac, #100 TAB.SR Prov:GAYLE CAMARENA MD 11/02/20 Levofloxacin (LEVOFLOXACIN) 750 Mg Tablet, 750 MG PO DAILY08 for UTI, #10 TAB Prov:GAYLE CAMARENA MD 11/02/20 Metoprolol Tartrate (METOPROLOL TARTRATE) 25 Mg Tablet, 12.5 MG PO BID for htn, cardiac, #60 TAB Prov:GAYLE CAMARENA MD 11/02/20 Famotidine (FAMOTIDINE) 20 Mg Tablet, 20 MG PO QHS for GERD, #30 TAB Prov:GAYLE CAMARENA MD 11/02/20 Reported Medications Meclizine Hcl (MECLIZINE HCL) 25 Mg Tablet, 1 TAB PO PRN TID for nausea, #30 TAB 10/27/20 Latanoprost/Pf (Latanoprost 0.005% Eye Drop) 7.5 Ml Drops, 7.5 ML OP HS for Glaucoma, DROP 10/27/20 Dorzolamide Hcl/Timolol Maleat (DORZOLAMIDE-TIMOLOL EYE DROPS) 10 Ml Drops, 1 DROP EACHEYE BID for Glaucoma, #10 ML 0 Refills 10/27/20 Brimonidine Tartrate (BRIMONIDINE TARTRATE) 5 Ml Drops, 1 DROP EACHEYE BID for Glaucoma, #10 ML 0 Refills 10/27/20 GAYLE CAMARENA MD Nov 02, 2020 10:03
[2020-11-02] MEDS ORDERED: LEVO750T5 PO (10:45)
[2020-11-02] MEDS ORDERED: ASPI-886 PO (10:45)
--- NOTE | 2020-11-02 10:58 | PDOC3 ---
Discharge Summary Visit Information Date of Admission: Oct 27, 2020 Date of Discharge: Nov 02, 2020 Final Diagnosis Septic shock, POA with Lactic acidosis Acute renal failure, vasomotor, and due to Dehydration Rhabdo UTI, klebsiella, gamez sensitive, Demand ischemia, improved before DC< Metabolic cephalopathy UTI Fever sever protein malnutrition Problems Medical Problems: (1) Acute renal failure Status: Acute (2) Dehydration Status: Acute (3) Person under investigation for COVID-19 Status: Acute (4) Rhabdomyolysis Status: Acute (5) Septic shock Status: Acute (6) UTI (urinary tract infection) Status: Acute Brief Hospital Course Allergies Allergies Coded Allergies Type Severity Reaction Last Updated Verified No Known Drug Allergies 10/30/20 No Vital Signs Vital Signs Date Time Temp Pulse Resp B/P (MAP) Pulse Ox O2 Delivery O2 Flow Rate FiO2 11/02/20 08:16 100 127/90 11/02/20 07:40 Room Air 11/02/20 06:50 97.9 22 99 97.9 Lab Results Laboratory Tests Test 11/01/20 05:50 11/02/20 05:00 White Blood Count 8.8 x10^3/uL (4.0-11.0) Red Blood Count 2.79 x10^6/uL (4.30-5.70) Hemoglobin 10.2 g/dL (13.0-17.5) Hematocrit 30.1 % (39.0-53.0) Mean Corpuscular Volume 108 fL (79-100) Mean Corpuscular Hemoglobin 37 pg (25-35) Mean Corpuscular Hemoglobin Concent 34 g/dL (31-37) Red Cell Distribution Width 12.7 % (11.5-14.5) Platelet Count 132 x10^3/uL (140-400) Neutrophils (%) (Auto) 56 % (31-73) Lymphocytes (%) (Auto) 20 % (24-48) Monocytes (%) (Auto) 12 % (0-9) Eosinophils (%) (Auto) 12 % (0-3) Basophils (%) (Auto) 0 % (0-3) Neutrophils # (Auto) 4.9 x10^3/uL (1.8-7.7) Lymphocytes # (Auto) 1.8 x10^3/uL (1.0-4.8) Monocytes # (Auto) 1.0 x10^3/uL (0.0-1.1) Eosinophils # (Auto) 1.0 x10^3/uL (0.0-0.7) Basophils # (Auto) 0.0 x10^3/uL (0.0-0.2) Sodium Level 145 mmol/L (136-145) 145 mmol/L (136-145) Potassium Level 3.5 mmol/L (3.5-5.1) 3.4 mmol/L (3.5-5.1) Chloride Level 110 mmol/L (98-107) 109 mmol/L (98-107) Carbon Dioxide Level 29 mmol/L (21-32) 27 mmol/L (21-32) Anion Gap 6 (6-14) 9 (6-14) Blood Urea Nitrogen 32 mg/dL (8-26) 29 mg/dL (8-26) Creatinine 1.3 mg/dL (0.7-1.3) 1.2 mg/dL (0.7-1.3) Estimated GFR (Cockcroft-Gault) 65.5 71.8 BUN/Creatinine Ratio 25 (6-20) Glucose Level 106 mg/dL (70-99) 113 mg/dL (70-99) Calcium Level 7.8 mg/dL (8.5-10.1) 8.1 mg/dL (8.5-10.1) Total Bilirubin 0.6 mg/dL (0.2-1.0) Aspartate Amino Transf (AST/SGOT) 88 U/L (15-37) Alanine Aminotransferase (ALT/SGPT) 127 U/L (16-63) Alkaline Phosphatase 79 U/L (46-116) Total Protein 4.9 g/dL (6.4-8.2) Albumin 1.8 g/dL (3.4-5.0) Albumin/Globulin Ratio 0.6 (1.0-1.7) Creatine Kinase 362 U/L (39-308) Laboratory Tests Test 11/02/20 05:00 Sodium Level 145 mmol/L (136-145) Potassium Level 3.4 mmol/L (3.5-5.1) Chloride Level 109 mmol/L (98-107) Carbon Dioxide Level 27 mmol/L (21-32) Anion Gap 9 (6-14) Blood Urea Nitrogen 29 mg/dL (8-26) Creatinine 1.2 mg/dL (0.7-1.3) Estimated GFR (Cockcroft-Gault) 71.8 Glucose Level 113 mg/dL (70-99) Calcium Level 8.1 mg/dL (8.5-10.1) Creatine Kinase 362 U/L (39-308) Brief Hospital Course Mr. June is a 75 old male who was brought into the hospital after he could not get up from the floor. AMS, acute encephalopathy, sepsis, shock, hypotensive to 70s on admit ABG, pH of 7.49, pCO2 of 90 and a pO2 of 450 and a bicarbonate of 15. noted to be in PERRY with a BUN of 76 and a creatinine of 2.8. His CPK was 6272. Lactic of 5.9. renal , ID, critical care were consutled, HD done, after line placed, RIght IJ central horacioie, marii, he was given abx, UTI noted above, cont abx for DC, to [facility] acute rehab, excellent potential for improvent, he can only walk about 30 feet with walker on day of DC Discharge Information Condition at Discharge: Improved Follow Up: Weeks Disposition/Orders: D/C to Another Facility Scheduled Aspirin (Aspirin Ec) 81 Mg Tablet., 81 MG PO DAILYWBKFT for cardiac, #100 Prescribed by: GAYLE CAMARENA on 11/02/20 1045 Brimonidine Tartrate (Brimonidine Tartrate) 5 Ml Drops, 1 DROP EACHEYE BID for Glaucoma, #10 Ref 0 (Reported) Entered as Reported by: JENARO OLSON RN on 10/27/202207 Last Taken: UNKNOWN on Unknown Date & Time Last Action: Continued on 10/28/20 1045 by CASSANDRA MARTINEZ Dorzolamide Hcl/Timolol Maleat (Dorzolamide-Timolol Eye Drops) 10 Ml Drops, 1 DROP EACHEYE BID for Glaucoma, #10 Ref 0 (Reported) Entered as Reported by: JENARO OLSON RN on 10/27/202207 Last Taken: UNKNOWN on Unknown Date & Time Last Action: Converted on 10/28/20 1045 by CASSANDRA MARTINEZ Famotidine (Famotidine) 20 Mg Tablet, 20 MG PO QHS for GERD, #30 Prescribed by: GAYLE CAMARENA on 11/02/20 1001 Latanoprost/Pf (Latanoprost 0.005% Eye Drop) 7.5 Ml Drops, 7.5 ML OP HS for Glaucoma, (Reported) Entered as Reported by: JENARO OLSON RN on 10/27/202207 Last Taken: UNKNOWN on Unknown Date & Time Last Action: Converted on 10/28/20 1045 by CASSANDRA MARTINEZ Levofloxacin (Levofloxacin) 750 Mg Tablet, 750 MG PO DAILY08 for UTI, #10 Prescribed by: GAYLE CAMARENA on 11/02/20 1045 Meclizine Hcl (Meclizine Hcl) 25 Mg Tablet, 1 TAB PO PRN TID for nausea, #30 (Reported) Entered as Reported by: JENARO OLSON RN on 10/27/202207 Last Taken: UNKNOWN on Unknown Date & Time Last Action: New Order on 10/27/202207 by JENARO OLSON RN Metoprolol Tartrate (Metoprolol Tartrate) 25 Mg Tablet, 12.5 MG PO BID for htn, cardiac, #60 Prescribed by: GAYLE CAMARENA on 11/02/20 1001 Patient Instructions Patient Instructions to [facility] acute rehab about 40 min face to face x2 exam stable DC cental line and HD line, colvni to remain for a few days, chronci prostat eprobelsm s/p restection, Justicifation of Admission Dx: Justifications for Admission: Justification of Admission Dx: Yes GAYLE CAMARENA MD Nov 02, 2020 10:58
--- NOTE | 2020-11-02 11:03 | PDOC ---
PROGRESS NOTES Date of Service DATE: 11/02/20 TIME: 11:00 Assessment Problems Medical Problems: (1) Acute renal failure Status: Acute (2) Dehydration Status: Acute (3) Person under investigation for COVID-19 Status: Acute (4) Rhabdomyolysis Status: Acute (5) Septic shock Status: Acute (6) UTI (urinary tract infection) Status: Acute Small acute infarct within the posterior left occipital lobe Metabolic encephalopathy Klebsiella pneumoniae, pyelonephritis, septic shock (resolved), acute on chronic kidney disease on dialysis, metabolic acidosis, hyponatremia, rhabdomyolysis, elevated liver function tests, respiratory failure, status-post prostatectomy, urinary retention requiring self-catheterization, COVID-19 negative Plan Echo pending Note lipids, does not need a statin 81 mg aspirin daily Acute rehab Discussed with daughter and son-in-law Subjective No complaints, feels stronger, vision better Objective Vital Signs Date Time Temp Pulse Resp B/P (MAP) Pulse Ox O2 Delivery O2 Flow Rate FiO2 11/02/20 08:16 100 127/90 11/02/20 07:40 Room Air 11/02/20 06:50 97.9 22 99 97.9 Intake and Output 11/02/20 06:59 Intake Total 660 ml Output Total 2575 ml Balance -1915 ml Intake Oral 660 ml Output Urine Total 2575 ml # Bowel Movements 2 PHYSICAL EXAM Alert. Oriented to place and person, does not know date. PERRL. EOMI. CN: no focal findings, some left visual neglect. Muscle tone: normal. Muscle strength: 4/5, weaker on right DTR: 1+ arms, 0+ legs Plantar reflex: flexor Gait: not examined in bed. Sensory exam: no abnormal findings. Cerebellar: intention tremor on the right, but not the left. Review of Relevant I have reviewed the following items mendez (where applicable) has been applied. Labs Laboratory Tests Test 11/01/20 05:50 11/02/20 05:00 White Blood Count 8.8 x10^3/uL (4.0-11.0) Red Blood Count 2.79 x10^6/uL (4.30-5.70) Hemoglobin 10.2 g/dL (13.0-17.5) Hematocrit 30.1 % (39.0-53.0) Mean Corpuscular Volume 108 fL (79-100) Mean Corpuscular Hemoglobin 37 pg (25-35) Mean Corpuscular Hemoglobin Concent 34 g/dL (31-37) Red Cell Distribution Width 12.7 % (11.5-14.5) Platelet Count 132 x10^3/uL (140-400) Neutrophils (%) (Auto) 56 % (31-73) Lymphocytes (%) (Auto) 20 % (24-48) Monocytes (%) (Auto) 12 % (0-9) Eosinophils (%) (Auto) 12 % (0-3) Basophils (%) (Auto) 0 % (0-3) Neutrophils # (Auto) 4.9 x10^3/uL (1.8-7.7) Lymphocytes # (Auto) 1.8 x10^3/uL (1.0-4.8) Monocytes # (Auto) 1.0 x10^3/uL (0.0-1.1) Eosinophils # (Auto) 1.0 x10^3/uL (0.0-0.7) Basophils # (Auto) 0.0 x10^3/uL (0.0-0.2) Sodium Level 145 mmol/L (136-145) 145 mmol/L (136-145) Potassium Level 3.5 mmol/L (3.5-5.1) 3.4 mmol/L (3.5-5.1) Chloride Level 110 mmol/L (98-107) 109 mmol/L (98-107) Carbon Dioxide Level 29 mmol/L (21-32) 27 mmol/L (21-32) Anion Gap 6 (6-14) 9 (6-14) Blood Urea Nitrogen 32 mg/dL (8-26) 29 mg/dL (8-26) Creatinine 1.3 mg/dL (0.7-1.3) 1.2 mg/dL (0.7-1.3) Estimated GFR (Cockcroft-Gault) 65.5 71.8 BUN/Creatinine Ratio 25 (6-20) Glucose Level 106 mg/dL (70-99) 113 mg/dL (70-99) Calcium Level 7.8 mg/dL (8.5-10.1) 8.1 mg/dL (8.5-10.1) Total Bilirubin 0.6 mg/dL (0.2-1.0) Aspartate Amino Transf (AST/SGOT) 88 U/L (15-37) Alanine Aminotransferase (ALT/SGPT) 127 U/L (16-63) Alkaline Phosphatase 79 U/L (46-116) Total Protein 4.9 g/dL (6.4-8.2) Albumin 1.8 g/dL (3.4-5.0) Albumin/Globulin Ratio 0.6 (1.0-1.7) Creatine Kinase 362 U/L (39-308) Laboratory Tests Test 11/02/20 05:00 Sodium Level 145 mmol/L (136-145) Potassium Level 3.4 mmol/L (3.5-5.1) Chloride Level 109 mmol/L (98-107) Carbon Dioxide Level 27 mmol/L (21-32) Anion Gap 9 (6-14) Blood Urea Nitrogen 29 mg/dL (8-26) Creatinine 1.2 mg/dL (0.7-1.3) Estimated GFR (Cockcroft-Gault) 71.8 Glucose Level 113 mg/dL (70-99) Calcium Level 8.1 mg/dL (8.5-10.1) Creatine Kinase 362 U/L (39-308) Microbiology 10/27/20 Blood Culture - Final, Complete 10/27/20 Antimicrobic Susceptibility - Final, Complete 10/27/20 Urine Culture - Final, Complete 10/27/20 Antimicrobic Susceptibility - Final, Complete Medications Current Medications Sodium Chloride 1,000 ml @ 1,000 mls/hr 1X ONCE IV Last administered on 10/27/20at 06:45; Start 10/27/20 at 06:30; Stop 10/27/20 at 07:29; Status DC Acetaminophen (Tylenol Supp) 975 mg 1X ONCE IN Last administered on 10/27/20at 07:30; Start 10/27/20 at 06:30; Stop 10/27/20 at 06:31; Status DC Lidocaine HCl (Lidocaine 1% 20ml Vial) 20 ml STK-MED ONCE .ROUTE ; Start 10/27/20 at 06:30; Stop 10/27/20 at 06:30; Status DC Sodium Chloride 1,000 ml @ 1,000 mls/hr 1X ONCE IV Last administered on 10/27/20at 06:45; Start 10/27/20 at 07:00; Stop 10/27/20 at 07:59; Status DC Piperacillin Sod/ Tazobactam Sod 3.375 gm/Sodium Chloride 50 ml @ 100 mls/hr 1X ONCE IV Last administered on 10/27/20at 07:58; Start 10/27/20 at 07:00; Stop 10/27/20 at 07:29; Status DC Sodium Chloride 1,000 ml @ 1,000 mls/hr 1X ONCE IV Last administered on 10/27/20at 07:57; Start 10/27/20 at 07:15; Stop 10/27/20 at 08:14; Status DC Norepinephrine Bitartrate 8 mg/ Dextrose 258 ml @ 12.848 mls/ hr 1X ONCE IV Last administered on 10/27/20at 08:42; Start 10/27/20 at 08:15; Stop 10/28/20 at 04:19; Status DC Ondansetron HCl (Zofran) 4 mg PRN Q8HRS PRN IV NAUSEA/VOMITING; Start 10/27/20 at 08:15; Stop 10/28/20 at 08:14; Status DC Sodium Chloride 1,000 ml @ 125 mls/hr Q8H IV Last administered on 10/27/20at 23:48; Start 10/27/20 at 08:15; Stop 10/28/20 at 08:14; Status DC Iohexol (Omnipaque 350 Mg/ml) 100 ml 1X ONCE IV ; Start 10/27/20 at 08:45; Stop 10/27/20 at 08:46; Status DC Info (CONTRAST GIVEN -- Rx MONITORING) 1 each PRN DAILY PRN MC SEE COMMENTS; Start 10/27/20 at 08:45; Stop 10/29/20 at 08:44; Status DC Piperacillin Sod/ Tazobactam Sod (Zosyn Per Pharmacy) 1 each PRN DAILY PRN MC S EE COMMENTS; Start 10/27/20 at 10:30; Stop 10/31/20 at 10:22; Status DC Piperacillin Sod/ Tazobactam Sod 2.25 gm/Sodium Chloride 50 ml @ 100 mls/hr Q6HRS IV Last administered on 10/28/20at 11:50; Start 10/27/20 at 12:00; Stop 10/28/20 at 14:37; Status DC Ondansetron HCl (Zofran) 4 mg PRN Q6HRS PRN IVP NAUSEA/VOMITING; Start 10/27/20 at 10:30 Famotidine (Pepcid Vial) 20 mg QHS IVP Last administered on 10/30/20at 21:23; Start 10/27/20 at 21:00; Stop 10/31/20 at 14:07; Status DC Info (Icu Electrolyte Protocol) 1 ea DAILY MC Last administered on 10/28/20at 09:00; Start 10/28/20 at 09:00; Stop 10/31/20 at 14:06; Status DC Heparin Sodium (Porcine) (Heparin Sodium) 5,000 unit Q8HRS SQ ; Start 10/27/20 at 14:00; Stop 10/27/20 at 14:51; Status DC Sodium Chloride (Normal Saline Flush) 3 ml QSHIFT PRN IV AFTER MEDS AND BLOOD DRAWS; Start 10/27/20 at 10:30 Sodium Chloride 1,000 ml @ 100 mls/hr Q10H IV Last administered on 11/01/20at 15:28; Start 10/27/20 at 10:30 Hydromorphone HCl (Dilaudid) 0.2 mg PRN Q1HR PRN IV PAIN; Start 10/27/20 at 10:30 Bisacodyl (Dulcolax Supp) 10 mg PRN DAILY PRN IN CONSTIPATION; Start 10/27/20 at 10:30 Sodium Bicarbonate (Sodium Bicarb Adult 8.4% Syr) 100 meq 1X ONCE IV Last administered on 10/27/20at 10:54; Start 10/27/20 at 11:00; Stop 10/27/20 at 11:01; Status DC Sodium Chloride 1,000 ml @ 500 mls/hr 1X ONCE IV Last administered on 10/27/20at 10:53; Start 10/27/20 at 11:00; Stop 10/27/20 at 12:59; Status DC Sodium Chloride 1,000 ml @ 1,000 mls/hr Q1H IV ; Start 10/27/20 at 11:00; Stop 10/27/20 at 12:57; Status DC Sodium Chloride 500 ml @ 1,000 mls/hr PRN Q30MIN PRN IV SEE COMMENTS; Start 10/27/20 at 11:00 Norepinephrine Bitartrate 8 mg/ Dextrose 258 ml @ 0 mls/hr CONT PRN IV SEE I/O RECORD Last administered on 10/28/20at 19:56; Start 10/27/20 at 11:00; Stop 10/31/20 at 14:05; Status DC Aspirin (Ecotrin) 81 mg DAILYWBKFT PO Last administered on 11/02/20at 08:17; Start 10/27/20 at 12:30 Aspirin (Aspirin Rectal Supp) 300 mg 1X ONCE IN ; Start 10/27/20 at 13:15; Stop 10/27/20 at 13:16; Status DC Heparin Sodium/ Dextrose 250 ml @ 7.656 mls/ hr CONT PRN IV PER PROTOCOL Last administered on 10/27/20at 13:54; Start 10/27/20 at 13:15; Stop 10/28/20 at 10:48; Status DC Heparin Sodium (Porcine) (Heparin Sodium) 1,600 unit PRN Q6HRS PRN IV FOR UFH LEVEL LESS THAN 0.2 Last administered on 10/27/20at 20:46; Start 10/27/20 at 13:15; Stop 10/28/20 at 10:48; Status DC Brimonidine Tartrate (Alphagan) 1 drop BID OU Last administered on 11/02/20at 08:18; Start 10/28/20 at 21:00 Dorzolamide HCl (Trusopt) 1 drop BID OU Last administered on 11/02/20at 08:18; Start 10/28/20 at 11:00 Latanoprost (Xalatan) 1 drop QHS OU Last administered on 11/01/20at 20:40; Start 10/28/20 at 21:00 Aspirin (Aspirin Rectal Supp) 150 mg 1X ONCE IN ; Start 10/28/20 at 11:00; Stop 10/28/20 at 11:01; Status DC Metoprolol Tartrate (Lopressor Vial) 2.5 mg Q6HRS IVP ; Start 10/28/20 at 12:00; Stop 10/29/20 at 09:53; Status DC Timolol Maleate (Timoptic 0.5% Oph) 1 drop BID OU Last administered on 11/02/20at 08:17; Start 10/28/20 at 11:00 Lidocaine HCl (Buffered Lidocaine 1%) 3 ml STK-MED ONCE .ROUTE ; Start 10/28/20 at 11:45; Stop 10/28/20 at 11:45; Status DC Sodium Chloride 1,000 ml @ 1,000 mls/hr Q1H PRN IV hypotension; Start 10/28/20 at 11:30; Stop 10/28/20 at 17:29; Status DC Albumin Human 200 ml @ 200 mls/hr 1X PRN PRN IV Hypotension; Start 10/28/20 at 11:30; Stop 10/28/20 at 17:29; Status DC Sodium Chloride 1,000 ml @ 400 mls/hr Q2H30M PRN IV PATENCY; Start 10/28/20 at 11:30; Stop 10/28/20 at 23:29; Status DC Info (PHARMACY MONITORING -- do not chart) 1 each PRN DAILY PRN MC SEE COMMENTS; Start 10/28/20 at 11:30; Stop 10/29/20 at 11:42; Status DC Info (PHARMACY MONITORING -- do not chart) 1 each PRN DAILY PRN MC SEE COMMENTS; Start 10/28/20 at 11:30; Stop 10/30/20 at 09:59; Status DC Lidocaine HCl (Buffered Lidocaine 1%) 6 ml 1X ONCE INJ Last administered on 10/28/20at 12:16; Start 10/28/20 at 12:00; Stop 10/28/20 at 12:07; Status DC Heparin Sodium (Porcine) (Heparin Sodium) 10,000 unit STK-MED ONCE .ROUTE ; Start 10/28/20 at 12:10; Stop 10/28/20 at 12:10; Status DC Heparin Sodium (Porcine) (Heparin Sodium) 2,500 unit 1X ONCE INT CAT Last administered on 10/28/20at 12:19; Start 10/28/20 at 12:30; Stop 10/28/20 at 12:31; Status DC Piperacillin Sod/ Tazobactam Sod 2.25 gm/Sodium Chloride 50 ml @ 100 mls/hr Q8HRS IV Last administered on 10/31/20at 06:57; Start 10/28/20 at 21:00; Stop 10/31/20 at 10:22; Status DC Sodium Chloride 1,000 ml @ 1,000 mls/hr Q1H PRN IV hypotension; Start 10/29/20 at 07:30; Stop 10/29/20 at 13:29; Status DC Diphenhydramine HCl (Benadryl) 25 mg 1X PRN PRN IV ITCHING; Start 10/29/20 at 07:30; Stop 10/30/20 at 07:29; Status DC Diphenhydramine HCl (Benadryl) 25 mg 1X PRN PRN IV ITCHING; Start 10/29/20 at 07:30; Stop 10/30/20 at 07:29; Status DC Sodium Chloride 1,000 ml @ 400 mls/hr Q2H30M PRN IV PATENCY; Start 10/29/20 at 07:30; Stop 10/29/20 at 19:29; Status DC Info (PHARMACY MONITORING -- do not chart) 1 each PRN DAILY PRN MC SEE COMMENTS; Start 10/29/20 at 07:30; Status UNV Heparin Sodium (Porcine) (Heparin Sodium) 5,000 unit Q8HRS SQ ; Start 10/29/20 at 14:00; Status Cancel Metoprolol Tartrate (Lopressor) 12.5 mg BID PO Last administered on 11/02/20at 08:16; Start 10/29/20 at 21:00 Sodium Chloride 1,000 ml @ 100 mls/hr Q10H IV Last administered on 10/29/20at 11:52; Start 10/29/20 at 11:45; Stop 10/29/20 at 11:57; Status DC Lactobacillus Rhamnosus (Culturelle) 1 cap BID PO Last administered on 11/02/20at 08:16; Start 10/30/20 at 09:00 Sodium Chloride 1,000 ml @ 1,000 mls/hr Q1H PRN IV hypotension; Start 10/30/20 at 08:30; Stop 10/30/20 at 14:34; Status DC Albumin Human 200 ml @ 200 mls/hr 1X PRN PRN IV Hypotension; Start 10/30/20 at 08:30; Stop 10/30/20 at 14:35; Status DC Diphenhydramine HCl (Benadryl) 25 mg 1X PRN PRN IV ITCHING; Start 10/30/20 at 08:30; Stop 10/31/20 at 08:29; Status DC Diphenhydramine HCl (Benadryl) 25 mg 1X PRN PRN IV ITCHING; Start 10/30/20 at 08:30; Stop 10/31/20 at 08:29; Status DC Sodium Chloride 1,000 ml @ 400 mls/hr Q2H30M PRN IV PATENCY; Start 10/30/20 at 08:30; Stop 10/30/20 at 20:29; Status DC Info (PHARMACY MONITORING -- do not chart) 1 each PRN DAILY PRN MC SEE COMMENTS; Start 10/30/20 at 08:30 Ceftriaxone Sodium (Rocephin) 2 gm Q24H IVP Last administered on 11/02/20at 08:18; Start 10/31/20 at 11:00; Stop 11/02/20 at 10:07; Status DC Info (Non-Icu Electrolyte Protocol) 1 ea CONT PRN PRN MC SEE COMMENTS; Start 10/31/20 at 14:15 Famotidine (Pepcid) 20 mg QHS PO Last administered on 11/01/20at 20:33; Start 10/31/20 at 21:00 Docusate Sodium (Colace) 100 mg PRN DAILY PRN PO HARD STOOLS Last administered on 11/01/20at 08:50; Start 11/01/20 at 08:15 Acetaminophen (Tylenol) 650 mg PRN Q6HRS PRN PO MILD PAIN / TEMP > 100.3'F; Start 11/01/20 at 11:45 Levofloxacin (Levaquin) 750 mg DAILY08 PO ; Start 11/02/20 at 11:00 Active Scripts Active Aspirin Ec (Aspirin) 81 Mg Tablet.dr 81 Mg PO DAILYWBKFT Levofloxacin 750 Mg Tablet 750 Mg PO DAILY08 Metoprolol Tartrate 25 Mg Tablet 12.5 Mg PO BID Famotidine 20 Mg Tablet 20 Mg PO QHS Reported Meclizine Hcl 25 Mg Tablet 1 Tab PO PRN TID Latanoprost 0.005% Eye Drop (Latanoprost/Pf) 7.5 Ml Drops 7.5 Ml OP HS Dorzolamide-Timolol Eye Drops (Dorzolamide Hcl/Timolol Maleat) 10 Ml Drops 1 Drop EACHEYE BID Brimonidine Tartrate 5 Ml Drops 1 Drop EACHEYE BID Vitals/I & O Vital Sign - Last 24 Hours 11/01/20 11/01/20 11/01/20 11/01/20 14:59 19:21 20:00 20:37 Temp 97.4 97.9 97.4 97.9 Pulse 80 80 80 Resp 16 16 B/P (MAP) 150/78 (102) 134/83 (100) 134/83 Pulse Ox 95 95 O2 Delivery Room Air Room Air Room Air 11/01/20 11/02/20 11/02/20 11/02/20 22:28 03:49 06:50 07:40 Temp 98.1 97.8 97.9 98.1 97.8 97.9 Pulse 79 73 100 Resp 18 18 22 B/P (MAP) 147/84 (105) 142/74 (96) 127/90 (102) Pulse Ox 97 96 99 O2 Delivery Room Air Room Air Room Air Room Air 11/02/20 08:16 Pulse 100 B/P (MAP) 127/90 Intake and Output 11/01/20 11/01/20 11/02/20 14:59 22:59 06:59 Intake Total 300 ml 240 ml 120 ml Output Total 950 ml 675 ml 950 ml Balance -650 ml -435 ml -830 ml Images Brain MRI without contrast. HISTORY: Stroke. TECHNIQUE: Multiplanar, multisequence magnetic resonance imaging of the brain was performed without contrast. COMPARISON: CT obtained 10/29/2020. FINDINGS: There is a small focus of restricted diffusion within the posterior left occipital lobe, consistent with an acute infarct. There is no evidence of hemorrhage. There is no mass effect or midline shift. There is no hydrocephalus. There are extensive scattered areas of signal change throughout the cerebral white matter and brittany, most commonly due to chronic small vessel disease in patients of this age. There is a chronic lacunar infarct within the left caudate nucleus. There is evidence of right lens surgery. The paranasal sinuses mastoid air cells are clear. There are normal flow voids within the cerebral vessels. There is no calvarial lesion. IMPRESSION: 1. Small acute infarct within the posterior left occipital lobe. 2. Extensive scattered areas of signal change throughout the cerebral white matter and brittany, most College due to chronic small vessel disease in patients of this age. 3. Small chronic lacunar infarct within the left caudate nucleus Carotid Doppler sonogram. HISTORY: Cerebral infarction. Atherosclerosis. TECHNIQUE: Antoine scale and color Doppler sonographic evaluation of the neck with spectral waveform analysis was performed and static images are submitted for review. FINDINGS: The right carotid arteries could not be assessed due to overlying bandage material. There is mild atherosclerotic plaque involving the left common, internal and external carotid arteries. The peak systolic velocity within the left common carotid artery is 115 cm/sec. The peak systolic velocity within the left inte rnal carotid artery is 98 cm/sec and the end diastolic velocity within the left internal carotid artery is 28 cm/sec. The left ICA/CCA ratio is 1.0. There is normal antegrade flow within both vertebral arteries. IMPRESSION: 1. No Doppler evidence of greater than 50 percent stenosis involving the left ICA. 2. Nonassessment of the right carotid arteries due to overlying bandage mat erial. Justicifation of Admission Dx: Justifications for Admission: Justification of Admission Dx: Yes KEILA LEVINE MD Nov 02, 2020 11:03
--- NOTE | 2020-11-02 11:04 | NUR ---
SS following up with discharge planning. Discharge orders received for [facility], ; fax [phone]. SS phoned and faxed discharge orders to [facility]. Currently awaiting insurance authorization at this time. SS will continue to follow for discharge planning.
--- NOTE | 2020-11-02 12:28 | PDOC ---
ROSEANN NI CIGAR TOBACCO PROCESSING SUPERVISOR 11/02/20 1228: CARDIO Progress Notes Date and Time Date of Service 11/02/2020 Time of Evaluation 1100 Subjective Subjective: No Chest Pain, No shortness of breath, No Palpitations Vitals Vitals Vital Signs Date Time Temp Pulse Resp B/P (MAP) Pulse Ox O2 Delivery O2 Flow Rate FiO2 11/02/20 11:00 97.4 85 22 195/98 (130) 96 Room Air 97.4 Weight Weight [ ] Input and Output Intake and Output Intake and Output 11/02/20 07:00 Intake Total 660 ml Output Total 2575 ml Balance -1915 ml Intake Oral 660 ml Output Urine Total 2575 ml # Bowel Movements 2 Laboratory Labs Laboratory Tests Test 11/02/20 05:00 Sodium Level 145 mmol/L (136-145) Potassium Level 3.4 mmol/L (3.5-5.1) Chloride Level 109 mmol/L (98-107) Carbon Dioxide Level 27 mmol/L (21-32) Anion Gap 9 (6-14) Blood Urea Nitrogen 29 mg/dL (8-26) Creatinine 1.2 mg/dL (0.7-1.3) Estimated GFR (Cockcroft-Gault) 71.8 Glucose Level 113 mg/dL (70-99) Calcium Level 8.1 mg/dL (8.5-10.1) Creatine Kinase 362 U/L (39-308) Microbiology Micro Microbiology 10/27/20 Blood Culture - Final, Complete 10/27/20 Antimicrobic Susceptibility - Final, Complete 10/27/20 Urine Culture - Final, Complete 10/27/20 Antimicrobic Susceptibility - Final, Complete Review of Systems Constitutional: yes: weakness, alert, oriented Ears/Nose/Throat: Yes: no symptom reported Eyes: Yes: no symptom reported Pulmonary: Yes no symptom reported Cardiovascular: Yes no symptom reported Gastrointestional: Yes: no symptom reported Genitourinary: Yes: no symptom reported Musculoskeletal: Yes: no symptom reported Skin: Yes no symptom reported Endocrine: Yes: no symptom reported Physical Exam HEENT: Neck Supple W Full Motion Chest: Symmetric LUNGS: Clear to Auscultation Heart: RRR (SR no ectopies) Abdomen: Soft N/T Extremities: No Edema, No Calf Tenderness Neurology: alert, oriented, follow commands Assessment Assessment 1. Sepsis/fever/pyelonephritis: ID following. Covid neg. Echo with questionable vegetation on his central line and right atrium on 2D echo. 2. Septic shock: much better. BP stable 3. Severe PERRY with mild hypernatremia: received temporary HD 4. Rhabdomyolysis with transaminitis: peaked 89052. improved to 362 5. PSVT with aberrancy: none further, maintaining SR 6. LBBB: no prior EKG for comparison 7. NSTEMI: peaked at 4.3. CP/SOA. Possibly demand mediated. 2D echo showed LVEF 50%. 8. Metabolic encephalopathy: mentation better 9. Acute CVA with posterior left occipital lobe: neurology following Recommendations ASA therapy SBP 190s likely false taken during PT therapy, will recheck. Continue metoprolol for rate control LDL at 33 does not need statin at this time given recent rhabdo Consider outpatient ischemic evaluation Antibiotics ongoing. Anticipating acute rehab Consider ADITYA if ID deemed it warranted. Justicifation of Admission Dx: Justifications for Admission: Justification of Admission Dx: Yes HERNAN FORTUNE MD 11/02/20 1656: CARDIO Progress Notes Plan Plan Patient seen and examined. Agree with above nurse practitioner note. Supportive care. Outpatient ischemic testing. ROSEANN NI APRN Nov 02, 2020 12:28 HERNAN FORTUNE MD Nov 02, 2020 16:56
[2020-11-02] MEDS ORDERED: POTASSIUM CHLORIDE 20 MEQ TABLET.ER. PO ONE (12:45)
--- NOTE | 2020-11-02 13:26 | NUR ---
Discontinued right temporary dialysis catheter removed per Dr. Fofana's order.
[2020-11-02] MEDS: ACETAMINOPHEN 325 MG TABLET. PO PRN (21:17)
[2020-11-02] MEDS: FAMOTIDINE 20 MG TABLET. PO SCH (21:17)
[2020-11-02] MEDS: LATANOPROST 0.005% OPHTH SOLUTION 2.5ML BOTTLE. OU SCH (21:18)
[2020-11-03] VITALS (7 sets, daily range): BP systolic 140–178; BP diastolic 73–101
[2020-11-03] MEDS: METOPROLOL TART IMMED RELEASE 25 MG TABLET. PO SCH ×3 (04:42→21:11)
--- NOTE | 2020-11-03 04:53 | NUR ---
gave pt her 0900 lopressor , bp was 178/107. talked with pt about high blood pressure, diet changes and compliance. [email or web address]
[2020-11-03 07:20] LABS: CREATININE 1.3 mg/dL (0.7-1.3); GFR 65.5; POTASSIUM 3.4 mmol/L (3.5-5.1)
--- NOTE | 2020-11-03 08:32 | PDOC ---
ROSEANN NI CAREER GUIDANCE COUNSELOR 11/03/20 0832: CARDIO Progress Notes Date and Time Date of Service 11/03/2020 Time of Evaluation 1000 Subjective Subjective: No Chest Pain, No shortness of breath, No Palpitations Vitals Vitals Vital Signs Date Time Temp Pulse Resp B/P (MAP) Pulse Ox O2 Delivery O2 Flow Rate FiO2 11/03/20 07:00 97.6 82 16 165/89 (114) 96 Room Air 97.6 Weight Weight [ ] Input and Output Intake and Output Intake and Output 11/03/20 07:00 Intake Total 700 ml Output Total 2700 ml Balance -2000 ml Intake Oral 700 ml Output Urine Total 2700 ml # Bowel Movements 1 Laboratory Labs Laboratory Tests Test 11/03/20 05:30 Sodium Level 144 mmol/L (136-145) Potassium Level 3.4 mmol/L (3.5-5.1) Chloride Level 108 mmol/L (98-107) Carbon Dioxide Level 27 mmol/L (21-32) Anion Gap 9 (6-14) Blood Urea Nitrogen 25 mg/dL (8-26) Creatinine 1.3 mg/dL (0.7-1.3) Estimated GFR (Cockcroft-Gault) 65.5 Glucose Level 84 mg/dL (70-99) Calcium Level 8.0 mg/dL (8.5-10.1) Microbiology Micro Microbiology 10/27/20 Blood Culture - Final, Complete 10/27/20 Antimicrobic Susceptibility - Final, Complete 10/27/20 Urine Culture - Final, Complete 10/27/20 Antimicrobic Susceptibility - Final, Complete Review of Systems Constitutional: yes: weakness, alert, oriented Ears/Nose/Throat: Yes: no symptom reported Eyes: Yes: no symptom reported Pulmonary: Yes no symptom reported Cardiovascular: Yes no symptom reported Gastrointestional: Yes: no symptom reported Genitourinary: Yes: no symptom reported Musculoskeletal: Yes: no symptom reported Skin: Yes no symptom reported Endocrine: Yes: no symptom reported Physical Exam HEENT: Neck Supple W Full Motion Chest: Symmetric LUNGS: Clear to Auscultation Heart: RRR (SR) Abdomen: Soft N/T Extremities: No Edema, No Calf Tenderness Neurology: alert, oriented, follow commands Assessment Assessment 1. Sepsis/fever/pyelonephritis: ID following. Covid neg. Echo with questionable vegetation on his central line and right atrium on 2D echo. 2. Septic shock: much better. BP stable 3. Severe PERRY with mild hypernatremia: received temporary HD. Cr much better 4. Rhabdomyolysis with transaminitis: peaked 22629. improved to 362 5. PSVT: brief bursts overnight 6. LBBB: no prior EKG for comparison 7. NSTEMI: peaked at 4.3. No CP/SOA. Possibly demand mediated. 2D echo showed LVEF 50%. 8. Metabolic encephalopathy: back to baseline 9. 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 HTN: labile Recommendations ASA therapy LDL at 33 does not need statin at this time also with recent rhabdo Consider outpatient ischemic evaluation Antibiotics ongoing. Anticipating acute rehab Consider ADITYA if ID deemed it warranted. Consider MCOT Increase metoprolol and add norvasc. Justicifation of Admission Dx: Justifications for Admission: Justification of Admission Dx: Yes HERNAN FORTUNE MD 11/03/20 1734: CARDIO Progress Notes Plan Plan Pt. seen and examined. Agree with above [employer] MAKE READY WORKER note. Sitting up in bed and eating dinner. Denies any cardiac issues. No edema. No acute indication for ADITYA. Outpt ischemic eval. Thanks ROSEANN NI APRN Nov 03, 2020 08:32 HERNAN FORTUNE MD Nov 03, 2020 17:34
[2020-11-03] MEDS: LACTOBACILLUS RHAMNOSUS GG 1 CAPSULE. PO SCH ×2 (08:44→21:10)
[2020-11-03] MEDS: ASPIRIN ENTERIC COATED 81 MG TABLET.DR. PO SCH (08:44)
[2020-11-03] MEDS: DORZOLAMIDE 2% OPHTH SOLUTION 10ML BOTTLE. OU SCH ×2 (08:46→21:11)
[2020-11-03] MEDS: TIMOLOL 0.5% OPHTH SOLUTION 5ML BOTTLE. OU SCH ×2 (08:46→21:11)
[2020-11-03] MEDS: BRIMONIDINE 0.2% OPHTH SOLUTION 5ML BOTTLE. OU SCH ×2 (08:47→21:11)
--- NOTE | 2020-11-03 09:05 | PDOC ---
DATE OF SERVICE DATE: 11/03/20 TIME: 09:05 SUBJECTIVE ROS Stable, no new complaints OBJECTIVE Vital Signs Vital Signs Date Time Temp Pulse Resp B/P (MAP) Pulse Ox O2 Delivery O2 Flow Rate FiO2 11/03/20 08:46 82 165/89 11/03/20 07:00 97.6 16 96 Room Air 97.6 I & 0 Intake and Output 11/03/20 07:00 Intake Total 700 ml Output Total 2700 ml Balance -2000 ml Intake Oral 700 ml Output Urine Total 2700 ml # Bowel Movements 1 PHYSICAL EXAM Physical Exam GENERAL: NAD , HEENT: anicteric, OM moist NECK: Supple LUNGS: Clear bilaterally. non labored HEART: S1, S2, no murmurs. ABDOMEN: Soft, nontender EXTREMITIES: No edema, no cyanosis. DERMATOLOGIC: No rash. Colvin + DIAGNOSIS/ASSESSMENT Assessment & Plan PERRY - 2/2 Pyelonephritis with urine culture positive Klebsiella, needing dialysis , last on 10/30 , renal function improved and stable , good UOP,E- Lytes stable . No indication for Dialysis . Temp HD catheter removed CT scan - POA - Right perinephric stranding. No renal calculi. No hydronephrosis. Supportive care, Plan to dc with indwelling colvin per primary Rhabdomyolysis- improving History of urinary retention, self-catheterization at home prior to admission for a long time Right renal cysts- on CT scan- 5.9 x 5.9 cm and 3.2 x 3.1 cm Numerous enlarged retroperitoneal and inguinal lymph nodes probably characterized without intravenous contrast Septic shock resolved Gram-negative sepsis/ Klebsiella pneumonia bacteremia source Abnormal LFTs. Improving Encephalopathy improved Acute hypoxic respiratory failure now resolved DC per primary, follow up with PCP post dc, Follow up with as OP in 1-2 months .Discussed with pt and RN COMMENT/RELEVANT DATA Meds Current Medications Medications (Trade) Dose Ordered Sig/Ambrosio Start Time Stop Time Status Last Admin Dose Admin Acetaminophen (Tylenol Supp) 975 mg 1X ONCE 10/27/20 06:30 10/27/20 06:31 DC 10/27/20 07:30 975 MG Acetaminophen (Tylenol) 650 mg PRN Q6HRS PRN 11/01/20 11:45 11/02/20 21:17 650 MG Albumin Human 200 ml @ 200 mls/hr 1X PRN PRN 10/30/20 08:30 10/30/20 14:35 DC Amlodipine Besylate (Norvasc) 5 mg DAILY 11/03/20 09:00 11/03/20 08:46 5 MG Aspirin (Aspirin Rectal Supp) 150 mg 1X ONCE 10/28/20 11:00 10/28/20 11:01 DC Aspirin (Ecotrin) 81 mg DAILYWBKFT 10/27/20 12:30 11/03/20 08:44 81 MG Bisacodyl (Dulcolax Supp) 10 mg PRN DAILY PRN 10/27/20 10:30 Brimonidine Tartrate (Alphagan) 1 drop BID 10/28/20 21:00 11/03/20 08:47 1 DROP Ceftriaxone Sodium (Rocephin) 2 gm Q24H 10/31/20 11:00 11/02/20 10:07 DC 11/02/20 08:18 2 GM Diphenhydramine HCl (Benadryl) 25 mg 1X PRN PRN 10/30/20 08:30 10/31/20 08:29 DC Docusate Sodium (Colace) 100 mg PRN DAILY PRN 11/01/20 08:15 11/01/20 08:50 100 MG Dorzolamide HCl (Trusopt) 1 drop BID 10/28/20 11:00 11/03/20 08:46 1 DROP Famotidine (Pepcid Vial) 20 mg QHS 10/27/20 21:00 10/31/20 14:07 DC 10/30/20 21:23 20 MG Famotidine (Pepcid) 20 mg QHS 10/31/20 21:00 11/02/20 21:17 20 MG Heparin Sodium (Porcine) (Heparin Sodium) 5,000 unit Q8HRS 10/29/20 14:00 Cancel Heparin Sodium/ Dextrose 250 ml @ 7.656 mls/ hr CONT PRN 10/27/20 13:15 10/28/20 10:48 DC 10/27/20 13:54 7.656 MLS/HR Hydromorphone HCl (Dilaudid) 0.2 mg PRN Q1HR PRN 10/27/20 10:30 Info (CONTRAST GIVEN -- Rx MONITORING) 1 each PRN DAILY PRN 10/27/20 08:45 10/29/20 08:44 DC Info ([facility] Electrolyte Protocol) 1 ea DAILY 10/28/20 09:00 10/31/20 14:06 DC 10/28/20 09:00 1 EA Info (Non-Icu Electrolyte Protocol) 1 ea CONT PRN PRN 10/31/20 14:15 Info (PHARMACY MONITORING -- do not chart) 1 each PRN DAILY PRN 10/30/20 08:30 Iohexol (Omnipaque 350 Mg/ml) 100 ml 1X ONCE 10/27/20 08:45 10/27/20 08:46 DC Lactobacillus Rhamnosus (Culturelle) 1 cap BID 10/30/20 09:00 11/03/20 08:44 1 CAP Latanoprost (Xalatan) 1 drop QHS 10/28/20 21:00 11/02/20 21:18 1 DROP Levofloxacin (Levaquin) 750 mg DAILY08 11/02/20 11:00 11/03/20 08:44 750 MG Lidocaine HCl (Buffered Lidocaine 1%) 6 ml 1X ONCE 10/28/20 12:00 10/28/20 12:07 DC 10/28/20 12:16 4 ML Lidocaine HCl (Lidocaine 1% 20ml Vial) 20 ml STK-MED ONCE 10/27/20 06:30 10/27/20 06:30 DC Metoprolol Tartrate (Lopressor Vial) 2.5 mg Q6HRS 10/28/20 12:00 10/29/20 09:53 DC Metoprolol Tartrate (Lopressor) 25 mg BID 11/03/20 09:00 11/03/20 08:45 25 MG Norepinephrine Bitartrate 8 mg/ Dextrose 258 ml @ 0 mls/hr CONT PRN 10/27/20 11:00 10/31/20 14:05 DC 10/28/20 19:56 3.6 MLS/HR Ondansetron HCl (Zofran) 4 mg PRN Q6HRS PRN 10/27/20 10:30 Piperacillin Sod/ Tazobactam Sod (Zosyn Per Pharmacy) 1 each PRN DAILY PRN 10/27/20 10:30 10/31/20 10:22 DC Piperacillin Sod/ Tazobactam Sod 2.25 gm/Sodium Chloride 50 ml @ 100 mls/hr Q8HRS 10/28/20 21:00 10/31/20 10:22 DC 10/31/20 06:57 100 MLS/HR Piperacillin Sod/ Tazobactam Sod 3.375 gm/Sodium Chloride 50 ml @ 100 mls/hr 1X ONCE 10/27/20 07:00 10/27/20 07:29 DC 10/27/20 07:58 100 MLS/HR Potassium Chloride (Klor-Con) 20 meq 1X ONCE 11/02/20 12:45 11/02/20 12:46 DC 11/02/20 14:44 20 MEQ Sodium Bicarbonate (Sodium Bicarb Adult 8.4% Syr) 100 meq 1X ONCE 10/27/20 11:00 10/27/20 11:01 DC 10/27/20 10:54 100 MEQ Sodium Chloride 1,000 ml @ 400 mls/hr Q2H30M PRN 10/30/20 08:30 10/30/20 20:29 DC Sodium Chloride (Normal Saline Flush) 3 ml QSHIFT PRN 10/27/20 10:30 Timolol Maleate (Timoptic 0.5% Ophth) 1 drop BID 10/28/20 11:00 11/03/20 08:46 1 DROP Lab Laboratory Tests Test 11/03/20 05:30 Sodium Level 144 mmol/L (136-145) Potassium Level 3.4 mmol/L (3.5-5.1) Chloride Level 108 mmol/L (98-107) Carbon Dioxide Level 27 mmol/L (21-32) Anion Gap 9 (6-14) Blood Urea Nitrogen 25 mg/dL (8-26) Creatinine 1.3 mg/dL (0.7-1.3) Estimated GFR (Cockcroft-Gault) 65.5 Glucose Level 84 mg/dL (70-99) Calcium Level 8.0 mg/dL (8.5-10.1) Results All relevant outside records, renal labs, imaging studies, telemetry/EKG's were reviewed. Justicifation of Admission Dx: Justifications for Admission: Justification of Admission Dx: Yes BRIAN HERNANDEZ MD Nov 03, 2020 09:05
--- NOTE | 2020-11-03 09:30 | PDOC ---
Infectious Disease Note Subjective: Subjective Pt feels much better Numbness and weakness RUE improving no f/n/v/d had a bm yesterday Vital Signs: Vital Signs Vital Signs Date Time Temp Pulse Resp B/P (MAP) Pulse Ox O2 Delivery O2 Flow Rate FiO2 11/03/20 08:46 82 165/89 11/03/20 07:00 97.6 16 96 Room Air 97.6 Physical Exam: PHYSICAL EXAM GENERAL: axox3 male HEENT: Normocephalic, atraumatic, anicteric. NECK: Supple, no JVD. Right IJ and dialysis catheter in place LUNGS: Clear bilaterally. No wheezing. HEART: S1, S2, no murmurs. ABDOMEN: Soft, nontender, nondistended, no rebound, no guarding. EXTREMITIES: No edema, no cyanosis. DERMATOLOGIC: Warm and dry. No generalized rash. NEUROLOGIC: alert awake PSYCHIATRIC: calm cooperative Medications: Inpatient Meds: Current Medications Medications (Trade) Dose Ordered Sig/Ambrosio Start Time Stop Time Status Last Admin Dose Admin Acetaminophen (Tylenol Supp) 975 mg 1X ONCE 10/27/20 06:30 10/27/20 06:31 DC 10/27/20 07:30 975 MG Acetaminophen (Tylenol) 650 mg PRN Q6HRS PRN 11/01/20 11:45 11/02/20 21:17 650 MG Albumin Human 200 ml @ 200 mls/hr 1X PRN PRN 10/30/20 08:30 10/30/20 14:35 DC Amlodipine Besylate (Norvasc) 5 mg DAILY 11/03/20 09:00 11/03/20 08:46 5 MG Aspirin (Aspirin Rectal Supp) 150 mg 1X ONCE 10/28/20 11:00 10/28/20 11:01 DC Aspirin (Ecotrin) 81 mg DAILYWBKFT 10/27/20 12:30 11/03/20 08:44 81 MG Bisacodyl (Dulcolax Supp) 10 mg PRN DAILY PRN 10/27/20 10:30 Brimonidine Tartrate (Alphagan) 1 drop BID 10/28/20 21:00 11/03/20 08:47 1 DROP Ceftriaxone Sodium (Rocephin) 2 gm Q24H 10/31/20 11:00 11/02/20 10:07 DC 11/02/20 08:18 2 GM Diphenhydramine HCl (Benadryl) 25 mg 1X PRN PRN 10/30/20 08:30 10/31/20 08:29 DC Docusate Sodium (Colace) 100 mg PRN DAILY PRN 11/01/20 08:15 11/01/20 08:50 100 MG Dorzolamide HCl (Trusopt) 1 drop BID 10/28/20 11:00 11/03/20 08:46 1 DROP Famotidine (Pepcid Vial) 20 mg QHS 10/27/20 21:00 10/31/20 14:07 DC 10/30/20 21:23 20 MG Famotidine (Pepcid) 20 mg QHS 10/31/20 21:00 11/02/20 21:17 20 MG Heparin Sodium (Porcine) (Heparin Sodium) 5,000 unit Q8HRS 10/29/20 14:00 Cancel Heparin Sodium/ Dextrose 250 ml @ 7.656 mls/ hr CONT PRN 10/27/20 13:15 10/28/20 10:48 DC 10/27/20 13:54 7.656 MLS/HR Hydromorphone HCl (Dilaudid) 0.2 mg PRN Q1HR PRN 10/27/20 10:30 Info (CONTRAST GIVEN -- Rx MONITORING) 1 each PRN DAILY PRN 10/27/20 08:45 10/29/20 08:44 DC Info (Icu Electrolyte Protocol) 1 ea DAILY 10/28/20 09:00 10/31/20 14:06 DC 10/28/20 09:00 1 EA Info (Non-Icu Electrolyte Protocol) 1 ea CONT PRN PRN 10/31/20 14:15 Info (PHARMACY MONITORING -- do not chart) 1 each PRN DAILY PRN 10/30/20 08:30 Iohexol (Omnipaque 350 Mg/ml) 100 ml 1X ONCE 10/27/20 08:45 10/27/20 08:46 DC Lactobacillus Rhamnosus (Culturelle) 1 cap BID 10/30/20 09:00 11/03/20 08:44 1 CAP Latanoprost (Xalatan) 1 drop QHS 10/28/20 21:00 11/02/20 21:18 1 DROP Levofloxacin (Levaquin) 750 mg DAILY08 11/02/20 11:00 11/03/20 08:44 750 MG Lidocaine HCl (Buffered Lidocaine 1%) 6 ml 1X ONCE 10/28/20 12:00 10/28/20 12:07 DC 10/28/20 12:16 4 ML Lidocaine HCl (Lidocaine 1% 20ml Vial) 20 ml STK-MED ONCE 10/27/20 06:30 10/27/20 06:30 DC Metoprolol Tartrate (Lopressor Vial) 2.5 mg Q6HRS 10/28/20 12:00 10/29/20 09:53 DC Metoprolol Tartrate (Lopressor) 25 mg BID 11/03/20 09:00 11/03/20 08:45 25 MG Norepinephrine Bitartrate 8 mg/ Dextrose 258 ml @ 0 mls/hr CONT PRN 10/27/20 11:00 10/31/20 14:05 DC 10/28/20 19:56 3.6 MLS/HR Ondansetron HCl (Zofran) 4 mg PRN Q6HRS PRN 10/27/20 10:30 Piperacillin Sod/ Tazobactam Sod (Zosyn Per Pharmacy) 1 each PRN DAILY PRN 10/27/20 10:30 10/31/20 10:22 DC Piperacillin Sod/ Tazobactam Sod 2.25 gm/Sodium Chloride 50 ml @ 100 mls/hr Q8HRS 10/28/20 21:00 10/31/20 10:22 DC 10/31/20 06:57 100 MLS/HR Piperacillin Sod/ Tazobactam Sod 3.375 gm/Sodium Chloride 50 ml @ 100 mls/hr 1X ONCE 10/27/20 07:00 10/27/20 07:29 DC 10/27/20 07:58 100 MLS/HR Potassium Chloride (Klor-Con) 20 meq 1X ONCE 11/02/20 12:45 11/02/20 12:46 DC 11/02/20 14:44 20 MEQ Sodium Bicarbonate (Sodium Bicarb Adult 8.4% Syr) 100 meq 1X ONCE 10/27/20 11:00 10/27/20 11:01 DC 10/27/20 10:54 100 MEQ Sodium Chloride 1,000 ml @ 400 mls/hr Q2H30M PRN 10/30/20 08:30 10/30/20 20:29 DC Sodium Chloride (Normal Saline Flush) 3 ml QSHIFT PRN 10/27/20 10:30 Timolol Maleate (Timoptic 0.5% [facility]) 1 drop BID 10/28/20 11:00 11/03/20 08:46 1 DROP Labs: Lab Laboratory Tests Test 11/03/20 05:30 Sodium Level 144 mmol/L (136-145) Potassium Level 3.4 mmol/L (3.5-5.1) Chloride Level 108 mmol/L (98-107) Carbon Dioxide Level 27 mmol/L (21-32) Anion Gap 9 (6-14) Blood Urea Nitrogen 25 mg/dL (8-26) Creatinine 1.3 mg/dL (0.7-1.3) Estimated GFR (Cockcroft-Gault) 65.5 Glucose Level 84 mg/dL (70-99) Calcium Level 8.0 mg/dL (8.5-10.1) Micro CT abdomen and pelvis findings: Lower chest: Bilateral lower lobe posterior dependent atelectasis with tiny pleural effusions. Abdomen and pelvis: The liver, spleen, and pancreas have unremarkable noncontrast appearance. The cholelithiasis or gallbladder sludge. Adenomatous thickening of the adrenal glands. Right renal cysts measure 5.9 x 5.9 cm and 3.2 x 3.1 cm. Right perinephric stranding. No renal calculi. No hydronephrosis. Urinary bladder wall thickening. Freeman catheter within the urinary bladder. Postop changes prostatectomy. Small fluid within the pelvis. Appendix not well seen. No evidence of bowel obstruction. Numerous mildly enlarged retroperitoneal and inguinal lymph nodes poorly rich cterize without IV contrast. 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 Multilevel lumbar spondylosis. Impression: 1. Right perinephric stranding and urinary bladder wall thickening, may relate to urinary tract infection. 2. Small pelvic free fluid. 3. Numerous enlarged retroperitoneal and inguinal lymph nodes probably characterized without intravenous contrast. Recommend further clinical evaluation and follow-up. Comparison with prior imaging studies would also be of benefit. 4. Increased density within the gallbladder, may relate to cholelithiasis or sludge. Objective: Assessment: Septic shock resolved Gram-negative sepsis source Klebsiella pneumonia bacteremia source Pyelonephritis with urine culture positive Klebsiella PERRY with underlying CKD, metabolic acidosis, hypernatremia, on dialysis Rhabdomyolysis. Improving Abnormal LFTs. Improving Encephalopathy improved Acute hypoxic respiratory failure now resolved Abnormal CT pelvis postop changes prostatectomy. Small fluid within the pelvis. Questionable etiology History of urinary retention, status post self-catheterization at home prior to admission for a long time COVID-19 negative Influenza screen negative Rt sided weakness with ischemic changes on MRI brain HDC clot on echo Plan: Plan of Care Cont Ceftriaxone when ready for dc home transition to po cefdinir 300 mg po bid to complete 7 more days DC HDC if able Maintain aspiration precautions Probiotics/yogurt Monitor labs and cultures Continue supportive care D/W daughter at bedside D/W STEVEN BARBA MD Nov 03, 2020 09:30
--- NOTE | 2020-11-03 10:51 | PDOC ---
PULMONARY PROGRESS NOTES DATE: 11/03/20 TIME: 10:51 Subjective Pt. remains on room air Vitals Vital Signs Date Time Temp Pulse Resp B/P (MAP) Pulse Ox O2 Delivery O2 Flow Rate FiO2 11/03/20 08:46 82 165/89 11/03/20 08:00 Room Air 11/03/20 07:00 97.6 16 96 97.6 ROS: No Nausea, No Chest Pain, No Abdominal Pain, No Increase Cough General: Alert Lungs: Clear Cardiovascular: S1, S2 Abdomen: Soft Neuro Exam: Alert Skin: Warm, Dry Labs Laboratory Tests Test 11/02/20 05:00 11/03/20 05:30 Sodium Level 145 mmol/L (136-145) 144 mmol/L (136-145) Potassium Level 3.4 mmol/L (3.5-5.1) 3.4 mmol/L (3.5-5.1) Chloride Level 109 mmol/L (98-107) 108 mmol/L (98-107) Carbon Dioxide Level 27 mmol/L (21-32) 27 mmol/L (21-32) Anion Gap 9 (6-14) 9 (6-14) Blood Urea Nitrogen 29 mg/dL (8-26) 25 mg/dL (8-26) Creatinine 1.2 mg/dL (0.7-1.3) 1.3 mg/dL (0.7-1.3) Estimated GFR (Cockcroft-Gault) 71.8 65.5 Glucose Level 113 mg/dL (70-99) 84 mg/dL (70-99) Calcium Level 8.1 mg/dL (8.5-10.1) 8.0 mg/dL (8.5-10.1) Creatine Kinase 362 U/L (39-308) Laboratory Tests Test 11/03/20 05:30 Sodium Level 144 mmol/L (136-145) Potassium Level 3.4 mmol/L (3.5-5.1) Chloride Level 108 mmol/L (98-107) Carbon Dioxide Level 27 mmol/L (21-32) Anion Gap 9 (6-14) Blood Urea Nitrogen 25 mg/dL (8-26) Creatinine 1.3 mg/dL (0.7-1.3) Estimated GFR (Cockcroft-Gault) 65.5 Glucose Level 84 mg/dL (70-99) Calcium Level 8.0 mg/dL (8.5-10.1) Medications Active Scripts Medications Dose Route/Sig Max Daily Dose Days Date Category Meclizine Hcl 25 Mg Tablet 1 Tab PO PRN TID 10/27/20 Reported Latanoprost 0.005% Eye Drop (Latanoprost/Pf) 7.5 Ml Drops 7.5 Ml OP HS 10/27/20 Reported Dorzolamide-Timolol Eye Drops (Dorzolamide Hcl/Timolol Maleat) 10 Ml Drops 1 Drop EACHEYE BID 10/27/20 Reported Brimonidine Tartrate 5 Ml Drops 1 Drop EACHEYE BID 10/27/20 Reported Comments Brain MRI IMPRESSION: 1. Small acute infarct within the posterior left occipital lobe. 2. Extensive scattered areas of signal change throughout the cerebral white matter and brittany, most College due to chronic small vessel disease in patients of this age. 3. Small chronic lacunar infarct within the left caudate nucleus Impression . IMPRESSION: 1. Acute respiratory failure secondary to combination of suspected toxic encephalopathy and septic shock along with metabolic acidosis-- resolved now on room air 2. Highly suspected rhabdomyolysis. The patient was found down since 7 p.m. last night. His CPK was markedly elevated. 3. Urinary tract infection suspected contributing to septic shock. 4. Acute kidney injury. 5. Lactic acidosis secondary to septic shock. 6. Acute kidney injury, likely component of volume contraction. He is hypernatremic as well. 7. Influenza screen negative, but pending COVID. 8. Fever, likely source urine. He had too numerous white cell to count on urinalysis. Plan . RECOMMENDATIONS: Pt. is stable from pulmonary stand point, remains on room air Follow ID recs for ABX, blood cultures positive for GNR, KLEBSIELLA PNEUMONIAE Follow nephrology recs--on hemodialysis Follow neurology recommendations, brain MRI reviewed positive for CVA Follow cardiology recs, awaiting echocardiogram results COVID negative DVT/GI PPX Discussed with RN She remained stable from a pulmonary/respiratory standpoint we will sign off at this time please call with any questions or concerns thank you LYNDA STAPLETON MD Nov 03, 2020 10:51
--- NOTE | 2020-11-03 11:17 | PDOC ---
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 Metabolic encephalopathy Klebsiella pneumoniae, pyelonephritis, septic shock (resolved), acute on chronic kidney disease on dialysis, metabolic acidosis, hyponatremia, rhabdomyolysis, elevated liver function tests, respiratory failure, status-post prostatectomy, urinary retention requiring self-catheterization, COVID-19 negative Prostatism, Freeman catheter Plan Abnormal echocardiogram, further work-up per cardiology, from neurology perspective okay to continue on aspirin 81 mg aspirin daily Acute rehab Discussed with daughter and son-in-law Subjective No complaints Objective Vital Signs Date Time Temp Pulse Resp B/P (MAP) Pulse Ox O2 Delivery O2 Flow Rate FiO2 11/03/20 10:54 98.6 81 18 140/73 (95) 96 Room Air 98.6 Intake and Output 11/03/20 07:00 Intake Total 700 ml Output Total 2700 ml Balance -2000 ml Intake Oral 700 ml Output Urine Total 2700 ml # Bowel Movements 1 PHYSICAL EXAM Alert. Oriented to place and person, does not know date. PERRL. EOMI. CN: no focal findings, no field cut Muscle tone: normal. Muscle strength: 4/5, weaker on right DTR: 1+ arms, 0+ legs Plantar reflex: flexor Gait: not examined in bed. Sensory exam: no abnormal findings. Cerebellar: intention tremor on the right, but not the left. Review of Relevant I have reviewed the following items mendez (where applicable) has been applied. Labs Laboratory Tests Test 11/02/20 05:00 11/03/20 05:30 Sodium Level 145 mmol/L (136-145) 144 mmol/L (136-145) Potassium Level 3.4 mmol/L (3.5-5.1) 3.4 mmol/L (3.5-5.1) Chloride Level 109 mmol/L (98-107) 108 mmol/L (98-107) Carbon Dioxide Level 27 mmol/L (21-32) 27 mmol/L (21-32) Anion Gap 9 (6-14) 9 (6-14) Blood Urea Nitrogen 29 mg/dL (8-26) 25 mg/dL (8-26) Creatinine 1.2 mg/dL (0.7-1.3) 1.3 mg/dL (0.7-1.3) Estimated GFR (Cockcroft-Gault) 71.8 65.5 Glucose Level 113 mg/dL (70-99) 84 mg/dL (70-99) Calcium Level 8.1 mg/dL (8.5-10.1) 8.0 mg/dL (8.5-10.1) Creatine Kinase 362 U/L (39-308) Laboratory Tests Test 11/03/20 05:30 Sodium Level 144 mmol/L (136-145) Potassium Level 3.4 mmol/L (3.5-5.1) Chloride Level 108 mmol/L (98-107) Carbon Dioxide Level 27 mmol/L (21-32) Anion Gap 9 (6-14) Blood Urea Nitrogen 25 mg/dL (8-26) Creatinine 1.3 mg/dL (0.7-1.3) Estimated GFR (Cockcroft-Gault) 65.5 Glucose Level 84 mg/dL (70-99) Calcium Level 8.0 mg/dL (8.5-10.1) Microbiology 10/27/20 Blood Culture - Final, Complete 10/27/20 Antimicrobic Susceptibility - Final, Complete 10/27/20 Urine Culture - Final, Complete 10/27/20 Antimicrobic Susceptibility - Final, Complete Medications Current Medications Sodium Chloride 1,000 ml @ 1,000 mls/hr 1X ONCE IV Last administered on 10/27/20at 06:45; Start 10/27/20 at 06:30; Stop 10/27/20 at 07:29; Status DC Acetaminophen (Tylenol Supp) 975 mg 1X ONCE LA Last administered on 10/27/20at 07:30; Start 10/27/20 at 06:30; Stop 10/27/20 at 06:31; Status DC Lidocaine HCl (Lidocaine 1% 20ml Vial) 20 ml STK-MED ONCE .ROUTE ; Start 10/27/20 at 06:30; Stop 10/27/20 at 06:30; Status DC Sodium Chloride 1,000 ml @ 1,000 mls/hr 1X ONCE IV Last administered on 10/27/20at 06:45; Start 10/27/20 at 07:00; Stop 10/27/20 at 07:59; Status DC Piperacillin Sod/ Tazobactam Sod 3.375 gm/Sodium Chloride 50 ml @ 100 mls/hr 1X ONCE IV Last administered on 10/27/20at 07:58; Start 10/27/20 at 07:00; Stop 10/27/20 at 07:29; Status DC Sodium Chloride 1,000 ml @ 1,000 mls/hr 1X ONCE IV Last administered on 10/27/20at 07:57; Start 10/27/20 at 07:15; Stop 10/27/20 at 08:14; Status DC Norepinephrine Bitartrate 8 mg/ Dextrose 258 ml @ 12.848 mls/ hr 1X ONCE IV Last administered on 10/27/20at 08:42; Start 10/27/20 at 08:15; Stop 10/28/20 at 04:19; Status DC Ondansetron HCl (Zofran) 4 mg PRN Q8HRS PRN IV NAUSEA/VOMITING; Start 10/27/20 at 08:15; Stop 10/28/20 at 08:14; Status DC Sodium Chloride 1,000 ml @ 125 mls/hr Q8H IV Last administered on 10/27/20at 23:48; Start 10/27/20 at 08:15; Stop 10/28/20 at 08:14; Status DC Iohexol (Omnipaque 350 Mg/ml) 100 ml 1X ONCE IV ; Start 10/27/20 at 08:45; Stop 10/27/20 at 08:46; Status DC Info (CONTRAST GIVEN -- Rx MONITORING) 1 each PRN DAILY PRN MC SEE COMMENTS; Start 10/27/20 at 08:45; Stop 10/29/20 at 08:44; Status DC Piperacillin Sod/ Tazobactam Sod (Zosyn Per Pharmacy) 1 each PRN DAILY PRN MC SEE COMMENTS; Start 10/27/20 at 10:30; Stop 10/31/20 at 10:22; Status DC Piperacillin Sod/ Tazobactam Sod 2.25 gm/Sodium Chloride 50 ml @ 100 mls/hr Q6HRS IV Last administered on 10/28/20at 11:50; Start 10/27/20 at 12:00; Stop 10/28/20 at 14:37; Status DC Ondansetron HCl (Zofran) 4 mg PRN Q6HRS PRN IVP NAUSEA/VOMITING; Start 10/27/20 at 10:30 Famotidine (Pepcid Vial) 20 mg QHS IVP Last administered on 10/30/20at 21:23; Start 10/27/20 at 21:00; Stop 10/31/20 at 14:07; Status DC Info (Icu Electrolyte Protocol) 1 ea DAILY MC Last administered on 10/28/20at 09:00; Start 10/28/20 at 09:00; Stop 10/31/20 at 14:06; Status DC Heparin Sodium (Porcine) (Heparin Sodium) 5,000 unit Q8HRS SQ ; Start 10/27/20 at 14:00; Stop 10/27/20 at 14:51; Status DC Sodium Chloride (Normal Saline Flush) 3 ml QSHIFT PRN IV AFTER MEDS AND BLOOD DRAWS; Start 10/27/20 at 10:30 Sodium Chloride 1,000 ml @ 100 mls/hr Q10H IV Last administered on 11/01/20at 15:28; Start 10/27/20 at 10:30; Stop 11/02/20 at 16:52; Status DC Hydromorphone HCl (Dilaudid) 0.2 mg PRN Q1HR PRN IV PAIN; Start 10/27/20 at 10:30 Bisacodyl (Dulcolax Supp) 10 mg PRN DAILY PRN LA CONSTIPATION; Start 10/27/20 at 10:30 Sodium Bicarbonate (Sodium Bicarb Adult 8.4% Syr) 100 meq 1X ONCE IV Last administered on 10/27/20at 10:54; Start 10/27/20 at 11:00; Stop 10/27/20 at 11:01; Status DC Sodium Chloride 1,000 ml @ 500 mls/hr 1X ONCE IV Last administered on 10/27/20at 10:53; Start 10/27/20 at 11:00; Stop 10/27/20 at 12:59; Status DC Sodium Chloride 1,000 ml @ 1,000 mls/hr Q1H IV ; Start 10/27/20 at 11:00; Stop 10/27/20 at 12:57; Status DC Sodium Chloride 500 ml @ 1,000 mls/hr PRN Q30MIN PRN IV SEE COMMENTS; Start 10/27/20 at 11:00 Norepinephrine Bitartrate 8 mg/ Dextrose 258 ml @ 0 mls/hr CONT PRN IV SEE I/O RECORD Last administered on 10/28/20at 19:56; Start 10/27/20 at 11:00; Stop 10/31/20 at 14:05; Status DC Aspirin (Ecotrin) 81 mg DAILYWBKFT PO Last administered on 11/03/20at 08:44; Start 10/27/20 at 12:30 Aspirin (Aspirin Rectal Supp) 300 mg 1X ONCE LA ; Start 10/27/20 at 13:15; Stop 10/27/20 at 13:16; Status DC Heparin Sodium/ Dextrose 250 ml @ 7.656 mls/ hr CONT PRN IV PER PROTOCOL Last administered on 10/27/20at 13:54; Start 10/27/20 at 13:15; Stop 10/28/20 at 10:48; Status DC Heparin Sodium (Porcine) (Heparin Sodium) 1,600 unit PRN Q6HRS PRN IV FOR UFH LEVEL LESS THAN 0.2 Last administered on 10/27/20at 20:46; Start 10/27/20 at 13:15; Stop 10/28/20 at 10:48; Status DC Brimonidine Tartrate (Alphagan) 1 drop BID OU Last administered on 11/03/20at 08:47; Start 10/28/20 at 21:00 Dorzolamide HCl (Trusopt) 1 drop BID OU Last administered on 11/03/20at 08:46; Start 10/28/20 at 11:00 Latanoprost (Xalatan) 1 drop QHS OU Last administered on 11/02/20at 21:18; Start 10/28/20 at 21:00 Aspirin (Aspirin Rectal Supp) 150 mg 1X ONCE LA ; Start 10/28/20 at 11:00; Stop 10/28/20 at 11:01; Status DC Metoprolol Tartrate (Lopressor Vial) 2.5 mg Q6HRS IVP ; Start 10/28/20 at 12:00; Stop 10/29/20 at 09:53; Status DC Timolol Maleate (Timoptic 0.5% [facility]) 1 drop BID OU Last administered on 11/03/20at 08:46; Start 10/28/20 at 11:00 Lidocaine HCl (Buffered Lidocaine 1%) 3 ml STK-MED ONCE .ROUTE ; Start 10/28/20 at 11:45; Stop 10/28/20 at 11:45; Status DC Sodium Chloride 1,000 ml @ 1,000 mls/hr Q1H PRN IV hypotension; Start 10/28/20 at 11:30; Stop 10/28/20 at 17:29; Status DC Albumin Human 200 ml @ 200 mls/hr 1X PRN PRN IV Hypotension; Start 10/28/20 at 11:30; Stop 10/28/20 at 17:29; Status DC Sodium Chloride 1,000 ml @ 400 mls/hr Q2H30M PRN IV PATENCY; Start 10/28/20 at 11:30; Stop 10/28/20 at 23:29; Status DC Info (PHARMACY MONITORING -- do not chart) 1 each PRN DAILY PRN MC SEE COMMENTS; Start 10/28/20 at 11:30; Stop 10/29/20 at 11:42; Status DC Info (PHARMACY MONITORING -- do not chart) 1 each PRN DAILY PRN MC SEE COMMENTS; Start 10/28/20 at 11:30; Stop 10/30/20 at 09:59; Status DC Lidocaine HCl (Buffered Lidocaine 1%) 6 ml 1X ONCE INJ Last administered on 10/28/20at 12:16; Start 10/28/20 at 12:00; Stop 10/28/20 at 12:07; Status DC Heparin Sodium (Porcine) (Heparin Sodium) 10,000 unit STK-MED ONCE .ROUTE ; Start 10/28/20 at 12:10; Stop 10/28/20 at 12:10; Status DC Heparin Sodium (Porcine) (Heparin Sodium) 2,500 unit 1X ONCE INT CAT Last administered on 10/28/20at 12:19; Start 10/28/20 at 12:30; Stop 10/28/20 at 12:31; Status DC Piperacillin Sod/ Tazobactam Sod 2.25 gm/Sodium Chloride 50 ml @ 100 mls/hr Q8HRS IV Last administered on 10/31/20at 06:57; Start 10/28/20 at 21:00; Stop 10/31/20 at 10:22; Status DC Sodium Chloride 1,000 ml @ 1,000 mls/hr Q1H PRN IV hypotension; Start 10/29/20 at 07:30; Stop 10/29/20 at 13:29; Status DC Diphenhydramine HCl (Benadryl) 25 mg 1X PRN PRN IV ITCHING; Start 10/29/20 at 07:30; Stop 10/30/20 at 07:29; Status DC Diphenhydramine HCl (Benadryl) 25 mg 1X PRN PRN IV ITCHING; Start 10/29/20 at 07:30; Stop 10/30/20 at 07:29; Status DC Sodium Chloride 1,000 ml @ 400 mls/hr Q2H30M PRN IV PATENCY; Start 10/29/20 at 07:30; Stop 10/29/20 at 19:29; Status DC Info (PHARMACY MONITORING -- do not chart) 1 each PRN DAILY PRN MC SEE COMMENTS; Start 10/29/20 at 07:30; Status UNV Heparin Sodium (Porcine) (Heparin Sodium) 5,000 unit Q8HRS SQ ; Start 10/29/20 at 14:00; Status Cancel Metoprolol Tartrate (Lopressor) 12.5 mg BID PO Last administered on 11/03/20at 04:42; Start 10/29/20 at 21:00; Stop 11/03/20 at 08:28; Status DC Sodium Chloride 1,000 ml @ 100 mls/hr Q10H IV Last administered on 10/29/20at 11:52; Start 10/29/20 at 11:45; Stop 10/29/20 at 11:57; Status DC Lactobacillus Rhamnosus (Culturelle) 1 cap BID PO Last administered on 11/03/20at 08:44; Start 10/30/20 at 09:00 Sodium Chloride 1,000 ml @ 1,000 mls/hr Q1H PRN IV hypotension; Start 10/30/20 at 08:30; Stop 10/30/20 at 14:34; Status DC Albumin Human 200 ml @ 200 mls/hr 1X PRN PRN IV Hypotension; Start 10/30/20 at 08:30; Stop 10/30/20 at 14:35; Status DC Diphenhydramine HCl (Benadryl) 25 mg 1X PRN PRN IV ITCHING; Start 10/30/20 at 08:30; Stop 10/31/20 at 08:29; Status DC Diphenhydramine HCl (Benadryl) 25 mg 1X PRN PRN IV ITCHING; Start 10/30/20 at 08:30; Stop 10/31/20 at 08:29; Status DC Sodium Chloride 1,000 ml @ 400 mls/hr Q2H30M PRN IV PATENCY; Start 10/30/20 at 08:30; Stop 10/30/20 at 20:29; Status DC Info (PHARMACY MONITORING -- do not chart) 1 each PRN DAILY PRN MC SEE COMMENTS; Start 10/30/20 at 08:30 Ceftriaxone Sodium (Rocephin) 2 gm Q24H IVP Last administered on 11/02/20at 08:18; Start 10/31/20 at 11:00; Stop 11/02/20 at 10:07; Status DC Info (Non-Icu Electrolyte Protocol) 1 ea CONT PRN PRN MC SEE COMMENTS; Start 10/31/20 at 14:15 Famotidine (Pepcid) 20 mg QHS PO Last administered on 11/02/20at 21:17; Start 10/31/20 at 21:00 Docusate Sodium (Colace) 100 mg PRN DAILY PRN PO HARD STOOLS Last administered on 11/01/20at 08:50; Start 11/01/20 at 08:15 Acetaminophen (Tylenol) 650 mg PRN Q6HRS PRN PO MILD PAIN / TEMP > 100.3'F Last administered on 11/02/20at 21:17; Start 11/01/20 at 11:45 Levofloxacin (Levaquin) 750 mg DAILY08 PO Last administered on 11/03/20at 08:44; Start 11/02/20 at 11:00 Potassium Chloride (Klor-Con) 20 meq 1X ONCE PO Last administered on 11/02/20at 14:44; Start 11/02/20 at 12:45; Stop 11/02/20 at 12:46; Status DC Metoprolol Tartrate (Lopressor) 25 mg BID PO Last administered on 11/03/20at 08:45; Start 11/03/20 at 09:00 Amlodipine Besylate (Norvasc) 5 mg DAILY PO Last administered on 11/03/20at 08:46; Start 11/03/20 at 09:00 Active Scripts Active Aspirin Ec (Aspirin) 81 Mg Tablet.dr 81 Mg PO DAILYWBKFT Levofloxacin 750 Mg Tablet 750 Mg PO DAILY08 Metoprolol Tartrate 25 Mg Tablet 12.5 Mg PO BID Famotidine 20 Mg Tablet 20 Mg PO QHS Reported Meclizine Hcl 25 Mg Tablet 1 Tab PO PRN TID Latanoprost 0.005% Eye Drop (Latanoprost/Pf) 7.5 Ml Drops 7.5 Ml OP HS Dorzolamide-Timolol Eye Drops (Dorzolamide Hcl/Timolol Maleat) 10 Ml Drops 1 Drop EACHEYE BID Brimonidine Tartrate 5 Ml Drops 1 Drop EACHEYE BID Vitals/I & O Vital Sign - Last 24 Hours 11/02/20 11/02/20 11/02/20 11/02/20 12:20 15:00 19:59 20:00 Temp 97.6 98.4 97.6 98.4 Pulse 86 81 81 Resp 22 16 B/P (MAP) 154/90 (111) 155/73 (100) 162/81 (108) Pulse Ox 95 98 O2 Delivery Room Air Room Air Room Air 11/02/20 11/02/20 11/03/20 11/03/20 21:17 22:20 03:00 04:18 Temp 98.5 98.4 98.4 98.5 98.4 98.4 Pulse 81 72 73 73 Resp 16 20 20 B/P (MAP) 162/81 161/74 (103) 178/101 (126) 178/101 (126) Pulse Ox 98 98 98 O2 Delivery Room Air Room Air Room Air 11/03/20 11/03/20 11/03/20 11/03/20 04:42 07:00 08:00 08:45 Temp 97.6 97.6 Pulse 73 82 82 Resp 16 B/P (MAP) 178/101 165/89 (114) 165/89 Pulse Ox 96 O2 Delivery Room Air Room Air 11/03/20 11/03/20 08:46 10:54 Temp 98.6 98.6 Pulse 82 81 Resp 18 B/P (MAP) 165/89 140/73 (95) Pulse Ox 96 O2 Delivery Room Air Intake and Output 11/02/20 11/02/20 11/03/20 15:00 23:00 07:00 Intake Total 100 ml 600 ml Output Total 1500 ml 1200 ml Balance -1400 ml -600 ml Images LEFT VENTRICLE The left ventricle is normal size. Asymetric septal hypertrophy. The left ventricular systolic function is low normal. The ejection fraction is 50%. Septal motion consistent with conduction abnormality. Transmitral Doppler flow pattern is Grade I-abnormal relaxation pattern. RIGHT VENTRICLE The right ventricle is normal size. There is normal right ventricular wall thickness. The right ventricular systolic function is normal. ATRIA The left atrium size is normal. The right atrium size is normal. Central catheter noted right atrium. Cannot rule out vegetation. Recommend ADITYA if clinicaly suspicion is high. The interatrial septum is intact with no evidence for an atrial septal defect or patent foramen ovale as noted on 2-D or Doppler imaging. AORTIC VALVE The aortic valve is normal in structure and function. Doppler and Color Flow revealed no significant aortic regurgitation. There is no significant aortic valvular stenosis. MITRAL VALVE The mitral valve is normal in structure and function. There is no evidence of mitral valve prolapse. There is no mitral valve stenosis. Doppler and Color Flow revealed no mitral valve regurgitation noted. TRICUSPID VALVE The tricuspid valve is normal in structure and function. Doppler and Color Flow revealed mild tricuspid regurgitation. Estimated PAP 21-25 mmHg. There is no tricuspid valve stenosis. PULMONIC VALVE The pulmonary valve is normal in structure and function. Doppler and Color Flow revealed no pulmonic valvular regurgitation. GREAT VESSELS The aortic root is normal in size. The ascending aorta is normal in size. The pulmonary artery is normal. The IVC is borderline normal in size and collapses <50% with inspiration. PERICARDIAL EFFUSION There is no evidence of significant pericardial effusion. Critical Notification Critical Value: No <Conclusion> The left ventricular systolic function is low normal. The ejection fraction is 50%. Septal motion consistent with conduction abnormality. Transmitral Doppler flow pattern is Grade I-abnormal relaxation pattern. Central catheter noted right atrium. Cannot rule out vegetation. Recommend ADITYA if clinicaly suspicion is high. Mild tricuspid regurgitation. Estimated PAP 21-25 mmHg. There is no evidence of significant pericardial effusion. Justicifation of Admission Dx: Justifications for Admission: Justification of Admission Dx: Yes KEILA LEVINE MD Nov 03, 2020 11:17
--- NOTE | 2020-11-03 12:40 | NUR ---
SS following up with discharge planning. SS reviewed pt chart and discussed with pt RN. Pt is currently on room air. COVID19 negative. PT/OT recommended acute rehabilitation. Pt accepted at [facility], ; fax [phone], pending insurance authorization. SS phoned and faxed discharge orders and updated clinical to [facility]. Insurance authorization still pending at this time. SS will continue to follow for discharge planning.
--- NOTE | 2020-11-03 13:30 | PDOC ---
PROGRESS NOTES Date of Service: DATE: 11/03/20 TIME: 13:29 Chief Complaint Chief Complaint critical illness myopathy, weakness from sepsis, Septic shock, POA Lactic acidosis PERRY Dehydration Possible COVID-19 Rhabdo UTI Demand ischemia Metabolic cephalopathy UTI Fever sever protein malnutrition History of Present Illness History of Present Illness LATE ENTRy, pt seen on 11/02/2020 Patient seen and examined in the cardiac care unit MRI today appreciate consult imput Discussed with RN Chart reviewed Discussed with cardiology nurse practitioner Vitals Vitals Vital Signs Date Time Temp Pulse Resp B/P (MAP) Pulse Ox O2 Delivery O2 Flow Rate FiO2 11/03/20 10:54 98.6 81 18 140/73 (95) 96 Room Air 98.6 Physical Exam Physical Exam GENERAL: axox3 male HEENT: Normocephalic, atraumatic, anicteric. NECK: Supple, no JVD. Right IJ and dialysis catheter in place LUNGS: Clear bilaterally. No wheezing. HEART: S1, S2, no murmurs. ABDOMEN: Soft, nontender, nondistended, no rebound, no guarding. EXTREMITIES: No edema, no cyanosis. DERMATOLOGIC: Warm and dry. No generalized rash. NEUROLOGIC: alert awake PSYCHIATRIC: calm cooperative General: No acute distress Heart: Regular rate Lungs: Clear Abdomen: Normal bowel sounds, Soft Extremities: No edema Skin: No breakdown Labs LABS Laboratory Tests Test 11/03/20 05:30 Sodium Level 144 mmol/L (136-145) Potassium Level 3.4 mmol/L (3.5-5.1) Chloride Level 108 mmol/L (98-107) Carbon Dioxide Level 27 mmol/L (21-32) Anion Gap 9 (6-14) Blood Urea Nitrogen 25 mg/dL (8-26) Creatinine 1.3 mg/dL (0.7-1.3) Estimated GFR (Cockcroft-Gault) 65.5 Glucose Level 84 mg/dL (70-99) Calcium Level 8.0 mg/dL (8.5-10.1) Magnesium Level 1.5 mg/dL (1.8-2.4) Assessment and Plan Assessmemt and Plan Problems Medical Problems: (1) Acute renal failure Status: Acute (2) Dehydration Status: Acute (3) Person under investigation for COVID-19 Status: Acute (4) Rhabdomyolysis Status: Acute (5) Septic shock Status: Acute (6) UTI (urinary tract infection) Status: Acute Comment Review of Relevant I have reviewed the following items mendez (where applicable) has been applied. Labs Laboratory Tests Test 11/02/20 05:00 11/03/20 05:30 Sodium Level 145 mmol/L (136-145) 144 mmol/L (136-145) Potassium Level 3.4 mmol/L (3.5-5.1) 3.4 mmol/L (3.5-5.1) Chloride Level 109 mmol/L (98-107) 108 mmol/L (98-107) Carbon Dioxide Level 27 mmol/L (21-32) 27 mmol/L (21-32) Anion Gap 9 (6-14) 9 (6-14) Blood Urea Nitrogen 29 mg/dL (8-26) 25 mg/dL (8-26) Creatinine 1.2 mg/dL (0.7-1.3) 1.3 mg/dL (0.7-1.3) Estimated GFR (Cockcroft-Gault) 71.8 65.5 Glucose Level 113 mg/dL (70-99) 84 mg/dL (70-99) Calcium Level 8.1 mg/dL (8.5-10.1) 8.0 mg/dL (8.5-10.1) Creatine Kinase 362 U/L (39-308) Magnesium Level 1.5 mg/dL (1.8-2.4) Laboratory Tests Test 11/03/20 05:30 Sodium Level 144 mmol/L (136-145) Potassium Level 3.4 mmol/L (3.5-5.1) Chloride Level 108 mmol/L (98-107) Carbon Dioxide Level 27 mmol/L (21-32) Anion Gap 9 (6-14) Blood Urea Nitrogen 25 mg/dL (8-26) Creatinine 1.3 mg/dL (0.7-1.3) Estimated GFR (Cockcroft-Gault) 65.5 Glucose Level 84 mg/dL (70-99) Calcium Level 8.0 mg/dL (8.5-10.1) Magnesium Level 1.5 mg/dL (1.8-2.4) Microbiology 10/27/20 Blood Culture - Final, Complete 10/27/20 Antimicrobic Susceptibility - Final, Complete 10/27/20 Urine Culture - Final, Complete 10/27/20 Antimicrobic Susceptibility - Final, Complete Medications Current Medications Sodium Chloride 1,000 ml @ 1,000 mls/hr 1X ONCE IV Last administered on 10/27/20at 06:45; Start 10/27/20 at 06:30; Stop 10/27/20 at 07:29; Status DC Acetaminophen (Tylenol Supp) 975 mg 1X ONCE [place] Last administered on 10/27/20at 07:30; Start 10/27/20 at 06:30; Stop 10/27/20 at 06:31; Status DC Lidocaine HCl (Lidocaine 1% 20ml Vial) 20 ml STK-MED ONCE .ROUTE ; Start 10/27/20 at 06:30; Stop 10/27/20 at 06:30; Status DC Sodium Chloride 1,000 ml @ 1,000 mls/hr 1X ONCE IV Last administered on 10/27/20at 06:45; Start 10/27/20 at 07:00; Stop 10/27/20 at 07:59; Status DC Piperacillin Sod/ Tazobactam Sod 3.375 gm/Sodium Chloride 50 ml @ 100 mls/hr 1X ONCE IV Last administered on 10/27/20at 07:58; Start 10/27/20 at 07:00; Stop 10/27/20 at 07:29; Status DC Sodium Chloride 1,000 ml @ 1,000 mls/hr 1X ONCE IV Last administered on 10/27/20at 07:57; Start 10/27/20 at 07:15; Stop 10/27/20 at 08:14; Status DC Norepinephrine Bitartrate 8 mg/ Dextrose 258 ml @ 12.848 mls/ hr 1X ONCE IV Last administered on 10/27/20at 08:42; Start 10/27/20 at 08:15; Stop 10/28/20 at 04:19; Status DC Ondansetron HCl (Zofran) 4 mg PRN Q8HRS PRN IV NAUSEA/VOMITING; Start 10/27/20 at 08:15; Stop 10/28/20 at 08:14; Status DC Sodium Chloride 1,000 ml @ 125 mls/hr Q8H IV Last administered on 10/27/20at 23:48; Start 10/27/20 at 08:15; Stop 10/28/20 at 08:14; Status DC Iohexol (Omnipaque 350 Mg/ml) 100 ml 1X ONCE IV ; Start 10/27/20 at 08:45; Stop 10/27/20 at 08:46; Status DC Info (CONTRAST GIVEN -- Rx MONITORING) 1 each PRN DAILY PRN MC SEE COMMENTS; Start 10/27/20 at 08:45; Stop 10/29/20 at 08:44; Status DC Piperacillin Sod/ Tazobactam Sod (Zosyn Per Pharmacy) 1 each PRN DAILY PRN MC SEE COMMENTS; Start 10/27/20 at 10:30; Stop 10/31/20 at 10:22; Status DC Piperacillin Sod/ Tazobactam Sod 2.25 gm/Sodium Chloride 50 ml @ 100 mls/hr Q6HRS IV Last administered on 10/28/20at 11:50; Start 10/27/20 at 12:00; Stop 10/28/20 at 14:37; Status DC Ondansetron HCl (Zofran) 4 mg PRN Q6HRS PRN IVP NAUSEA/VOMITING; Start 10/27/20 at 10:30 Famotidine (Pepcid Vial) 20 mg QHS IVP Last administered on 10/30/20at 21:23; Start 10/27/20 at 21:00; Stop 10/31/20 at 14:07; Status DC Info (Icu Electrolyte Protocol) 1 ea DAILY MC Last administered on 10/28/20at 09:00; Start 10/28/20 at 09:00; Stop 10/31/20 at 14:06; Status DC Heparin Sodium (Porcine) (Heparin Sodium) 5,000 unit Q8HRS SQ ; Start 10/27/20 at 14:00; Stop 10/27/20 at 14:51; Status DC Sodium Chloride (Normal Saline Flush) 3 ml QSHIFT PRN IV AFTER MEDS AND BLOOD DRAWS; Start 10/27/20 at 10:30 Sodium Chloride 1,000 ml @ 100 mls/hr Q10H IV Last administered on 11/01/20at 15:28; Start 10/27/20 at 10:30; Stop 11/02/20 at 16:52; Status DC Hydromorphone HCl (Dilaudid) 0.2 mg PRN Q1HR PRN IV PAIN; Start 10/27/20 at 10:30 Bisacodyl (Dulcolax Supp) 10 mg PRN DAILY PRN [place] CONSTIPATION; Start 10/27/20 at 10:30 Sodium Bicarbonate (Sodium Bicarb Adult 8.4% Syr) 100 meq 1X ONCE IV Last administered on 10/27/20at 10:54; Start 10/27/20 at 11:00; Stop 10/27/20 at 11:01; Status DC Sodium Chloride 1,000 ml @ 500 mls/hr 1X ONCE IV Last administered on 10/27/20at 10:53; Start 10/27/20 at 11:00; Stop 10/27/20 at 12:59; Status DC Sodium Chloride 1,000 ml @ 1,000 mls/hr Q1H IV ; Start 10/27/20 at 11:00; Stop 10/27/20 at 12:57; Status DC Sodium Chloride 500 ml @ 1,000 mls/hr PRN Q30MIN PRN IV SEE COMMENTS; Start 10/27/20 at 11:00 Norepinephrine Bitartrate 8 mg/ Dextrose 258 ml @ 0 mls/hr CONT PRN IV SEE I/O RECORD Last administered on 10/28/20at 19:56; Start 10/27/20 at 11:00; Stop 10/31/20 at 14:05; Status DC Aspirin (Ecotrin) 81 mg DAILYWBKFT PO Last administered on 11/03/20at 08:44; Start 10/27/20 at 12:30 Aspirin (Aspirin Rectal Supp) 300 mg 1X ONCE [place] ; Start 10/27/20 at 13:15; Stop 10/27/20 at 13:16; Status DC Heparin Sodium/ Dextrose 250 ml @ 7.656 mls/ hr CONT PRN IV PER PROTOCOL Last administered on 10/27/20at 13:54; Start 10/27/20 at 13:15; Stop 10/28/20 at 10:48; Status DC Heparin Sodium (Porcine) (Heparin Sodium) 1,600 unit PRN Q6HRS PRN IV FOR UFH LEVEL LESS THAN 0.2 Last administered on 10/27/20at 20:46; Start 10/27/20 at 13:15; Stop 10/28/20 at 10:48; Status DC Brimonidine Tartrate (Alphagan) 1 drop BID OU Last administered on 11/03/20at 08:47; Start 10/28/20 at 21:00 Dorzolamide HCl (Trusopt) 1 drop BID OU Last administered on 11/03/20at 08:46; Start 10/28/20 at 11:00 Latanoprost (Xalatan) 1 drop QHS OU Last administered on 11/02/20at 21:18; Start 10/28/20 at 21:00 Aspirin (Aspirin Rectal Supp) 150 mg 1X ONCE [place] ; Start 10/28/20 at 11:00; Stop 10/28/20 at 11:01; Status DC Metoprolol Tartrate (Lopressor Vial) 2.5 mg Q6HRS IVP ; Start 10/28/20 at 12:00; Stop 10/29/20 at 09:53; Status DC Timolol Maleate (Timoptic 0.5% Oph) 1 drop BID OU Last administered on 11/03/20at 08:46; Start 10/28/20 at 11:00 Lidocaine HCl (Buffered Lidocaine 1%) 3 ml STK-MED ONCE .ROUTE ; Start 10/28/20 at 11:45; Stop 10/28/20 at 11:45; Status DC Sodium Chloride 1,000 ml @ 1,000 mls/hr Q1H PRN IV hypotension; Start 10/28/20 at 11:30; Stop 10/28/20 at 17:29; Status DC Albumin Human 200 ml @ 200 mls/hr 1X PRN PRN IV Hypotension; Start 10/28/20 at 11:30; Stop 10/28/20 at 17:29; Status DC Sodium Chloride 1,000 ml @ 400 mls/hr Q2H30M PRN IV PATENCY; Start 10/28/20 at 11:30; Stop 10/28/20 at 23:29; Status DC Info (PHARMACY MONITORING -- do not chart) 1 each PRN DAILY PRN MC SEE MERRILL TS; Start 10/28/20 at 11:30; Stop 10/29/20 at 11:42; Status DC Info (PHARMACY MONITORING -- do not chart) 1 each PRN DAILY PRN MC SEE COMMENTS; Start 10/28/20 at 11:30; Stop 10/30/20 at 09:59; Status DC Lidocaine HCl (Buffered Lidocaine 1%) 6 ml 1X ONCE INJ Last administered on 10/28/20at 12:16; Start 10/28/20 at 12:00; Stop 10/28/20 at 12:07; Status DC Heparin Sodium (Porcine) (Heparin Sodium) 10,000 unit STK-MED ONCE .ROUTE ; Start 10/28/20 at 12:10; Stop 10/28/20 at 12:10; Status DC Heparin Sodium (Porcine) (Heparin Sodium) 2,500 unit 1X ONCE INT CAT Last administered on 10/28/20at 12:19; Start 10/28/20 at 12:30; Stop 10/28/20 at 12:31; Status DC Piperacillin Sod/ Tazobactam Sod 2.25 gm/Sodium Chloride 50 ml @ 100 mls/hr Q8HRS IV Last administered on 10/31/20at 06:57; Start 10/28/20 at 21:00; Stop 10/31/20 at 10:22; Status DC Sodium Chloride 1,000 ml @ 1,000 mls/hr Q1H PRN IV hypotension; Start 10/29/20 at 07:30; Stop 10/29/20 at 13:29; Status DC Diphenhydramine HCl (Benadryl) 25 mg 1X PRN PRN IV ITCHING; Start 10/29/20 at 07:30; Stop 10/30/20 at 07:29; Status DC Diphenhydramine HCl (Benadryl) 25 mg 1X PRN PRN IV ITCHING; Start 10/29/20 at 07:30; Stop 10/30/20 at 07:29; Status DC Sodium Chloride 1,000 ml @ 400 mls/hr Q2H30M PRN IV PATENCY; Start 10/29/20 at 07:30; Stop 10/29/20 at 19:29; Status DC Info (PHARMACY MONITORING -- do not chart) 1 each PRN DAILY PRN MC SEE COMMENTS; Start 10/29/20 at 07:30; Status UNV Heparin Sodium (Porcine) (Heparin Sodium) 5,000 unit Q8HRS SQ ; Start 10/29/20 at 14:00; Status Cancel Metoprolol Tartrate (Lopressor) 12.5 mg BID PO Last administered on 11/03/20at 04:42; Start 10/29/20 at 21:00; Stop 11/03/20 at 08:28; Status DC Sodium Chloride 1,000 ml @ 100 mls/hr Q10H IV Last administered on 10/29/20at 11:52; Start 10/29/20 at 11:45; Stop 10/29/20 at 11:57; Status DC Lactobacillus Rhamnosus (Culturelle) 1 cap BID PO Last administered on 11/03/20at 08:44; Start 10/30/20 at 09:00 Sodium Chloride 1,000 ml @ 1,000 mls/hr Q1H PRN IV hypotension; Start 10/30/20 at 08:30; Stop 10/30/20 at 14:34; Status DC Albumin Human 200 ml @ 200 mls/hr 1X PRN PRN IV Hypotension; Start 10/30/20 at 08:30; Stop 10/30/20 at 14:35; Status DC Diphenhydramine HCl (Benadryl) 25 mg 1X PRN PRN IV ITCHING; Start 10/30/20 at 08:30; Stop 10/31/20 at 08:29; Status DC Diphenhydramine HCl (Benadryl) 25 mg 1X PRN PRN IV ITCHING; Start 10/30/20 at 08:30; Stop 10/31/20 at 08:29; Status DC Sodium Chloride 1,000 ml @ 400 mls/hr Q2H30M PRN IV PATENCY; Start 10/30/20 at 08:30; Stop 10/30/20 at 20:29; Status DC Info (PHARMACY MONITORING -- do not chart) 1 each PRN DAILY PRN MC SEE COMMENTS; Start 10/30/20 at 08:30 Ceftriaxone Sodium (Rocephin) 2 gm Q24H IVP Last administered on 11/02/20at 08:18; Start 10/31/20 at 11:00; Stop 11/02/20 at 10:07; Status DC Info (Non-Icu Electrolyte Protocol) 1 ea CONT PRN PRN MC SEE COMMENTS; Start 10/31/20 at 14:15 Famotidine (Pepcid) 20 mg QHS PO Last administered on 11/02/20at 21:17; Start 10/31/20 at 21:00 Docusate Sodium (Colace) 100 mg PRN DAILY PRN PO HARD STOOLS Last administered on 11/01/20at 08:50; Start 11/01/20 at 08:15 Acetaminophen (Tylenol) 650 mg PRN Q6HRS PRN PO MILD PAIN / TEMP > 100.3'F Last administered on 11/02/20at 21:17; Start 11/01/20 at 11:45 Levofloxacin (Levaquin) 750 mg DAILY08 PO Last administered on 11/03/20at 08:44; Start 11/02/20 at 11:00 Potassium Chloride (Klor-Con) 20 meq 1X ONCE PO Last administered on 11/02/20at 14:44; Start 11/02/20 at 12:45; Stop 11/02/20 at 12:46; Status DC Metoprolol Tartrate (Lopressor) 25 mg BID PO Last administered on 11/03/20at 08:45; Start 11/03/20 at 09:00 Amlodipine Besylate (Norvasc) 5 mg DAILY PO Last administered on 11/03/20at 08:46; Start 11/03/20 at 09:00 Active Scripts Active Aspirin Ec (Aspirin) 81 Mg Tablet.dr 81 Mg PO DAILYWBKFT Levofloxacin 750 Mg Tablet 750 Mg PO DAILY08 Metoprolol Tartrate 25 Mg Tablet 12.5 Mg PO BID Famotidine 20 Mg Tablet 20 Mg PO QHS Reported Meclizine Hcl 25 Mg Tablet 1 Tab PO PRN TID Latanoprost 0.005% Eye Drop (Latanoprost/Pf) 7.5 Ml Drops 7.5 Ml OP HS Dorzolamide-Timolol Eye Drops (Dorzolamide Hcl/Timolol Maleat) 10 Ml Drops 1 Drop EACHEYE BID Brimonidine Tartrate 5 Ml Drops 1 Drop EACHEYE BID Vitals/I & O Vital Sign - Last 24 Hours 11/02/20 11/02/20 11/02/20 11/02/20 15:00 19:59 20:00 21:17 Temp 97.6 98.4 97.6 98.4 Pulse 81 81 81 Resp 22 16 B/P (MAP) 155/73 (100) 162/81 (108) 162/81 Pulse Ox 95 98 O2 Delivery Room Air Room Air Room Air 11/02/20 11/03/20 11/03/20 11/03/20 22:20 03:00 04:18 04:42 Temp 98.5 98.4 98.4 98.5 98.4 98.4 Pulse 72 73 73 73 Resp 16 20 20 B/P (MAP) 161/74 (103) 178/101 (126) 178/101 (126) 178/101 Pulse Ox 98 98 98 O2 Delivery Room Air Room Air Room Air 11/03/20 11/03/20 11/03/20 11/03/20 07:00 08:00 08:45 08:46 Temp 97.6 97.6 Pulse 82 82 82 Resp 16 B/P (MAP) 165/89 (114) 165/89 165/89 Pulse Ox 96 O2 Delivery Room Air Room Air 11/03/20 10:54 Temp 98.6 98.6 Pulse 81 Resp 18 B/P (MAP) 140/73 (95) Pulse Ox 96 O2 Delivery Room Air Intake and Output 11/02/20 11/02/20 11/03/20 15:00 23:00 07:00 Intake Total 100 ml 600 ml Output Total 1500 ml 1200 ml Balance -1400 ml -600 ml Nutrition Consultation Dietary Evaluation: Recommendations by RD: Dietary education by RD, Increase Calorie Intake, Protein supplementation Comments: REC advance diet as able per MEDICAL OFFICE ASST recommendations, goal diet renal w/nepro supplements prn Expected Outcomes/Goals: diet advancement Malnutrition Findings: Body Fat Depletion (Non Severe: Mild Depletion Weight Status: Overweight Justicifation of Admission Dx: Justifications for Admission: Justification of Admission Dx: Yes GAYLE CAMARENA MD Nov 03, 2020 13:30
[2020-11-03] MEDS ORDERED: MAGNESIUM SULFATE 2GM 50 ML IV ONE (14:00)
[2020-11-03] MEDS ORDERED: POTASSIUM CHLORIDE 20 MEQ TABLET.ER. PO ONE (14:00)
--- NOTE | 2020-11-03 15:32 | PDOC ---
PROGRESS NOTES Date of Service: DATE: 11/03/20 TIME: 15:31 Chief Complaint Chief Complaint critical illness myopathy, weakness from sepsis, Septic shock, POA Lactic acidosis PERRY Dehydration Possible COVID-19 Rhabdo UTI Demand ischemia Metabolic cephalopathy UTI Fever sever protein malnutrition History of Present Illness History of Present Illness 11/03,. pt may transfer today, waiting on insurance, order placed we discussed colvin removal again, he would prefer to wait, cont other, doing well with PT, Patient seen and examined in the cardiac care unit MRI today appreciate consult imput Discussed with RN Chart reviewed Discussed with cardiology nurse practitioner Vitals Vitals Vital Signs Date Time Temp Pulse Resp B/P (MAP) Pulse Ox O2 Delivery O2 Flow Rate FiO2 11/03/20 14:45 97.9 85 16 168/88 (114) 95 Nasal Cannula 97.9 Physical Exam Physical Exam GENERAL: axox3 male HEENT: Normocephalic, atraumatic, anicteric. NECK: Supple, no JVD. Right IJ and dialysis catheter in place LUNGS: Clear bilaterally. No wheezing. HEART: S1, S2, no murmurs. ABDOMEN: Soft, nontender, nondistended, no rebound, no guarding. EXTREMITIES: No edema, no cyanosis. DERMATOLOGIC: Warm and dry. No generalized rash. NEUROLOGIC: alert awake PSYCHIATRIC: calm cooperative General: No acute distress Heart: Regular rate Lungs: Clear Abdomen: Normal bowel sounds, Soft Extremities: No edema Skin: No breakdown Labs LABS Laboratory Tests Test 11/03/20 05:30 Sodium Level 144 mmol/L (136-145) Potassium Level 3.4 mmol/L (3.5-5.1) Chloride Level 108 mmol/L (98-107) Carbon Dioxide Level 27 mmol/L (21-32) Anion Gap 9 (6-14) Blood Urea Nitrogen 25 mg/dL (8-26) Creatinine 1.3 mg/dL (0.7-1.3) Estimated GFR (Cockcroft-Gault) 65.5 Glucose Level 84 mg/dL (70-99) Calcium Level 8.0 mg/dL (8.5-10.1) Magnesium Level 1.5 mg/dL (1.8-2.4) Assessment and Plan Assessmemt and Plan Problems Medical Problems: (1) Acute renal failure Status: Acute (2) Dehydration Status: Acute (3) Person under investigation for COVID-19 Status: Acute (4) Rhabdomyolysis Status: Acute (5) Septic shock Status: Acute (6) UTI (urinary tract infection) Status: Acute Comment Review of Relevant I have reviewed the following items mendez (where applicable) has been applied. Labs Laboratory Tests Test 11/02/20 05:00 11/03/20 05:30 Sodium Level 145 mmol/L (136-145) 144 mmol/L (136-145) Potassium Level 3.4 mmol/L (3.5-5.1) 3.4 mmol/L (3.5-5.1) Chloride Level 109 mmol/L (98-107) 108 mmol/L (98-107) Carbon Dioxide Level 27 mmol/L (21-32) 27 mmol/L (21-32) Anion Gap 9 (6-14) 9 (6-14) Blood Urea Nitrogen 29 mg/dL (8-26) 25 mg/dL (8-26) Creatinine 1.2 mg/dL (0.7-1.3) 1.3 mg/dL (0.7-1.3) Estimated GFR (Cockcroft-Gault) 71.8 65.5 Glucose Level 113 mg/dL (70-99) 84 mg/dL (70-99) Calcium Level 8.1 mg/dL (8.5-10.1) 8.0 mg/dL (8.5-10.1) Creatine Kinase 362 U/L (39-308) Magnesium Level 1.5 mg/dL (1.8-2.4) Laboratory Tests Test 11/03/20 05:30 Sodium Level 144 mmol/L (136-145) Potassium Level 3.4 mmol/L (3.5-5.1) Chloride Level 108 mmol/L (98-107) Carbon Dioxide Level 27 mmol/L (21-32) Anion Gap 9 (6-14) Blood Urea Nitrogen 25 mg/dL (8-26) Creatinine 1.3 mg/dL (0.7-1.3) Estimated GFR (Cockcroft-Gault) 65.5 Glucose Level 84 mg/dL (70-99) Calcium Level 8.0 mg/dL (8.5-10.1) Magnesium Level 1.5 mg/dL (1.8-2.4) Microbiology 10/27/20 Blood Culture - Final, Complete 10/27/20 Antimicrobic Susceptibility - Final, Complete 10/27/20 Urine Culture - Final, Complete 10/27/20 Antimicrobic Susceptibility - Final, Complete Medications Current Medications Sodium Chloride 1,000 ml @ 1,000 mls/hr 1X ONCE IV Last administered on 10/27/20at 06:45; Start 10/27/20 at 06:30; Stop 10/27/20 at 07:29; Status DC Acetaminophen (Tylenol Supp) 975 mg 1X ONCE WA Last administered on 10/27/20at 07:30; Start 10/27/20 at 06:30; Stop 10/27/20 at 06:31; Status DC Lidocaine HCl (Lidocaine 1% 20ml Vial) 20 ml STK-MED ONCE .ROUTE ; Start 10/27/20 at 06:30; Stop 10/27/20 at 06:30; Status DC Sodium Chloride 1,000 ml @ 1,000 mls/hr 1X ONCE IV Last administered on 10/27/20at 06:45; Start 10/27/20 at 07:00; Stop 10/27/20 at 07:59; Status DC Piperacillin Sod/ Tazobactam Sod 3.375 gm/Sodium Chloride 50 ml @ 100 mls/hr 1X ONCE IV Last administered on 10/27/20at 07:58; Start 10/27/20 at 07:00; Stop 10/27/20 at 07:29; Status DC Sodium Chloride 1,000 ml @ 1,000 mls/hr 1X ONCE IV Last administered on 10/27/20at 07:57; Start 10/27/20 at 07:15; Stop 10/27/20 at 08:14; Status DC Norepinephrine Bitartrate 8 mg/ Dextrose 258 ml @ 12.848 mls/ hr 1X ONCE IV Last administered on 10/27/20at 08:42; Start 10/27/20 at 08:15; Stop 10/28/20 at 04:19; Status DC Ondansetron HCl (Zofran) 4 mg PRN Q8HRS PRN IV NAUSEA/VOMITING; Start 10/27/20 at 08:15; Stop 10/28/20 at 08:14; Status DC Sodium Chloride 1,000 ml @ 125 mls/hr Q8H IV Last administered on 10/27/20at 23:48; Start 10/27/20 at 08:15; Stop 10/28/20 at 08:14; Status DC Iohexol (Omnipaque 350 Mg/ml) 100 ml 1X ONCE IV ; Start 10/27/20 at 08:45; Stop 10/27/20 at 08:46; Status DC Info (CONTRAST GIVEN -- Rx MONITORING) 1 each PRN DAILY PRN MC SEE COMMENTS; Start 10/27/20 at 08:45; Stop 10/29/20 at 08:44; Status DC Piperacillin Sod/ Tazobactam Sod (Zosyn Per Pharmacy) 1 each PRN DAILY PRN MC SEE COMMENTS; Start 10/27/20 at 10:30; Stop 10/31/20 at 10:22; Status DC Piperacillin Sod/ Tazobactam Sod 2.25 gm/Sodium Chloride 50 ml @ 100 mls/hr Q6HRS IV Last administered on 10/28/20at 11:50; Start 10/27/20 at 12:00; Stop 10/28/20 at 14:37; Status DC Ondansetron HCl (Zofran) 4 mg PRN Q6HRS PRN IVP NAUSEA/VOMITING; Start 10/27/20 at 10:30 Famotidine (Pepcid Vial) 20 mg QHS IVP Last administered on 10/30/20at 21:23; Start 10/27/20 at 21:00; Stop 10/31/20 at 14:07; Status DC Info (Icu Electrolyte Protocol) 1 ea DAILY MC Last administered on 10/28/20at 09:00; Start 10/28/20 at 09:00; Stop 10/31/20 at 14:06; Status DC Heparin Sodium (Porcine) (Heparin Sodium) 5,000 unit Q8HRS SQ ; Start 10/27/20 at 14:00; Stop 10/27/20 at 14:51; Status DC Sodium Chloride (Normal Saline Flush) 3 ml QSHIFT PRN IV AFTER MEDS AND BLOOD DRAWS; Start 10/27/20 at 10:30 Sodium Chloride 1,000 ml @ 100 mls/hr Q10H IV Last administered on 11/01/20at 15:28; Start 10/27/20 at 10:30; Stop 11/02/20 at 16:52; Status DC Hydromorphone HCl (Dilaudid) 0.2 mg PRN Q1HR PRN IV PAIN; Start 10/27/20 at 10:30 Bisacodyl (Dulcolax Supp) 10 mg PRN DAILY PRN [place] CONSTIPATION; Start 10/27/20 at 10:30 Sodium Bicarbonate (Sodium Bicarb Adult 8.4% Syr) 100 meq 1X ONCE IV Last administered on 10/27/20at 10:54; Start 10/27/20 at 11:00; Stop 10/27/20 at 11:01; Status DC Sodium Chloride 1,000 ml @ 500 mls/hr 1X ONCE IV Last administered on 10/27/20at 10:53; Start 10/27/20 at 11:00; Stop 10/27/20 at 12:59; Status DC Sodium Chloride 1,000 ml @ 1,000 mls/hr Q1H IV ; Start 10/27/20 at 11:00; Stop 10/27/20 at 12:57; Status DC Sodium Chloride 500 ml @ 1,000 mls/hr PRN Q30MIN PRN IV SEE COMMENTS; Start 10/27/20 at 11:00 Norepinephrine Bitartrate 8 mg/ Dextrose 258 ml @ 0 mls/hr CONT PRN IV SEE I/O RECORD Last administered on 10/28/20at 19:56; Start 10/27/20 at 11:00; Stop 10/31/20 at 14:05; Status DC Aspirin (Ecotrin) 81 mg DAILYWBKFT PO Last administered on 11/03/20at 08:44; Start 10/27/20 at 12:30 Aspirin (Aspirin Rectal Supp) 300 mg 1X ONCE WA ; Start 10/27/20 at 13:15; Stop 10/27/20 at 13:16; Status DC Heparin Sodium/ Dextrose 250 ml @ 7.656 mls/ hr CONT PRN IV PER PROTOCOL Last administered on 10/27/20at 13:54; Start 10/27/20 at 13:15; Stop 10/28/20 at 10:48; Status DC Heparin Sodium (Porcine) (Heparin Sodium) 1,600 unit PRN Q6HRS PRN IV FOR UFH LEVEL LESS THAN 0.2 Last administered on 10/27/20at 20:46; Start 10/27/20 at 13:15; Stop 10/28/20 at 10:48; Status DC Brimonidine Tartrate (Alphagan) 1 drop BID OU Last administered on 11/03/20at 08:47; Start 10/28/20 at 21:00 Dorzolamide HCl (Trusopt) 1 drop BID OU Last administered on 11/03/20at 08:46; Start 10/28/20 at 11:00 Latanoprost (Xalatan) 1 drop QHS OU Last administered on 11/02/20at 21:18; Start 10/28/20 at 21:00 Aspirin (Aspirin Rectal Supp) 150 mg 1X ONCE WA ; Start 10/28/20 at 11:00; Stop 10/28/20 at 11:01; Status DC Metoprolol Tartrate (Lopressor Vial) 2.5 mg Q6HRS IVP ; Start 10/28/20 at 12:00; Stop 10/29/20 at 09:53; Status DC Timolol Maleate (Timoptic 0.5% Ophth) 1 drop BID OU Last administered on 11/03/20at 08:46; Start 10/28/20 at 11:00 Lidocaine HCl (Buffered Lidocaine 1%) 3 ml STK-MED ONCE .ROUTE ; Start 10/28/20 at 11:45; Stop 10/28/20 at 11:45; Status DC Sodium Chloride 1,000 ml @ 1,000 mls/hr Q1H PRN IV hypotension; Start 10/28/20 at 11:30; Stop 10/28/20 at 17:29; Status DC Albumin Human 200 ml @ 200 mls/hr 1X PRN PRN IV Hypotension; Start 10/28/20 at 11:30; Stop 10/28/20 at 17:29; Status DC Sodium Chloride 1,000 ml @ 400 mls/hr Q2H30M PRN IV PATENCY; Start 10/28/20 at 11:30; Stop 10/28/20 at 23:29; Status DC Info (PHARMACY MONITORING -- do not chart) 1 each PRN DAILY PRN MC SEE COMMENTS; Start 10/28/20 at 11:30; Stop 10/29/20 at 11:42; Status DC Info (PHARMACY MONITORING -- do not chart) 1 each PRN DAILY PRN MC SEE COMMENTS; Start 10/28/20 at 11:30; Stop 10/30/20 at 09:59; Status DC Lidocaine HCl (Buffered Lidocaine 1%) 6 ml 1X ONCE INJ Last administered on 10/28/20at 12:16; Start 10/28/20 at 12:00; Stop 10/28/20 at 12:07; Status DC Heparin Sodium (Porcine) (Heparin Sodium) 10,000 unit STK-MED ONCE .ROUTE ; Start 10/28/20 at 12:10; Stop 10/28/20 at 12:10; Status DC Heparin Sodium (Porcine) (Heparin Sodium) 2,500 unit 1X ONCE INT CAT Last administered on 10/28/20at 12:19; Start 10/28/20 at 12:30; Stop 10/28/20 at 12:31; Status DC Piperacillin Sod/ Tazobactam Sod 2.25 gm/Sodium Chloride 50 ml @ 100 mls/hr Q8HRS IV Last administered on 10/31/20at 06:57; Start 10/28/20 at 21:00; Stop 10/31/20 at 10:22; Status DC Sodium Chloride 1,000 ml @ 1,000 mls/hr Q1H PRN IV hypotension; Start 10/29/20 at 07:30; Stop 10/29/20 at 13:29; Status DC Diphenhydramine HCl (Benadryl) 25 mg 1X PRN PRN IV ITCHING; Start 10/29/20 at 07:30; Stop 10/30/20 at 07:29; Status DC Diphenhydramine HCl (Benadryl) 25 mg 1X PRN PRN IV ITCHING; Start 10/29/20 at 07:30; Stop 10/30/20 at 07:29; Status DC Sodium Chloride 1,000 ml @ 400 mls/hr Q2H30M PRN IV PATENCY; Start 10/29/20 at 07:30; Stop 10/29/20 at 19:29; Status DC Info (PHARMACY MONITORING -- do not chart) 1 each PRN DAILY PRN MC SEE COMMENTS; Start 10/29/20 at 07:30; Status UNV Heparin Sodium (Porcine) (Heparin Sodium) 5,000 unit Q8HRS SQ ; Start 10/29/20 at 14:00; Status Cancel Metoprolol Tartrate (Lopressor) 12.5 mg BID PO Last administered on 11/03/20at 04:42; Start 10/29/20 at 21:00; Stop 11/03/20 at 08:28; Status DC Sodium Chloride 1,000 ml @ 100 mls/hr Q10H IV Last administered on 10/29/20at 11:52; Start 10/29/20 at 11:45; Stop 10/29/20 at 11:57; Status DC Lactobacillus Rhamnosus (Culturelle) 1 cap BID PO Last administered on 11/03/20at 08:44; Start 10/30/20 at 09:00 Sodium Chloride 1,000 ml @ 1,000 mls/hr Q1H PRN IV hypotension; Start 10/30/20 at 08:30; Stop 10/30/20 at 14:34; Status DC Albumin Human 200 ml @ 200 mls/hr 1X PRN PRN IV Hypotension; Start 10/30/20 at 08:30; Stop 10/30/20 at 14:35; Status DC Diphenhydramine HCl (Benadryl) 25 mg 1X PRN PRN IV ITCHING; Start 10/30/20 at 08:30; Stop 10/31/20 at 08:29; Status DC Diphenhydramine HCl (Benadryl) 25 mg 1X PRN PRN IV ITCHING; Start 10/30/20 at 08:30; Stop 10/31/20 at 08:29; Status DC Sodium Chloride 1,000 ml @ 400 mls/hr Q2H30M PRN IV PATENCY; Start 10/30/20 at 08:30; Stop 10/30/20 at 20:29; Status DC Info (PHARMACY MONITORING -- do not chart) 1 each PRN DAILY PRN MC SEE COMMENTS; Start 10/30/20 at 08:30 Ceftriaxone Sodium (Rocephin) 2 gm Q24H IVP Last administered on 11/02/20at 08:18; Start 10/31/20 at 11:00; Stop 11/02/20 at 10:07; Status DC Info (Non-Icu Electrolyte Protocol) 1 ea CONT PRN PRN MC SEE COMMENTS; Start 10/31/20 at 14:15 Famotidine (Pepcid) 20 mg QHS PO Last administered on 11/02/20at 21:17; Start 10/31/20 at 21:00 Docusate Sodium (Colace) 100 mg PRN DAILY PRN PO HARD STOOLS Last administered on 11/01/20at 08:50; Start 11/01/20 at 08:15 Acetaminophen (Tylenol) 650 mg PRN Q6HRS PRN PO MILD PAIN / TEMP > 100.3'F Last administered on 11/02/20at 21:17; Start 11/01/20 at 11:45 Levofloxacin (Levaquin) 750 mg DAILY08 PO Last administered on 11/03/20at 08:44; Start 11/02/20 at 11:00 Potassium Chloride (Klor-Con) 20 meq 1X ONCE PO Last administered on 11/02/20at 14:44; Start 11/02/20 at 12:45; Stop 11/02/20 at 12:46; Status DC Metoprolol Tartrate (Lopressor) 25 mg BID PO Last administered on 11/03/20at 08:45; Start 11/03/20 at 09:00 Amlodipine Besylate (Norvasc) 5 mg DAILY PO Last administered on 11/03/20at 08:46; Start 11/03/20 at 09:00 Potassium Chloride (Klor-Con) 40 meq 1X ONCE PO Last administered on 11/03/20at 14:54; Start 11/03/20 at 14:00; Stop 11/03/20 at 14:01; Status DC Magnesium Sulfate 50 ml @ 25 mls/hr 1X ONCE IV Last administered on 11/03/20at 14:56; Start 11/03/20 at 14:00; Stop 11/03/20 at 15:59 Active Scripts Active Aspirin Ec (Aspirin) 81 Mg Tablet.dr 81 Mg PO DAILYWBKFT Levofloxacin 750 Mg Tablet 750 Mg PO DAILY08 Metoprolol Tartrate 25 Mg Tablet 12.5 Mg PO BID Famotidine 20 Mg Tablet 20 Mg PO QHS Reported Meclizine Hcl 25 Mg Tablet 1 Tab PO PRN TID Latanoprost 0.005% Eye Drop (Latanoprost/Pf) 7.5 Ml Drops 7.5 Ml OP HS Dorzolamide-Timolol Eye Drops (Dorzolamide Hcl/Timolol Maleat) 10 Ml Drops 1 Drop EACHEYE BID Brimonidine Tartrate 5 Ml Drops 1 Drop EACHEYE BID Vitals/I & O Vital Sign - Last 24 Hours 11/02/20 11/02/20 11/02/20 11/02/20 19:59 20:00 21:17 22:20 Temp 98.4 98.5 98.4 98.5 Pulse 81 81 72 Resp 16 16 B/P (MAP) 162/81 (108) 162/81 161/74 (103) Pulse Ox 98 98 O2 Delivery Room Air Room Air Room Air 11/03/20 11/03/20 11/03/20 11/03/20 03:00 04:18 04:42 07:00 Temp 98.4 98.4 97.6 98.4 98.4 97.6 Pulse 73 73 73 82 Resp 20 20 16 B/P (MAP) 178/101 (126) 178/101 (126) 178/101 165/89 (114) Pulse Ox 98 98 96 O2 Delivery Room Air Room Air Room Air 11/03/20 11/03/20 11/03/20 11/03/20 08:00 08:45 08:46 10:54 Temp 98.6 98.6 Pulse 82 82 81 Resp 18 B/P (MAP) 165/89 165/89 140/73 (95) Pulse Ox 96 O2 Delivery Room Air Room Air 11/03/20 14:45 Temp 97.9 97.9 Pulse 85 Resp 16 B/P (MAP) 168/88 (114) Pulse Ox 95 O2 Delivery Nasal Cannula Intake and Output 11/02/20 11/02/20 11/03/20 15:00 23:00 07:00 Intake Total 100 ml 600 ml Output Total 1500 ml 1200 ml Balance -1400 ml -600 ml Nutrition Consultation Dietary Evaluation: Recommendations by RD: Dietary education by RD, Increase Calorie Intake, Protein supplementation Comments: Continue w/cardiac diet as ordered w/Ensure supplements q day Expected Outcomes/Goals: diet advancement - met, new goal established New goal 11/03 - PO intake to meet >75% est needs Malnutrition Findings: Body Fat Depletion (Non Severe: Mild Depletion Weight Status: Appropriate Justicifation of Admission Dx: Justifications for Admission: Justification of Admission Dx: Yes GAYLE CAMARENA MD Nov 03, 2020 15:32
--- NOTE | 2020-11-03 19:35 | NUR ---
Pt with out c/o pain assessment completed vss poc explained pt c/o hip pain 02/21 will resume care and continue to monitor pt.
[2020-11-03] MEDS: FAMOTIDINE 20 MG TABLET. PO SCH (21:10)
[2020-11-03] MEDS: LATANOPROST 0.005% OPHTH SOLUTION 2.5ML BOTTLE. OU SCH (21:11)
[2020-11-04 02:54] VITALS: BP 182/95
[2020-11-04 04:07] VITALS: BP 181/92
[2020-11-04 05:22] LABS: CALCIUM 8.1 mg/dL (8.5-10.1); CREATININE 1.1 mg/dL (0.7-1.3); GFR 79.4; POTASSIUM 3.8 mmol/L (3.5-5.1)
[2020-11-04 07:00] VITALS: BP 188/85
--- NOTE | 2020-11-04 08:19 | PDOC ---
Infectious Disease Note Subjective: Subjective Patient without complaints Vital Signs: Vital Signs Vital Signs Date Time Temp Pulse Resp B/P (MAP) Pulse Ox O2 Delivery O2 Flow Rate FiO2 11/04/20 04:07 68 181/92 (121) 11/04/20 02:54 96.8 18 96 Room Air 96.8 Physical Exam: PHYSICAL EXAM GENERAL: axox3 male HEENT: Normocephalic, atraumatic, anicteric. NECK: Supple, no JVD. Right IJ and dialysis catheter in place LUNGS: Clear bilaterally. No wheezing. HEART: S1, S2, no murmurs. ABDOMEN: Soft, nontender, nondistended, no rebound, no guarding. EXTREMITIES: No edema, no cyanosis. DERMATOLOGIC: Warm and dry. No generalized rash. NEUROLOGIC: alert awake PSYCHIATRIC: calm cooperative Medications: Inpatient Meds: Current Medications Medications (Trade) Dose Ordered Sig/Ambrosio Start Time Stop Time Status Last Admin Dose Admin Acetaminophen (Tylenol Supp) 975 mg 1X ONCE 10/27/20 06:30 10/27/20 06:31 DC 10/27/20 07:30 975 MG Acetaminophen (Tylenol) 650 mg PRN Q6HRS PRN 11/01/20 11:45 11/02/20 21:17 650 MG Albumin Human 200 ml @ 200 mls/hr 1X PRN PRN 10/30/20 08:30 10/30/20 14:35 DC Amlodipine Besylate (Norvasc) 5 mg DAILY 11/03/20 09:00 11/03/20 08:46 5 MG Aspirin (Aspirin Rectal Supp) 150 mg 1X ONCE 10/28/20 11:00 10/28/20 11:01 DC Aspirin (Ecotrin) 81 mg DAILYWBKFT 10/27/20 12:30 11/03/20 08:44 81 MG Bisacodyl (Dulcolax Supp) 10 mg PRN DAILY PRN 10/27/20 10:30 Brimonidine Tartrate (Alphagan) 1 drop BID 10/28/20 21:00 11/03/20 21:11 1 DROP Ceftriaxone Sodium (Rocephin) 2 gm Q24H 10/31/20 11:00 11/02/20 10:07 DC 11/02/20 08:18 2 GM Diphenhydramine HCl (Benadryl) 25 mg 1X PRN PRN 10/30/20 08:30 10/31/20 08:29 DC Docusate Sodium (Colace) 100 mg PRN DAILY PRN 11/01/20 08:15 11/01/20 08:50 100 MG Dorzolamide HCl (Trusopt) 1 drop BID 10/28/20 11:00 11/03/20 21:11 1 DROP Famotidine (Pepcid Vial) 20 mg QHS 10/27/20 21:00 10/31/20 14:07 DC 10/30/20 21:23 20 MG Famotidine (Pepcid) 20 mg QHS 10/31/20 21:00 11/03/20 21:10 20 MG Heparin Sodium (Porcine) (Heparin Sodium) 5,000 unit Q8HRS 10/29/20 14:00 Cancel Heparin Sodium/ Dextrose 250 ml @ 7.656 mls/ hr CONT PRN 10/27/20 13:15 10/28/20 10:48 DC 10/27/20 13:54 7.656 MLS/HR Hydromorphone HCl (Dilaudid) 0.2 mg PRN Q1HR PRN 10/27/20 10:30 Info (CONTRAST GIVEN -- Rx MONITORING) 1 each PRN DAILY PRN 10/27/20 08:45 10/29/20 08:44 DC Info (Icu Electrolyte Protocol) 1 ea DAILY 10/28/20 09:00 10/31/20 14:06 DC 10/28/20 09:00 1 EA Info (Non-Icu Electrolyte Protocol) 1 ea CONT PRN PRN 10/31/20 14:15 Info (PHARMACY MONITORING -- do not chart) 1 each PRN DAILY PRN 10/30/20 08:30 Iohexol (Omnipaque 350 Mg/ml) 100 ml 1X ONCE 10/27/20 08:45 10/27/20 08:46 DC Lactobacillus Rhamnosus (Culturelle) 1 cap BID 10/30/20 09:00 11/03/20 21:10 1 CAP Latanoprost (Xalatan) 1 drop QHS 10/28/20 21:00 11/03/20 21:11 1 DROP Levofloxacin (Levaquin) 750 mg DAILY08 11/02/20 11:00 11/03/20 08:44 750 MG Lidocaine HCl (Buffered Lidocaine 1%) 6 ml 1X ONCE 10/28/20 12:00 10/28/20 12:07 DC 10/28/20 12:16 4 ML Lidocaine HCl (Lidocaine 1% 20ml Vial) 20 ml STK-MED ONCE 10/27/20 06:30 10/27/20 06:30 DC Magnesium Sulfate 50 ml @ 25 mls/hr 1X ONCE 11/03/20 14:00 11/03/20 15:59 DC 11/03/20 14:56 25 MLS/HR Metoprolol Tartrate (Lopressor Vial) 2.5 mg Q6HRS 10/28/20 12:00 10/29/20 09:53 DC Metoprolol Tartrate (Lopressor) 25 mg BID 11/03/20 09:00 11/03/20 21:11 25 MG Norepinephrine Bitartrate 8 mg/ Dextrose 258 ml @ 0 mls/hr CONT PRN 10/27/20 11:00 10/31/20 14:05 DC 10/28/20 19:56 3.6 MLS/HR Ondansetron HCl (Zofran) 4 mg PRN Q6HRS PRN 10/27/20 10:30 Piperacillin Sod/ Tazobactam Sod (Zosyn Per Pharmacy) 1 each PRN DAILY PRN 10/27/20 10:30 10/31/20 10:22 DC Piperacillin Sod/ Tazobactam Sod 2.25 gm/Sodium Chloride 50 ml @ 100 mls/hr Q8HRS 10/28/20 21:00 10/31/20 10:22 DC 10/31/20 06:57 100 MLS/HR Piperacillin Sod/ Tazobactam Sod 3.375 gm/Sodium Chloride 50 ml @ 100 mls/hr 1X ONCE 10/27/20 07:00 10/27/20 07:29 DC 10/27/20 07:58 100 MLS/HR Potassium Chloride (Klor-Con) 40 meq 1X ONCE 11/03/20 14:00 11/03/20 14:01 DC 11/03/20 14:54 40 MEQ Sodium Bicarbonate (Sodium Bicarb Adult 8.4% Syr) 100 meq 1X ONCE 10/27/20 11:00 10/27/20 11:01 DC 10/27/20 10:54 100 MEQ Sodium Chloride 1,000 ml @ 400 mls/hr Q2H30M PRN 10/30/20 08:30 10/30/20 20:29 DC Sodium Chloride (Normal Saline Flush) 3 ml QSHIFT PRN 10/27/20 10:30 Timolol Maleate (Timoptic 0.5% Oph) 1 drop BID 10/28/20 11:00 11/03/20 21:11 1 DROP Labs: Lab Laboratory Tests Test 11/04/20 05:00 Sodium Level 142 mmol/L (136-145) Potassium Level 3.8 mmol/L (3.5-5.1) Chloride Level 109 mmol/L (98-107) Carbon Dioxide Level 27 mmol/L (21-32) Anion Gap 6 (6-14) Blood Urea Nitrogen 24 mg/dL (8-26) Creatinine 1.1 mg/dL (0.7-1.3) Estimated GFR (Cockcroft-Gault) 79.4 Glucose Level 98 mg/dL (70-99) Calcium Level 8.1 mg/dL (8.5-10.1) Micro CT abdomen and pelvis findings: Lower chest: Bilateral lower lobe posterior dependent atelectasis with tiny pleural effusions. Abdomen and pelvis: The liver, spleen, and pancreas have unremarkable noncontrast appearance. The cholelithiasis or gallbladder sludge. Adenomatous thickening of the adrenal glands. Right renal cysts measure 5.9 x 5.9 cm and 3.2 x 3.1 cm. Right perinephric stranding. No renal calculi. No hydronephrosis. Urinary bladder wall thickening. Freeman catheter within the urinary bladder. Postop changes prostatectomy. Small fluid within the pelvis. Appendix not well seen. No evidence of bowel obstruction. Numerous mildly enlarged retroperitoneal and inguinal lymph nodes poorly characterize without IV contrast. 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 Multilevel lumbar spondylosis. Impression: 1. Right perinephric stranding and urinary bladder wall thickening, may relate to urinary tract infection. 2. Small pelvic free fluid. 3. Numerous enlarged retroperitoneal and inguinal lymph nodes probably characterized without intravenous contrast. Recommend further clinical evaluation and follow-up. Comparison with prior imaging studies would also be of benefit. 4. Increased density within the gallbladder, may relate to cholelithiasis or sludge. Objective: Assessment: Septic shock resolved Gram-negative sepsis source Klebsiella pneumonia bacteremia source Pyelonephritis with urine culture positive Klebsiella PERRY with underlying CKD, metabolic acidosis, hypernatremia, on dialysis Rhabdomyolysis. Improving Abnormal LFTs. Improving Encephalopathy improved Acute hypoxic respiratory failure now resolved Abnormal CT pelvis postop changes prostatectomy. Small fluid within the pelvis. Questionable etiology History of urinary retention, status post self-catheterization at home prior to admission for a long time COVID-19 negative Influenza screen negative Rt sided weakness with ischemic changes on MRI brain HDC clot on echo Plan: Plan of Care Levaquin per primary We will sign off STEVEN CANALES MD Nov 04, 2020 08:18
[2020-11-04] MEDS ORDERED: hydrALAZINE 20 MG/ML VIAL. IVP PRN (08:45)
[2020-11-04] MEDS: LACTOBACILLUS RHAMNOSUS GG 1 CAPSULE. PO SCH ×2 (08:57→21:35)
[2020-11-04] MEDS: METOPROLOL TART IMMED RELEASE 25 MG TABLET. PO SCH ×2 (08:57→21:35)
[2020-11-04] MEDS: ASPIRIN ENTERIC COATED 81 MG TABLET.DR. PO SCH (08:57)
[2020-11-04] MEDS: BRIMONIDINE 0.2% OPHTH SOLUTION 5ML BOTTLE. OU SCH ×2 (08:58→21:37)
[2020-11-04] MEDS: DORZOLAMIDE 2% OPHTH SOLUTION 10ML BOTTLE. OU SCH ×2 (08:58→21:36)
[2020-11-04] MEDS: TIMOLOL 0.5% OPHTH SOLUTION 5ML BOTTLE. OU SCH ×2 (08:58→21:36)
--- NOTE | 2020-11-04 10:18 | PDOC ---
DATE OF SERVICE DATE: 11/04/20 TIME: 10:16 SUBJECTIVE ROS Stable, no new complaints OBJECTIVE Vital Signs Vital Signs Date Time Temp Pulse Resp B/P (MAP) Pulse Ox O2 Delivery O2 Flow Rate FiO2 11/04/20 08:58 77 188/85 11/04/20 07:00 97.9 18 97 Room Air 97.9 I & 0 Intake and Output 11/04/20 07:00 Intake Total 1100 ml Output Total 3525 ml Balance -2425 ml Intake Oral 1100 ml Output Urine Total 3525 ml PHYSICAL EXAM Physical Exam GENERAL: NAD , HEENT: anicteric, OM moist NECK: Supple LUNGS: Clear bilaterally. non labored HEART: S1, S2, no murmurs. ABDOMEN: Soft, nontender EXTREMITIES: No edema, no cyanosis. DERMATOLOGIC: No rash. Colvin + DIAGNOSIS/ASSESSMENT Assessment & Plan PERRY - 2/2 Pyelonephritis with urine culture positive Klebsiella, needing dialysis , last on 10/30 , renal function improved and stable , good UOP,E- Lytes stable Temp HD catheter removed CT scan - POA - Right perinephric stranding. No renal calculi. No hydronephrosis. Supportive care, Plan to dc with indwelling colvin per primary ,avoid nephrotoxins, keep hydrated Rhabdomyolysis- improving History of urinary retention, self-catheterization at home prior to admission for a long time Right renal cysts- on CT scan- 5.9 x 5.9 cm and 3.2 x 3.1 cm Numerous enlarged retroperitoneal and inguinal lymph nodes probably characterized without intravenous contrast Septic shock resolved Gram-negative sepsis/ Klebsiella pneumonia bacteremia source Abnormal LFTs. Improving Encephalopathy improved Acute hypoxic respiratory failure now resolved DC per primary, follow up with PCP post dc, Follow up with as OP in 1-2 months .Discussed with pt and RN COMMENT/RELEVANT DATA Meds Current Medications Medications (Trade) Dose Ordered Sig/Ambrosio Start Time Stop Time Status Last Admin Dose Admin Acetaminophen (Tylenol Supp) 975 mg 1X ONCE 10/27/20 06:30 10/27/20 06:31 DC 10/27/20 07:30 975 MG Acetaminophen (Tylenol) 650 mg PRN Q6HRS PRN 11/01/20 11:45 11/02/20 21:17 650 MG Albumin Human 200 ml @ 200 mls/hr 1X PRN PRN 10/30/20 08:30 10/30/20 14:35 DC Amlodipine Besylate (Norvasc) 5 mg 1X ONCE 11/04/20 08:45 11/04/20 08:47 DC 11/04/20 08:58 5 MG Aspirin (Aspirin Rectal Supp) 150 mg 1X ONCE 10/28/20 11:00 10/28/20 11:01 DC Aspirin (Ecotrin) 81 mg [id number] 10/27/20 12:30 11/04/20 08:57 81 MG Bisacodyl (Dulcolax Supp) 10 mg PRN DAILY PRN 10/27/20 10:30 Brimonidine Tartrate (Alphagan) 1 drop BID 10/28/20 21:00 11/04/20 08:58 1 DROP Ceftriaxone Sodium (Rocephin) 2 gm Q24H 10/31/20 11:00 11/02/20 10:07 DC 11/02/20 08:18 2 GM Diphenhydramine HCl (Benadryl) 25 mg 1X PRN PRN 10/30/20 08:30 10/31/20 08:29 DC Docusate Sodium (Colace) 100 mg PRN DAILY PRN 11/01/20 08:15 11/01/20 08:50 100 MG Dorzolamide HCl (Trusopt) 1 drop BID 10/28/20 11:00 11/04/20 08:58 1 DROP Famotidine (Pepcid Vial) 20 mg QHS 10/27/20 21:00 10/31/20 14:07 DC 10/30/20 21:23 20 MG Famotidine (Pepcid) 20 mg QHS 10/31/20 21:00 11/03/20 21:10 20 MG Glycerin/ Hypromellose/ Polyethylene (Artificial Tears) 1 drop PRN Q15MIN PRN 11/04/20 09:15 Heparin Sodium (Porcine) (Heparin Sodium) 5,000 unit Q8HRS 10/29/20 14:00 Cancel Heparin Sodium/ Dextrose 250 ml @ 7.656 mls/ hr CONT PRN 10/27/20 13:15 10/28/20 10:48 DC 10/27/20 13:54 7.656 MLS/HR Hydralazine HCl (Apresoline Inj) 10 mg PRN Q4HRS PRN 11/04/20 08:45 Hydromorphone HCl (Dilaudid) 0.2 mg PRN Q1HR PRN 10/27/20 10:30 Info (CONTRAST GIVEN -- Rx MONITORING) 1 each PRN DAILY PRN 10/27/20 08:45 10/29/20 08:44 DC Info (Icu Electrolyte Protocol) 1 ea DAILY 10/28/20 09:00 10/31/20 14:06 DC 10/28/20 09:00 1 EA Info (Non-Icu Electrolyte Protocol) 1 ea CONT PRN PRN 10/31/20 14:15 Info (PHARMACY MONITORING -- do not chart) 1 each PRN DAILY PRN 10/30/20 08:30 Iohexol (Omnipaque 350 Mg/ml) 100 ml 1X ONCE 10/27/20 08:45 10/27/20 08:46 DC Lactobacillus Rhamnosus (Culturelle) 1 cap BID 10/30/20 09:00 11/04/20 08:57 1 CAP Latanoprost (Xalatan) 1 drop QHS 10/28/20 21:00 11/03/20 21:11 1 DROP Levofloxacin (Levaquin) 750 mg DAILY08 11/02/20 11:00 11/04/20 08:57 750 MG Lidocaine HCl (Buffered Lidocaine 1%) 6 ml 1X ONCE 10/28/20 12:00 10/28/20 12:07 DC 10/28/20 12:16 4 ML Lidocaine HCl (Lidocaine 1% 20ml Vial) 20 ml STK-MED ONCE 10/27/20 06:30 10/27/20 06:30 DC Magnesium Sulfate 50 ml @ 25 mls/hr 1X ONCE 11/03/20 14:00 11/03/20 15:59 DC 11/03/20 14:56 25 MLS/HR Metoprolol Tartrate (Lopressor Vial) 2.5 mg Q6HRS 10/28/20 12:00 10/29/20 09:53 DC Metoprolol Tartrate (Lopressor) 25 mg BID 11/03/20 09:00 11/04/20 08:57 25 MG Norepinephrine Bitartrate 8 mg/ Dextrose 258 ml @ 0 mls/hr CONT PRN 10/27/20 11:00 10/31/20 14:05 DC 10/28/20 19:56 3.6 MLS/HR Ondansetron HCl (Zofran) 4 mg PRN Q6HRS PRN 10/27/20 10:30 Piperacillin Sod/ Tazobactam Sod (Zosyn Per Pharmacy) 1 each PRN DAILY PRN 10/27/20 10:30 10/31/20 10:22 DC Piperacillin Sod/ Tazobactam Sod 2.25 gm/Sodium Chloride 50 ml @ 100 mls/hr Q8HRS 10/28/20 21:00 10/31/20 10:22 DC 10/31/20 06:57 100 MLS/HR Piperacillin Sod/ Tazobactam Sod 3.375 gm/Sodium Chloride 50 ml @ 100 mls/hr 1X ONCE 10/27/20 07:00 10/27/20 07:29 DC 10/27/20 07:58 100 MLS/HR Potassium Chloride (Klor-Con) 40 meq 1X ONCE 11/03/20 14:00 11/03/20 14:01 DC 11/03/20 14:54 40 MEQ Sodium Bicarbonate (Sodium Bicarb Adult 8.4% Syr) 100 meq 1X ONCE 10/27/20 11:00 10/27/20 11:01 DC 10/27/20 10:54 100 MEQ Sodium Chloride 1,000 ml @ 400 mls/hr Q2H30M PRN 10/30/20 08:30 10/30/20 20:29 DC Sodium Chloride (Normal Saline Flush) 3 ml QSHIFT PRN 10/27/20 10:30 Timolol Maleate (Timoptic 0.5% Oph) 1 drop BID 10/28/20 11:00 11/04/20 08:58 1 DROP Lab Laboratory Tests Test 11/04/20 05:00 Sodium Level 142 mmol/L (136-145) Potassium Level 3.8 mmol/L (3.5-5.1) Chloride Level 109 mmol/L (98-107) Carbon Dioxide Level 27 mmol/L (21-32) Anion Gap 6 (6-14) Blood Urea Nitrogen 24 mg/dL (8-26) Creatinine 1.1 mg/dL (0.7-1.3) Estimated GFR (Cockcroft-Gault) 79.4 Glucose Level 98 mg/dL (70-99) Calcium Level 8.1 mg/dL (8.5-10.1) Results All relevant outside records, renal labs, imaging studies, telemetry/EKG's were reviewed. Justicifation of Admission Dx: Justifications for Admission: Justification of Admission Dx: Yes BRIAN HERNANDEZ MD Nov 04, 2020 10:18
--- NOTE | 2020-11-04 10:53 | NUR ---
SS following up with discharge planning. SS reviewed pt chart and discussed with pt RN. Pt is currently on room air. PT/OT recommended acute rehabilitation. COVID19 negative. Pt accepted at [facility], ; fax [phone], pending insurance authorization. SS contacted Maykel at [facility] to follow up and was notified that referral is still in review with [facility] insurance and is still pending. Discharge orders have been phoned and faxed to [facility] and packet has been updated. SS will continue to follow for discharge planning.
[2020-11-04 11:00] VITALS: BP 152/71
--- NOTE | 2020-11-04 12:54 | PDOC ---
ROSEANN NI CANDY [employer] HELPER 11/04/20 1254: CARDIO Progress Notes Date and Time Date of Service 11/04/2020 Time of Evaluation 1040 Subjective Subjective: No Chest Pain, No shortness of breath, No Palpitations Vitals Vitals Vital Signs Date Time Temp Pulse Resp B/P (MAP) Pulse Ox O2 Delivery O2 Flow Rate FiO2 11/04/20 11:00 97.9 71 18 152/71 (98) 96 Room Air 97.9 Weight Weight [ ] Input and Output Intake and Output Intake and Output 11/04/20 07:00 Intake Total 1100 ml Output Total 3525 ml Balance -2425 ml Intake Oral 1100 ml Output Urine Total 3525 ml Laboratory Labs Laboratory Tests Test 11/04/20 05:00 Sodium Level 142 mmol/L (136-145) Potassium Level 3.8 mmol/L (3.5-5.1) Chloride Level 109 mmol/L (98-107) Carbon Dioxide Level 27 mmol/L (21-32) Anion Gap 6 (6-14) Blood Urea Nitrogen 24 mg/dL (8-26) Creatinine 1.1 mg/dL (0.7-1.3) Estimated GFR (Cockcroft-Gault) 79.4 Glucose Level 98 mg/dL (70-99) Calcium Level 8.1 mg/dL (8.5-10.1) Microbiology Micro Microbiology 10/27/20 Blood Culture - Final, Complete 10/27/20 Antimicrobic Susceptibility - Final, Complete 10/27/20 Urine Culture - Final, Complete 10/27/20 Antimicrobic Susceptibility - Final, Complete Review of Systems Constitutional: yes: weakness, alert, oriented Ears/Nose/Throat: Yes: no symptom reported Eyes: Yes: no symptom reported Pulmonary: Yes no symptom reported Cardiovascular: Yes no symptom reported Gastrointestional: Yes: no symptom reported Genitourinary: Yes: no symptom reported Musculoskeletal: Yes: no symptom reported Skin: Yes no symptom reported Endocrine: Yes: no symptom reported Physical Exam HEENT: Neck Supple W Full Motion Chest: Symmetric LUNGS: Clear to Auscultation Heart: RRR (SR) Abdomen: Soft N/T Extremities: No Edema, No Calf Tenderness Neurology: alert, oriented, follow commands Assessment Assessment 1. Sepsis/fever/pyelonephritis: ID following. Covid neg. Echo with questionable vegetation on his central line and right atrium on 2D echo. 2. Septic shock: much better. BP stable 3. Severe PERRY with mild hypernatremia: received temporary HD. Cr much better 4. Rhabdomyolysis with transaminitis: peaked 34570. improved to 362 5. PSVT: brief bursts overnight 6. LBBB: no prior EKG for comparison 7. NSTEMI: peaked at 4.3. No CP/SOA. Possibly demand mediated. 2D echo showed LVEF 50%. 8. Metabolic encephalopathy: back to baseline 9. 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 HTN: labile Recommendations ASA therapy LDL at 33 does not need statin at this time also with recent rhabdo Consider outpatient ischemic evaluation Antibiotics ongoing. Anticipating transfer to [facility] rehab Consider ADITYA if ID deemed it warranted. Consider [facility] Continue metoprolol and increase norvasc Follow up in office as scheduled Justicifation of Admission Dx: Justifications for Admission: Justification of Admission Dx: Yes HERNAN FORTUNE MD 11/04/20 1532: CARDIO Progress Notes Plan Plan Patient seen and examined. Agree with above nurse practitioner note. Supportive care. He will follow-up at the [facility] as he is moving to [place] after being discharged from rehabilitation. Discussed with his daughter and son-in-law. ROSEANN NI APRN Nov 04, 2020 12:54 HERNAN FORTUNE MD Nov 04, 2020 15:32
--- NOTE | 2020-11-04 13:49 | PDOC ---
PROGRESS NOTES Date of Service: DATE: 11/04/20 TIME: 13:48 Chief Complaint Chief Complaint critical illness myopathy, weakness from sepsis, Septic shock, POA Lactic acidosis PERRY Dehydration Possible COVID-19 Rhabdo UTI Demand ischemia Metabolic cephalopathy UTI Fever sever protein malnutrition History of Present Illness History of Present Illness 11/04, complains of eye dryness and pain overnight, he takes sustaine at home, I will try to approximate with Liquifilm cont other, DC to ACUTE rehab any time, he plan to remove colvin any time 11/03,. pt may transfer today, waiting on insurance, order placed we discussed colvin removal again, he would prefer to wait, cont other, doing well with PT, Patient seen and examined in the cardiac care unit MRI today appreciate consult imput Discussed with RN Chart reviewed Discussed with cardiology nurse practitioner Vitals Vitals Vital Signs Date Time Temp Pulse Resp B/P (MAP) Pulse Ox O2 Delivery O2 Flow Rate FiO2 11/04/20 11:00 97.9 71 18 152/71 (98) 96 Room Air 97.9 Physical Exam Physical Exam GENERAL: axox3 male HEENT: Normocephalic, atraumatic, anicteric. NECK: Supple, no JVD. Right IJ and dialysis catheter in place LUNGS: Clear bilaterally. No wheezing. HEART: S1, S2, no murmurs. ABDOMEN: Soft, nontender, nondistended, no rebound, no guarding. EXTREMITIES: No edema, no cyanosis. DERMATOLOGIC: Warm and dry. No generalized rash. NEUROLOGIC: alert awake PSYCHIATRIC: calm cooperative General: No acute distress Heart: Regular rate Lungs: Clear Abdomen: Normal bowel sounds, Soft Extremities: No edema Skin: No breakdown Labs LABS Laboratory Tests Test 11/04/20 05:00 Sodium Level 142 mmol/L (136-145) Potassium Level 3.8 mmol/L (3.5-5.1) Chloride Level 109 mmol/L (98-107) Carbon Dioxide Level 27 mmol/L (21-32) Anion Gap 6 (6-14) Blood Urea Nitrogen 24 mg/dL (8-26) Creatinine 1.1 mg/dL (0.7-1.3) Estimated GFR (Cockcroft-Gault) 79.4 Glucose Level 98 mg/dL (70-99) Calcium Level 8.1 mg/dL (8.5-10.1) Assessment and Plan Assessmemt and Plan Problems Medical Problems: (1) Acute renal failure Status: Acute (2) Dehydration Status: Acute (3) Person under investigation for COVID-19 Status: Acute (4) Rhabdomyolysis Status: Acute (5) Septic shock Status: Acute (6) UTI (urinary tract infection) Status: Acute Comment Review of Relevant I have reviewed the following items mendez (where applicable) has been applied. Labs Laboratory Tests Test 11/03/20 05:30 11/04/20 05:00 Sodium Level 144 mmol/L (136-145) 142 mmol/L (136-145) Potassium Level 3.4 mmol/L (3.5-5.1) 3.8 mmol/L (3.5-5.1) Chloride Level 108 mmol/L (98-107) 109 mmol/L (98-107) Carbon Dioxide Level 27 mmol/L (21-32) 27 mmol/L (21-32) Anion Gap 9 (6-14) 6 (6-14) Blood Urea Nitrogen 25 mg/dL (8-26) 24 mg/dL (8-26) Creatinine 1.3 mg/dL (0.7-1.3) 1.1 mg/dL (0.7-1.3) Estimated GFR (Cockcroft-Gault) 65.5 79.4 Glucose Level 84 mg/dL (70-99) 98 mg/dL (70-99) Calcium Level 8.0 mg/dL (8.5-10.1) 8.1 mg/dL (8.5-10.1) Magnesium Level 1.5 mg/dL (1.8-2.4) Laboratory Tests Test 11/04/20 05:00 Sodium Level 142 mmol/L (136-145) Potassium Level 3.8 mmol/L (3.5-5.1) Chloride Level 109 mmol/L (98-107) Carbon Dioxide Level 27 mmol/L (21-32) Anion Gap 6 (6-14) Blood Urea Nitrogen 24 mg/dL (8-26) Creatinine 1.1 mg/dL (0.7-1.3) Estimated GFR (Cockcroft-Gault) 79.4 Glucose Level 98 mg/dL (70-99) Calcium Level 8.1 mg/dL (8.5-10.1) Microbiology 10/27/20 Blood Culture - Final, Complete 1/13/21 Antimicrobic Susceptibility - Final, Complete 10/27/20 Urine Culture - Final, Complete 10/27/20 Antimicrobic Susceptibility - Final, Complete Medications Current Medications Sodium Chloride 1,000 ml @ 1,000 mls/hr 1X ONCE IV Last administered on 10/27/20at 06:45; Start 10/27/20 at 06:30; Stop 10/27/20 at 07:29; Status DC Acetaminophen (Tylenol Supp) 975 mg 1X ONCE NV Last administered on 10/27/20at 07:30; Start 10/27/20 at 06:30; Stop 10/27/20 at 06:31; Status DC Lidocaine HCl (Lidocaine 1% 20ml Vial) 20 ml STK-MED ONCE .ROUTE ; Start 10/27/20 at 06:30; Stop 10/27/20 at 06:30; Status DC Sodium Chloride 1,000 ml @ 1,000 mls/hr 1X ONCE IV Last administered on 10/27/20at 06:45; Start 10/27/20 at 07:00; Stop 10/27/20 at 07:59; Status DC Piperacillin Sod/ Tazobactam Sod 3.375 gm/Sodium Chloride 50 ml @ 100 mls/hr 1X ONCE IV Last administered on 10/27/20at 07:58; Start 10/27/20 at 07:00; Stop 10/27/20 at 07:29; Status DC Sodium Chloride 1,000 ml @ 1,000 mls/hr 1X ONCE IV Last administered on 10/27/20at 07:57; Start 10/27/20 at 07:15; Stop 10/27/20 at 08:14; Status DC Norepinephrine Bitartrate 8 mg/ Dextrose 258 ml @ 12.848 mls/ hr 1X ONCE IV Last administered on 10/27/20at 08:42; Start 10/27/20 at 08:15; Stop 10/28/20 at 04:19; Status DC Ondansetron HCl (Zofran) 4 mg PRN Q8HRS PRN IV NAUSEA/VOMITING; Start 10/27/20 at 08:15; Stop 10/28/20 at 08:14; Status DC Sodium Chloride 1,000 ml @ 125 mls/hr Q8H IV Last administered on 10/27/20at 23:48; Start 10/27/20 at 08:15; Stop 10/28/20 at 08:14; Status DC Iohexol (Omnipaque 350 Mg/ml) 100 ml 1X ONCE IV ; Start 10/27/20 at 08:45; Stop 10/27/20 at 08:46; Status DC Info (CONTRAST GIVEN -- Rx MONITORING) 1 each PRN DAILY PRN MC SEE COMMENTS; Start 10/27/20 at 08:45; Stop 10/29/20 at 08:44; Status DC Piperacillin Sod/ Tazobactam Sod (Zosyn Per Pharmacy) 1 each PRN DAILY PRN MC SEE COMMENTS; Start 10/27/20 at 10:30; Stop 10/31/20 at 10:22; Status DC Piperacillin Sod/ Tazobactam Sod 2.25 gm/Sodium Chloride 50 ml @ 100 mls/hr Q6HRS IV Last administered on 10/28/20at 11:50; Start 10/27/20 at 12:00; Stop 10/28/20 at 14:37; Status DC Ondansetron HCl (Zofran) 4 mg PRN Q6HRS PRN IVP NAUSEA/VOMITING; Start 10/27/20 at 10:30 Famotidine (Pepcid Vial) 20 mg QHS IVP Last administered on 10/30/20at 21:23; Start 10/27/20 at 21:00; Stop 10/31/20 at 14:07; Status DC Info (Icu Electrolyte Protocol) 1 ea DAILY MC Last administered on 10/28/20at 09:00; Start 10/28/20 at 09:00; Stop 10/31/20 at 14:06; Status DC Heparin Sodium (Porcine) (Heparin Sodium) 5,000 unit Q8HRS SQ ; Start 10/27/20 at 14:00; Stop 10/27/20 at 14:51; Status DC Sodium Chloride (Normal Saline Flush) 3 ml QSHIFT PRN IV AFTER MEDS AND BLOOD DRAWS; Start 10/27/20 at 10:30 Sodium Chloride 1,000 ml @ 100 mls/hr Q10H IV Last administered on 11/01/20at 15:28; Start 10/27/20 at 10:30; Stop 11/02/20 at 16:52; Status DC Hydromorphone HCl (Dilaudid) 0.2 mg PRN Q1HR PRN IV PAIN; Start 10/27/20 at 10:30 Bisacodyl (Dulcolax Supp) 10 mg PRN DAILY PRN NV CONSTIPATION; Start 10/27/20 at 10:30 Sodium Bicarbonate (Sodium Bicarb Adult 8.4% Syr) 100 meq 1X ONCE IV Last administered on 10/27/20at 10:54; Start 10/27/20 at 11:00; Stop 10/27/20 at 11:01; Status DC Sodium Chloride 1,000 ml @ 500 mls/hr 1X ONCE IV Last administered on 10/27/20at 10:53; Start 10/27/20 at 11:00; Stop 10/27/20 at 12:59; Status DC Sodium Chloride 1,000 ml @ 1,000 mls/hr Q1H IV ; Start 10/27/20 at 11:00; Stop 10/27/20 at 12:57; Status DC Sodium Chloride 500 ml @ 1,000 mls/hr PRN Q30MIN PRN IV SEE COMMENTS; Start at 11:00 Norepinephrine Bitartrate 8 mg/ Dextrose 258 ml @ 0 mls/hr CONT PRN IV SEE I/O RECORD Last administered on 10/28/20at 19:56; Start 10/27/20 at 11:00; Stop 10/31/20 at 14:05; Status DC Aspirin (Ecotrin) 81 mg DAILYWBKFT PO Last administered on 11/04/20at 08:57; Start 10/27/20 at 12:30 Aspirin (Aspirin Rectal Supp) 300 mg 1X ONCE NV ; Start 10/27/20 at 13:15; Stop 10/27/20 at 13:16; Status DC Heparin Sodium/ Dextrose 250 ml @ 7.656 mls/ hr CONT PRN IV PER PROTOCOL Last administered on 10/27/20at 13:54; Start 10/27/20 at 13:15; Stop 10/28/20 at 10:48; Status DC Heparin Sodium (Porcine) (Heparin Sodium) 1,600 unit PRN Q6HRS PRN IV FOR UFH LEVEL LESS THAN 0.2 Last administered on 10/27/20at 20:46; Start 10/27/20 at 13:15; Stop 10/28/20 at 10:48; Status DC Brimonidine Tartrate (Alphagan) 1 drop BID OU Last administered on 11/04/20at 08:58; Start 10/28/20 at 21:00 Dorzolamide HCl (Trusopt) 1 drop BID OU Last administered on 11/04/20at 08:58; Start 10/28/20 at 11:00 Latanoprost (Xalatan) 1 drop QHS OU Last administered on 11/03/20at 21:11; Start 10/28/20 at 21:00 Aspirin (Aspirin Rectal Supp) 150 mg 1X ONCE NV ; Start 10/28/20 at 11:00; Stop 10/28/20 at 11:01; Status DC Metoprolol Tartrate (Lopressor Vial) 2.5 mg Q6HRS IVP ; Start 10/28/20 at 12:00; Stop 10/29/20 at 09:53; Status DC Timolol Maleate (Timoptic 0.5% Ophth) 1 drop BID OU Last administered on 11/04/20at 08:58; Start 10/28/20 at 11:00 Lidocaine HCl (Buffered Lidocaine 1%) 3 ml STK-MED ONCE .ROUTE ; Start 10/28/20 at 11:45; Stop 10/28/20 at 11:45; Status DC Sodium Chloride 1,000 ml @ 1,000 mls/hr Q1H PRN IV hypotension; Start 10/28/20 at 11:30; Stop 10/28/20 at 17:29; Status DC Albumin Human 200 ml @ 200 mls/hr 1X PRN PRN IV Hypotension; Start 10/28/20 at 11:30; Stop 10/28/20 at 17:29; Status DC Sodium Chloride 1,000 ml @ 400 mls/hr Q2H30M PRN IV PATENCY; Start 10/28/20 at 11:30; Stop 10/28/20 at 23:29; Status DC Info (PHARMACY MONITORING -- do not chart) 1 each PRN DAILY PRN MC SEE COMMENTS; Start 10/28/20 at 11:30; Stop 10/29/20 at 11:42; Status DC Info (PHARMACY MONITORING -- do not chart) 1 each PRN DAILY PRN MC SEE COMMENTS; Start 10/28/20 at 11:30; Stop 10/30/20 at 09:59; Status DC Lidocaine HCl (Buffered Lidocaine 1%) 6 ml 1X ONCE INJ Last administered on 10/28/20at 12:16; Start 10/28/20 at 12:00; Stop 10/28/20 at 12:07; Status DC Heparin Sodium (Porcine) (Heparin Sodium) 10,000 unit STK-MED ONCE .ROUTE ; Start 10/28/20 at 12:10; Stop 10/28/20 at 12:10; Status DC Heparin Sodium (Porcine) (Heparin Sodium) 2,500 unit 1X ONCE INT CAT Last administered on 10/28/20at 12:19; Start 10/28/20 at 12:30; Stop 10/28/20 at 12:31; Status DC Piperacillin Sod/ Tazobactam Sod 2.25 gm/Sodium Chloride 50 ml @ 100 mls/hr Q8HRS IV Last administered on 10/31/20at 06:57; Start 10/28/20 at 21:00; Stop 10/31/20 at 10:22; Status DC Sodium Chloride 1,000 ml @ 1,000 mls/hr Q1H PRN IV hypotension; Start 10/29/20 at 07:30; Stop 10/29/20 at 13:29; Status DC Diphenhydramine HCl (Benadryl) 25 mg 1X PRN PRN IV ITCHING; Start 10/29/20 at 07:30; Stop 10/30/20 at 07:29; Status DC Diphenhydramine HCl (Benadryl) 25 mg 1X PRN PRN IV ITCHING; Start 10/29/20 at 07:30; Stop 10/30/20 at 07:29; Status DC Sodium Chloride 1,000 ml @ 400 mls/hr Q2H30M PRN IV PATENCY; Start 10/29/20 at 07:30; Stop 10/29/20 at 19:29; Status DC Info (PHARMACY MONITORING -- do not chart) 1 each PRN DAILY PRN MC SEE COMMENTS; Start 10/29/20 at 07:30; Status UNV Heparin Sodium (Porcine) (Heparin Sodium) 5,000 unit Q8HRS SQ ; Start 10/29/20 at 14:00; Status Cancel Metoprolol Tartrate (Lopressor) 12.5 mg BID PO Last administered on 11/03/20at 04:42; Start 10/29/20 at 21:00; Stop 11/03/20 at 08:28; Status DC Sodium Chloride 1,000 ml @ 100 mls/hr Q10H IV Last administered on 10/29/20at 11:52; Start 10/29/20 at 11:45; Stop 10/29/20 at 11:57; Status DC Lactobacillus Rhamnosus (Culturelle) 1 cap BID PO Last administered on 11/04/20at 08:57; Start 10/30/20 at 09:00 Sodium Chloride 1,000 ml @ 1,000 mls/hr Q1H PRN IV hypotension; Start 10/30/20 at 08:30; Stop 10/30/20 at 14:34; Status DC Albumin Human 200 ml @ 200 mls/hr 1X PRN PRN IV Hypotension; Start 10/30/20 at 08:30; Stop 10/30/20 at 14:35; Status DC Diphenhydramine HCl (Benadryl) 25 mg 1X PRN PRN IV ITCHING; Start 10/30/20 at 08:30; Stop 10/31/20 at 08:29; Status DC Diphenhydramine HCl (Benadryl) 25 mg 1X PRN PRN IV ITCHING; Start 10/30/20 at 08:30; Stop 10/31/20 at 08:29; Status DC Sodium Chloride 1,000 ml @ 400 mls/hr Q2H30M PRN IV PATENCY; Start 10/30/20 at 08:30; Stop 10/30/20 at 20:29; Status DC Info (PHARMACY MONITORING -- do not chart) 1 each PRN DAILY PRN MC SEE COMMENTS; Start 10/30/20 at 08:30 Ceftriaxone Sodium (Rocephin) 2 gm Q24H IVP Last administered on 11/02/20at 08:18; Start 10/31/20 at 11:00; Stop 11/02/20 at 10:07; Status DC Info (Non-Icu Electrolyte Protocol) 1 ea CONT PRN PRN MC SEE COMMENTS; Start 10/31/20 at 14:15 Famotidine (Pepcid) 20 mg QHS PO Last administered on 11/03/20at 21:10; Start 10/31/20 at 21:00 Docusate Sodium (Colace) 100 mg PRN DAILY PRN PO HARD STOOLS Last administered on 11/01/20at 08:50; Start 11/01/20 at 08:15 Acetaminophen (Tylenol) 650 mg PRN Q6HRS PRN PO MILD PAIN / TEMP > 100.3'F Last administered on 11/02/20at 21:17; Start 11/01/20 at 11:45 Levofloxacin (Levaquin) 750 mg DAILY08 PO Last administered on 11/04/20at 08:57; Start 11/02/20 at 11:00 Potassium Chloride (Klor-Con) 20 meq 1X ONCE PO Last administered on 11/02/20at 14:44; Start 11/02/20 at 12:45; Stop 11/02/20 at 12:46; Status DC Metoprolol Tartrate (Lopressor) 25 mg BID PO Last administered on 11/04/20at 08:57; Start 11/03/20 at 09:00 Amlodipine Besylate (Norvasc) 5 mg DAILY PO Last administered on 11/03/20at 08:46; Start 11/03/20 at 09:00; Stop 11/04/20 at 08:43; Status DC Potassium Chloride (Klor-Con) 40 meq 1X ONCE PO Last administered on 11/03/20at 14:54; Start 11/03/20 at 14:00; Stop 11/03/20 at 14:01; Status DC Magnesium Sulfate 50 ml @ 25 mls/hr 1X ONCE IV Last administered on 11/03/20at 14:56; Start 11/03/20 at 14:00; Stop 11/03/20 at 15:59; Status DC Amlodipine Besylate (Norvasc) 10 mg DAILY PO ; Start 11/05/20 at 09:00 Amlodipine Besylate (Norvasc) 5 mg 1X ONCE PO Last administered on 11/04/20at 08:58; Start 11/04/20 at 08:45; Stop 11/04/20 at 08:47; Status DC Hydralazine HCl (Apresoline Inj) 10 mg PRN Q4HRS PRN IVP ELEVATED BP, SEE COMMENTS; Start 11/04/20 at 08:45 Glycerin/ Hypromellose/ Polyethylene (Artificial Tears) 1 drop PRN Q15MIN PRN OU DRY EYE; Start 11/04/20 at 09:15 Active Scripts Active Aspirin Ec (Aspirin) 81 Mg Tablet.dr 81 Mg PO DAILYWBKFT Levofloxacin 750 Mg Tablet 750 Mg PO DAILY08 Metoprolol Tartrate 25 Mg Tablet 12.5 Mg PO BID Famotidine 20 Mg Tablet 20 Mg PO QHS Reported Meclizine Hcl 25 Mg Tablet 1 Tab PO PRN TID Latanoprost 0.005% Eye Drop (Latanoprost/Pf) 7.5 Ml Drops 7.5 Ml OP HS Dorzolamide-Timolol Eye Drops (Dorzolamide Hcl/Timolol Maleat) 10 Ml Drops 1 Drop EACHEYE BID Brimonidine Tartrate 5 Ml Drops 1 Drop EACHEYE BID Vitals/I & O Vital Sign - Last 24 Hours 11/03/20 11/03/20 11/03/20 11/03/20 14:45 19:00 19:20 21:11 Temp 97.9 98.8 97.9 98.8 Pulse 85 77 77 Resp 16 16 B/P (MAP) 168/88 (114) 158/89 (112) 158/89 Pulse Ox 95 95 O2 Delivery Nasal Cannula Room Air Room Air 11/03/20 11/04/20 11/04/20 11/04/20 22:37 02:54 04:07 07:00 Temp 98.3 96.8 97.9 98.3 96.8 97.9 Pulse 71 69 68 77 Resp 18 18 18 B/P (MAP) 152/84 (106) 182/95 (124) 181/92 (121) 188/85 (119) Pulse Ox 96 96 97 O2 Delivery Room Air Room Air Room Air 11/04/20 11/04/20 11/04/20 11/04/20 08:00 08:57 08:58 11:00 Temp 97.9 97.9 Pulse 77 77 71 Resp 18 B/P (MAP) 188/85 188/85 152/71 (98) Pulse Ox 96 O2 Delivery Room Air Room Air Intake and Output 11/03/20 11/03/20 11/04/20 15:00 23:00 07:00 Intake Total 540 ml 500 ml 60 ml Output Total 825 ml 1950 ml 750 ml Balance -285 ml -1450 ml -690 ml Nutrition Consultation Dietary Evaluation: Recommendations by RD: Dietary education by RD, Increase Calorie Intake, Protein supplementation Comments: Continue w/cardiac diet as ordered w/Ensure supplements q day Expected Outcomes/Goals: diet advancement - met, new goal established New goal 11/03 - PO intake to meet >75% est needs Malnutrition Findings: Body Fat Depletion (Non Severe: Mild Depletion Weight Status: Appropriate Justicifation of Admission Dx: Justifications for Admission: Justification of Admission Dx: Yes GAYLE CAMARENA MD Nov 04, 2020 13:49
--- NOTE | 2020-11-04 14:41 | PDOC ---
PROGRESS NOTES Date of Service DATE: 11/04/20 TIME: 14:38 Assessment Problems Medical Problems: (1) Acute renal failure Status: Acute (2) Dehydration Status: Acute (3) Person under investigation for COVID-19 Status: Acute (4) Rhabdomyolysis Status: Acute (5) Septic shock Status: Acute (6) UTI (urinary tract infection) Status: Acute Small acute infarct within the posterior left occipital lobe Metabolic encephalopathy Klebsiella pneumoniae, pyelonephritis, septic shock (resolved), acute on chronic kidney disease on dialysis, metabolic acidosis, hyponatremia, rhabdomyolysis, elevated liver function tests, respiratory failure, status-post prostatectomy, urinary retention requiring self-catheterization, COVID-19 negative Prostatism, Freeman catheter Plan Abnormal echocardiogram, further work-up per cardiology, from neurology perspective okay to continue on aspirin 81 mg aspirin daily Acute rehab Discussed with daughter and son-in-law Patient has been stable to transfer to care home for the last 3 days, transfer delayed due to insurance company [employer] Subjective No complaints Objective Vital Signs Date Time Temp Pulse Resp B/P (MAP) Pulse Ox O2 Delivery O2 Flow Rate FiO2 11/04/20 11:00 97.9 71 18 152/71 (98) 96 Room Air 97.9 Intake and Output 11/04/20 07:00 Intake Total 1100 ml Output Total 3525 ml Balance -2425 ml Intake Oral 1100 ml Output Urine Total 3525 ml PHYSICAL EXAM Alert. Oriented to place and person, does not know date. PERRL. EOMI. CN: no focal findings, no field cut Muscle tone: normal. Muscle strength: 4/5, weaker on right DTR: 1+ arms, 0+ legs Plantar reflex: flexor Gait: Transfers slowly with walker Sensory exam: no abnormal findings. Cerebellar: No tremor now Review of Relevant I have reviewed the following items mendez (where applicable) has been applied. Labs Laboratory Tests Test 11/03/20 05:30 11/04/20 05:00 Sodium Level 144 mmol/L (136-145) 142 mmol/L (136-145) Potassium Level 3.4 mmol/L (3.5-5.1) 3.8 mmol/L (3.5-5.1) Chloride Level 108 mmol/L (98-107) 109 mmol/L (98-107) Carbon Dioxide Level 27 mmol/L (21-32) 27 mmol/L (21-32) Anion Gap 9 (6-14) 6 (6-14) Blood Urea Nitrogen 25 mg/dL (8-26) 24 mg/dL (8-26) Creatinine 1.3 mg/dL (0.7-1.3) 1.1 mg/dL (0.7-1.3) Estimated GFR (Cockcroft-Gault) 65.5 79.4 Glucose Level 84 mg/dL (70-99) 98 mg/dL (70-99) Calcium Level 8.0 mg/dL (8.5-10.1) 8.1 mg/dL (8.5-10.1) Magnesium Level 1.5 mg/dL (1.8-2.4) Laboratory Tests Test 11/04/20 05:00 Sodium Level 142 mmol/L (136-145) Potassium Level 3.8 mmol/L (3.5-5.1) Chloride Level 109 mmol/L (98-107) Carbon Dioxide Level 27 mmol/L (21-32) Anion Gap 6 (6-14) Blood Urea Nitrogen 24 mg/dL (8-26) Creatinine 1.1 mg/dL (0.7-1.3) Estimated GFR (Cockcroft-Gault) 79.4 Glucose Level 98 mg/dL (70-99) Calcium Level 8.1 mg/dL (8.5-10.1) Microbiology 10/27/20 Blood Culture - Final, Complete 10/27/20 Antimicrobic Susceptibility - Final, Complete 10/27/20 Urine Culture - Final, Complete 10/27/20 Antimicrobic Susceptibility - Final, Complete Medications Current Medications Sodium Chloride 1,000 ml @ 1,000 mls/hr 1X ONCE IV Last administered on 10/27/20at 06:45; Start 10/27/20 at 06:30; Stop 10/27/20 at 07:29; Status DC Acetaminophen (Tylenol Supp) 975 mg 1X ONCE AL Last administered on 10/27/20at 07:30; Start 10/27/20 at 06:30; Stop 10/27/20 at 06:31; Status DC Lidocaine HCl (Lidocaine 1% 20ml Vial) 20 ml STK-MED ONCE .ROUTE ; Start 10/27/20 at 06:30; Stop 10/27/20 at 06:30; Status DC Sodium Chloride 1,000 ml @ 1,000 mls/hr 1X ONCE IV Last administered on 10/27/20at 06:45; Start 10/27/20 at 07:00; Stop 10/27/20 at 07:59; Status DC Piperacillin Sod/ Tazobactam Sod 3.375 gm/Sodium Chloride 50 ml @ 100 mls/hr 1X ONCE IV Last administered on 10/27/20at 07:58; Start 10/27/20 at 07:00; Stop 10/27/20 at 07:29; Status DC Sodium Chloride 1,000 ml @ 1,000 mls/hr 1X ONCE IV Last administered on 10/27/20at 07:57; Start 10/27/20 at 07:15; Stop 10/27/20 at 08:14; Status DC Norepinephrine Bitartrate 8 mg/ Dextrose 258 ml @ 12.848 mls/ hr 1X ONCE IV Last administered on 10/27/20at 08:42; Start 10/27/20 at 08:15; Stop 10/28/20 at 04:19; Status DC Ondansetron HCl (Zofran) 4 mg PRN Q8HRS PRN IV NAUSEA/VOMITING; Start 10/27/20 at 08:15; Stop 10/28/20 at 08:14; Status DC Sodium Chloride 1,000 ml @ 125 mls/hr Q8H IV Last administered on 10/27/20at 23:48; Start 10/27/20 at 08:15; Stop 10/28/20 at 08:14; Status DC Iohexol (Omnipaque 350 Mg/ml) 100 ml 1X ONCE IV ; Start 10/27/20 at 08:45; Stop 10/27/20 at 08:46; Status DC Info (CONTRAST GIVEN -- Rx MONITORING) 1 each PRN DAILY PRN MC SEE COMMENTS; Start 10/27/20 at 08:45; Stop 10/29/20 at 08:44; Status DC Piperacillin Sod/ Tazobactam Sod (Zosyn Per Pharmacy) 1 each PRN DAILY PRN MC SEE COMMENTS; Start 10/27/20 at 10:30; Stop 10/31/20 at 10:22; Status DC Piperacillin Sod/ Tazobactam Sod 2.25 gm/Sodium Chloride 50 ml @ 100 mls/hr Q6HRS IV Last administered on 10/28/20at 11:50; Start 10/27/20 at 12:00; Stop 10/28/20 at 14:37; Status DC Ondansetron HCl (Zofran) 4 mg PRN Q6HRS PRN IVP NAUSEA/VOMITING; Start 10/27/20 at 10:30 Famotidine (Pepcid Vial) 20 mg QHS IVP Last administered on 10/30/20at 21:23; Start 10/27/20 at 21:00; Stop 10/31/20 at 14:07; Status DC Info (Icu Electrolyte Protocol) 1 ea DAILY MC Last administered on 10/28/20at 09:00; Start 10/28/20 at 09:00; Stop 10/31/20 at 14:06; Status DC Heparin Sodium (Porcine) (Heparin Sodium) 5,000 unit Q8HRS SQ ; Start 10/27/20 at 14:00; Stop 10/27/20 at 14:51; Status DC Sodium Chloride (Normal Saline Flush) 3 ml QSHIFT PRN IV AFTER MEDS AND BLOOD DRAWS; Start 10/27/20 at 10:30 Sodium Chloride 1,000 ml @ 100 mls/hr Q10H IV Last administered on 11/01/20at 15:28; Start 10/27/20 at 10:30; Stop 11/02/20 at 16:52; Status DC Hydromorphone HCl (Dilaudid) 0.2 mg PRN Q1HR PRN IV PAIN; Start 10/27/20 at 10:30 Bisacodyl (Dulcolax Supp) 10 mg PRN DAILY PRN AL CONSTIPATION; Start 10/27/20 at 10:30 Sodium Bicarbonate (Sodium Bicarb Adult 8.4% Syr) 100 meq 1X ONCE IV Last administered on 10/27/20at 10:54; Start 10/27/20 at 11:00; Stop 10/27/20 at 11:01; Status DC Sodium Chloride 1,000 ml @ 500 mls/hr 1X ONCE IV Last administered on 10/27/20at 10:53; Start 10/27/20 at 11:00; Stop 10/27/20 at 12:59; Status DC Sodium Chloride 1,000 ml @ 1,000 mls/hr Q1H IV ; Start 10/27/20 at 11:00; Stop 10/27/20 at 12:57; Status DC Sodium Chloride 500 ml @ 1,000 mls/hr PRN Q30MIN PRN IV SEE COMMENTS; Start 10/27/20 at 11:00 Norepinephrine Bitartrate 8 mg/ Dextrose 258 ml @ 0 mls/hr CONT PRN IV SEE I/O RECORD Last administered on 10/28/20at 19:56; Start 10/27/20 at 11:00; Stop 10/31/20 at 14:05; Status DC Aspirin (Ecotrin) 81 mg DAILYWBKFT PO Last administered on 11/04/20at 08:57; Start 10/27/20 at 12:30 Aspirin (Aspirin Rectal Supp) 300 mg 1X ONCE AL ; Start 10/27/20 at 13:15; Stop 10/27/20 at 13:16; Status DC Heparin Sodium/ Dextrose 250 ml @ 7.656 mls/ hr CONT PRN IV PER PROTOCOL Last administered on 10/27/20at 13:54; Start 10/27/20 at 13:15; Stop 10/28/20 at 10:48; Status DC Heparin Sodium (Porcine) (Heparin Sodium) 1,600 unit PRN Q6HRS PRN IV FOR UFH LEVEL LESS THAN 0.2 Last administered on 10/27/20at 20:46; Start 10/27/20 at 13:15; Stop 10/28/20 at 10:48; Status DC Brimonidine Tartrate (Alphagan) 1 drop BID OU Last administered on 11/04/20at 08:58; Start 10/28/20 at 21:00 Dorzolamide HCl (Trusopt) 1 drop BID OU Last administered on 11/04/20at 08:58; Start 10/28/20 at 11:00 Latanoprost (Xalatan) 1 drop QHS OU Last administered on 11/03/20at 21:11; Start 10/28/20 at 21:00 Aspirin (Aspirin Rectal Supp) 150 mg 1X ONCE AL ; Start 10/28/20 at 11:00; Stop 10/28/20 at 11:01; Status DC Metoprolol Tartrate (Lopressor Vial) 2.5 mg Q6HRS IVP ; Start 10/28/20 at 12:00; Stop 10/29/20 at 09:53; Status DC Timolol Maleate (Timoptic 0.5% [facility]) 1 drop BID OU Last administered on 11/04/20at 08:58; Start 10/28/20 at 11:00 Lidocaine HCl (Buffered Lidocaine 1%) 3 ml STK-MED ONCE .ROUTE ; Start 10/28/20 at 11:45; Stop 10/28/20 at 11:45; Status DC Sodium Chloride 1,000 ml @ 1,000 mls/hr Q1H PRN IV hypotension; Start 10/28/20 at 11:30; Stop 10/28/20 at 17:29; Status DC Albumin Human 200 ml @ 200 mls/hr 1X PRN PRN IV Hypotension; Start 10/28/20 at 11:30; Stop 10/28/20 at 17:29; Status DC Sodium Chloride 1,000 ml @ 400 mls/hr Q2H30M PRN IV PATENCY; Start 10/28/20 at 11:30; Stop 10/28/20 at 23:29; Status DC Info (PHARMACY MONITORING -- do not chart) 1 each PRN DAILY PRN MC SEE COMMENTS; Start 10/28/20 at 11:30; Stop 10/29/20 at 11:42; Status DC Info (PHARMACY MONITORING -- do not chart) 1 each PRN DAILY PRN MC SEE COMMENTS; Start 10/28/20 at 11:30; Stop 10/30/20 at 09:59; Status DC Lidocaine HCl (Buffered Lidocaine 1%) 6 ml 1X ONCE INJ Last administered on 10/28/20at 12:16; Start 10/28/20 at 12:00; Stop 10/28/20 at 12:07; Status DC Heparin Sodium (Porcine) (Heparin Sodium) 10,000 unit STK-MED ONCE .ROUTE ; Start 10/28/20 at 12:10; Stop 10/28/20 at 12:10; Status DC Heparin Sodium (Porcine) (Heparin Sodium) 2,500 unit 1X ONCE INT CAT Last administered on 10/28/20at 12:19; Start 10/28/20 at 12:30; Stop 10/28/20 at 12:31; Status DC Piperacillin Sod/ Tazobactam Sod 2.25 gm/Sodium Chloride 50 ml @ 100 mls/hr Q8HRS IV Last administered on 10/31/20at 06:57; Start 10/28/20 at 21:00; Stop 10/31/20 at 10:22; Status DC Sodium Chloride 1,000 ml @ 1,000 mls/hr Q1H PRN IV hypotension; Start 10/29/20 at 07:30; Stop 10/29/20 at 13:29; Status DC Diphenhydramine HCl (Benadryl) 25 mg 1X PRN PRN IV ITCHING; Start 10/29/20 at 07:30; Stop 10/30/20 at 07:29; Status DC Diphenhydramine HCl (Benadryl) 25 mg 1X PRN PRN IV ITCHING; Start 10/29/20 at 07:30; Stop 10/30/20 at 07:29; Status DC Sodium Chloride 1,000 ml @ 400 mls/hr Q2H30M PRN IV PATENCY; Start 10/29/20 at 07:30; Stop 10/29/20 at 19:29; Status DC Info (PHARMACY MONITORING -- do not chart) 1 each PRN DAILY PRN MC SEE COMMENTS; Start 10/29/20 at 07:30; Status UNV Heparin Sodium (Porcine) (Heparin Sodium) 5,000 unit Q8HRS SQ ; Start 10/29/20 at 14:00; Status Cancel Metoprolol Tartrate (Lopressor) 12.5 mg BID PO Last administered on 11/03/20at 04:42; Start 10/29/20 at 21:00; Stop 11/03/20 at 08:28; Status DC Sodium Chloride 1,000 ml @ 100 mls/hr Q10H IV Last administered on 10/29/20at 11:52; Start 10/29/20 at 11:45; Stop 10/29/20 at 11:57; Status DC Lactobacillus Rhamnosus (Culturelle) 1 cap BID PO Last administered on 11/04/20at 08:57; Start 10/30/20 at 09:00 Sodium Chloride 1,000 ml @ 1,000 mls/hr Q1H PRN IV hypotension; Start 10/30/20 at 08:30; Stop 10/30/20 at 14:34; Status DC Albumin Human 200 ml @ 200 mls/hr 1X PRN PRN IV Hypotension; Start 10/30/20 at 08:30; Stop 10/30/20 at 14:35; Status DC Diphenhydramine HCl (Benadryl) 25 mg 1X PRN PRN IV ITCHING; Start 10/30/20 at 08:30; Stop 10/31/20 at 08:29; Status DC Diphenhydramine HCl (Benadryl) 25 mg 1X PRN PRN IV ITCHING; Start 10/30/20 at 08:30; Stop 10/31/20 at 08:29; Status DC Sodium Chloride 1,000 ml @ 400 mls/hr Q2H30M PRN IV PATENCY; Start 10/30/20 at 08:30; Stop 10/30/20 at 20:29; Status DC Info (PHARMACY MONITORING -- do not chart) 1 each PRN DAILY PRN MC SEE COMMENTS; Start 10/30/20 at 08:30 Ceftriaxone Sodium (Rocephin) 2 gm Q24H IVP Last administered on 11/02/20at 08:18; Start 10/31/20 at 11:00; Stop 11/02/20 at 10:07; Status DC Info (Non-Icu Electrolyte Protocol) 1 ea CONT PRN PRN MC SEE COMMENTS; Start 10/31/20 at 14:15 Famotidine (Pepcid) 20 mg QHS PO Last administered on 11/03/20at 21:10; Start 10/31/20 at 21:00 Docusate Sodium (Colace) 100 mg PRN DAILY PRN PO HARD STOOLS Last administered on 11/01/20at 08:50; Start 11/01/20 at 08:15 Acetaminophen (Tylenol) 650 mg PRN Q6HRS PRN PO MILD PAIN / TEMP > 100.3'F Last administered on 11/02/20at 21:17; Start 11/01/20 at 11:45 Levofloxacin (Levaquin) 750 mg DAILY08 PO Last administered on 11/04/20at 08:57; Start 11/02/20 at 11:00 Potassium Chloride (Klor-Con) 20 meq 1X ONCE PO Last administered on 11/02/20at 14:44; Start 11/02/20 at 12:45; Stop 11/02/20 at 12:46; Status DC Metoprolol Tartrate (Lopressor) 25 mg BID PO Last administered on 11/04/20at 08:57; Start 11/03/20 at 09:00 Amlodipine Besylate (Norvasc) 5 mg DAILY PO Last administered on 11/03/20at 08:46; Start 11/03/20 at 09:00; Stop 11/04/20 at 08:43; Status DC Potassium Chloride (Klor-Con) 40 meq 1X ONCE PO Last administered on 11/03/20at 14:54; Start 11/03/20 at 14:00; Stop 11/03/20 at 14:01; Status DC Magnesium Sulfate 50 ml @ 25 mls/hr 1X ONCE IV Last administered on 11/03/20at 14:56; Start 11/03/20 at 14:00; Stop 11/03/20 at 15:59; Status DC Amlodipine Besylate (Norvasc) 10 mg DAILY PO ; Start 11/05/20 at 09:00 Amlodipine Besylate (Norvasc) 5 mg 1X ONCE PO Last administered on 11/04/20at 08:58; Start 11/04/20 at 08:45; Stop 11/04/20 at 08:47; Status DC Hydralazine HCl (Apresoline Inj) 10 mg PRN Q4HRS PRN IVP ELEVATED BP, SEE COMMENTS; Start 11/04/20 at 08:45 Glycerin/ Hypromellose/ Polyethylene (Artificial Tears) 1 drop PRN Q15MIN PRN OU DRY EYE; Start 11/04/20 at 09:15 Active Scripts Active Aspirin Ec (Aspirin) 81 Mg Tablet.dr 81 Mg PO DAILYWBKFT Levofloxacin 750 Mg Tablet 750 Mg PO DAILY08 Metoprolol Tartrate 25 Mg Tablet 12.5 Mg PO BID Famotidine 20 Mg Tablet 20 Mg PO QHS Reported Meclizine Hcl 25 Mg Tablet 1 Tab PO PRN TID Latanoprost 0.005% Eye Drop (Latanoprost/Pf) 7.5 Ml Drops 7.5 Ml OP HS Dorzolamide-Timolol Eye Drops (Dorzolamide Hcl/Timolol Maleat) 10 Ml Drops 1 Drop EACHEYE BID Brimonidine Tartrate 5 Ml Drops 1 Drop EACHEYE BID Vitals/I & O Vital Sign - Last 24 Hours 11/03/20 11/03/20 11/03/20 11/03/20 14:45 19:00 19:20 21:11 Temp 97.9 98.8 97.9 98.8 Pulse 85 77 77 Resp 16 16 B/P (MAP) 168/88 (114) 158/89 (112) 158/89 Pulse Ox 95 95 O2 Delivery Nasal Cannula Room Air Room Air 11/03/20 11/04/20 11/04/20 11/04/20 22:37 02:54 04:07 07:00 Temp 98.3 96.8 97.9 98.3 96.8 97.9 Pulse 71 69 68 77 Resp 18 18 18 B/P (MAP) 152/84 (106) 182/95 (124) 181/92 (121) 188/85 (119) Pulse Ox 96 96 97 O2 Delivery Room Air Room Air Room Air 11/04/20 11/04/20 11/04/20 11/04/20 08:00 08:57 08:58 11:00 Temp 97.9 97.9 Pulse 77 77 71 Resp 18 B/P (MAP) 188/85 188/85 152/71 (98) Pulse Ox 96 O2 Delivery Room Air Room Air Intake and Output 11/03/20 11/03/20 11/04/20 15:00 23:00 07:00 Intake Total 540 ml 500 ml 60 ml Output Total 825 ml 1950 ml 750 ml Balance -285 ml -1450 ml -690 ml Justicifation of Admission Dx: Justifications for Admission: Justification of Admission Dx: Yes KEILA LEVINE MD Nov 04, 2020 14:41
[2020-11-04 15:00] VITALS: BP 110/72
[2020-11-04 19:55] VITALS: BP 166/69
[2020-11-04] MEDS: FAMOTIDINE 20 MG TABLET. PO SCH (21:35)
[2020-11-04] MEDS: LATANOPROST 0.005% OPHTH SOLUTION 2.5ML BOTTLE. OU SCH (21:36)
[2020-11-05 02:26] VITALS: BP 174/70
[2020-11-05 07:00] VITALS: BP 157/79
[2020-11-05] MEDS: ASPIRIN ENTERIC COATED 81 MG TABLET.DR. PO SCH (09:40)
[2020-11-05] MEDS: LACTOBACILLUS RHAMNOSUS GG 1 CAPSULE. PO SCH ×2 (09:40→20:49)
[2020-11-05] MEDS: METOPROLOL TART IMMED RELEASE 25 MG TABLET. PO SCH ×2 (09:41→20:50)
[2020-11-05] MEDS: BRIMONIDINE 0.2% OPHTH SOLUTION 5ML BOTTLE. OU SCH ×2 (09:41→20:50)
[2020-11-05] MEDS: DORZOLAMIDE 2% OPHTH SOLUTION 10ML BOTTLE. OU SCH ×2 (09:42→20:50)
[2020-11-05] MEDS: TIMOLOL 0.5% OPHTH SOLUTION 5ML BOTTLE. OU SCH ×2 (09:42→20:50)
--- NOTE | 2020-11-05 10:09 | NUR ---
SS following up with discharge planning. SS reviewed pt chart and discussed with pt RN. Pt is currently on room air. PT/OT recommended acute rehabilitation. COVID19 negative. Pt accepted at [facility], ; fax [phone], pending insurance authorization. SS contacted Maykel at [facility] to follow up and was notified that referral is still in review with [facility] insurance and is still pending. Discharge orders have been phoned and faxed to [facility] and packet has been updated. SS will continue to follow for discharge planning.
[2020-11-05 11:00] VITALS: BP 148/63
--- NOTE | 2020-11-05 12:12 | PDOC ---
PROGRESS NOTES Date of Service: DATE: 11/05/20 TIME: 12:11 Chief Complaint Chief Complaint critical illness myopathy, weakness from sepsis, Septic shock, POA Lactic acidosis PERRY Dehydration Possible COVID-19 Rhabdo UTI Demand ischemia Metabolic cephalopathy UTI Fever sever protein malnutrition History of Present Illness History of Present Illness 11/05. he feels improved, family here, will DC colvin finally today after a long discussion rehab expextation and goals reviewed, 11/04, complains of eye dryness and pain overnight, he takes sustaine at home, I will try to approximate with Liquifilm cont other, DC to ACUTE rehab any time, he plan to remove colvin any time 11/03,. pt may transfer today, waiting on insurance, order placed we discussed colvin removal again, he would prefer to wait, cont other, doing well with PT, Patient seen and examined in the cardiac care unit MRI today appreciate consult imput Discussed with RN Chart reviewed Discussed with cardiology nurse practitioner Vitals Vitals Vital Signs Date Time Temp Pulse Resp B/P (MAP) Pulse Ox O2 Delivery O2 Flow Rate FiO2 11/05/20 11:00 97.5 77 18 148/63 (91) 97 Room Air 97.5 Physical Exam Physical Exam GENERAL: axox3 male HEENT: Normocephalic, atraumatic, anicteric. NECK: Supple, no JVD. Right IJ and dialysis catheter in place LUNGS: Clear bilaterally. No wheezing. HEART: S1, S2, no murmurs. ABDOMEN: Soft, nontender, nondistended, no rebound, no guarding. EXTREMITIES: No edema, no cyanosis. DERMATOLOGIC: Warm and dry. No generalized rash. NEUROLOGIC: alert awake PSYCHIATRIC: calm cooperative General: No acute distress Heart: Regular rate Lungs: Clear Abdomen: Normal bowel sounds, Soft Extremities: No edema Skin: No breakdown Assessment and Plan Assessmemt and Plan Problems Medical Problems: (1) Acute renal failure Status: Acute (2) Dehydration Status: Acute (3) Person under investigation for COVID-19 Status: Acute (4) Rhabdomyolysis Status: Acute (5) Septic shock Status: Acute (6) UTI (urinary tract infection) Status: Acute Comment Review of Relevant I have reviewed the following items mendez (where applicable) has been applied. Labs Laboratory Tests Test 11/04/20 05:00 Sodium Level 142 mmol/L (136-145) Potassium Level 3.8 mmol/L (3.5-5.1) Chloride Level 109 mmol/L (98-107) Carbon Dioxide Level 27 mmol/L (21-32) Anion Gap 6 (6-14) Blood Urea Nitrogen 24 mg/dL (8-26) Creatinine 1.1 mg/dL (0.7-1.3) Estimated GFR (Cockcroft-Gault) 79.4 Glucose Level 98 mg/dL (70-99) Calcium Level 8.1 mg/dL (8.5-10.1) Microbiology 10/27/20 Blood Culture - Final, Complete 10/27/20 Antimicrobic Susceptibility - Final, Complete 10/27/20 Urine Culture - Final, Complete 10/27/20 Antimicrobic Susceptibility - Final, Complete Medications Current Medications Sodium Chloride 1,000 ml @ 1,000 mls/hr 1X ONCE IV Last administered on 10/27/20at 06:45; Start 10/27/20 at 06:30; Stop 10/27/20 at 07:29; Status DC Acetaminophen (Tylenol Supp) 975 mg 1X ONCE TN Last administered on 10/27/20at 07:30; Start 10/27/20 at 06:30; Stop 10/27/20 at 06:31; Status DC Lidocaine HCl (Lidocaine 1% 20ml Vial) 20 ml STK-MED ONCE .ROUTE ; Start 10/27/20 at 06:30; Stop 10/27/20 at 06:30; Status DC Sodium Chloride 1,000 ml @ 1,000 mls/hr 1X ONCE IV Last administered on 10/27/20at 06:45; Start 10/27/20 at 07:00; Stop 10/27/20 at 07:59; Status DC Piperacillin Sod/ Tazobactam Sod 3.375 gm/Sodium Chloride 50 ml @ 100 mls/hr 1X ONCE IV Last administered on 10/27/20at 07:58; Start 10/27/20 at 07:00; Stop 10/27/20 at 07:29; Status DC Sodium Chloride 1,000 ml @ 1,000 mls/hr 1X ONCE IV Last administered on 10/27/20at 07:57; Start 10/27/20 at 07:15; Stop 10/27/20 at 08:14; Status DC Norepinephrine Bitartrate 8 mg/ Dextrose 258 ml @ 12.848 mls/ hr 1X ONCE IV Last administered on 10/27/20at 08:42; Start 10/27/20 at 08:15; Stop 10/28/20 at 04:19; Status DC Ondansetron HCl (Zofran) 4 mg PRN Q8HRS PRN IV NAUSEA/VOMITING; Start 10/27/20 at 08:15; Stop 10/28/20 at 08:14; Status DC Sodium Chloride 1,000 ml @ 125 mls/hr Q8H IV Last administered on 10/27/20at 23:48; Start 10/27/20 at 08:15; Stop 10/28/20 at 08:14; Status DC Iohexol (Omnipaque 350 Mg/ml) 100 ml 1X ONCE IV ; Start 10/27/20 at 08:45; Stop 10/27/20 at 08:46; Status DC Info (CONTRAST GIVEN -- Rx MONITORING) 1 each PRN DAILY PRN MC SEE COMMENTS; Start 10/27/20 at 08:45; Stop 10/29/20 at 08:44; Status DC Piperacillin Sod/ Tazobactam Sod (Zosyn Per Pharmacy) 1 each PRN DAILY PRN MC SEE COMMENTS; Start 10/27/20 at 10:30; Stop 10/31/20 at 10:22; Status DC Piperacillin Sod/ Tazobactam Sod 2.25 gm/Sodium Chloride 50 ml @ 100 mls/hr Q6HRS IV Last administered on 10/28/20at 11:50; Start 10/27/20 at 12:00; Stop 10/28/20 at 14:37; Status DC Ondansetron HCl (Zofran) 4 mg PRN Q6HRS PRN IVP NAUSEA/VOMITING; Start 10/27/20 at 10:30 Famotidine (Pepcid Vial) 20 mg QHS IVP Last administered on 10/30/20at 21:23; Start 10/27/20 at 21:00; Stop 10/31/20 at 14:07; Status DC Info (Icu Electrolyte Protocol) 1 ea DAILY MC Last administered on 10/28/20at 09:00; Start 10/28/20 at 09:00; Stop 10/31/20 at 14:06; Status DC Heparin Sodium (Porcine) (Heparin Sodium) 5,000 unit Q8HRS SQ ; Start 10/27/20 at 14:00; Stop 10/27/20 at 14:51; Status DC Sodium Chloride (Normal Saline Flush) 3 ml QSHIFT PRN IV AFTER MEDS AND BLOOD DRAWS; Start 10/27/20 at 10:30 Sodium Chloride 1,000 ml @ 100 mls/hr Q10H IV Last administered on 11/01/20at 15:28; Start 10/27/20 at 10:30; Stop 11/02/20 at 16:52; Status DC Hydromorphone HCl (Dilaudid) 0.2 mg PRN Q1HR PRN IV PAIN; Start 10/27/20 at 10:30 Bisacodyl (Dulcolax Supp) 10 mg PRN DAILY PRN TN CONSTIPATION; Start 10/27/20 at 10:30 Sodium Bicarbonate (Sodium Bicarb Adult 8.4% Syr) 100 meq 1X ONCE IV Last administered on 10/27/20at 10:54; Start 10/27/20 at 11:00; Stop 10/27/20 at 11: 01; Status DC Sodium Chloride 1,000 ml @ 500 mls/hr 1X ONCE IV Last administered on 10/27/20at 10:53; Start 10/27/20 at 11:00; Stop 10/27/20 at 12:59; Status DC Sodium Chloride 1,000 ml @ 1,000 mls/hr Q1H IV ; Start 10/27/20 at 11:00; Stop 10/27/20 at 12:57; Status DC Sodium Chloride 500 ml @ 1,000 mls/hr PRN Q30MIN PRN IV SEE COMMENTS; Start 10/27/20 at 11:00 Norepinephrine Bitartrate 8 mg/ Dextrose 258 ml @ 0 mls/hr CONT PRN IV SEE I/O RECORD Last administered on 10/28/20at 19:56; Start 10/27/20 at 11:00; Stop 10/31/20 at 14:05; Status DC Aspirin (Ecotrin) 81 mg DAILYWBKFT PO Last administered on 11/05/20at 09:40; Start 10/27/20 at 12:30 Aspirin (Aspirin Rectal Supp) 300 mg 1X ONCE TN ; Start 10/27/20 at 13:15; Stop 10/27/20 at 13:16; Status DC Heparin Sodium/ Dextrose 250 ml @ 7.656 mls/ hr CONT PRN IV PER PROTOCOL Last administered on 10/27/20at 13:54; Start 10/27/20 at 13:15; Stop 10/28/20 at 10:48; Status DC Heparin Sodium (Porcine) (Heparin Sodium) 1,600 unit PRN Q6HRS PRN IV FOR UFH LEVEL LESS THAN 0.2 Last administered on 10/27/20at 20:46; Start 10/27/20 at 13:15; Stop 10/28/20 at 10:48; Status DC Brimonidine Tartrate (Alphagan) 1 drop BID OU Last administered on 11/05/20at 09:41; Start 10/28/20 at 21:00 Dorzolamide HCl (Trusopt) 1 drop BID OU Last administered on 11/05/20at 09:42; Start 10/28/20 at 11:00 Latanoprost (Xalatan) 1 drop QHS OU Last administered on 11/04/20at 21:36; Start 10/28/20 at 21:00 Aspirin (Aspirin Rectal Supp) 150 mg 1X ONCE TN ; Start 10/28/20 at 11:00; Stop 10/28/20 at 11:01; Status DC Metoprolol Tartrate (Lopressor Vial) 2.5 mg Q6HRS IVP ; Start 10/28/20 at 12:00; Stop 10/29/20 at 09:53; Status DC Timolol Maleate (Timoptic 0.5% Ophth) 1 drop BID OU Last administered on 11/05/20at 09:42; Start 10/28/20 at 11:00 Lidocaine HCl (Buffered Lidocaine 1%) 3 ml STK-MED ONCE .ROUTE ; Start 10/28/20 at 11:45; Stop 10/28/20 at 11:45; Status DC Sodium Chloride 1,000 ml @ 1,000 mls/hr Q1H PRN IV hypotension; Start 10/28/20 at 11:30; Stop 10/28/20 at 17:29; Status DC Albumin Human 200 ml @ 200 mls/hr 1X PRN PRN IV Hypotension; Start 10/28/20 at 11:30; Stop 10/28/20 at 17:29; Status DC Sodium Chloride 1,000 ml @ 400 mls/hr Q2H30M PRN IV PATENCY; Start 10/28/20 at 11:30; Stop 10/28/20 at 23:29; Status DC Info (PHARMACY MONITORING -- do not chart) 1 each PRN DAILY PRN MC SEE COMMENTS; Start 10/28/20 at 11:30; Stop 10/29/20 at 11:42; Status DC Info (PHARMACY MONITORING -- do not chart) 1 each PRN DAILY PRN MC SEE COMMENTS; Start 10/28/20 at 11:30; Stop 10/30/20 at 09:59; Status DC Lidocaine HCl (Buffered Lidocaine 1%) 6 ml 1X ONCE INJ Last administered on 10/28/20at 12:16; Start 10/28/20 at 12:00; Stop 10/28/20 at 12:07; Status DC Heparin Sodium (Porcine) (Heparin Sodium) 10,000 unit STK-MED ONCE .ROUTE ; Start 10/28/20 at 12:10; Stop 10/28/20 at 12:10; Status DC Heparin Sodium (Porcine) (Heparin Sodium) 2,500 unit 1X ONCE INT CAT Last administered on 10/28/20at 12:19; Start 10/28/20 at 12:30; Stop 10/28/20 at 12:31; Status DC Piperacillin Sod/ Tazobactam Sod 2.25 gm/Sodium Chloride 50 ml @ 100 mls/hr Q8HRS IV Last administered on 10/31/20at 06:57; Start 10/28/20 at 21:00; Stop 10/31/20 at 10:22; Status DC Sodium Chloride 1,000 ml @ 1,000 mls/hr Q1H PRN IV hypotension; Start 10/29/20 at 07:30; Stop 10/29/20 at 13:29; Status DC Diphenhydramine HCl (Benadryl) 25 mg 1X PRN PRN IV ITCHING; Start 10/29/20 at 07:30; Stop 10/30/20 at 07:29; Status DC Diphenhydramine HCl (Benadryl) 25 mg 1X PRN PRN IV ITCHING; Start 10/29/20 at 07:30; Stop 10/30/20 at 07:29; Status DC Sodium Chloride 1,000 ml @ 400 mls/hr Q2H30M PRN IV PATENCY; Start 10/29/20 at 07:30; Stop 10/29/20 at 19:29; Status DC Info (PHARMACY MONITORING -- do not chart) 1 each PRN DAILY PRN MC SEE COMMENTS; Start 10/29/20 at 07:30; Status UNV Heparin Sodium (Porcine) (Heparin Sodium) 5,000 unit Q8HRS SQ ; Start 10/29/20 at 14:00; Status Cancel Metoprolol Tartrate (Lopressor) 12.5 mg BID PO Last administered on 11/03/20at 04:42; Start 10/29/20 at 21:00; Stop 11/03/20 at 08:28; Status DC Sodium Chloride 1,000 ml @ 100 mls/hr Q10H IV Last administered on 10/29/20at 11:52; Start 10/29/20 at 11:45; Stop 10/29/20 at 11:57; Status DC Lactobacillus Rhamnosus (Culturelle) 1 cap BID PO Last administered on 11/05/20at 09:40; Start 10/30/20 at 09:00 Sodium Chloride 1,000 ml @ 1,000 mls/hr Q1H PRN IV hypotension; Start 10/30/20 at 08:30; Stop 10/30/20 at 14:34; Status DC Albumin Human 200 ml @ 200 mls/hr 1X PRN PRN IV Hypotension; Start 10/30/20 at 08:30; Stop 10/30/20 at 14:35; Status DC Diphenhydramine HCl (Benadryl) 25 mg 1X PRN PRN IV ITCHING; Start 10/30/20 at 08:30; Stop 10/31/20 at 08:29; Status DC Diphenhydramine HCl (Benadryl) 25 mg 1X PRN PRN IV ITCHING; Start 10/30/20 at 08:30; Stop 10/31/20 at 08:29; Status DC Sodium Chloride 1,000 ml @ 400 mls/hr Q2H30M PRN IV PATENCY; Start 10/30/20 at 08:30; Stop 10/30/20 at 20:29; Status DC Info (PHARMACY MONITORING -- do not chart) 1 each PRN DAILY PRN MC SEE COMMENTS; Start 10/30/20 at 08:30 Ceftriaxone Sodium (Rocephin) 2 gm Q24H IVP Last administered on 11/02/20at 08:18; Start 10/31/20 at 11:00; Stop 11/02/20 at 10:07; Status DC Info (Non-Icu Electrolyte Protocol) 1 ea CONT PRN PRN MC SEE COMMENTS; Start 10/31/20 at 14:15 Famotidine (Pepcid) 20 mg QHS PO Last administered on 11/04/20at 21:35; Start 10/31/20 at 21:00 Docusate Sodium (Colace) 100 mg PRN DAILY PRN PO HARD STOOLS Last administered on 11/01/20at 08:50; Start 11/01/20 at 08:15 Acetaminophen (Tylenol) 650 mg PRN Q6HRS PRN PO MILD PAIN / TEMP > 100.3'F Last administered on 11/02/20at 21:17; Start 11/01/20 at 11:45 Levofloxacin (Levaquin) 750 mg DAILY08 PO Last administered on 11/05/20at 09:40; Start 11/02/20 at 11:00 Potassium Chloride (Klor-Con) 20 meq 1X ONCE PO Last administered on 11/02/20at 14:44; Start 11/02/20 at 12:45; Stop 11/02/20 at 12:46; Status DC Metoprolol Tartrate (Lopressor) 25 mg BID PO Last administered on 11/05/20at 09:41; Start 11/03/20 at 09:00 Amlodipine Besylate (Norvasc) 5 mg DAILY PO Last administered on 11/03/20at 08:46; Start 11/03/20 at 09:00; Stop 11/04/20 at 08:43; Status DC Potassium Chloride (Klor-Con) 40 meq 1X ONCE PO Last administered on 11/03/20at 14:54; Start 11/03/20 at 14:00; Stop 11/03/20 at 14:01; Status DC Magnesium Sulfate 50 ml @ 25 mls/hr 1X ONCE IV Last administered on 11/03/20at 14:56; Start 11/03/20 at 14:00; Stop 11/03/20 at 15:59; Status DC Amlodipine Besylate (Norvasc) 10 mg DAILY PO Last administered on 11/05/20at 09:41; Start 11/05/20 at 09:00 Amlodipine Besylate (Norvasc) 5 mg 1X ONCE PO Last administered on 11/04/20at 08:58; Start 11/04/20 at 08:45; Stop 11/04/20 at 08:47; Status DC Hydralazine HCl (Apresoline Inj) 10 mg PRN Q4HRS PRN IVP ELEVATED BP, SEE COMMENTS; Start 11/04/20 at 08:45 Glycerin/ Hypromellose/ Polyethylene (Artificial Tears) 1 drop PRN Q15MIN PRN OU DRY EYE; Start 11/04/20 at 09:15 Active Scripts Active Aspirin Ec (Aspirin) 81 Mg Tablet.dr 81 Mg PO DAILYWBKFT Levofloxacin 750 Mg Tablet 750 Mg PO DAILY08 Metoprolol Tartrate 25 Mg Tablet 12.5 Mg PO BID Famotidine 20 Mg Tablet 20 Mg PO QHS Reported Meclizine Hcl 25 Mg Tablet 1 Tab PO PRN TID Latanoprost 0.005% Eye Drop (Latanoprost/Pf) 7.5 Ml Drops 7.5 Ml OP HS Dorzolamide-Timolol Eye Drops (Dorzolamide Hcl/Timolol Maleat) 10 Ml Drops 1 Drop EACHEYE BID Brimonidine Tartrate 5 Ml Drops 1 Drop EACHEYE BID Vitals/I & O Vital Sign - Last 24 Hours 11/04/20 11/04/20 11/04/20 11/04/20 15:00 19:55 20:00 21:35 Temp 97.6 98.0 97.6 98.0 Pulse 85 84 84 Resp 20 18 B/P (MAP) 110/72 (85) 166/69 (101) 166/69 Pulse Ox 97 93 O2 Delivery Room Air Room Air Room Air 11/05/20 11/05/20 11/05/20 11/05/20 02:26 07:00 08:00 09:41 Temp 98.7 97.8 98.7 97.8 Pulse 80 76 76 Resp 18 18 B/P (MAP) 174/70 (104) 157/79 (105) 157/79 Pulse Ox 94 98 O2 Delivery Room Air Room Air Room Air 11/05/20 11/05/20 09:41 11:00 Temp 97.5 97.5 Pulse 76 77 Resp 18 B/P (MAP) 157/79 148/63 (91) Pulse Ox 97 O2 Delivery Room Air Intake and Output 11/04/20 11/04/20 11/05/20 15:00 23:00 07:00 Intake Total 575 ml 250 ml 500 ml Output Total 900 ml 1300 ml 750 ml Balance -325 ml -1050 ml -250 ml Nutrition Consultation Dietary Evaluation: Recommendations by RD: Dietary education by RD, Increase Calorie Intake, Prot ein supplementation Comments: Continue w/cardiac diet as ordered w/Ensure supplements q day Expected Outcomes/Goals: diet advancement - met, new goal established New goal 11/03 - PO intake to meet >75% est needs Malnutrition Findings: Body Fat Depletion (Non Severe: Mild Depletion Weight Status: Appropriate Justicifation of Admission Dx: Justifications for Admission: Justification of Admission Dx: Yes GAYLE CAMARENA MD Nov 05, 2020 12:12
--- NOTE | 2020-11-05 13:09 | PDOC ---
DATE OF SERVICE DATE: 11/05/20 TIME: 13:05 SUBJECTIVE ROS Stable, no new complaints OBJECTIVE Vital Signs Vital Signs Date Time Temp Pulse Resp B/P (MAP) Pulse Ox O2 Delivery O2 Flow Rate FiO2 11/05/20 11:00 97.5 77 18 148/63 (91) 97 Room Air 97.5 I & 0 Intake and Output 11/05/20 07:00 Intake Total 1325 ml Output Total 2950 ml Balance -1625 ml Intake Oral 1325 ml Output Urine Total 2950 ml # Bowel Movements 1 PHYSICAL EXAM Physical Exam GENERAL: NAD , HEENT: anicteric, OM moist NECK: Supple LUNGS: Clear bilaterally. non labored HEART: S1, S2, no murmurs. ABDOMEN: Soft, nontender EXTREMITIES: No edema, no cyanosis. DERMATOLOGIC: No rash. Colvin + DIAGNOSIS/ASSESSMENT Assessment & Plan PERRY - 2/2 Pyelonephritis with urine culture positive Klebsiella, needing dialysis , last on 10/30 , renal function improved and stable(11/04) , good UOP,E-Lytes stable Temp HD catheter removed CT scan - POA - Right perinephric stranding. No renal calculi. No hydronephrosis. Supportive care, Plan to dc with indwelling colvin per primary ,avoid nephrotoxins, keep hydrated Rhabdomyolysis- improving History of urinary retention, self-catheterization at home prior to admission for a long time. Follow up with Urology as OP Right renal cysts- on CT scan- 5.9 x 5.9 cm and 3.2 x 3.1 cm Numerous enlarged retroperitoneal and inguinal lymph nodes probably characterized without intravenous contrast Septic shock resolved Gram-negative sepsis/ Klebsiella pneumonia bacteremia source Abnormal LFTs. Improving Encephalopathy improved Acute hypoxic respiratory failure now resolved DC pending 2/2 insurance issues , follow up with PCP post dc Will sign off COMMENT/RELEVANT DATA Meds Current Medications Medications (Trade) Dose Ordered Sig/Ambrosio Start Time Stop Time Status Last Admin Dose Admin Acetaminophen (Tylenol Supp) 975 mg 1X ONCE 10/27/20 06:30 10/27/20 06:31 DC 10/27/20 07:30 975 MG Acetaminophen (Tylenol) 650 mg PRN Q6HRS PRN 11/01/20 11:45 11/02/20 21:17 650 MG Albumin Human 200 ml @ 200 mls/hr 1X PRN PRN 10/30/20 08:30 1/16/21 14:35 DC Amlodipine Besylate (Norvasc) 5 mg 1X ONCE 11/04/20 08:45 11/04/20 08:47 DC 11/04/20 08:58 5 MG Aspirin (Aspirin Rectal Supp) 150 mg 1X ONCE 10/28/20 11:00 10/28/20 11:01 DC Aspirin (Ecotrin) 81 mg DAILYWBKFT 10/27/20 12:30 11/05/20 09:40 81 MG Bisacodyl (Dulcolax Supp) 10 mg PRN DAILY PRN 10/27/20 10:30 Brimonidine Tartrate (Alphagan) 1 drop BID 10/28/20 21:00 11/05/20 09:41 1 DROP Ceftriaxone Sodium (Rocephin) 2 gm Q24H 10/31/20 11:00 11/02/20 10:07 DC 11/02/20 08:18 2 GM Diphenhydramine HCl (Benadryl) 25 mg 1X PRN PRN 10/30/20 08:30 10/31/20 08:29 DC Docusate Sodium (Colace) 100 mg PRN DAILY PRN 11/01/20 08:15 11/01/20 08:50 100 MG Dorzolamide HCl (Trusopt) 1 drop BID 10/28/20 11:00 11/05/20 09:42 1 DROP Famotidine (Pepcid Vial) 20 mg QHS 10/27/20 21:00 10/31/20 14:07 DC 10/30/20 21:23 20 MG Famotidine (Pepcid) 20 mg QHS 10/31/20 21:00 11/04/20 21:35 20 MG Glycerin/ Hypromellose/ Polyethylene (Artificial Tears) 1 drop PRN Q15MIN PRN 11/04/20 09:15 Heparin Sodium (Porcine) (Heparin Sodium) 5,000 unit Q8HRS 10/29/20 14:00 Cancel Heparin Sodium/ Dextrose 250 ml @ 7.656 mls/ hr CONT PRN 10/27/20 13:15 10/28/20 10:48 DC 10/27/20 13:54 7.656 MLS/HR Hydralazine HCl (Apresoline Inj) 10 mg PRN Q4HRS PRN 11/04/20 08:45 Hydromorphone HCl (Dilaudid) 0.2 mg PRN Q1HR PRN 10/27/20 10:30 Info (CONTRAST GIVEN -- Rx MONITORING) 1 each PRN DAILY PRN 10/27/20 08:45 10/29/20 08:44 DC Info (Icu Electrolyte Protocol) 1 ea DAILY 10/28/20 09:00 10/31/20 14:06 DC 10/28/20 09:00 1 EA Info (Non-Icu Electrolyte Protocol) 1 ea CONT PRN PRN 10/31/20 14:15 Info (PHARMACY MONITORING -- do not chart) 1 each PRN DAILY PRN 10/30/20 08:30 Iohexol (Omnipaque 350 Mg/ml) 100 ml 1X ONCE 10/27/20 08:45 10/27/20 08:46 DC Lactobacillus Rhamnosus (Culturelle) 1 cap BID 10/30/20 09:00 11/05/20 09:40 1 CAP Latanoprost (Xalatan) 1 drop QHS 10/28/20 21:00 11/04/20 21:36 1 DROP Levofloxacin (Levaquin) 750 mg DAILY08 11/02/20 11:00 11/05/20 09:40 750 MG Lidocaine HCl (Buffered Lidocaine 1%) 6 ml 1X ONCE 10/28/20 12:00 10/28/20 12:07 DC 10/28/20 12:16 4 ML Lidocaine HCl (Lidocaine 1% 20ml Vial) 20 ml STK-MED ONCE 10/27/20 06:30 10/27/20 06:30 DC Magnesium Sulfate 50 ml @ 25 mls/hr 1X ONCE 11/03/20 14:00 11/03/20 15:59 DC 11/03/20 14:56 25 MLS/HR Metoprolol Tartrate (Lopressor Vial) 2.5 mg Q6HRS 10/28/20 12:00 10/29/20 09:53 DC Metoprolol Tartrate (Lopressor) 25 mg BID 11/03/20 09:00 11/05/20 09:41 25 MG Norepinephrine Bitartrate 8 mg/ Dextrose 258 ml @ 0 mls/hr CONT PRN 10/27/20 11:00 10/31/20 14:05 DC 10/28/20 19:56 3.6 MLS/HR Ondansetron HCl (Zofran) 4 mg PRN Q6HRS PRN 10/27/20 10:30 Piperacillin Sod/ Tazobactam Sod (Zosyn Per Pharmacy) 1 each PRN DAILY PRN 10/27/20 10:30 10/31/20 10:22 DC Piperacillin Sod/ Tazobactam Sod 2.25 gm/Sodium Chloride 50 ml @ 100 mls/hr Q8HRS 10/28/20 21:00 10/31/20 10:22 DC 10/31/20 06:57 100 MLS/HR Piperacillin Sod/ Tazobactam Sod 3.375 gm/Sodium Chloride 50 ml @ 100 mls/hr 1X ONCE 10/27/20 07:00 10/27/20 07:29 DC 10/27/20 07:58 100 MLS/HR Potassium Chloride (Klor-Con) 40 meq 1X ONCE 11/03/20 14:00 11/03/20 14:01 DC 11/03/20 14:54 40 MEQ Sodium Bicarbonate (Sodium Bicarb Adult 8.4% Syr) 100 meq 1X ONCE 10/27/20 11:00 10/27/20 11:01 DC 10/27/20 10:54 100 MEQ Sodium Chloride 1,000 ml @ 400 mls/hr Q2H30M PRN 10/30/20 08:30 10/30/20 20:29 DC Sodium Chloride (Normal Saline Flush) 3 ml QSHIFT PRN 10/27/20 10:30 Timolol Maleate (Timoptic 0.5% [facility]) 1 drop BID 10/28/20 11:00 11/05/20 09:42 1 DROP Results All relevant outside records, renal labs, imaging studies, telemetry/EKG's were reviewed. Justicifation of Admission Dx: Justifications for Admission: Justification of Admission Dx: Yes BRIAN HERNANDEZ MD Nov 05, 2020 13:08
[2020-11-05 15:00] VITALS: BP 112/82
[2020-11-05 19:00] VITALS: BP 116/60
[2020-11-05] MEDS: FAMOTIDINE 20 MG TABLET. PO SCH (20:50)
[2020-11-05] MEDS: LATANOPROST 0.005% OPHTH SOLUTION 2.5ML BOTTLE. OU SCH (20:50)
[2020-11-05 23:12] VITALS: BP 106/58
[2020-11-06 03:03] VITALS: BP 149/75
[2020-11-06 07:00] VITALS: BP 113/68
[2020-11-06] MEDS: ASPIRIN ENTERIC COATED 81 MG TABLET.DR. PO SCH (08:13)
[2020-11-06] MEDS: LACTOBACILLUS RHAMNOSUS GG 1 CAPSULE. PO SCH ×2 (08:13→21:09)
[2020-11-06] MEDS: METOPROLOL TART IMMED RELEASE 25 MG TABLET. PO SCH ×2 (08:13→21:10)
[2020-11-06] MEDS: DORZOLAMIDE 2% OPHTH SOLUTION 10ML BOTTLE. OU SCH ×2 (08:15→21:08)
[2020-11-06] MEDS: TIMOLOL 0.5% OPHTH SOLUTION 5ML BOTTLE. OU SCH ×2 (08:15→21:08)
[2020-11-06] MEDS: BRIMONIDINE 0.2% OPHTH SOLUTION 5ML BOTTLE. OU SCH ×2 (08:15→21:08)
--- NOTE | 2020-11-06 08:16 | PDOC ---
[employer] PROGRESS NOTE Date of Service DOS: DATE: 11/06/20 TIME: 08:14 Chief Complaint Chief Complaint A/P: Klebsiella bacteremia Critical illness myopathy, weakness from sepsis, Pyelonephritis with urine culture positive Klebsiella, needing dialysis , last on 10/30 , renal function improved and stable(11/04) , Temp HD catheter removed Septic shock, POA Acute CVA - Small acute infarct within the posterior left occipital lobe, chronic left lacunar infarcts in caudate nucleus Status-post prostatectomy, urinary retention requiring self-catheterization - confirmed urinary retention from urodynamic studies at [facility], recommended TID straight cath, will have on post-void protocol and straight cath prn Lactic acidosis PERRY - vasomotor nephropathy Dehydration Rhabdo UTI Demand ischemia Metabolic encephalopathy UTI Fever severe protein malnutrition History of Present Illness History of Present Illness Mr June is a 75-year-old male w/ PMHx glaucoma, prostate cancer status post prostatectomy with neurogenic bladder requiring intermittent self- catheterization who presented to [facility] on 10/27/2020. At home, he had altered mental status and had fallen down to the ground and was unable to get up. Prior to this, he had been in good health. He was found to be hypotensive, tachycardic and febrile. His white count was diminished at 2.9. Influenza screening and COVID testing was negative. Found with Klebsiella UTI and Klebsiella bacteremia as well as an acute left CVA. Consults from critical care, neurology, infectious diseases, cardiology, neurology. 11/01: MRI confirmed CVA 11/03,. pt may transfer today, waiting on insurance, order placed. we discussed colvin removal again, he would prefer to wait, cont other, doing well with PT, 11/04, complains of eye dryness and pain overnight, he takes sustaine at home, I will try to approximate with Liquifilm 11/05. he feels improved, family here, DC'd colvin finally today after a long discussion. rehab expectation and goals reviewed, Transferred from ICU. Still feels extremely weak overall improving. Colvin removed discussed need for bladder scan protocol in intermittent straight cathing to continue on as his urologist previously recommended. Vitals/I&O Vitals/I&O: Vital Signs Date Time Temp Pulse Resp B/P (MAP) Pulse Ox O2 Delivery O2 Flow Rate FiO2 11/06/20 07:41 Room Air 11/06/20 07:00 98.3 76 18 113/68 (11) 97 98.3 I & O 11/05/20 11/05/20 11/06/20 15:00 23:00 07:00 Intake Total 900 ml 350 ml 500 ml Output Total 1200 ml 150 ml 750 ml Balance -300 ml 200 ml -250 ml Physical Exam Physical Exam: GENERAL: axox3 male HEENT: Normocephalic, atraumatic, anicteric. NECK: Supple, no JVD. Right IJ and dialysis catheter in place LUNGS: Clear bilaterally. No wheezing. HEART: S1, S2, no murmurs. ABDOMEN: Soft, nontender, nondistended, no rebound, no guarding. EXTREMITIES: No edema, no cyanosis. DERMATOLOGIC: Warm and dry. No generalized rash. NEUROLOGIC: alert awake PSYCHIATRIC: calm cooperative General: No acute distress Heart: Regular rate Lungs: Clear Abdomen: Normal bowel sounds, Soft Extremities: No edema Skin: No breakdown Assessment and Plan Assessmemt and Plan Problems Medical Problems: (1) Acute renal failure Status: Acute (2) Dehydration Status: Acute (3) Person under investigation for COVID-19 Status: Acute (4) Rhabdomyolysis Status: Acute (5) Septic shock Status: Acute (6) UTI (urinary tract infection) Status: Acute Comment Review of Relevant I have reviewed the following items mendez (where applicable) has been applied. Medications: Current Medications Medications (Trade) Dose Ordered Sig/Ambrosio Route PRN Reason Start Time Stop Time Status Last Admin Dose Admin Amlodipine Besylate (Norvasc) 10 mg DAILY PO 11/05/20 09:00 11/05/20 09:41 Justifications for Admission General Conditions Poss tachycardia?: Yes Justification for admission: Patient has tachycardia (> 100 beats per minute) which is not readily corrected by appropriate treatment within 12 to 24 hours. SEPTIC SHOCK Other Justification SUNNY BOSTON MD Nov 06, 2020 08:16
[2020-11-06 11:00] VITALS: BP 124/82
--- NOTE | 2020-11-06 13:05 | NUR ---
Patient voiced 250mL into urinal. Post void residual showed 914mL, performed straight cath and removed 800mL urine.
[2020-11-06 15:00] VITALS: BP 110/55
--- NOTE | 2020-11-06 15:28 | NUR ---
Patient voided 150mL into bedside commode. Post void residual showed 698mL, performed straight cath and removed 475mL urine.
[2020-11-06 19:15] VITALS: BP 121/61
[2020-11-06] MEDS: LATANOPROST 0.005% OPHTH SOLUTION 2.5ML BOTTLE. OU SCH (21:09)
[2020-11-06] MEDS: FAMOTIDINE 20 MG TABLET. PO SCH (21:09)
[2020-11-06 22:52] VITALS: BP 143/77
[2020-11-07 02:55] VITALS: BP 143/72
[2020-11-07 07:00] VITALS: BP 150/78
[2020-11-07] MEDS: ASPIRIN ENTERIC COATED 81 MG TABLET.DR. PO SCH (08:07)
[2020-11-07] MEDS: LACTOBACILLUS RHAMNOSUS GG 1 CAPSULE. PO SCH ×2 (08:07→21:30)
[2020-11-07] MEDS: METOPROLOL TART IMMED RELEASE 25 MG TABLET. PO SCH ×2 (08:07→21:30)
[2020-11-07] MEDS: TIMOLOL 0.5% OPHTH SOLUTION 5ML BOTTLE. OU SCH ×2 (08:09→21:29)
[2020-11-07] MEDS: BRIMONIDINE 0.2% OPHTH SOLUTION 5ML BOTTLE. OU SCH ×2 (08:09→21:28)
[2020-11-07] MEDS: DORZOLAMIDE 2% OPHTH SOLUTION 10ML BOTTLE. OU SCH ×2 (08:09→21:28)
--- NOTE | 2020-11-07 08:46 | PDOC ---
[employer] PROGRESS NOTE Date of Service DOS: DATE: 11/07/20 TIME: 08:42 Chief Complaint Chief Complaint A/P: Klebsiella bacteremia Critical illness myopathy, weakness from sepsis, Pyelonephritis with urine culture positive Klebsiella, needing dialysis , last on 10/30 , renal function improved and stable(11/04) , Temp HD catheter removed Septic shock, POA Acute CVA - Small acute infarct within the posterior left occipital lobe, chronic left lacunar infarcts in caudate nucleus Status-post prostatectomy, urinary retention requiring self-catheterization - confirmed urinary retention from urodynamic studies at [facility], recommended TID straight cath, will have on post-void protocol and straight cath prn Lactic acidosis PERRY - vasomotor nephropathy Dehydration Rhabdo UTI Demand ischemia Metabolic encephalopathy UTI Fever severe protein malnutrition History of Present Illness History of Present Illness Mr June is a 75-year-old male w/ PMHx glaucoma, prostate cancer status post prostatectomy with neurogenic bladder requiring intermittent self- catheterization who presented to [facility] on 10/27/2020. At home, he had altered mental status and had fallen down to the ground and was unable to get up. Prior to this, he had been in good health. He was found to be hypotensive, tachycardic and febrile. His white count was diminished at 2.9. Influenza screening and COVID testing was negative. Found with Klebsiella UTI and Klebsiella bacteremia as well as an acute left CVA. Consults from critical care, neurology, infectious diseases, cardiology, neurology. 11/01: MRI confirmed CVA 11/03: Transfer today, waiting on insurance, order placed. we discussed colvin removal again, he would prefer to wait, cont other, doing well with PT, 11/04: Complains of eye dryness and pain overnight, he takes sustaine at home, I will try to approximate with Liquifilm 11/05: He feels improved, family here, DC'd colvin finally today after a long discussion. rehab expectation and goals reviewed, 11/06: Transferred from ICU. Still feels extremely weak overall improving. Colvin removed discussed need for bladder scan protocol in intermittent straight cathing to continue on as his urologist previously recommended. QID straight cath scheduled due to continued PVR > 200. He is feeling improved. Vitals/I&O Vitals/I&O: Vital Signs Date Time Temp Pulse Resp B/P (MAP) Pulse Ox O2 Delivery O2 Flow Rate FiO2 11/07/20 08:08 77 150/78 11/07/20 07:42 Room Air 11/07/20 07:00 97.9 19 99 97.9 I & O 11/06/20 11/06/20 11/07/20 15:00 23:00 07:00 Intake Total 100 ml 0 ml Output Total 1975 ml 1675 ml Balance -1875 ml -1675 ml Physical Exam Physical Exam: GENERAL: axox3 male HEENT: Normocephalic, atraumatic, anicteric. NECK: Supple, no JVD. Right IJ and dialysis catheter in place LUNGS: Clear bilaterally. No wheezing. HEART: S1, S2, no murmurs. ABDOMEN: Soft, nontender, nondistended, no rebound, no guarding. EXTREMITIES: No edema, no cyanosis. DERMATOLOGIC: Warm and dry. No generalized rash. NEUROLOGIC: alert awake PSYCHIATRIC: calm cooperative General: No acute distress Heart: Regular rate Lungs: Clear Abdomen: Normal bowel sounds, Soft Extremities: No edema Skin: No breakdown Assessment and Plan Assessmemt and Plan Problems Medical Problems: (1) Acute renal failure Status: Acute (2) Dehydration Status: Acute (3) Person under investigation for COVID-19 Status: Acute (4) Rhabdomyolysis Status: Acute (5) Septic shock Status: Acute (6) UTI (urinary tract infection) Status: Acute Comment Review of Relevant I have reviewed the following items mendez (where applicable) has been applied. Justifications for Admission General Conditions Poss tachycardia?: Yes Justification for admission: Patient has tachycardia (> 100 beats per minute) which is not readily corrected by appropriate treatment within 12 to 24 hours. SEPTIC SHOCK Other Justification SUNNY BOSTON MD Nov 07, 2020 08:45
[2020-11-07 11:00] VITALS: BP 124/63
[2020-11-07 15:00] VITALS: BP 139/79
[2020-11-07 19:40] VITALS: BP 144/64
[2020-11-07] MEDS: LATANOPROST 0.005% OPHTH SOLUTION 2.5ML BOTTLE. OU SCH (21:28)
[2020-11-07] MEDS: POLYVINYL ALCOHOL 1.4% OPHTH SOLUTION 15ML BOTTLE. OU PRN (21:29)
[2020-11-07] MEDS: FAMOTIDINE 20 MG TABLET. PO SCH (21:29)
--- NOTE | 2020-11-07 21:30 | NUR ---
Patient voiced 300mL into commode. Post void residual showed 460mL, performed straight cath and removed 475mL urine.
[2020-11-07 23:53] VITALS: BP 149/78
[2020-11-08] VITALS (7 sets, daily range): BP systolic 110–143; BP diastolic 59–76
--- NOTE | 2020-11-08 03:10 | NUR ---
Patient voiced 100mL into urinal. Post void residual showed 741mL, performed straight cath and removed 500mL urine.
[2020-11-08] MEDS: BRIMONIDINE 0.2% OPHTH SOLUTION 5ML BOTTLE. OU SCH ×2 (07:53→21:33)
[2020-11-08] MEDS: TIMOLOL 0.5% OPHTH SOLUTION 5ML BOTTLE. OU SCH ×2 (07:55→21:33)
[2020-11-08] MEDS: DORZOLAMIDE 2% OPHTH SOLUTION 10ML BOTTLE. OU SCH ×2 (07:55→21:33)
[2020-11-08] MEDS: LATANOPROST 0.005% OPHTH SOLUTION 2.5ML BOTTLE. OU SCH ×2 (07:57→21:33)
[2020-11-08] MEDS: ACETAMINOPHEN 325 MG TABLET. PO PRN (08:00)
[2020-11-08] MEDS: LACTOBACILLUS RHAMNOSUS GG 1 CAPSULE. PO SCH ×2 (08:03→21:34)
[2020-11-08] MEDS: ASPIRIN ENTERIC COATED 81 MG TABLET.DR. PO SCH (08:03)
[2020-11-08] MEDS: METOPROLOL TART IMMED RELEASE 25 MG TABLET. PO SCH ×2 (08:06→21:34)
--- NOTE | 2020-11-08 10:37 | SNU/HH DC ---
DISCHARGE ORDERS DISCHARGE INFORMATION: DISCHARGE DATE: Nov 04, 2020 FINAL DIAGNOSIS Problems Medical Problems: (1) Acute renal failure Status: Acute (2) Dehydration Status: Acute (3) Person under investigation for COVID-19 Status: Acute (4) Rhabdomyolysis Status: Acute (5) Septic shock Status: Acute (6) UTI (urinary tract infection) Status: Acute CONDITION ON DISCHARGE: Stable CODE STATUS: Code Status: Full ALF: SNF STAY <30 DAYS: Yes HOSPICE: HOSPICE: No HOSPICE EVAL & TREAT: No LTAC: ADMIT TO LTAC: No POST DISCHARGE ORDERS: ACTIVITY ORDERS: Activity as tolerated WEIGHT BEARING STATUS: Full weight bearing, As tolerated DIET AFTER DISCHARGE: Regular FOLLOW-UP: PHYSICIAN FOLLOW-UP: in [facility], TREATMENT/EQUIPMENT ORDERS: ADAPTIVE EQUIPMENT NEEDED: Front wheeled walker Physical Therapy For: Evalulation/Treatment Occupational Therapy For: Evaluation/Treatment DISCHARGE MEDICATIONS: Home Meds Active Scripts Aspirin (ASPIRIN EC) 81 Mg Tablet.dr, 81 MG PO DAILYWBKFT for cardiac, #100 TAB.SR Prov:GAYLE CAMARENA MD 11/02/20 Levofloxacin (LEVOFLOXACIN) 750 Mg Tablet, 750 MG PO DAILY08 for UTI, #10 TAB Prov:GAYLE CAMARENA MD 11/02/20 Metoprolol Tartrate (METOPROLOL TARTRATE) 25 Mg Tablet, 12.5 MG PO BID for htn, cardiac, #60 TAB Prov:GAYLE CAMARENA MD 11/02/20 Famotidine (FAMOTIDINE) 20 Mg Tablet, 20 MG PO QHS for GERD, #30 TAB Prov:GAYLE CAMARENA MD 11/02/20 Reported Medications Meclizine Hcl (MECLIZINE HCL) 25 Mg Tablet, 1 TAB PO PRN TID for nausea, #30 TAB 10/27/20 Latanoprost/Pf (Latanoprost 0.005% Eye Drop) 7.5 Ml Drops, 7.5 ML OP HS for Glaucoma, DROP 10/27/20 Dorzolamide Hcl/Timolol Maleat (DORZOLAMIDE-TIMOLOL EYE DROPS) 10 Ml Drops, 1 DROP EACHEYE BID for Glaucoma, #10 ML 0 Refills 10/27/20 Brimonidine Tartrate (BRIMONIDINE TARTRATE) 5 Ml Drops, 1 DROP EACHEYE BID for Glaucoma, #10 ML 0 Refills 10/27/20 ROGER GRACE III DO Nov 08, 2020 10:37
--- NOTE | 2020-11-08 10:38 | SNU/HH DC ---
DISCHARGE WITH HOME HEALTH DISCHARGE INFORMATION: Discharge Date: Nov 04, 2020 Final Diagnosis: Problems Medical Problems: (1) Acute renal failure Status: Acute (2) Dehydration Status: Acute (3) Person under investigation for COVID-19 Status: Acute (4) Rhabdomyolysis Status: Acute (5) Septic shock Status: Acute (6) UTI (urinary tract infection) Status: Acute Condition on Discharge: Stable CODE STATUS: Code Status: Full HOME HEALTH: Face to Face: I certify this patient is under my care and that I, or a nurse practitioner or physician's server service assistant working with me, had a face to face encounter that meets the physician face to face encounter requirements with this patient on []. Medical Complications: Other (Recent sepsis) Correction For: Assess & Educate Safety RN For Eval/Treatment: Yes Physical Therapy For: Evalulation/Treatment Occupational Therapy For: Evaluation/Treatment Home Health Aide For: Self-care TERRITORY ACCOUNT REPRESENTATIVE For: Community Resources Pt Meets Homebound Status: Poor coordination w/ amb. POST DISCHARGE ORDERS: Activity Instructions for Disc: Activity as tolerated Weight Bearing Status after Di: Full weight bearing, As tolerated DIET AFTER DISCHARGE: Regular FOLLOW-UP: Follow up with: in [facility], TREATMENT/EQUIPMENT ORDERS: Adaptive Equipment Issued: Front wheeled walker CERTIFICATION STATEMENT: Certification Statement: Certification Statement: Based on the above finding, I certify that this patient is confined to the home and needs intermittent fdc care, physical therapy and/or speech therapy, or continues to need occupational therapy.~ This patient is under my care, and I have initiated the establishment of the plan of care.~ This patient will be followed by myself or a community physician who will periodically review the plan of care. Home Meds Active Scripts Aspirin (ASPIRIN EC) 81 Mg Tablet.dr, 81 MG PO DAILYWBKFT for cardiac, #100 TAB.SR Prov:GAYLE CAMARENA MD 11/02/20 Levofloxacin (LEVOFLOXACIN) 750 Mg Tablet, 750 MG PO DAILY08 for UTI, #10 TAB Prov:GAYLE CAMARENA MD 11/02/20 Metoprolol Tartrate (METOPROLOL TARTRATE) 25 Mg Tablet, 12.5 MG PO BID for htn, cardiac, #60 TAB Prov:GAYLE CAMARENA MD 11/02/20 Famotidine (FAMOTIDINE) 20 Mg Tablet, 20 MG PO QHS for GERD, #30 TAB Prov:GAYLE CAMARENA MD 11/02/20 Reported Medications Meclizine Hcl (MECLIZINE HCL) 25 Mg Tablet, 1 TAB PO PRN TID for nausea, #30 TAB 10/27/20 Latanoprost/Pf (Latanoprost 0.005% Eye Drop) 7.5 Ml Drops, 7.5 ML OP HS for Glaucoma, DROP 10/27/20 Dorzolamide Hcl/Timolol Maleat (DORZOLAMIDE-TIMOLOL EYE DROPS) 10 Ml Drops, 1 DROP EACHEYE BID for Glaucoma, #10 ML 0 Refills 10/27/20 Brimonidine Tartrate (BRIMONIDINE TARTRATE) 5 Ml Drops, 1 DROP EACHEYE BID for Glaucoma, #10 ML 0 Refills 10/27/20 ROGER GRACE III DO Nov 08, 2020 10:38
--- NOTE | 2020-11-08 11:15 | PDOC ---
[employer] PROGRESS NOTE Date of Service DOS: DATE: 11/08/20 TIME: 11:10 Chief Complaint Chief Complaint Klebsiella bacteremia Critical illness myopathy, Pyelonephritis with urine culture positive Klebsiella. Septic shock, POA Acute CVA - Small acute infarct within the posterior left occipital lobe, ch ronic left lacunar infarcts in caudate nucleus Status-post prostatectomy Lactic acidosis PERRY Dehydration Rhabdo UTI Demand ischemia Metabolic encephalopathy UTI Fever severe protein malnutrition History of Present Illness History of Present Illness Mr June is a 75-year-old male w/ PMHx glaucoma, prostate cancer status post prostatectomy with neurogenic bladder requiring intermittent self- catheterization who presented to [facility] on 10/27/2020. At home, he had altered mental status and had fallen down to the ground and was unable to get up. Prior to this, he had been in good health. He was found to be hypotensive, tachycardic and febrile. His white count was diminished at 2.9. Influenza screening and COVID testing was negative. Found with Klebsiella UTI and Klebsiella bacteremia as well as an acute left CVA. Consults from critical care, neurology, infectious diseases, cardiology, neurology. 11/01: MRI confirmed CVA 11/03: Transfer today, waiting on insurance, order placed. we discussed colvin removal again, he would prefer to wait, cont other, doing well with PT, 11/04: Complains of eye dryness and pain overnight, he takes sustaine at home, I will try to approximate with Liquifilm 11/05: He feels improved, family here, DC'd colvin finally today after a long discussion. rehab expectation and goals reviewed, 11/06: Transferred from ICU. Still feels extremely weak overall improving. Colvin removed discussed need for bladder scan protocol in intermittent straight cathing to continue on as his urologist previously recommended. QID straight cath scheduled due to continued PVR > 200. He is feeling improved. 11/08/2020 -Patient seen and examined. Patient appears well. -Benji RN. Benji skilled nursing case manager. -RN reports patient with clot of blood in toilet. Pt unsure if from stool or urine. Will check CBC -Chart reviewed. Vitals/I&O Vitals/I&O: Vital Signs Date Time Temp Pulse Resp B/P (MAP) Pulse Ox O2 Delivery O2 Flow Rate FiO2 11/08/20 10:33 97.1 75 20 112/67 (82) 98 Room Air 97.1 I & O 11/07/20 11/07/20 11/08/20 15:00 23:00 07:00 Intake Total 350 ml 300 ml 240 ml Output Total 1550 ml 1550 ml 1200 ml Balance -1200 ml -1250 ml -960 ml Physical Exam Physical Exam: GENERAL: axox3 male HEENT: Normocephalic, atraumatic, anicteric. NECK: Supple, no JVD. Right IJ and dialysis catheter in place LUNGS: Clear bilaterally. No wheezing. HEART: S1, S2, no murmurs. ABDOMEN: Soft, nontender, nondistended, no rebound, no guarding. EXTREMITIES: No edema, no cyanosis. DERMATOLOGIC: Warm and dry. No generalized rash. NEUROLOGIC: alert awake PSYCHIATRIC: calm cooperative General: Alert, Oriented X3, No acute distress Heart: Regular rate Lungs: Clear Abdomen: Normal bowel sounds, Soft Extremities: No edema Skin: No breakdown Review of Systems Review of Systems: Denies CP. Denies SOB. Assessment and Plan Assessmemt and Plan Problems Medical Problems: (1) Acute renal failure Status: Acute (2) Dehydration Status: Acute (3) Person under investigation for COVID-19 Status: Acute (4) Rhabdomyolysis Status: Acute (5) Septic shock Status: Acute (6) UTI (urinary tract infection) Status: Acute Klebsiella bacteremia Critical illness myopathy, Pyelonephritis with urine culture positive Klebsiella. Septic shock, POA Acute CVA - Small acute infarct within the posterior left occipital lobe, chronic left lacunar infarcts in caudate nucleus Status-post prostatectomy Lactic acidosis PERRY Dehydration Rhabdo UTI Demand ischemia Metabolic encephalopathy UTI Fever severe protein malnutrition 11/08/2020: 1. Labs ordered 2. PT/OT 3. Full code 4. DVT prophylaxis 5. Home meds 6. Probable d/c to SNU today Comment Review of Relevant I have reviewed the following items mendez (where applicable) has been applied. Justifications for Admission General Conditions Poss tachycardia?: Yes Justification for admission: Patient has tachycardia (> 100 beats per minute) which is not readily corrected by appropriate treatment within 12 to 24 hours. SEPTIC SHOCK Other Justification ROGER GRACE III DO Nov 08, 2020 11:15
--- NOTE | 2020-11-08 11:16 | DS ---
DATE OF DISCHARGE: 11/08/2020 ADMISSION DIAGNOSIS: Septic shock. DISCHARGE DIAGNOSES: Resolving sepsis, resolving dehydration, renal failure, resolving respiratory failure, resolving rhabdomyolysis, resolving urinary tract infection, resolving non-ST elevated myocardial infarction, suspect demand ischemia, resolving acute metabolic encephalopathy, resolving fevers. CONSULTS: Nephrology, Infectious Disease, Cardiology, Pulmonary Medicine. PROCEDURES: None. HOSPITAL COURSE: The patient is a pleasant middle-aged male, who presented with sepsis. He was admitted to the ICU. We gave him IV antibiotics and the above consults were obtained. Over the past 12 days, he is improved. Today, I saw and examined him, he was on the medical floor now. He is alert and oriented, wants to go to correction. We plan to discharge to correction if okay with the consultants. DISPOSITION: shelter. ACTIVITY: As tolerated. DIET: Low sodium. MEDICATIONS: Please see the MRAD. TOTAL TIME: 32 minutes. ROGER GRACE DO DR: MARCO/jose francisco JOB#: [id number] / [id number]
--- NOTE | 2020-11-08 11:43 | PDOC ---
PROGRESS NOTES Date of Service DATE: 11/08/20 TIME: 11:41 Assessment Problems Medical Problems: (1) Acute renal failure Status: Acute (2) Dehydration Status: Acute (3) Person under investigation for COVID-19 Status: Acute (4) Rhabdomyolysis Status: Acute (5) Septic shock Status: Acute (6) UTI (urinary tract infection) Status: Acute Small acute infarct within the posterior left occipital lobe Metabolic encephalopathy Klebsiella pneumoniae, pyelonephritis, septic shock (resolved), acute on chronic kidney disease on dialysis, metabolic acidosis, hyponatremia, rhabdomyolysis, elevated liver function tests, respiratory failure, status-post prostatectomy, urinary retention requiring self-catheterization, COVID-19 negative Prostatism, Freeman catheter Plan Abnormal echocardiogram, further work-up per cardiology, from neurology perspective okay to continue on aspirin 81 mg aspirin daily Acute rehab Discussed with daughter and son-in-law Patient has been stable to transfer to detention since 11/02, transfer delayed due to insurance company [email or web address] Subjective no complaints, feeling stronger, still difficulty walking Objective Vital Signs Date Time Temp Pulse Resp B/P (MAP) Pulse Ox O2 Delivery O2 Flow Rate FiO2 11/08/20 10:33 97.1 75 20 112/67 (82) 98 Room Air 97.1 Intake and Output 11/08/20 07:00 Intake Total 890 ml Output Total 4300 ml Balance -3410 ml Intake Oral 890 ml Output Urine Total 4300 ml # Voids 3 PHYSICAL EXAM Alert. Oriented to place and person, does not know date. PERRL. EOMI. CN: no focal findings, no field cut Muscle tone: normal. Muscle strength: 4/5, weaker on right DTR: 1+ arms, 0+ legs Plantar reflex: flexor Gait: Transfers slowly with walker Sensory exam: no abnormal findings. Cerebellar: No tremor Review of Relevant I have reviewed the following items mendez (where applicable) has been applied. Labs Microbiology 10/27/20 Blood Culture - Final, Complete 10/27/20 Antimicrobic Susceptibility - Final, Complete 10/27/20 Urine Culture - Final, Complete 10/27/20 Antimicrobic Susceptibility - Final, Complete Medications Current Medications Sodium Chloride 1,000 ml @ 1,000 mls/hr 1X ONCE IV Last administered on 10/27/20at 06:45; Start 10/27/20 at 06:30; Stop 10/27/20 at 07:29; Status DC Acetaminophen (Tylenol Supp) 975 mg 1X ONCE CO Last administered on 10/27/20at 07:30; Start 10/27/20 at 06:30; Stop 10/27/20 at 06:31; Status DC Lidocaine HCl (Lidocaine 1% 20ml Vial) 20 ml STK-MED ONCE .ROUTE ; Start 10/27/20 at 06:30; Stop 10/27/20 at 06:30; Status DC Sodium Chloride 1,000 ml @ 1,000 mls/hr 1X ONCE IV Last administered on 10/27/20at 06:45; Start 10/27/20 at 07:00; Stop 10/27/20 at 07:59; Status DC Piperacillin Sod/ Tazobactam Sod 3.375 gm/Sodium Chloride 50 ml @ 100 mls/hr 1X ONCE IV Last administered on 10/27/20at 07:58; Start 10/27/20 at 07:00; Stop 10/27/20 at 07:29; Status DC Sodium Chloride 1,000 ml @ 1,000 mls/hr 1X ONCE IV Last administered on 10/27/20at 07:57; Start 10/27/20 at 07:15; Stop 10/27/20 at 08:14; Status DC Norepinephrine Bitartrate 8 mg/ Dextrose 258 ml @ 12.848 mls/ hr 1X ONCE IV Last administered on 10/27/20at 08:42; Start 10/27/20 at 08:15; Stop 10/28/20 at 04:19; Status DC Ondansetron HCl (Zofran) 4 mg PRN Q8HRS PRN IV NAUSEA/VOMITING; Start 10/27/20 at 08:15; Stop 10/28/20 at 08:14; Status DC Sodium Chloride 1,000 ml @ 125 mls/hr Q8H IV Last administered on 10/27/20at 23:48; Start 10/27/20 at 08:15; Stop 10/28/20 at 08:14; Status DC Iohexol (Omnipaque 350 Mg/ml) 100 ml 1X ONCE IV ; Start 10/27/20 at 08:45; Stop 10/27/20 at 08:46; Status DC Info (CONTRAST GIVEN -- Rx MONITORING) 1 each PRN DAILY PRN MC SEE COMMENTS; Start 10/27/20 at 08:45; Stop 10/29/20 at 08:44; Status DC Piperacillin Sod/ Tazobactam Sod (Zosyn Per Pharmacy) 1 each PRN DAILY PRN MC SEE COMMENTS; Start 10/27/20 at 10:30; Stop 10/31/20 at 10:22; Status DC Piperacillin Sod/ Tazobactam Sod 2.25 gm/Sodium Chloride 50 ml @ 100 mls/hr Q6HRS IV Last administered on 10/28/20at 11:50; Start 10/27/20 at 12:00; Stop 10/28/20 at 14:37; Status DC Ondansetron HCl (Zofran) 4 mg PRN Q6HRS PRN IVP NAUSEA/VOMITING; Start 10/27/20 at 10:30 Famotidine (Pepcid Vial) 20 mg QHS IVP Last administered on 10/30/20at 21:23; Start 10/27/20 at 21:00; Stop 10/31/20 at 14:07; Status DC Info (Icu Electrolyte Protocol) 1 ea DAILY MC Last administered on 10/28/20at 09:00; Start 10/28/20 at 09:00; Stop 10/31/20 at 14:06; Status DC Heparin Sodium (Porcine) (Heparin Sodium) 5,000 unit Q8HRS SQ ; Start 10/27/20 at 14:00; Stop 10/27/20 at 14:51; Status DC Sodium Chloride (Normal Saline Flush) 3 ml QSHIFT PRN IV AFTER MEDS AND BLOOD DRAWS; Start 10/27/20 at 10:30 Sodium Chloride 1,000 ml @ 100 mls/hr Q10H IV Last administered on 11/01/20at 15:28; Start 10/27/20 at 10:30; Stop 11/02/20 at 16:52; Status DC Hydromorphone HCl (Dilaudid) 0.2 mg PRN Q1HR PRN IV PAIN; Start 10/27/20 at 10:30 Bisacodyl (Dulcolax Supp) 10 mg PRN DAILY PRN CO CONSTIPATION; Start 10/27/20 at 10:30 Sodium Bicarbonate (Sodium Bicarb Adult 8.4% Syr) 100 meq 1X ONCE IV Last administered on 10/27/20at 10:54; Start 10/27/20 at 11:00; Stop 10/27/20 at 11:01; Status DC Sodium Chloride 1,000 ml @ 500 mls/hr 1X ONCE IV Last administered on 10/27/20at 10:53; Start 10/27/20 at 11:00; Stop 10/27/20 at 12:59; Status DC Sodium Chloride 1,000 ml @ 1,000 mls/hr Q1H IV ; Start 10/27/20 at 11:00; Stop 10/27/20 at 12:57; Status DC Sodium Chloride 500 ml @ 1,000 mls/hr PRN Q30MIN PRN IV SEE COMMENTS; Start 10/27/20 at 11:00 Norepinephrine Bitartrate 8 mg/ Dextrose 258 ml @ 0 mls/hr CONT PRN IV SEE I/O RECORD Last administered on 10/28/20at 19:56; Start 10/27/20 at 11:00; Stop 10/31/20 at 14:05; Status DC Aspirin (Ecotrin) 81 mg DAILYWBKFT PO Last administered on 11/08/20at 08:03; Start 10/27/20 at 12:30 Aspirin (Aspirin Rectal Supp) 300 mg 1X ONCE CO ; Start 10/27/20 at 13:15; Stop 10/27/20 at 13:16; Status DC Heparin Sodium/ Dextrose 250 ml @ 7.656 mls/ hr CONT PRN IV PER PROTOCOL Last administered on 10/27/20at 13:54; Start 10/27/20 at 13:15; Stop 10/28/20 at 10:48; Status DC Heparin Sodium (Porcine) (Heparin Sodium) 1,600 unit PRN Q6HRS PRN IV FOR UFH LEVEL LESS THAN 0.2 Last administered on 10/27/20at 20:46; Start 10/27/20 at 13:15; Stop 10/28/20 at 10:48; Status DC Brimonidine Tartrate (Alphagan) 1 drop BID OU Last administered on 11/08/20at 07:53; Start 10/28/20 at 21:00 Dorzolamide HCl (Trusopt) 1 drop BID OU Last administered on 11/08/20at 07:55; Start 10/28/20 at 11:00 Latanoprost (Xalatan) 1 drop QHS OU Last administered on 11/07/20at 21:28; Start 10/28/20 at 21:00 Aspirin (Aspirin Rectal Supp) 150 mg 1X ONCE CO ; Start 10/28/20 at 11:00; Stop 10/28/20 at 11:01; Status DC Metoprolol Tartrate (Lopressor Vial) 2.5 mg Q6HRS IVP ; Start 10/28/20 at 12:00; Stop 10/29/20 at 09:53; Status DC Timolol Maleate (Timoptic 0.5% Oph) 1 drop BID OU Last administered on 11/08/20at 07:55; Start 10/28/20 at 11:00 Lidocaine HCl (Buffered Lidocaine 1%) 3 ml STK-MED ONCE .ROUTE ; Start 10/28/20 at 11:45; Stop 10/28/20 at 11:45; Status DC Sodium Chloride 1,000 ml @ 1,000 mls/hr Q1H PRN IV hypotension; Start 10/28/20 at 11:30; Stop 10/28/20 at 17:29; Status DC Albumin Human 200 ml @ 200 mls/hr 1X PRN PRN IV Hypotension; Start 10/28/20 at 11:30; Stop 10/28/20 at 17:29; Status DC Sodium Chloride 1,000 ml @ 400 mls/hr Q2H30M PRN IV PATENCY; Start 10/28/20 at 11:30; Stop 10/28/20 at 23:29; Status DC Info (PHARMACY MONITORING -- do not chart) 1 each PRN DAILY PRN MC SEE COMMENTS; Start 10/28/20 at 11:30; Stop 10/29/20 at 11:42; Status DC Info (PHARMACY MONITORING -- do not chart) 1 each PRN DAILY PRN MC SEE COMMENTS; Start 10/28/20 at 11:30; Stop 10/30/20 at 09:59; Status DC Lidocaine HCl (Buffered Lidocaine 1%) 6 ml 1X ONCE INJ Last administered on 10/28/20at 12:16; Start 10/28/20 at 12:00; Stop 10/28/20 at 12:07; Status DC Heparin Sodium (Porcine) (Heparin Sodium) 10,000 unit STK-MED ONCE .ROUTE ; Start 10/28/20 at 12:10; Stop 10/28/20 at 12:10; Status DC Heparin Sodium (Porcine) (Heparin Sodium) 2,500 unit 1X ONCE INT CAT Last administered on 10/28/20at 12:19; Start 10/28/20 at 12:30; Stop 10/28/20 at 12:31; Status DC Piperacillin Sod/ Tazobactam Sod 2.25 gm/Sodium Chloride 50 ml @ 100 mls/hr Q8HRS IV Last administered on 10/31/20at 06:57; Start 10/28/20 at 21:00; Stop 10/31/20 at 10:22; Status DC Sodium Chloride 1,000 ml @ 1,000 mls/hr Q1H PRN IV hypotension; Start 10/29/20 at 07:30; Stop 10/29/20 at 13:29; Status DC Diphenhydramine HCl (Benadryl) 25 mg 1X PRN PRN IV ITCHING; Start 10/29/20 at 07:30; Stop 10/30/20 at 07:29; Status DC Diphenhydramine HCl (Benadryl) 25 mg 1X PRN PRN IV ITCHING; Start 10/29/20 at 07:30; Stop 10/30/20 at 07:29; Status DC Sodium Chloride 1,000 ml @ 400 mls/hr Q2H30M PRN IV PATENCY; Start 10/29/20 at 07:30; Stop 10/29/20 at 19:29; Status DC Info (PHARMACY MONITORING -- do not chart) 1 each PRN DAILY PRN MC SEE COMMENTS; Start 10/29/20 at 07:30; Status UNV Heparin Sodium (Porcine) (Heparin Sodium) 5,000 unit Q8HRS SQ ; Start 10/29/20 at 14:00; Status Cancel Metoprolol Tartrate (Lopressor) 12.5 mg BID PO Last administered on 11/03/20at 04:42; Start 10/29/20 at 21:00; Stop 11/03/20 at 08:28; Status DC Sodium Chloride 1,000 ml @ 100 mls/hr Q10H IV Last administered on 10/29/20at 11:52; Start 10/29/20 at 11:45; Stop 10/29/20 at 11:57; Status DC Lactobacillus Rhamnosus (Culturelle) 1 cap BID PO Last administered on 11/08/20at 08:03; Start 10/30/20 at 09:00 Sodium Chloride 1,000 ml @ 1,000 mls/hr Q1H PRN IV hypotension; Start 10/30/20 at 08:30; Stop 10/30/20 at 14:34; Status DC Albumin Human 200 ml @ 200 mls/hr 1X PRN PRN IV Hypotension; Start 10/30/20 at 08:30; Stop 10/30/20 at 14:35; Status DC Diphenhydramine HCl (Benadryl) 25 mg 1X PRN PRN IV ITCHING; Start 10/30/20 at 08:30; Stop 10/31/20 at 08:29; Status DC Diphenhydramine HCl (Benadryl) 25 mg 1X PRN PRN IV ITCHING; Start 10/30/20 at 08:30; Stop 10/31/20 at 08:29; Status DC Sodium Chloride 1,000 ml @ 400 mls/hr Q2H30M PRN IV PATENCY; Start 10/30/20 at 08:30; Stop 10/30/20 at 20:29; Status DC Info (PHARMACY MONITORING -- do not chart) 1 each PRN DAILY PRN MC SEE COMMENTS; Start 10/30/20 at 08:30 Ceftriaxone Sodium (Rocephin) 2 gm Q24H IVP Last administered on 11/02/20at 08:18; Start 10/31/20 at 11:00; Stop 11/02/20 at 10:07; Status DC Info (Non-Icu Electrolyte Protocol) 1 ea CONT PRN PRN MC SEE COMMENTS; Start 10/31/20 at 14:15 Famotidine (Pepcid) 20 mg QHS PO Last administered on 11/07/20at 21:29; Start 10/31/20 at 21:00 Docusate Sodium (Colace) 100 mg PRN DAILY PRN PO HARD STOOLS Last administered on 11/01/20at 08:50; Start 11/01/20 at 08:15 Acetaminophen (Tylenol) 650 mg PRN Q6HRS PRN PO MILD PAIN / TEMP > 100.3'F Last administered on 11/08/20at 08:00; Start 11/01/20 at 11:45 Levofloxacin (Levaquin) 750 mg DAILY08 PO Last administered on 11/08/20at 08:03; Start 11/02/20 at 11:00 Potassium Chloride (Klor-Con) 20 meq 1X ONCE PO Last administered on 11/02/20at 14:44; Start 11/02/20 at 12:45; Stop 11/02/20 at 12:46; Status DC Metoprolol Tartrate (Lopressor) 25 mg BID PO Last administered on 11/08/20at 08:06; Start 11/03/20 at 09:00 Amlodipine Besylate (Norvasc) 5 mg DAILY PO Last administered on 11/03/20at 08:46; Start 11/03/20 at 09:00; Stop 11/04/20 at 08:43; Status DC Potassium Chloride (Klor-Con) 40 meq 1X ONCE PO Last administered on 11/03/20at 14:54; Start 11/03/20 at 14:00; Stop 11/03/20 at 14:01; Status DC Magnesium Sulfate 50 ml @ 25 mls/hr 1X ONCE IV Last administered on 11/03/20at 14:56; Start 11/03/20 at 14:00; Stop 11/03/20 at 15:59; Status DC Amlodipine Besylate (Norvasc) 10 mg DAILY PO Last administered on 11/08/20at 08:05; Start 11/05/20 at 09:00 Amlodipine Besylate (Norvasc) 5 mg 1X ONCE PO Last administered on 11/04/20at 08:58; Start 11/04/20 at 08:45; Stop 11/04/20 at 08:47; Status DC Hydralazine HCl (Apresoline Inj) 10 mg PRN Q4HRS PRN IVP ELEVATED BP, SEE COMMENTS; Start 11/04/20 at 08:45 Glycerin/ Hypromellose/ Polyethylene (Artificial Tears) 1 drop PRN Q15MIN PRN OU DRY EYE Last administered on 11/07/20at 21:29; Start 11/04/20 at 09:15 Active Scripts Active Aspirin Ec (Aspirin) 81 Mg Tablet.dr 81 Mg PO DAILYWBKFT Levofloxacin 750 Mg Tablet 750 Mg PO DAILY08 Metoprolol Tartrate 25 Mg Tablet 12.5 Mg PO BID Famotidine 20 Mg Tablet 20 Mg PO QHS Reported Meclizine Hcl 25 Mg Tablet 1 Tab PO PRN TID Latanoprost 0.005% Eye Drop (Latanoprost/Pf) 7.5 Ml Drops 7.5 Ml OP HS Dorzolamide-Timolol Eye Drops (Dorzolamide Hcl/Timolol Maleat) 10 Ml Drops 1 Drop EACHEYE BID Brimonidine Tartrate 5 Ml Drops 1 Drop EACHEYE BID Vitals/I & O Vital Sign - Last 24 Hours 11/07/20 11/07/20 11/07/20 11/07/20 15:00 19:40 19:40 21:30 Temp 98.3 98.2 98.3 98.2 Pulse 64 83 83 Resp 16 18 B/P (MAP) 139/79 (99) 144/64 (90) 144/64 Pulse Ox 98 97 O2 Delivery Room Air Room Air Room Air 11/07/20 11/08/20 11/08/20 11/08/20 23:53 03:33 07:00 08:00 Temp 98.3 98.1 98.4 98.3 98.1 98.4 Pulse 71 75 78 Resp 18 20 20 B/P (MAP) 149/78 (101) 142/73 (96) 115/76 (89) Pulse Ox 99 96 97 O2 Delivery Room Air Room Air Room Air Room Air 11/08/20 11/08/20 11/08/20 11/08/20 08:05 08:06 08:08 10:33 Temp 97.1 97.1 Pulse 78 79 78 75 Resp 20 20 B/P (MAP) 143/69 143/69 143/69 (93) 112/67 (82) Pulse Ox 98 O2 Delivery Room Air Intake and Output 11/07/20 11/07/20 11/08/20 15:00 23:00 07:00 Intake Total 350 ml 300 ml 240 ml Output Total 1550 ml 1550 ml 1200 ml Balance -1200 ml -1250 ml -960 ml Justicifation of Admission Dx: Justifications for Admission: Justification of Admission Dx: Yes KEILA LEVINE MD Nov 08, 2020 11:43
--- NOTE | 2020-11-08 12:05 | NUR ---
SW following. Discussed with RN, insurance denied acute rehab but have approved SNF. HOWARD met with pt (no isolation precautions at the time), he called his daughter whilst SW was present. Family agreeable to SNF, would like referral sent to [facility]. HOWARD phoned and faxed referral, awaiting acceptance decision. Pt is ready to discharge today. HOWARD will continue to follow. Addendum: 11/08/20 at 1507 by ENRIQUE LAWRENCE [facility] declined to take pt for SNU. HOWARD spoke with pt's daughter, she would like referral faxed to [facility]. HOWARD faxed referral - pt will need a COVID test within 72 hours, RN notified. Awaiting acceptance decision. HOWARD awaiting confirmation of reason [facility] declined to take pt.
--- NOTE | 2020-11-08 13:47 | NUR ---
straight cath with return 550 cc yellow urine. no blood noted in urine. bladder scan prior est greater than 619.
--- NOTE | 2020-11-08 21:20 | NUR ---
Patient voided 150mL into bedside commode. Post void residual showed 549mL, performed straight cath and removed 275mL urine.
[2020-11-08] MEDS: POLYVINYL ALCOHOL 1.4% OPHTH SOLUTION 15ML BOTTLE. OU PRN (21:33)
[2020-11-08] MEDS: FAMOTIDINE 20 MG TABLET. PO SCH (21:34)
[2020-11-09 03:07] VITALS: BP 136/64
--- NOTE | 2020-11-09 03:30 | NUR ---
Patient voided 100mL into bedside commode. Post void residual showed 911mL, performed straight cath and removed 675mL urine.
[2020-11-09 07:15] VITALS: BP 144/73
[2020-11-09] MEDS: LACTOBACILLUS RHAMNOSUS GG 1 CAPSULE. PO SCH ×2 (08:58→20:42)
[2020-11-09] MEDS: ASPIRIN ENTERIC COATED 81 MG TABLET.DR. PO SCH (08:58)
[2020-11-09] MEDS: METOPROLOL TART IMMED RELEASE 25 MG TABLET. PO SCH ×2 (08:58→20:41)
[2020-11-09] MEDS: TIMOLOL 0.5% OPHTH SOLUTION 5ML BOTTLE. OU SCH ×2 (09:00→20:47)
[2020-11-09] MEDS: BRIMONIDINE 0.2% OPHTH SOLUTION 5ML BOTTLE. OU SCH ×2 (09:00→20:47)
[2020-11-09] MEDS: POLYVINYL ALCOHOL 1.4% OPHTH SOLUTION 15ML BOTTLE. OU PRN ×2 (09:01→20:47)
[2020-11-09] MEDS: DORZOLAMIDE 2% OPHTH SOLUTION 10ML BOTTLE. OU SCH ×2 (09:01→20:46)
[2020-11-09 09:37] LABS: BASO # 0.1 x10^3/uL (0.0-0.2); BASO % 1 % (0-3); EOS # 0.2 x10^3/uL (0.0-0.7); EOS % 3 % (0-3); HEMATOCRIT 30.8 % (39.0-53.0); HEMOGLOBIN 10.4 g/dL (13.0-17.5); LYMPH # 1.7 x10^3/uL (1.0-4.8); LYMPH % 26 % (24-48); MEAN CORPUSCULAR HEMOGLOBIN 37 pg (25-35); MEAN CORPUSCULAR HGB CONC 34 g/dL (31-37); MEAN CORPUSCULAR VOLUME 109 fL (79-100); MONO # 0.5 x10^3/uL (0.0-1.1); MONO % 9 % (0-9); NEUT # 3.9 x10^3/uL (1.8-7.7); NEUT % 62 % (31-73); PLATELET COUNT 530 x10^3/uL (140-400); RED BLOOD COUNT 2.83 x10^6/uL (4.30-5.70); RED CELL DISTRIBUTION WIDTH 13.4 % (11.5-14.5); WHITE BLOOD COUNT 6.4 x10^3/uL (4.0-11.0)
[2020-11-09 10:02] LABS: CALCIUM 8.6 mg/dL (8.5-10.1); CREATININE 1.1 mg/dL (0.7-1.3); GFR 79.4
--- NOTE | 2020-11-09 10:07 | NUR ---
SW following. Discussed with RN, pt accepted at [facility], pending repeat negative COVID-19 test. Discharge when COVID result is back. SW notified pt's daughter. SW will continue to follow.
[2020-11-09 10:46] LABS: POTASSIUM 3.5 mmol/L (3.5-5.1)
[2020-11-09 11:09] VITALS: BP 143/70
--- NOTE | 2020-11-09 11:10 | PDOC ---
[employer] PROGRESS NOTE Date of Service DOS: DATE: 11/09/20 TIME: 11:07 Chief Complaint Chief Complaint Klebsiella bacteremia Critical illness myopathy, Pyelonephritis with urine culture positive Klebsiella. Septic shock, POA Acute CVA - Small acute infarct within the posterior left occipital lobe, ch ronic left lacunar infarcts in caudate nucleus Status-post prostatectomy Lactic acidosis PERRY Dehydration Rhabdo UTI Demand ischemia Metabolic encephalopathy UTI Fever severe protein malnutrition History of Present Illness History of Present Illness Mr June is a 75-year-old male w/ PMHx glaucoma, prostate cancer status post prostatectomy with neurogenic bladder requiring intermittent self- catheterization who presented to [facility] on 10/[facility]/2020. At home, he had altered mental status and had fallen down to the ground and was unable to get up. Prior to this, he had been in good health. He was found to be hypotensive, tachycardic and febrile. His white count was diminished at 2.9. Influenza screening and COVID testing was negative. Found with Klebsiella UTI and Klebsiella bacteremia as well as an acute left CVA. Consults from critical care, neurology, infectious diseases, cardiology, neurology. 11/01: MRI confirmed CVA 11/03: Transfer today, waiting on insurance, order placed. we discussed colvin removal again, he would prefer to wait, cont other, doing well with PT, 11/04: Complains of eye dryness and pain overnight, he takes sustaine at home, I will try to approximate with Liquifilm 11/05: He feels improved, family here, DC'd colvin finally today after a long discussion. rehab expectation and goals reviewed, 11/06: Transferred from ICU. Still feels extremely weak overall improving. Colvin removed discussed need for bladder scan protocol in intermittent straight cathing to continue on as his urologist previously recommended. QID straight cath scheduled due to continued PVR > 200. He is feeling improved. 11/08/2020 -Patient seen and examined. Patient appears well. -Benji RN. Benji disease case manager rn. -RN reports patient with clot of blood in toilet. Pt unsure if from stool or urine. Will check CBC -Chart reviewed. 11/09/2020: -Patient seen and examined. Doing well today. -Benji RN. Benji disease case manager rn. -HgB and HCT unchanged from previous labs -Pending Covid test for d/c to SNU -Chart reviewed Vitals/I&O Vitals/I&O: Vital Signs Date Time Temp Pulse Resp B/P (MAP) Pulse Ox O2 Delivery O2 Flow Rate FiO2 11/09/20 08:58 78 144/73 11/09/20 07:15 98.4 20 96 Room Air 98.4 11/08/20 19:30 2.0 I & O 11/08/20 11/08/20 11/09/20 15:00 23:00 07:00 Intake Total 120 ml Output Total 550 ml 850 ml 1750 ml Balance -550 ml -850 ml -1630 ml Physical Exam Physical Exam: GENERAL: axox3 male HEENT: Normocephalic, atraumatic, anicteric. NECK: Supple, no JVD. Right IJ and dialysis catheter in place LUNGS: Clear bilaterally. No wheezing. HEART: S1, S2, no murmurs. ABDOMEN: Soft, nontender, nondistended, no rebound, no guarding. EXTREMITIES: No edema, no cyanosis. DERMATOLOGIC: Warm and dry. No generalized rash. NEUROLOGIC: alert awake PSYCHIATRIC: calm cooperative General: Alert, Oriented X3, No acute distress Heart: Regular rate Lungs: Clear Abdomen: Normal bowel sounds, Soft Extremities: No edema Skin: No breakdown Labs Labs: Laboratory Tests Test 11/09/20 08:50 White Blood Count 6.4 x10^3/uL (4.0-11.0) Red Blood Count 2.83 x10^6/uL (4.30-5.70) Hemoglobin 10.4 g/dL (13.0-17.5) Hematocrit 30.8 % (39.0-53.0) Mean Corpuscular Volume 109 fL (79-100) Mean Corpuscular Hemoglobin 37 pg (25-35) Mean Corpuscular Hemoglobin Concent 34 g/dL (31-37) Red Cell Distribution Width 13.4 % (11.5-14.5) Platelet Count 530 x10^3/uL (140-400) Neutrophils (%) (Auto) 62 % (31-73) Lymphocytes (%) (Auto) 26 % (24-48) Monocytes (%) (Auto) 9 % (0-9) Eosinophils (%) (Auto) 3 % (0-3) Basophils (%) (Auto) 1 % (0-3) Neutrophils # (Auto) 3.9 x10^3/uL (1.8-7.7) Lymphocytes # (Auto) 1.7 x10^3/uL (1.0-4.8) Monocytes # (Auto) 0.5 x10^3/uL (0.0-1.1) Eosinophils # (Auto) 0.2 x10^3/uL (0.0-0.7) Basophils # (Auto) 0.1 x10^3/uL (0.0-0.2) Sodium Level 145 mmol/L (136-145) Potassium Level 3.5 mmol/L (3.5-5.1) Chloride Level 109 mmol/L (98-107) Carbon Dioxide Level 26 mmol/L (21-32) Anion Gap 10 (6-14) Blood Urea Nitrogen 22 mg/dL (8-26) Creatinine 1.1 mg/dL (0.7-1.3) Estimated GFR (Cockcroft-Gault) 79.4 Glucose Level 137 mg/dL (70-99) Calcium Level 8.6 mg/dL (8.5-10.1) Review of Systems Review of Systems: Denies SOB. Denies CP. Assessment and Plan Assessmemt and Plan Problems Medical Problems: (1) Acute renal failure Status: Acute (2) Dehydration Status: Acute (3) Person under investigation for COVID-19 Status: Acute (4) Rhabdomyolysis Status: Acute (5) Septic shock Status: Acute (6) UTI (urinary tract infection) Status: Acute Klebsiella bacteremia Critical illness myopathy, Pyelonephritis with urine culture positive Klebsiella. Septic shock, POA Acute CVA - Small acute infarct within the posterior left occipital lobe, chronic left lacunar infarcts in caudate nucleus Status-post prostatectomy Lactic acidosis PERRY Dehydration Rhabdo UTI Demand ischemia Metabolic encephalopathy UTI Fever severe protein malnutrition 11/09/2020: Plan 1. Probable d/c to SNU if Covid negative. If positive, continue the following 2. PT/OT 3. Trend labs 4. Full code 5. Home meds 6. DVT prophylaxis Comment Review of Relevant I have reviewed the following items mendez (where applicable) has been applied. Justifications for Admission General Conditions Poss tachycardia?: Yes Justification for admission: Patient has tachycardia (> 100 beats per minute) which is not readily corrected by appropriate treatment within 12 to 24 hours. SEPTIC SHOCK Other Justification ROGER GRACE III DO Nov 09, 2020 11:10
[2020-11-09 14:54] VITALS: BP 109/56
[2020-11-09 19:00] VITALS: BP 126/60
[2020-11-09] MEDS: FAMOTIDINE 20 MG TABLET. PO SCH (20:42)
[2020-11-09] MEDS: LATANOPROST 0.005% OPHTH SOLUTION 2.5ML BOTTLE. OU SCH (20:46)
[2020-11-09] MEDS: ACETAMINOPHEN 325 MG TABLET. PO PRN (20:53)
--- NOTE | 2020-11-09 21:30 | NUR ---
Patient was unable to void prior to bladder scan. Bladder scan showed 335mL of urine, performed straight cath and removed 300mL urine.
[2020-11-09 23:10] VITALS: BP 132/70
[2020-11-10 03:04] VITALS: BP 132/73
--- NOTE | 2020-11-10 04:30 | NUR ---
Patient voided 25mL in bedside commode, Bladder scan showed 734mL of urine, performed straight cath and removed 800mL urine.
[2020-11-10 07:08] LABS: BASO # 0.1 x10^3/uL (0.0-0.2); BASO % 1 % (0-3); EOS # 0.2 x10^3/uL (0.0-0.7); EOS % 3 % (0-3); HEMATOCRIT 27.9 % (39.0-53.0); HEMOGLOBIN 9.5 g/dL (13.0-17.5); LYMPH % 34 % (24-48); MEAN CORPUSCULAR HEMOGLOBIN 37 pg (25-35); MEAN CORPUSCULAR HGB CONC 34 g/dL (31-37); MEAN CORPUSCULAR VOLUME 108 fL (79-100); MONO # 0.7 x10^3/uL (0.0-1.1); MONO % 12 % (0-9); NEUT # 2.9 x10^3/uL (1.8-7.7); NEUT % 49 % (31-73); PLATELET COUNT 451 x10^3/uL (140-400); RED BLOOD COUNT 2.57 x10^6/uL (4.30-5.70); RED CELL DISTRIBUTION WIDTH 13.3 % (11.5-14.5); WHITE BLOOD COUNT 5.9 x10^3/uL (4.0-11.0)
[2020-11-10 07:15] VITALS: BP 136/74
[2020-11-10 07:27] LABS: CALCIUM 8.2 mg/dL (8.5-10.1); CREATININE 1.1 mg/dL (0.7-1.3); GFR 79.4; POTASSIUM 4.1 mmol/L (3.5-5.1)
[2020-11-10] MEDS: LACTOBACILLUS RHAMNOSUS GG 1 CAPSULE. PO SCH (09:12)
[2020-11-10] MEDS: ASPIRIN ENTERIC COATED 81 MG TABLET.DR. PO SCH (09:12)
[2020-11-10] MEDS: DORZOLAMIDE 2% OPHTH SOLUTION 10ML BOTTLE. OU SCH (09:12)
[2020-11-10] MEDS: METOPROLOL TART IMMED RELEASE 25 MG TABLET. PO SCH (09:12)
[2020-11-10] MEDS: TIMOLOL 0.5% OPHTH SOLUTION 5ML BOTTLE. OU SCH (09:13)
[2020-11-10] MEDS: BRIMONIDINE 0.2% OPHTH SOLUTION 5ML BOTTLE. OU SCH (09:13)
--- NOTE | 2020-11-10 09:15 | PDOC ---
[employer] PROGRESS NOTE Date of Service DOS: DATE: 11/10/20 TIME: 09:10 Chief Complaint Chief Complaint Klebsiella bacteremia Critical illness myopathy, Pyelonephritis with urine culture positive Klebsiella. Septic shock, POA Acute CVA - Small acute infarct within the posterior left occipital lobe, ch ronic left lacunar infarcts in caudate nucleus Status-post prostatectomy Lactic acidosis PERRY Dehydration Rhabdo UTI Demand ischemia Metabolic encephalopathy UTI Fever severe protein malnutrition History of Present Illness History of Present Illness Mr June is a 75-year-old male w/ PMHx glaucoma, prostate cancer status post prostatectomy with neurogenic bladder requiring intermittent self- catheterization who presented to [facility] on 10/27/2020. At home, he had altered mental status and had fallen down to the ground and was unable to get up. Prior to this, he had been in good health. He was found to be hypotensive, tachycardic and febrile. His white count was diminished at 2.9. Influenza screening and COVID testing was negative. Found with Klebsiella UTI and Klebsiella bacteremia as well as an acute left CVA. Consults from critical care, neurology, infectious diseases, cardiology, neurology. 11/01: MRI confirmed CVA 11/03: Transfer today, waiting on insurance, order placed. we discussed colvin removal again, he would prefer to wait, cont other, doing well with PT, 11/04: Complains of eye dryness and pain overnight, he takes sustaine at home, I will try to approximate with Liquifilm 11/05: He feels improved, family here, DC'd colvin finally today after a long discussion. rehab expectation and goals reviewed, 11/06: Transferred from ICU. Still feels extremely weak overall improving. Colvin removed discussed need for bladder scan protocol in intermittent straight cathing to continue on as his urologist previously recommended. QID straight cath scheduled due to continued PVR > 200. He is feeling improved. 11/08/2020 -Patient seen and examined. Patient appears well. -Benji RN. Benji dependency case manager. -RN reports patient with clot of blood in toilet. Pt unsure if from stool or urine. Will check CBC -Chart reviewed. 11/09/2020: -Patient seen and examined. Doing well today. -Benji RN. Benji dependency case manager. -HgB and HCT unchanged from previous labs -Pending Covid test for d/c to SNU -Chart reviewed 11/10/2020: -Patient seen and examined. Pt at baseline -Benji RN. -Pending Covid test for d/c to SNU -Chart reviewed - discussed d/c to SNU with pt Vitals/I&O Vitals/I&O: Vital Signs Date Time Temp Pulse Resp B/P (MAP) Pulse Ox O2 Delivery O2 Flow Rate FiO2 11/10/20 07:15 98.1 70 18 136/74 (94) 99 Room Air 98.1 I & O 11/09/20 11/09/20 11/10/20 15:00 23:00 07:00 Intake Total 560 ml 120 ml Output Total 1300 ml 300 ml 1125 ml Balance -740 ml -180 ml -1125 ml Physical Exam Physical Exam: GENERAL: axox3 male HEENT: Normocephalic, atraumatic, anicteric. NECK: Supple, no JVD. Right IJ and dialysis catheter in place LUNGS: Clear bilaterally. No wheezing. HEART: S1, S2, no murmurs. ABDOMEN: Soft, nontender, nondistended, no rebound, no guarding. EXTREMITIES: No edema, no cyanosis. DERMATOLOGIC: Warm and dry. No generalized rash. NEUROLOGIC: alert awake PSYCHIATRIC: calm cooperative General: Alert, Oriented X3, No acute distress Heart: Regular rate, No murmurs Lungs: Clear Abdomen: Normal bowel sounds, Soft Extremities: No edema Skin: No breakdown Labs Labs: Laboratory Tests Test 11/10/20 06:10 11/10/20 06:50 Sodium Level 145 mmol/L (136-145) Potassium Level 4.1 mmol/L (3.5-5.1) Chloride Level 110 mmol/L (98-107) Carbon Dioxide Level 27 mmol/L (21-32) Anion Gap 8 (6-14) Blood Urea Nitrogen 24 mg/dL (8-26) Creatinine 1.1 mg/dL (0.7-1.3) Estimated GFR (Cockcroft-Gault) 79.4 Glucose Level 90 mg/dL (70-99) Calcium Level 8.2 mg/dL (8.5-10.1) White Blood Count 5.9 x10^3/uL (4.0-11.0) Red Blood Count 2.57 x10^6/uL (4.30-5.70) Hemoglobin 9.5 g/dL (13.0-17.5) Hematocrit 27.9 % (39.0-53.0) Mean Corpuscular Volume 108 fL (79-100) Mean Corpuscular Hemoglobin 37 pg (25-35) Mean Corpuscular Hemoglobin Concent 34 g/dL (31-37) Red Cell Distribution Width 13.3 % (11.5-14.5) Platelet Count 451 x10^3/uL (140-400) Neutrophils (%) (Auto) 49 % (31-73) Lymphocytes (%) (Auto) 34 % (24-48) Monocytes (%) (Auto) 12 % (0-9) Eosinophils (%) (Auto) 3 % (0-3) Basophils (%) (Auto) 1 % (0-3) Neutrophils # (Auto) 2.9 x10^3/uL (1.8-7.7) Lymphocytes # (Auto) 2.0 x10^3/uL (1.0-4.8) Monocytes # (Auto) 0.7 x10^3/uL (0.0-1.1) Eosinophils # (Auto) 0.2 x10^3/uL (0.0-0.7) Basophils # (Auto) 0.1 x10^3/uL (0.0-0.2) Review of Systems Review of Systems: pt denies ZUNIGA or changes in vision pt denies NV Assessment and Plan Assessmemt and Plan Problems Medical Problems: (1) Acute renal failure Status: Acute (2) Dehydration Status: Acute (3) Person under investigation for COVID-19 Status: Acute (4) Rhabdomyolysis Status: Acute (5) Septic shock Status: Acute (6) UTI (urinary tract infection) Status: Acute Assessment Klebsiella bacteremia Critical illness myopathy, Pyelonephritis with urine culture positive Klebsiella. Septic shock, POA Acute CVA - Small acute infarct within the posterior left occipital lobe, chronic left lacunar infarcts in caudate nucleus Status-post prostatectomy Lactic acidosis PERRY Dehydration Rhabdo UTI Demand ischemia Metabolic encephalopathy UTI Fever severe protein malnutrition Plan -probable d/c to SNU tomorrow -trend labs -await COVID results Comment Review of Relevant I have reviewed the following items mendez (where applicable) has been applied. Justifications for Admission General Conditions Poss tachycardia?: Yes Justification for admission: Patient has tachycardia (> 100 beats per minute) which is not readily corrected by appropriate treatment within 12 to 24 hours. SEPTIC SHOCK Other Justification ROGER GRACE III DO Nov 10, 2020 09:15
[2020-11-10 11:07] VITALS: BP 113/60
[2020-11-10 15:10] VITALS: BP 144/71
--- NOTE | 2020-11-10 15:53 | NUR ---
Enrico was picked up by transportation at 1340 [facility] and banadaged his nexk, called report at 1230. Ezekiel Howard RN
== END 2020-11-10 18:57 | DRG 871 ==
LOC: ER 05:59 → 1 WEST ICU 08:01 → 2 NORTH 10-30 23:39 → 4 NORTH 11-05 16:30
PROVIDERS: ADMIT Family Medicine; ATTEND Family Medicine
PROC: 02HV33Z Insertion of Infusion Device into Superior Vena Cava, Percutaneous Approach (ICD-10-PCS; principal; 2020-10-28)
PROC: B548ZZA Ultrasonography of Superior Vena Cava, Guidance (ICD-10-PCS; 2020-10-28)
PROC: 5A1D70Z Performance of Urinary Filtration, Intermittent, Less than 6 Hours Per Day (ICD-10-PCS; 2020-10-28)
PROC: 5A1D70Z Performance of Urinary Filtration, Intermittent, Less than 6 Hours Per Day (ICD-10-PCS; 2020-10-30)
DX: A41.50 Gram-negative sepsis, unspecified (principal); E43 Unspecified severe protein-calorie malnutrition; G93.41 Metabolic encephalopathy; I21.4 Non-ST elevation (NSTEMI) myocardial infarction; I63.81 Other cerebral infarction due to occlusion or stenosis of small artery; J96.21 Acute and chronic respiratory failure with hypoxia; J96.22 Acute and chronic respiratory failure with hypercapnia; N17.0 Acute kidney failure with tubular necrosis; N18.6 End stage renal disease; R65.21 Severe sepsis with septic shock; D68.9 Coagulation defect, unspecified; E87.0 Hyperosmolality and hypernatremia; E87.2 Acidosis; G72.81 Critical illness myopathy; I12.0 Hypertensive chronic kidney disease with stage 5 chronic kidney disease or end stage renal disease; N12 Tubulo-interstitial nephritis, not specified as acute or chronic; E87.1 Hypo-osmolality and hyponatremia; B96.1 Klebsiella pneumoniae [K. pneumoniae] as the cause of diseases classified elsewhere; D75.89 Other specified diseases of blood and blood-forming organs; Z68.24 Body mass index [BMI] 24.0-24.9, adult; E86.0 Dehydration; I44.7 Left bundle-branch block, unspecified; I73.9 Peripheral vascular disease, unspecified; K59.00 Constipation, unspecified; H40.9 Unspecified glaucoma; R94.5 Abnormal results of liver function studies; K80.20 Calculus of gallbladder without cholecystitis without obstruction; M19.90 Unspecified osteoarthritis, unspecified site; N40.0 Benign prostatic hyperplasia without lower urinary tract symptoms; Z20.822 Contact with and (suspected) exposure to COVID-19; Z82.49 Family history of ischemic heart disease and other diseases of the circulatory system; Z85.46 Personal history of malignant neoplasm of prostate; Z86.73 Personal history of transient ischemic attack (TIA), and cerebral infarction without residual deficits; Z90.79 Acquired absence of other genital organ(s); Z96.653 Presence of artificial knee joint, bilateral; Z99.2 Dependence on renal dialysis
CPT/HCPCS: 36415; 36556; 36600; 51702; 51798; 70450; 70551; 71045; 72125; 73562; 74176; 76937; 80048; 80053; 80061; 80307; 81001; 82140; 82550; 82805; 83605; 83690; 83735; 84100; 84145; 84443; 84484; 85007; 85025; 85027; 85379; 85384; 85520; 85610; 85730; 86317; 87040; 87077; 87086; 87186; 87205; 87340; 87804; 93005; 93306; 93880; 96361; 96365; 96368; A4215; C1892; J0696; J1644; J2543; J3475; J3490; J7030; J7060; U0003; 97110-GO; 97110-GP; 97116-GP; 97530-GO; 97530-GP; 97535-GO; 99291-25; G0378